=== PATIENT | female | born 1940 | race Caucasian/White ===

== ENCOUNTER 2020-05-12 09:23 | Outpatient (REF) | payer MEDICARE, SELFPAY ==
--- NOTE | 2020-05-12 09:32 | XR_ITS ---
EXAMINATION: XR CHEST CLINICAL INFORMATION: Pleural effusion not elsewhere classified. COMPARISON: 03/13/2020 chest radiograph. TECHNIQUE: 2 views of the chest were obtained. FINDINGS: Support devices: Again seen is a right lower lung chest tube with tip pointing inferiorly at the right lung base without significant change. There is a persistent moderate-sized right pleural effusion with superjacent markings without significant change. A small left pleural effusion with loculation inferolaterally is not significant change. No definitive pneumothorax is seen. The cardiomediastinal silhouette is not significantly changed. XR/XR chest 2V IMPRESSION: Moderate right and small left pleural effusions without significant interval change.
== END 2020-05-12 09:24 | disposition home or self-care (01) ==
LOC: HO.XRAY 09:23
PROVIDERS: PCP Internal Medicine; Visit Provider Surgery
DX: J90 Pleural effusion, not elsewhere classified (principal); I50.9 Heart failure, unspecified
CPT/HCPCS: 71046

== ENCOUNTER → 2020-05-29 09:24 | Outpatient (BNVA) | payer MEDICARE, SELFPAY | PROVIDERS: PCP Internal Medicine; Referring Provider Internal Medicine; Visit Provider Internal Medicine Cardiovascular Disease | DX: I50.30 Unspecified diastolic (congestive) heart failure (principal); I27.20 Pulmonary hypertension, unspecified; I48.0 Paroxysmal atrial fibrillation; Z79.01 Long term (current) use of anticoagulants; Z95.2 Presence of prosthetic heart valve; Z45.018 Encounter for adjustment and management of other part of cardiac pacemaker | CPT/HCPCS: 99212 ==

== ENCOUNTER 2020-06-16 10:46 | Outpatient (REF) | payer MEDICARE, SELFPAY ==
--- NOTE | 2020-06-16 10:54 | XR_ITS ---
EXAMINATION: XR CHEST CLINICAL INFORMATION: Follow-up pleural effusion. COMPARISON: Chest 05/12/2020 TECHNIQUE: 2 views of the chest were obtained. FINDINGS: There is a loculated moderate right pleural effusion and there is tiny left pleural effusion with mild blunting of left CP angle. There is bibasilar haziness likely atelectasis more so on the right side. The upper lungs are relatively clear. There is mild right apical pleural thickening likely extension of pleural effusion on upright view. The heart size and great vessels are normal caliber. There are pacer electrodes in right atrium and right ventricle. There is aortic valve stent in place. There are median anatomy sutures from previous intervention. No gross bony abnormality seen. There is a right Pleurx catheter at the right lung base. XR/XR chest 2V IMPRESSION: Moderate loculated right pleural effusion with a Pleurx catheter within. There is a small left pleural effusion. There is bibasilar compressive atelectasis more so on the right. The upper lungs are clear. Pacer electrodes in right atrium and right ventricle. No major change from chest x-ray 05/12/2020.
== END 2020-06-16 10:47 | disposition home or self-care (01) ==
LOC: HO.XRAY 10:46
PROVIDERS: PCP Internal Medicine; Visit Provider Surgery
DX: J90 Pleural effusion, not elsewhere classified (principal); Z96.89 Presence of other specified functional implants
CPT/HCPCS: 71046; 99214

== ENCOUNTER 2020-07-21 09:25 | Outpatient (REF) | payer MEDICARE, SELFPAY ==
[2020-07-21 10:17] LABS: MANUAL DIFF FLAG NO
[2020-07-21 10:23] LABS: Basophils Absolute Auto 0.1 X10*3/uL (0.0-0.2); Basophils Percent Auto 0.9 % (0-2); Eosinophils Absolute Auto 0.2 X10*3/uL (0.0-0.4); Eosinophils Percent Auto 3.1 % (0-4); Hematocrit 35.8 % (37-47); Imm Gran Abs Auto 0.03 X10*3/uL (0.00-0.03); Imm Gran Pct Auto 0.5 % (0.0-0.4); Mean Corpuscular HGB Conc 30.7 g/dl (31.0-35.0); Mean Corpuscular Volume 87.7 fL (80-98); Mean Platelet Volume 10.4 fL (9.4-12.3); Monocytes Absolute Auto 0.7 X10*3/uL (0.1-1.2); Monocytes Percent Auto 10.4 % (2-11); Neutrophils Absolute Auto 4.5 X10*3/uL (2.0-8.3); Neutrophils Percent Auto 69.1 % (45-73); Platelet Count 256 X10*3/uL (160-400); Red Blood Count 4.08 X10*6/uL (4.20-5.50); Red Cell Distribution Width 15.9 % (11.0-16.0); White Blood Count 6.5 X10*3/uL (4.8-10.8)
--- NOTE | 2020-07-21 10:53 | XR_ITS ---
EXAMINATION: XR CHEST CLINICAL INFORMATION: Follow-up chest were COMPARISON: Chest 06/16/2020 TECHNIQUE: 2 views of the chest were obtained. FINDINGS: The lungs are expanded with moderate opacity seen in the right lung base likely combination of loculated effusion/atelectasis. There is a right Pleurx catheter at the base unchanged. There is mild right apical pleural thickening or effusion. Slight decreased right lung volume is seen. The left lung is expanded and clear with slight blunting of left CP angle. Heart size and pulmonary vascularity is normal. There are median sternotomy sutures and aortic valve replacement. Dual electrodes are seen in right atrium and right ventricle. No gross bony abnormality seen. XR/XR chest 2V IMPRESSION: Persistent loculated right pleural effusion with underlying atelectasis. Right Pleurx catheter is stable and unchanged. Minimal blunting of left CP angle, stable. No change in pacer electrodes, aortic stent and median sternotomy sutures.
[2020-07-21 10:57] LABS: Alanine Aminotransferase 10 U/L (0-31); Albumin Level 3.8 g/dL (3.5-5.0); Alkaline Phosphatase 66 U/L (39-117); Anion Gap 13 (12-20); Aspartate Amino Transferase 21 U/L (5-31); Bilirubin Total 0.7 mg/dL (0.0-1.0); Blood Urea Nitrogen 34 mg/dL (9-16); Calcium 9.3 mg/dL (8.4-10.2); Carbon Dioxide 31 mmol/L (22-29); Chloride 96 mmol/L (96-108); Cholesterol 141 mg/dL; Estimated Glomerular Filt Rate 36; Glucose Fasting 98 mg/dL (60-99); HDL Cholesterol 49 mg/dL; LDL Cholesterol Calculated 80 mg/dl; Potassium 3.7 mmol/l (3.3-5.1); Sodium 136 mmol/L (135-145); Total Protein 7.8 g/dL (6.5-8.0); Triglycerides 60 mg/dL
[2020-07-21 11:01] LABS: Glucose Urine UA NEG (NEG); Leukocyte Esterase Urine NEG (NEG); Nitrite Urine NEG (NEG); Urine Blood NEG (NEG); Urine Ketones NEG (NEG); Urine Protein NEG (NEG-TRACE)
[2020-07-21 11:09] LABS: Appearance Urine HAZY; Color Urine YELLOW
[2020-07-21 11:20] LABS: Free T4 (Free Thyroxine) 1.34 ng/dL (0.71-1.85); Thyroid Stimulating Hormone 0.73 uIU/mL (0.32-4.0); Vitamin D 25-OH Total 66.9 ng/mL (>30)
[2020-07-21 11:26] LABS: Folate 11.3 ng/mL (> or = 4.0); Vitamin B12 299 pg/mL (200-900)
[2020-07-21 11:52] LABS: Bacteria Urine TRACE /LPF; Mucus Urine TRACE /LPF; Squamous Epithelial Cell Urine TRACE /LPF; UACC CULT YES
== END 2020-07-21 09:26 | disposition home or self-care (01) ==
LOC: HO.10HDL 09:25
PROVIDERS: Absent Provider Surgery; PCP Internal Medicine; Visit Provider Internal Medicine
DX: J90 Pleural effusion, not elsewhere classified (principal); Z96.89 Presence of other specified functional implants; I12.9 Hypertensive chronic kidney disease with stage 1 through stage 4 chronic kidney disease, or unspecified chronic kidney disease; N18.30 Chronic kidney disease, stage 3 unspecified; E78.5 Hyperlipidemia, unspecified; E03.9 Hypothyroidism, unspecified; I48.0 Paroxysmal atrial fibrillation; G62.9 Polyneuropathy, unspecified; Q25.3 Supravalvular aortic stenosis; D64.9 Anemia, unspecified; M81.0 Age-related osteoporosis without current pathological fracture; E55.9 Vitamin D deficiency, unspecified
CPT/HCPCS: 36415; 71046; 80053; 80061; 81001; 82306; 82607; 82746; 84439; 84443; 85025; 87086; 99214

== ENCOUNTER 2020-08-04 10:37 | Outpatient (REF) | payer MEDICARE, SELFPAY ==
--- NOTE | 2020-08-04 10:42 | XR_ITS ---
EXAMINATION: XR CHEST CLINICAL INFORMATION: Right pleural effusion COMPARISON: Previous chest x-rays most recent 07/21/2020 TECHNIQUE: 2 views of the chest were obtained. FINDINGS: The cardiac and mediastinal contours are stable. There is a aortic valve replacement and right subclavian dual chamber pacemaker that appear unchanged. There are median sternotomy wires. Hilar and mediastinal contours are unremarkable. There is a right tunneled chest tube at the right lung base that appears unchanged. There is a small right pleural effusion and atelectasis/consolidation of the adjacent right lower lobe. No pneumothorax is seen. The lungs are well-inflated suggestive of COPD. The lungs are otherwise clear. There is blunting at the left lateral costophrenic angle questionable for small left pleural effusion or pleural thickening. This is unchanged. There are degenerative changes of the spine. XR/XR chest 2V IMPRESSION: Stable position of right tunneled chest tube. Small right pleural effusion and adjacent atelectasis/consolidation of the right lower lung. This appears unchanged from earlier exam July 2020
== END 2020-08-04 10:38 | disposition home or self-care (01) ==
LOC: HO.XRAY 10:37
PROVIDERS: PCP Internal Medicine; Visit Provider Surgery
DX: I27.20 Pulmonary hypertension, unspecified (principal); J90 Pleural effusion, not elsewhere classified; Z88.6 Allergy status to analgesic agent; Z87.891 Personal history of nicotine dependence; Z95.2 Presence of prosthetic heart valve; Z96.89 Presence of other specified functional implants; Z79.899 Other long term (current) drug therapy
CPT/HCPCS: 71046; 99214

== ENCOUNTER 2020-08-09 10:27 | Emergency (ER) | payer MEDICARE, SELFPAY ==
--- NOTE | 2020-08-09 | XR_ITS ---
EXAMINATION: LEFT HAND. CLINICAL INFORMATION: Swelling. COMPARISON: None TECHNIQUE: 3 views. FINDINGS: There is no acute fracture, dislocation or subluxation. There is mild to moderate loss of first carpometacarpal joint space, periarticular spurring and mild subluxation. Mild loss of PIP and DIP joints of all digits is noted. Mild deformity of the distal end the appendectomy joint second digit is noted, question erosive changes versus previous intervention. There is mild PIP and DIP joints. There is diffuse osteopenia with diffuse hand and finger soft tissue swelling. XR/XR hand wrist LT IMPRESSION: Severe degenerative arthritic changes first carpometacarpal joint with mild subluxation. There is mild degenerative changes PIP and DIP joints. Moderate dorsal hand and mild finger soft tissue swelling at the PIP and DIP joints. Mild bony erosive changes versus deformity distal mid phalanx at the DIP joint second digit
[2020-08-09 10:36] VITALS: BP 142/67; PULSE 88; RESP 18; TEMP 36.8; O2SAT 94; BMI 19.1
--- NOTE | 2020-08-09 11:10 | ED.EXTPRO ---
HPI - Extremity Problem General Chief complaint: Extremity Problem <MARILYN Reddy Last Filed: 08/09/20 14:09> Stated complaint: swollen lt hand <MARILYN Reddy Last Filed: 08/09/20 14:09> Time Seen by Provider: 08/09/20 11:08 <MARILYN Reddy Last Filed: 08/09/20 14:09> Source: patient <MARILYN Reddy Last Filed: 08/09/20 14:09> Mode of arrival: ambulatory <MARILYN Reddy Last Filed: 08/09/20 14:09> Limitations: no limitations <MARILYN Reddy Last Filed: 08/09/20 14:09> History of Present Illness HPI Narrative: 79 y/o female with multiple co-morbidities including afib on Eliquis, HTN, HLD, CKD III, complete heart block s/p PPM, s/p AV replacement, pulmonary HTN, HFpEF, hx pleural effusion s/p PleurEx catheter with removal on 08/04 who is presenting with painful, swollen, red left hand for the last 1 week. She denies any trauma. She states the pain and swelling started in her thumb 1 week ago and then spread to her hand, fingers and then wrist. She is unable to use her left hand due to the pain. She denies fever or chills at home. She has a history of cellulitis 2 years ago per her . <MARILYN Reddy - Last Filed: 08/09/20 14:09> MD Complaint: extremity pain and extremity swelling <MARILYN Reddy Last Filed: 08/09/20 14:09> Pain Consistency: constant <MARILYN Reddy Last Filed: 08/09/20 14:09> Location: left and upper extremity <MARILYN Reddy Last Filed: 08/09/20 14:09> Quality: aching <MARILYN Reddy Last Filed: 08/09/20 14:09> Radiation: none <MARILYN Reddy Last Filed: 08/09/20 14:09> Relieving factors: immobilization <MARILYN Reddy Last Filed: 08/09/20 14:09> Exacerbating factors: range of motion and palpation <MARILYN Reddy - Last Filed: 08/09/20 14:09> Associated symptoms: denies other symptoms <MARILYN Reddy - Last Filed: 08/09/20 14:09> Related Data Home medications: Home Medications Medication Instructions Recorded Confirmed amlodipine 2.5 mg tablet 2.5 mg PO DAILY 05/11/20 08/06/20 apixaban 2.5 mg tablet 2.5 mg PO BID 05/11/20 08/06/20 ferrous sulfate 325 mg (65 mg 325 mg PO DAILY 05/11/20 08/06/20 iron) tablet levothyroxine 100 mcg tablet 100 mcg PO DAILY 05/11/20 08/06/20 meclizine 25 mg tablet 25 mg PO DAILY 05/11/20 08/06/20 raloxifene 60 mg tablet 60 mg PO DAILY 05/11/20 08/06/20 simvastatin 10 mg tablet 10 mg PO BEDTIME 05/11/20 08/06/20 spironolactone 25 mg tablet 12.5 mg PO DAILY tab 06/16/20 08/06/20 Previous Rx's Medication Instructions Recorded lorazepam 1 mg tablet 1 mg PO BID PRN 90 Days #180 tab 06/27/20 furosemide 40 mg tablet 40 mg PO BID #180 tab 07/20/20 metoprolol succinate 100 mg 100 mg PO DAILY #90 tab 07/21/20 tablet,extended release 24 hr cephalexin [Keflex] 500 mg PO TID #21 cap 08/09/20 doxycycline monohydrate 100 mg PO BID #14 cap 08/09/20 <MARILYN Reddy - Last Filed: 08/09/20 14:09> Allergies/Adverse reactions: Allergies Allergy/AdvReac Type Severity Reaction Status Date / Time codeine [CODEINE] Allergy Unknown RASH Verified 08/06/20 21:58 meperidine [From Demerol] Allergy Unknown Verified 08/06/20 21:58 <MARILYN Reddy - Last Filed: 08/09/20 14:09> Review of Systems Review of Systems: Constitutional: No Fever, No Chills Cardiovascular: No Chest Pain, No SOB, No Orthopnea, No Edema Respiratory: No Cough, No Sputum, No Wheezing, No dyspnea Gastrointestinal: No Nausea, No Vomiting, No Diarrhea, No abdominal Pain Musculoskeletal: + joint pain, No Myalgias Skin: No Skin Lesions, No rash Neuro: + Weakness, No Numbness, No Dizziness, No Headache Psych: No Anxiety/Panic, No Depression Heme/Lymph: No Bruising, No Lymphadenopathy <MARILYN Reddy - Last Filed: 08/09/20 14:09> [facility] Past Medical History Medical History: Medical History (HFpEF) heart failure with preserved ejection fraction Anemia Anxiety Aortic stenosis Benign essential hypertension Cardiac pacemaker in situ Chronic kidney disease (CKD), stage III (moderate) Complete heart block GI bleed H/O: HTN (hypertension) Hyperlipidemia Hypothyroidism Leg edema Neuropathy Osteoporosis Paroxysmal A-fib Paroxysmal atrial fibrillation Pulmonary hypertension Pure hypercholesterolemia Sensorineural hearing loss Tobacco abuse, in remission Tricuspid regurgitation Vitamin D deficiency <MARILYN Reddy - Last Filed: 08/09/20 14:09> Surgical History: Surgical History History of thoracentesis Hx of aortic valve repair Hx of hysterectomy Hx of mastectomy S/P AVR <MARILYN Reddy - Last Filed: 08/09/20 14:09> Family History Family History: Family History Father No problems noted. Mother No problems noted. Sister Diabetes Cancer <MARILYN Reddy - Last Filed: 08/09/20 14:09> Social History Social History: Social History Alcohol intake: never Smoking Status: Former smoker Smoked in Last 30 Days: No Use of substances other than those prescribed or required for medical reasons: No Advance Directives: No Advance Directives Information Provided: Yes <MARILYN Reddy - Last Filed: 08/09/20 14:09> Physical Exam Vital Signs: Vital Signs: Last Vital Signs Temp 98.2 F 08/09/20 10:36 Pulse 88 08/09/20 10:36 Resp 18 08/09/20 10:36 BP 142/67 H 08/09/20 10:36 Pulse Ox 94 08/09/20 10:36 Body Mass Index 19.1 Appearance: Alert. Oriented X3. No acute distress. HEENT: normal inspection CVS: Normal heart rate and rhythm. Pulses normal. Respiratory: No respiratory distress. Skin: Skin warm and dry. Normal skin color. Normal skin turgor. No rashes. Extremities: left hand and wrist with warmth, swelling, erythema and tenderness throughout. she is able to move her wrist but with discomfort. her fingers are swollen and tender, able to move then but with discomfort. 2+ radial pulse. distended toruous superficial veins on the dorsal lower forearm. Neuro: Oriented X 3. No sensory deficit. Left hand with weak hand grasp due to pain. <MARILYN Reddy - Last Filed: 08/09/20 14:09> Vital Signs: Last Vital Signs Temp 98.2 F 08/09/20 10:36 Pulse 88 08/09/20 10:36 Resp 18 08/09/20 10:36 BP 142/67 H 08/09/20 10:36 Pulse Ox 94 08/09/20 10:36 Body Mass Index 19.1 <Rich Anderson MD - Last Filed: 08/09/20 11:57> Course Course Course Narrative: 79 y/o female with multiple comorbdiites presenting with non-traumatic left hand pain, swelling and warmth x1 week. Concern for cellulitis. Doubt septic arthritis given exam with only mild discomfort on ROM. Afebrile and not septic. Will r/o DVT with U/S. Will get basic lab work and give dose of Ancef while in the ED. Family and patient updated on plan of care. <MARILYN Reddy - Last Filed: 08/09/20 14:09> I agree with the history. My physical exam is very thin female, normal cephalic, PERRL, EOMI, normal pharynx, supple neck, lungs clear, CV RRR, abdomen nontender, Neuro intact and nonfocal, psychiatric at baseline, left hand is hot and erythematous, arm veins very distended. Will treat for cellulitis and obtain US to rule out subclavian DVT <Rich Anderson MD - Last Filed: 08/09/20 11:57> Reevaluation(s) Reevaluation #1: Lab workup unremarkable. US negative for DVT. XR showing arthritic changes. Comfortable with d/c home with oral abx and follow up with her doctor early next week. Told to return to the ER if anything worsens and she expressed understanding. <MARILYN Reddy - Last Filed: 08/09/20 14:09> MDM - Extremity (Nontraumatic) Lab Data Result diagrams: : 08/09/20 12:13 08/09/20 12:13 <MARILYN Reddy - Last Filed: 08/09/20 14:09> Labs: Lab Results 08/09/20 08/09/20 Range/Units 12:13 12:13 WBC 9.1 (4.8-10.8) X10*3/uL RBC 3.84 L (4.20-5.50) X10*6/uL Hgb 10.6 L (12.0-16.0) g/dl Hct 33.5 L (37-47) % MCV 87.2 (80-98) fL MCH 27.6 (27.0-33.0) pg MCHC 31.6 (31.0-35.0) g/dl RDW 15.9 (11.0-16.0) % Plt Count 260 (160-400) X10*3/uL MPV 10.0 (9.4-12.3) fL Immature Gran % (Auto) 0.6 H (0.0-0.4) % Neut % (Auto) 82.3 H (45-73) % Lymph % (Auto) 5.8 L (20-40) % Grady % (Auto) 10.3 (2-11) % Eos % (Auto) 0.6 (0-4) % Baso % (Auto) 0.4 (0-2) % Lymph # (Auto) 0.5 L (1.2-4.9) X10*3/uL Grady # (Auto) 0.9 (0.1-1.2) X10*3/uL Eos # (Auto) 0.1 (0.0-0.4) X10*3/uL Baso # (Auto) 0.0 (0.0-0.2) X10*3/uL Abs Immat Gran (auto) 0.05 H (0.00-0.03) X10*3/uL Absolute Neuts (auto) 7.5 (2.0-8.3) X10*3/uL Absolute Nucleated RBC 0.000 (0.0-0.012) X10*3/uL Nucleated RBC % (auto) 0.0 (0.0-0.2) /100WBC Smear Tech's Comments VERIFIED Sodium 137 (135-145) mmol/L Potassium 3.8 (3.3-5.1) mmol/l Chloride 97 (96-108) mmol/L Carbon Dioxide 28 (22-29) mmol/L Anion Gap 16 (12-20) BUN 35 H (9-16) mg/dL Creatinine 1.27 (0.5-1.4) mg/dL Estim Creat Clear Calc 24.0 Estimated GFR 40 Random Glucose 97 (60-115) mg/dL Calcium 9.2 (8.4-10.2) mg/dL <MARILYN Reddy - Last Filed: 08/09/20 14:09> Lab Results 08/09/20 08/09/20 Range/Units 12:13 12:13 WBC 9.1 (4.8-10.8) X10*3/uL RBC 3.84 L (4.20-5.50) X10*6/uL Hgb 10.6 L (12.0-16.0) g/dl Hct 33.5 L (37-47) % MCV 87.2 (80-98) fL MCH 27.6 (27.0-33.0) pg MCHC 31.6 (31.0-35.0) g/dl RDW 15.9 (11.0-16.0) % Plt Count 260 (160-400) X10*3/uL MPV 10.0 (9.4-12.3) fL Immature Gran % (Auto) 0.6 H (0.0-0.4) % Neut % (Auto) 82.3 H (45-73) % Lymph % (Auto) 5.8 L (20-40) % Grady % (Auto) 10.3 (2-11) % Eos % (Auto) 0.6 (0-4) % Baso % (Auto) 0.4 (0-2) % Lymph # (Auto) 0.5 L (1.2-4.9) X10*3/uL Grady # (Auto) 0.9 (0.1-1.2) X10*3/uL Eos # (Auto) 0.1 (0.0-0.4) X10*3/uL Baso # (Auto) 0.0 (0.0-0.2) X10*3/uL Abs Immat Gran (auto) 0.05 H (0.00-0.03) X10*3/uL Absolute Neuts (auto) 7.5 (2.0-8.3) X10*3/uL Absolute Nucleated RBC 0.000 (0.0-0.012) X10*3/uL Nucleated RBC % (auto) 0.0 (0.0-0.2) /100WBC Smear Tech's Comments VERIFIED Sodium 137 (135-145) mmol/L Potassium 3.8 (3.3-5.1) mmol/l Chloride 97 (96-108) mmol/L Carbon Dioxide 28 (22-29) mmol/L Anion Gap 16 (12-20) BUN 35 H (9-16) mg/dL Creatinine 1.27 (0.5-1.4) mg/dL Estim Creat Clear Calc 24.0 Estimated GFR 40 Random Glucose 97 (60-115) mg/dL Calcium 9.2 (8.4-10.2) mg/dL <Rich Anderson MD - Last Filed: 08/09/20 11:57> Discharge Plan Discharge Clinical Impression: Cellulitis <MARILYN Reddy - Last Filed: 08/09/20 14:09> Patient Disposition: Home, Self-Care <MARILYN Reddy - Last Filed: 08/09/20 14:09> Instructions: Cellulitis (ED) <MARILYN Reddy - Last Filed: 08/09/20 14:09> Additional Instructions: Your x-ray today showed significant arthritis in your hand and fingers. Your lab workup was unremarkable. Ultrasound did not show any blood clots. Take the prescribed antibiotic for cellulitis, infection of the skin. Follow up with your doctor in 2 days. If the swelling, redness or pain is worsening call your doctor or come back to the ER for further evaluation. <MARILYN Reddy - Last Filed: 08/09/20 14:09> Prescriptions: New cephalexin [Keflex] 500 mg capsule 500 mg PO TID Qty: 21 RF: 0 doxycycline monohydrate 100 mg capsule 100 mg PO BID Qty: 14 RF: 0 No Action lorazepam 1 mg tablet 1 mg PO BID PRN (Reason: anxiety) 90 Days Qty: 180 RF: 0 furosemide 40 mg tablet 40 mg PO BID Qty: 180 RF: 1 metoprolol succinate 100 mg tablet extended release 24 hr 100 mg PO DAILY Qty: 90 RF: 3 simvastatin 10 mg tablet 10 mg PO BEDTIME RF: 0 levothyroxine 100 mcg tablet 100 mcg PO DAILY RF: 0 meclizine 25 mg tablet 25 mg PO DAILY RF: 0 raloxifene 60 mg tablet 60 mg PO DAILY RF: 0 amlodipine [Norvasc] 2.5 mg tablet 2.5 mg PO DAILY RF: 0 Eliquis 2.5 mg tablet 2.5 mg PO BID RF: 0 Hold Instructions: Home Medication placed on hold at Doctor's office ferrous sulfate [Iron (ferrous sulfate)] 325 mg (65 mg iron) tablet 325 mg PO DAILY RF: 0 spironolactone 25 mg tablet 12.5 mg PO DAILY RF: 0 <MARILYN Reddy - Last Filed: 08/09/20 14:09>
--- NOTE | 2020-08-09 11:21 | PC.NURSE ---
LUE ELEVATED ON PILLOW, +REDNESS/WARMTH, SWELLING/RADIAL PULSE, CHANGED IN TO [facility]OSP[facility] FOR EXAM, PT IS ON ELIQUIS
--- NOTE | 2020-08-09 11:51 | PC.NURSE ---
MARILYN MONZON AND DR PORTER AT BEDSIDE FOR EXAM AFTER REVIEW OF XRAYS AND MARILYN'S PREVIOUS EXAM
--- NOTE | 2020-08-09 11:54 | US_ITS ---
EXAMINATION: US VENOUS WITH DOPPLER UPPER EXTREMITY, LEFT CLINICAL INFORMATION: Swelling and venous distention COMPARISON: None TECHNIQUE: Ultrasound of the upper extremity is performed using compression sonography and color and pulse Doppler flow with assessment of augmentation of flow. There is also imaging and Doppler assessment of the jugular and subclavian veins. Spectral analysis with color-flow imaging is performed. FINDINGS: Respiratory variation, normal compression, and augmented flow are noted throughout the upper extremity including the axillary, brachial, cubital, and radial and ulnar veins. There is normal flow in the internal jugular and subclavian veins. There is no visible deep or superficial thrombophlebitis. US/US venous duplex UE LT IMPRESSION: No DVT demonstrated in the left upper extremity
[2020-08-09 12:28] LABS: Basophils Percent Auto 0.4 % (0-2); Eosinophils Absolute Auto 0.1 X10*3/uL (0.0-0.4); Eosinophils Percent Auto 0.6 % (0-4); Hematocrit 33.5 % (37-47); Hemoglobin 10.6 g/dl (12.0-16.0); Imm Gran Abs Auto 0.05 X10*3/uL (0.00-0.03); Imm Gran Pct Auto 0.6 % (0.0-0.4); Lymphocytes Absolute Auto 0.5 X10*3/uL (1.2-4.9); Lymphocytes Percent Auto 5.8 % (20-40); MANUAL DIFF FLAG SCAN; Mean Corpuscular HGB Conc 31.6 g/dl (31.0-35.0); Mean Corpuscular Hemoglobin 27.6 pg (27.0-33.0); Mean Corpuscular Volume 87.2 fL (80-98); Monocytes Absolute Auto 0.9 X10*3/uL (0.1-1.2); Monocytes Percent Auto 10.3 % (2-11); Neutrophils Absolute Auto 7.5 X10*3/uL (2.0-8.3); Neutrophils Percent Auto 82.3 % (45-73); Platelet Count 260 X10*3/uL (160-400); Red Blood Count 3.84 X10*6/uL (4.20-5.50); Red Cell Distribution Width 15.9 % (11.0-16.0); SCAN SMEAR FLAG 1; White Blood Count 9.1 X10*3/uL (4.8-10.8)
[2020-08-09] MEDS: ceFAZolin Sodium/Dextrose,Iso 2 GM/50 ML PIGGYBACK IV (12:41)
[2020-08-09 12:53] LABS: Anion Gap 16 (12-20); Blood Urea Nitrogen 35 mg/dL (9-16); Calcium 9.2 mg/dL (8.4-10.2); Carbon Dioxide 28 mmol/L (22-29); Chloride 97 mmol/L (96-108); Estimated Glomerular Filt Rate 40; Glucose Random 97 mg/dL (60-115); Potassium 3.8 mmol/l (3.3-5.1); Sodium 137 mmol/L (135-145)
[2020-08-09 12:56] LABS: SLIDE REVIEW VERIFIED
[2020-08-09 14:32] VITALS: BP 108/60; PULSE 79; RESP 16; TEMP 36.9; O2SAT 98
== END 2020-08-09 14:25 | disposition home or self-care (01) ==
PROVIDERS: Physician Assistant; Emergency Provider Emergency Medicine; PCP Internal Medicine
DX: L03.114 Cellulitis of left upper limb (principal); M79.642 Pain in left hand; R60.0 Localized edema; I48.91 Unspecified atrial fibrillation; Z79.01 Long term (current) use of anticoagulants; Z79.899 Other long term (current) drug therapy; Z87.891 Personal history of nicotine dependence
CPT/HCPCS: 36415; 73110; 73130; 80048; 85025; 93971; 96365; 99284; J0690

== ENCOUNTER → 2020-08-18 10:58 | Outpatient (BNVA) | payer MEDICARE, SELFPAY | PROVIDERS: PCP Internal Medicine; Visit Provider Surgery | DX: Z09 Encounter for follow-up examination after completed treatment for conditions other than malignant neoplasm (principal); Z87.09 Personal history of other diseases of the respiratory system | CPT/HCPCS: 99214 ==

== ENCOUNTER 2020-08-24 12:55 | Outpatient (REF) | payer MEDICARE, SELFPAY ==
--- NOTE | 2020-08-24 16:18 | MHC.AU.P13 ---
Hearing Aid Evaluation- Binaural Date of Visit: 08/24/20 Description of Hearing: Moderate to moderately severe sensorineural hearing loss. Additional Information: Mrs. Schmitz is interested in trying hearing aids to facilitate improved communication. She is interested in rechargeable PRASHANTH hearing aids. Discussed options at length with her and her . Hearing Instrument Selection: Right Ear: Crayon Sorting Machine Feeder: Phonak Model: Audeo P90-R Battery Size: Rechargeable Color: P1- Sand Beige Retail Sales Advisor: Size 1 M Type of Mold: C-Shell Left Ear: Crayon Sorting Machine Feeder: Phonak Model: Audeo P90-R Battery Size: Rechargeable Color: P1- Sand Beige Retail Sales Advisor: Size 1 M Type of Mold: c-Shell Accessory: TV Connector- Promo Code [id number] Plan: Plan of Care for Hearing Instrument Fitting: Patient wishes to purchase hearing aids as prescribed Action Taken/Action Needed: Earmold Impressions Taken Medical Clearance to be requested from PCP/ENT Hearing Fitting to be scheduled when materials arrive Order sent to [facility] today. Diagnosis Code(s): Primary Diagnosis: H90.3 Bilateral Sensorineural Hearing Loss Signature: Provider: Bobo Thibodeaux, CCC-A
--- NOTE | 2020-08-24 16:19 | MHC.AU.MED ---
Medical Clearance for Hearing Instrumentation Date: 08/24/20 Patient Name: Mey Schmitz Date of : 1940 Primary Care Provider: Referring Provider: Rj Mclaughlin MD We have seen your patient on 08/24/20 and have determined that they are a candidate for amplification (See accompanying report). Specifically, they would benefit from: Hearing aid use in both ears There is a statute that addresses Medical Evaluation Requirements prior to fitting a patient with a hearing aid. According to [place] statute 265 CMR:6.03(1), (a) General. Except as provided in 265 CMR 6.03(1)(b), a wool shearing supervisor shall not sell a hearing aid unless the prospective user has presented to the wool shearing supervisor a written statement signed by a licensed physician that states that the patient's hearing loss has been medically evaluated and the patient may be considered a candidate for a hearing aid. The medical evaluation must have taken place within the preceding six months. Please note: Due to the [place] Statute referenced above, we cannot accept a signature other than that of a licensed physician. UMBRELLA MENDER and PA signatures cannot be accepted. I am in agreement with the above recommendation. There is no medical contraindication for hearing instrumentation. Physician Signature Date Physician Name (Printed)
--- NOTE | 2020-08-24 16:20 | MHC.AU.P13 ---
Adult Audiological Evaluation Date of Visit: 08/24/20 Reason for Appointment: Audiological evaluation due to concern for decrease in hearing sensitivity. Mrs. Schmitz feels that her hearing is gradually worsening. She notes that it often sounds like people are mumbling and she's frequently asking for repetition. Mrs. Schmitz also notes that she has to turn the TV volume up. She was previously tested here in 2017, at which time she did not feel that she was ready for hearing aids. Does patient feel they have a hearing loss?: Yes If Yes, Which Ear?: Both Ears Has hearing been tested previously?: Yes Previous Hearing Test Results: [facility] [place], 03/12/2017- Mild sloping to moderately severe sensorineural hearing loss bilaterally. Medical History: Medical History: Heart Problems High Blood Pressure Medical History (Other): Aortic valve replacement ~5 years ago, fluid on the lungs, pleural effusion Medication List: See patient chart Otoscopy: Right Ear: Unremarkable Left Ear: Unremarkable Hearing Evaluation: Transducer(s) Used: Insert Earphones Bone Conduction Method: Conventional Audiometry Stimuli Used: FRESH Noise Right Ear: Description of Hearing: Mild sloping to moderately severe sensorineural hearing loss from 250-8000 Hz. Left Ear: Description of Hearing: Moderate sloping to moderately severe sensorineural hearing loss from 250-8000 Hz. Speech Recognition Threshold (SRT): Method Used: Monitored Live Voice Stimuli Used: Spondee Words Right Ear: 55 dBHL Left Ear: 55 dBHL Word Discrimination: Method: Recorded Lists Word Lists Used: NU-6 Right Ear: 96% at 85 dBHL Left Ear: 76% at 85 dBHL Comparison: Compared to the most recent evaluation: Thresholds have decreased bilaterally. Compared to the most recent evaluation: 5-15 dBHL decrease in thresholds across the frequency range bilaterally. Recommendations: Audiological re-evaluation in one year. Trial with amplification is recommended. Hearing Aid Fitting will be scheduled when all materials arrive. See Hearing Aid Evaluation report for more information. Diagnosis: Primary Diagnosis: H90.3 Bilateral Sensorineural Hearing Loss Services Performed: Services Performed: Comprehensive Audiological Evaluation (CPT 50628) Signature: Provider: Bobo Thibodeaux, BETTY-A
== END 2020-08-24 12:56 | disposition home or self-care (01) ==
LOC: HO.SH 12:55
PROVIDERS: Visit Provider Internal Medicine
DX: H90.3 Sensorineural hearing loss, bilateral (principal)
CPT/HCPCS: 92557

== ENCOUNTER → 2020-08-31 10:02 | Outpatient (BNVA) | payer MEDICARE, SELFPAY | PROVIDERS: PCP Internal Medicine; Visit Provider Internal Medicine Cardiovascular Disease | DX: Z45.018 Encounter for adjustment and management of other part of cardiac pacemaker (principal); I50.32 Chronic diastolic (congestive) heart failure; I48.0 Paroxysmal atrial fibrillation | CPT/HCPCS: 99212 ==

== ENCOUNTER 2020-09-06 14:51 | Outpatient (REF) | payer SELFPAY | END 2020-09-06 14:52 | disposition home or self-care (01) | LOC: HO.HAP 14:51 | PROVIDERS: Visit Provider Internal Medicine | DX: Z46.1 Encounter for fitting and adjustment of hearing aid (principal); H90.3 Sensorineural hearing loss, bilateral | CPT/HCPCS: V5261; V5266 ==

== ENCOUNTER 2020-09-27 09:30 | Outpatient (REF) | payer SELFPAY | END 2020-09-27 09:31 | disposition home or self-care (01) | LOC: HO.HAP 09:30 | PROVIDERS: Visit Provider Internal Medicine | DX: Z13.89 Encounter for screening for other disorder (principal) ==

== ENCOUNTER 2020-11-30 09:36 | Outpatient (REF) | payer MEDICARE, SELFPAY ==
[2020-11-30 10:33] LABS: MANUAL DIFF FLAG NO
[2020-11-30 10:36] LABS: Basophils Absolute Auto 0.1 X10*3/uL (0.0-0.2); Basophils Percent Auto 0.7 % (0-2); Eosinophils Absolute Auto 0.4 X10*3/uL (0.0-0.4); Eosinophils Percent Auto 5.2 % (0-4); Hematocrit 38.6 % (37-47); Hemoglobin 12.1 g/dl (12.0-16.0); Imm Gran Abs Auto 0.04 X10*3/uL (0.00-0.03); Imm Gran Pct Auto 0.5 % (0.0-0.4); Lymphocytes Absolute Auto 1.1 X10*3/uL (1.2-4.9); Lymphocytes Percent Auto 15.1 % (20-40); Mean Corpuscular HGB Conc 31.3 g/dl (31.0-35.0); Mean Corpuscular Hemoglobin 28.3 pg (27.0-33.0); Mean Corpuscular Volume 90.4 fL (80-98); Mean Platelet Volume 11.1 fL (9.4-12.3); Monocytes Absolute Auto 0.8 X10*3/uL (0.1-1.2); Monocytes Percent Auto 10.9 % (2-11); Neutrophils Absolute Auto 5.1 X10*3/uL (2.0-8.3); Neutrophils Percent Auto 67.6 % (45-73); Platelet Count 201 X10*3/uL (160-400); Red Blood Count 4.27 X10*6/uL (4.20-5.50); White Blood Count 7.5 X10*3/uL (4.8-10.8)
[2020-11-30 11:02] LABS: Glucose Urine UA NEG (NEG); Leukocyte Esterase Urine 1+ (NEG); Nitrite Urine NEG (NEG); Specific Gravity - Urine 1.015 (1.005-1.025); UACC Culture Trigger YES; Urine Blood NEG (NEG); Urine Ketones NEG (NEG); Urine Protein NEG (NEG-TRACE)
[2020-11-30 11:02] LABS: B Type Natriuretic Peptide 366 pg/mL (<100)
[2020-11-30 11:05] LABS: Alanine Aminotransferase 13 U/L (0-31); Alkaline Phosphatase 85 U/L (39-117); Anion Gap 14 (12-20); Aspartate Amino Transferase 22 U/L (5-31); Bilirubin Total 0.7 mg/dL (0.0-1.0); Blood Urea Nitrogen 55 mg/dL (9-16); Calcium 10.1 mg/dL (8.4-10.2); Carbon Dioxide 31 mmol/L (22-29); Chloride 97 mmol/L (96-108); Cholesterol 142 mg/dL; Estimated Glomerular Filt Rate 34; Glucose Fasting 98 mg/dL (60-99); HDL Cholesterol 53 mg/dL; LDL Cholesterol Calculated 78 mg/dl; Potassium 4.3 mmol/L (3.3-5.1); Sodium 138 mmol/L (135-145); Total Protein 8.1 g/dL (6.5-8.0); Triglycerides 56 mg/dL
[2020-11-30 11:09] LABS: Appearance Urine HAZY; Color Urine YELLOW
[2020-11-30 11:18] LABS: Free T4 (Free Thyroxine) 1.35 ng/dL (0.71-1.85); Thyroid Stimulating Hormone 0.18 uIU/mL (0.32-4.0); Vitamin D 25-OH Total 71.6 ng/mL (>30)
[2020-11-30 11:24] LABS: Creatinine Urine 90.08 mg/dL; Microalbum/Creatinine Ratio Ur 62.1 ug/mg cr; RBC Urine 0-2 /HPF (0)
[2020-11-30 11:25] LABS: Bacteria Urine 1+ /LPF; Renal Epithelial Cells Urine TRACE /LPF; Squamous Epithelial Cell Urine 1+ /LPF
== END 2020-11-30 09:37 | disposition home or self-care (01) ==
LOC: HO.LAB 09:36
PROVIDERS: PCP Internal Medicine; Visit Provider Internal Medicine
DX: I13.0 Hypertensive heart and chronic kidney disease with heart failure and stage 1 through stage 4 chronic kidney disease, or unspecified chronic kidney disease (principal); N18.30 Chronic kidney disease, stage 3 unspecified; I50.32 Chronic diastolic (congestive) heart failure; D63.1 Anemia in chronic kidney disease; I48.0 Paroxysmal atrial fibrillation; E78.00 Pure hypercholesterolemia, unspecified; E03.9 Hypothyroidism, unspecified; E55.9 Vitamin D deficiency, unspecified
CPT/HCPCS: 36415; 80053; 80061; 81001; 81003; 82043; 82306; 83880; 84439; 84443; 85025; 87086; 87088; 87186

== ENCOUNTER 2021-02-23 09:31 | Outpatient (REF) | payer MEDICARE, SELFPAY ==
[2021-02-23 11:22] LABS: Anion Gap 16 (12-20); Blood Urea Nitrogen 46 mg/dL (9-16); Calcium 10.2 mg/dL (8.4-10.2); Carbon Dioxide 28 mmol/L (22-29); Chloride 100 mmol/L (96-108); Estimated Glomerular Filt Rate 36; Glucose Random 113 mg/dL (60-115); Potassium 4.5 mmol/L (3.3-5.1); Sodium 139 mmol/L (135-145)
[2021-02-23 11:26] LABS: B Type Natriuretic Peptide 405 pg/mL (<100)
== END 2021-02-23 09:32 | disposition home or self-care (01) ==
LOC: HO.LAB 09:31
PROVIDERS: PCP Internal Medicine; Referring Provider Internal Medicine; Visit Provider Internal Medicine Cardiovascular Disease
DX: I50.32 Chronic diastolic (congestive) heart failure (principal); I48.0 Paroxysmal atrial fibrillation; Z79.899 Other long term (current) drug therapy; Z95.0 Presence of cardiac pacemaker; Z95.2 Presence of prosthetic heart valve
CPT/HCPCS: 36415; 80048; 83880; 99212

== ENCOUNTER → 2021-03-02 14:46 | Outpatient (REF) | payer MEDICARE, SELFPAY ==
--- NOTE | 2021-03-02 14:49 | CA_ITS ---
Transthoracic Echocardiogram Patient (Last, First, Middle): Mey Schmitz, Gender: Female Date of : 1940 Age: 80 Procedure Date: 03/02/2021 Procedure Type: Transthoracic Echocardiogram Location: OP Height: 149.86 cm Weight: 38.56 kg BSA: 1.28 m2 Heart Rate: bpm BP: 116 / 60 mmHg Metal Crafts Teacher: Referring MD: Darek Bingham MD Auto Transport Driver: Darek Bingham MD Symptoms: I50.32 - Chronic diastolic (congestive) heart failure Study Quality: Fair ECG Rhythm: Ventriculary paced rhythm Conclusions: - 1. Normal LV systolic function with at least grade 2 diastolic dysfunction next 2. Mild left atrial enlargement 3. Reduced RV systolic function, RV size could not be accurately estimated 4. Normally function bioprosthetic aortic valve 5. At least moderate mitral and calcification with mild mitral regurgitation 6. Normal RV systolic pressure 7. No pericardial effusion Findings Left Ventricle Normal left ventricular size, thickness, and systolic function. The visually estimated ejection fraction is between 55-60%. There is paradoxical septal motion consistent with a right ventricular pacemaker. Spectral Doppler is indicative of a pseudonormal filling pattern. E/E prime ratio is >15, consistent with elevated filling pressures. Evidence suggests grade II (moderate) diastolic dysfunction. Right Ventricle The right ventricle was not well visualized. There is mild to moderately decreased right ventricular systolic function. There is a pacemaker wire seen in the right ventricle. Atria The left atrium is mildly dilated. Interatrial shunt cannot be excluded. The right atrium was not well visualized. A pacemaker wire is identified in the right atrium. Aortic Valve A bioprosthetic aortic valve is present. The prosthetic aortic valve appears to be functioning normally. The aortic valve was not well visualized. The mean gradient is 5 mmHg. Mitral Valve There is moderate anterior and posterior mitral leaflet thickening. There is moderate mitral annular calcification. There is mild mitral valve regurgitation. There is no mitral valve stenosis. Pulmonic Valve The pulmonic valve was not well visualized. Tricuspid Valve The tricuspid valve was not well visualized. There is mild to moderate tricuspid valve regurgitation. The right ventricular systolic pressure is normal. The right ventricular systolic pressure is 35 mmHg. There is no evidence of pulmonary hypertension. Great Vessels All visible segments of the aorta are normal in size. The pulmonary artery was not well visualized. Venous The inferior vena cava is normal in size and collapses greater than 50% with inspiration. Pericardium/Pleural There is no evidence of pericardial effusion. Prior Study Comparison Changes noted compared to prior study dated: 08/10/2019. RV systolic pressure measured on this study are within normal limits Measurements 2D Linear Measurements IVSd: 0.92 0.6-0.9/0.6-1.0 cm LVIDd: 3.45 3.9-5.3/4.2-5.9 cm LVIDd Index: 2.70 2.4-3.2/2.2-3.1 cm/m2 LVIDs: 2.56 2.0-3.6 cm LVPWd: 0.92 0.7-1.1 cm Ao Root: 2.80 2.1-3.5 cm LA Diam: 3.70 2.7-3.8/3.0-4.0 cm LAIDs Index: 2.89 1.5-2.3 cm/m2 LV Mass: 110.99 67-162/88-224 g LV Mass Index: 86.71 43-95/49-115 g/m2 LVOT Diam: 2.00 3.0+(-)1.3 cm Mitral Valve MV VTI: 0.43 MV Pk Richard: 1.64 MV Mn Richard: 0.85 MV Pk Grad: 11.00 MV Mn Grad: 4.00 MV Pk E: 1.51 MV PK A: 0.70 MV Decel Time: 293.00 E/A: 2.10 E'Lateral: 10.60 E'Medial: 3.59 E/E' Med: 42.10 E/E' Lat: 14.20 PHT: 86.00 MVA PHT: 2.56 Decel Jefferson: 5.16 Aortic Valve AoV Pk Richard: 1.46 AoV Mn Richard: 1.07 AoV VTI: 0.33 AoV Pk Grad: 9.00 Aov Mn Grad: 5.00 LVOT LVOT Diam: 2.00 LVOT Area: 3.14 Diastolic Function MV Pk E: 1.51 MV Pk A: 0.70 E/A: 2.10 E'Medial: 3.59 E/E' Med: 42.10 E' Laterial: 10.60 E/E' Lat: 14.20 Tricuspid Valve TR Pk Richard: 2.81 TR Pk Grad: 32.00 RA Press: 3.00 RVSP: 35.00 Great Vessels Aorta Ao Root-2D: 2.80 2.0-3.7 cm Ao Asc: 3.00 2.1-3.4 cm Pulmonary Valve PV Pk Richard: 0.99 Peak PV Grad: 4.00 Updated in Other Vendor System with Status of Final Darek Bingham MD electronically signed on 03/03/2021 1:44:48 PM with status of Final
== END ==
LOC: HO.CARD 14:46
PROVIDERS: PCP Internal Medicine; Visit Provider Internal Medicine Cardiovascular Disease
DX: I50.32 Chronic diastolic (congestive) heart failure (principal)
CPT/HCPCS: 93306

== ENCOUNTER 2021-04-24 09:28 | Outpatient (REF) | payer MEDICARE, SELFPAY ==
[2021-04-24 10:25] LABS: MANUAL DIFF FLAG NO
[2021-04-24 10:32] LABS: Basophils Absolute Auto 0.1 X10*3/uL (0.0-0.2); Basophils Percent Auto 0.8 % (0-2); Eosinophils Absolute Auto 0.2 X10*3/uL (0.0-0.4); Eosinophils Percent Auto 3.4 % (0-4); Hematocrit 35.8 % (37-47); Hemoglobin 11.4 g/dl (12.0-16.0); Imm Gran Abs Auto 0.04 X10*3/uL (0.00-0.03); Imm Gran Pct Auto 0.6 % (0.0-0.4); Lymphocytes Percent Auto 13.6 % (20-40); Mean Corpuscular HGB Conc 31.8 g/dl (31.0-35.0); Mean Corpuscular Hemoglobin 28.6 pg (27.0-33.0); Mean Corpuscular Volume 89.7 fL (80-98); Mean Platelet Volume 10.6 fL (9.4-12.3); Monocytes Absolute Auto 0.9 X10*3/uL (0.1-1.2); Monocytes Percent Auto 11.9 % (2-11); Neutrophils Percent Auto 69.7 % (45-73); Platelet Count 205 X10*3/uL (160-400); Red Blood Count 3.99 X10*6/uL (4.20-5.50); Red Cell Distribution Width 14.7 % (11.0-16.0); White Blood Count 7.2 X10*3/uL (4.8-10.8)
[2021-04-24 11:00] LABS: Alanine Aminotransferase 8 U/L (0-31); Albumin Level 3.8 g/dL (3.5-5.0); Alkaline Phosphatase 82 U/L (39-117); Anion Gap 14 (12-20); Aspartate Amino Transferase 23 U/L (5-31); Bilirubin Total 0.5 mg/dL (0.0-1.0); Blood Urea Nitrogen 46 mg/dL (9-16); Calcium 10.1 mg/dL (8.4-10.2); Carbon Dioxide 29 mmol/L (22-29); Chloride 99 mmol/L (96-108); Cholesterol 141 mg/dL; Estimated Glomerular Filt Rate 38; Glucose Fasting 93 mg/dL (60-99); HDL Cholesterol 51 mg/dL; LDL Cholesterol Calculated 81 mg/dl; Potassium 3.9 mmol/L (3.3-5.1); Sodium 138 mmol/L (135-145); Total Protein 7.8 g/dL (6.5-8.0); Triglycerides 45 mg/dL
[2021-04-24 11:01] LABS: B Type Natriuretic Peptide 431 pg/mL (<100)
[2021-04-24 11:21] LABS: Free T4 (Free Thyroxine) 1.42 ng/dL (0.71-1.85); Thyroid Stimulating Hormone 0.39 uIU/mL (0.32-4.0); Vitamin D 25-OH Total 73.2 ng/mL (>30)
[2021-04-24 14:28] LABS: Appearance Urine HAZY; Color Urine YELLOW; Glucose Urine UA NEG (NEG); Leukocyte Esterase Urine 3+ (NEG); Nitrite Urine NEG (NEG); UACC Culture Trigger YES; Urine Blood 2+ (NEG); Urine Ketones NEG (NEG); Urine Protein NEG (NEG-TRACE)
[2021-04-24 15:42] LABS: Mucus Urine TRACE /LPF; Renal Epithelial Cells Urine TRACE /LPF; Squamous Epithelial Cell Urine 1+ /LPF
[2021-04-24 15:43] LABS: Bacteria Urine 1+ /LPF; WBC Urine 50-75 /HPF (0-4)
== END 2021-04-24 09:29 | disposition home or self-care (01) ==
LOC: HO.10HDL 09:28
PROVIDERS: Visit Provider Internal Medicine
DX: I11.0 Hypertensive heart disease with heart failure (principal); I50.32 Chronic diastolic (congestive) heart failure; E78.00 Pure hypercholesterolemia, unspecified; E03.9 Hypothyroidism, unspecified; E55.9 Vitamin D deficiency, unspecified
CPT/HCPCS: 36415; 80053; 80061; 81001; 81003; 82306; 83880; 84439; 84443; 85025; 87086; 87088; 87186

== ENCOUNTER 2021-04-27 11:34 | Inpatient (IN) | payer MEDICARE, SELFPAY ==
--- NOTE | ~2021-04-27 | CT_ITS ---
EXAMINATION: CT CHEST WITH CONTRAST CLINICAL INFORMATION: Right chest effusion. COMPARISON: Multiple priors, most recent chest radiographs dated 07/28/2020. CT abdomen/pelvis dated 04/14/2018. TECHNIQUE: Multidetector volumetric CT imaging of the chest was obtained after the administration of 100 mL of Omnipaque 350 intravenous contrast without immediate adverse reactions. Axial MIP volume rendering provided. Sagittal and coronal reformatted images were obtained. This CT examination was performed using dose optimization techniques as appropriate, variously including the following: *Automated exposure control *Adjustment of mA and/or kV according to patient size (this includes techniques or standardized protocols for targeted exams where dose is matched to indication/reason for exam; i.e. extremities or head) *Use of iterative reconstruction technique DLP: 130 mGy-cm FINDINGS: EXTRUDING PRESS OPERATOR: Right-sided pleural effusion. LUNGS: Emphysematous changes. Interstitial prominence and reticulonodular opacities within the superomedial aspect of the right upper lobe. Irregular subpleural nodularity within the posterolateral aspect of the left upper lobe with the largest nodular area measuring up to 1.0 cm (axial image 116/471). Near-complete collapse of the right lower lobe with diffuse opacities. The right lower lobe mainstem bronchus is completely opacified. MEDIASTINUM: No cardiomegaly. No pericardial effusion. No thoracic aortic dilatation or dissection. Atherosclerotic calcifications. No superior mediastinal or hilar lymphadenopathy. Sternal wires and valvuloplasty are redemonstrated. Right chest wall pacer with its leads in the right heart. PLEURA: Small right-sided pleural effusion. No pneumothorax. CHEST/AXILLA: No axillary or internal mammary lymphadenopathy. Right chest wall pacer with its leads in the right heart. Sternal wires. UPPER ABDOMEN: Partially visualized and slightly irregular enhancing focus within the lateral right hepatic lobe measuring 1.3 cm. Findings are unchanged when compared to the examination from 2018 and likely represent a hepatic hemangioma. Otherwise, the visualized upper abdominal structures are unremarkable. OSSEOUS STRUCTURES: No concerning lytic or blastic osseous lesion. CT/CT chest w con IMPRESSION: 1. Complete collapse of the right lower lobe with opacification of the right lower lobe mainstem bronchus. Findings likely represent postobstructive atelectasis. An underlying lesion or pneumonia cannot be excluded. 2. Irregular nodular foci within the periphery of the left upper lobe measuring up to 1.0 cm. Findings could represent an infectious or inflammatory process. A neoplastic process cannot be excluded and continued attention on follow-up is recommended. 3. Small right-sided pleural effusion. No pneumothorax.
--- NOTE | ~2021-04-27 | XR_ITS ---
EXAMINATION: XR CHEST CLINICAL INFORMATION: Upper respiratory symptoms COMPARISON: Chest 08/04/2020 TECHNIQUE: Frontal view of the chest was obtained. FINDINGS: There is moderate opacity in the right lower lobe from pleural effusion and underlying atelectasis. The pleural effusion is increased. The right upper lung and the left lung is expanded and clear. There is mild blunting of left CP angle likely pleural thickening. Previously seen Pleurx catheter has been removed. Heart size and pulmonary vascularity is normal. There are pacer electrodes in right atrium and right ventricle. No gross bony abnormality seen. XR/XR chest 1V IMPRESSION: Moderate right pleural effusion with underlying atelectasis. The right upper lung and the left lung remains clear.
[2021-04-27 11:38] VITALS: BP 146/66; PULSE 98; RESP 18; TEMP 36.9; O2SAT 94; BMI 16.9
--- NOTE | 2021-04-27 11:44 | ECG_ITS ---
Test Reason : cough Blood Pressure : / mmHG Vent. Rate : 091 BPM Atrial Rate : 091 BPM P-R Int : 000 ms QRS Dur : 138 ms QT Int : 394 ms P-R-T Axes : 093 223 111 degrees QTc Int : 484 ms Ventricular-paced rhythm Abnormal ECG No previous ECGs available Referred By: Generic ED Physician Electronically Signed By:ANTOINETTE CARDOZA MD
[2021-04-27 12:15] LABS: COVID-19 Test Negative (Negative)
[2021-04-27 13:49] LABS: MANUAL DIFF FLAG NO
[2021-04-27 13:50] LABS: Basophils Percent Auto 0.4 % (0-2); Eosinophils Absolute Auto 0.1 X10*3/uL (0.0-0.4); Eosinophils Percent Auto 0.6 % (0-4); Hematocrit 34.4 % (37-47); Hemoglobin 11.1 g/dl (12.0-16.0); Imm Gran Abs Auto 0.06 X10*3/uL (0.00-0.03); Imm Gran Pct Auto 0.6 % (0.0-0.4); Lymphocytes Absolute Auto 0.6 X10*3/uL (1.2-4.9); Lymphocytes Percent Auto 5.7 % (20-40); Mean Corpuscular HGB Conc 32.3 g/dl (31.0-35.0); Mean Corpuscular Hemoglobin 28.7 pg (27.0-33.0); Mean Corpuscular Volume 88.9 fL (80-98); Mean Platelet Volume 10.6 fL (9.4-12.3); Monocytes Percent Auto 9.5 % (2-11); Neutrophils Absolute Auto 8.6 X10*3/uL (2.0-8.3); Neutrophils Percent Auto 83.2 % (45-73); Platelet Count 179 X10*3/uL (160-400); Red Blood Count 3.87 X10*6/uL (4.20-5.50); White Blood Count 10.3 X10*3/uL (4.8-10.8)
[2021-04-27 14:05] LABS: Anion Gap 15 (12-20); Blood Urea Nitrogen 39 mg/dL (9-16); Calcium 9.9 mg/dL (8.4-10.2); Carbon Dioxide 27 mmol/L (22-29); Chloride 98 mmol/L (96-108); Creatinine Clr Calc Pharmacy 23.1; Estimated Glomerular Filt Rate 44; Glucose Random 95 mg/dL (60-115); Sodium 136 mmol/L (135-145)
[2021-04-27 14:13] LABS: B Type Natriuretic Peptide 483 pg/mL (<100); Troponin-I High Sensitivity 54.4 ng/L (<3.5-17.0)
--- NOTE | 2021-04-27 14:30 | ED.URI ---
HPI - URI/Sore Throat General Chief Complaint: Upper Respiratory Symptoms Stated Complaint: ?fever, cough, weight loss Time Seen by Provider: 04/27/21 13:24 History of Present Illness HPI Narrative: Patient is a 80-year-old female with a history of paroxysmal AFib and currently on Eliquis. History of pulmonary hypertension history of hypercholesterolemia history of alcohol abuse. History of congestive heart failure with a preserved ejection fraction. History of aortic stenosis. History of large pleural effusion on the right side. Patient is status post PleurX catheter on the right subsequent removal in September. Presented today with coughing upper respiratory symptoms that has gotten worsened over last few days. Patient received her coronavirus vaccine a few months ago. She is fully vaccinated x2. Patient denies any leg swelling. No nausea no vomiting. Positive generalized malaise weakness. Patient is from home. MD elicited complaint: fever and cough Related Data Home Medications Medication Instructions Recorded Confirmed ferrous sulfate 325 mg (65 mg 325 mg PO DAILY 05/11/20 02/23/21 iron) tablet (Iron (ferrous sulfate)) meclizine 25 mg tablet 25 mg PO DAILY 05/11/20 02/23/21 spironolactone 25 mg tablet 1 tab PO BID 04/27/21 Previous Rx's Medication Instructions Recorded metoprolol succinate 100 mg 100 mg PO DAILY #90 tab 07/21/20 tablet,extended release 24 hr cephalexin 500 mg capsule (Keflex) 500 mg PO TID #21 cap 08/09/20 doxycycline monohydrate 100 mg 100 mg PO BID #14 cap 08/09/20 capsule simvastatin 10 mg tablet 10 mg PO QPM #90 tab 12/22/20 lorazepam 1 mg tablet 1 mg PO BID PRN 90 Days #180 tab 01/10/21 albuterol sulfate 90 mcg/actuation 2 puff INHALATION .q12 30 Days 02/23/21 aerosol inhaler #8.5 g levothyroxine 100 mcg tablet 100 mcg PO QAM #90 tab 02/28/21 raloxifene 60 mg tablet 60 mg PO DAILY #90 tab 02/28/21 amlodipine 2.5 mg tablet 2.5 mg PO DAILY #90 tab 04/12/21 apixaban 5 mg tablet (Eliquis) 5 mg PO BID #180 tab 04/23/21 furosemide 40 mg tablet 40 mg PO BID #180 tab 04/24/21 Allergies Allergy/AdvReac Type Severity Reaction Status Date / Time codeine [CODEINE] Allergy Intermediate RASH Verified 04/27/21 11:37 meperidine [From Demerol] Allergy Intermediate Unknown Verified 04/27/21 11:37 Review of Systems Review of Systems: Positive weakness generalized malaise Positive coughing upper respiratory symptoms Positive decreased p.o. intake Yes all other systems are reviewed and are negative [facility] Past Medical History Attestation statement: The following information was validated with the patient. Medical History (HFpEF) heart failure with preserved ejection fraction Anemia Anxiety Aortic stenosis Benign essential hypertension Cardiac pacemaker in situ Chronic kidney disease (CKD), stage III (moderate) Complete heart block GI bleed H/O: HTN (hypertension) Hyperlipidemia Hypothyroidism Leg edema Neuropathy Osteoporosis Paroxysmal A-fib Paroxysmal atrial fibrillation Pulmonary hypertension Pure hypercholesterolemia Sensorineural hearing loss Tobacco abuse, in remission Tricuspid regurgitation Vitamin D deficiency Surgical History History of thoracentesis Hx of aortic valve repair Hx of hysterectomy Hx of mastectomy S/P AVR Family History Family History Father No problems noted. Mother No problems noted. Sister Diabetes Cancer Social History Social History Household Members: Significant Other Housing: House Alcohol intake: never Patient Tobacco Use Status: Former Tobacco user Use of substances other than those prescribed or required for medical reasons: No Advance Directives: No service: No Current occupational status: retired Physical Exam Vital Signs: Vital Signs: Last Vital Signs Temp 98.4 F 04/27/21 11:38 Pulse 84 04/27/21 16:47 Resp 16 04/27/21 16:47 BP 126/51 L 04/27/21 16:47 Pulse Ox 86 L 04/27/21 16:47 Body Mass Index 16.9 Appearance: Alert. Oriented X3. No acute distress. Eyes: Pupils equal, round and reactive to light. ENT: Pharynx normal. Neck: Normal inspection. Neck supple. No JVD noted. No lymph nodes noted. No crepitus CVS: Positive soft systolic murmur. Pulses normal. Normal S1 and S2 Respiratory: No respiratory distress. Diminished breath sounds bilaterally. No Wheezing. No rales Abdomen: Soft and nontender. No rigidity. No distention. good BS x4 Skin: Skin warm and dry. Normal skin color. Normal skin turgor. Extremities: No lower extremity edema. Neurovascular intact to all extremities. No Lacerations. No Rash Neuro: Oriented X 3. No motor deficit. No sensory deficit. Moving all extermities. No slurred speech MDM - URI/Sore Throat MDM Narrative Medical decision making narrative: Patient's chest x-ray showed a large pleural effusion. Thoracic was consulted. A CT scan of chest was obtained. It showed atelectasis and a small effusion. Case discussed with the hospitalist team and also with the thoracic team. Patient to be admitted to the hospital for further workup. In stable condition. O2 sat maintained at 94%. White count is normal. Patient in no distress. She is on Eliquis. Patient EKG showed a paced rhythm heart rate was approximately 100. Medical Records Attestation: I reviewed the patient's medical records. Lab Data Attestation: I reviewed the patient's lab results. Result diagrams: 04/27/21 13:38 04/27/21 13:38 Labs: Lab Results 04/27/21 04/27/21 04/27/21 Range/Units 11:47 13:38 13:38 WBC 10.3 (4.8-10.8) X10*3/uL RBC 3.87 L (4.20-5.50) X10*6/uL Hgb 11.1 L (12.0-16.0) g/dl Hct 34.4 L (37-47) % MCV 88.9 (80-98) fL MCH 28.7 (27.0-33.0) pg MCHC 32.3 (31.0-35.0) g/dl RDW 15.0 (11.0-16.0) % Plt Count 179 (160-400) X10*3/uL MPV 10.6 (9.4-12.3) fL Immature Gran % (Auto) 0.6 H (0.0-0.4) % Neut % (Auto) 83.2 H (45-73) % Lymph % (Auto) 5.7 L (20-40) % Hopkins % (Auto) 9.5 (2-11) % Eos % (Auto) 0.6 (0-4) % Baso % (Auto) 0.4 (0-2) % Lymph # (Auto) 0.6 L (1.2-4.9) X10*3/uL Hopkins # (Auto) 1.0 (0.1-1.2) X10*3/uL Eos # (Auto) 0.1 (0.0-0.4) X10*3/uL Baso # (Auto) 0.0 (0.0-0.2) X10*3/uL Abs Immat Gran (auto) 0.06 H (0.00-0.03) X10*3/uL Absolute Neuts (auto) 8.6 H (2.0-8.3) X10*3/uL Absolute Nucleated RBC 0.000 (0.0-0.012) X10*3/uL Nucleated RBC % (auto) 0.0 (0.0-0.2) /100WBC Sodium 136 (135-145) mmol/L Potassium 4.0 (3.3-5.1) mmol/L Chloride 98 (96-108) mmol/L Carbon Dioxide 27 (22-29) mmol/L Anion Gap 15 (12-20) BUN 39 H (9-16) mg/dL Creatinine 1.18 (0.5-1.4) mg/dL Estim Creat Clear Calc 23.1 Estimated GFR 44 Random Glucose 95 (60-115) mg/dL Calcium 9.9 (8.4-10.2) mg/dL Troponin I High Sens (<3.5-17.0) ng/L B-Natriuretic Peptide (<100) pg/mL COVID-19 (JESS) Negative (Negative) COVID-19 Clin Com See Note 04/27/21 Range/Units 13:38 WBC (4.8-10.8) X10*3/uL RBC (4.20-5.50) X10*6/uL Hgb (12.0-16.0) g/dl Hct (37-47) % MCV (80-98) fL MCH (27.0-33.0) pg MCHC (31.0-35.0) g/dl RDW (11.0-16.0) % Plt Count (160-400) X10*3/uL MPV (9.4-12.3) fL Immature Gran % (Auto) (0.0-0.4) % Neut % (Auto) (45-73) % Lymph % (Auto) (20-40) % Hopkins % (Auto) (2-11) % Eos % (Auto) (0-4) % Baso % (Auto) (0-2) % Lymph # (Auto) (1.2-4.9) X10*3/uL Hopkins # (Auto) (0.1-1.2) X10*3/uL Eos # (Auto) (0.0-0.4) X10*3/uL Baso # (Auto) (0.0-0.2) X10*3/uL Abs Immat Gran (auto) (0.00-0.03) X10*3/uL Absolute Neuts (auto) (2.0-8.3) X10*3/uL Absolute Nucleated RBC (0.0-0.012) X10*3/uL Nucleated RBC % (auto) (0.0-0.2) /100WBC Sodium (135-145) mmol/L Potassium (3.3-5.1) mmol/L Chloride (96-108) mmol/L Carbon Dioxide (22-29) mmol/L Anion Gap (12-20) BUN (9-16) mg/dL Creatinine (0.5-1.4) mg/dL Estim Creat Clear Calc Estimated GFR Random Glucose (60-115) mg/dL Calcium (8.4-10.2) mg/dL Troponin I High Sens 54.4 H* (<3.5-17.0) ng/L B-Natriuretic Peptide 483 H (<100) pg/mL COVID-19 (JESS) (Negative) COVID-19 Clin Com Discharge Plan Discharge Clinical Impression: Pleural effusion, Shortness of breath Prescriptions: No Action metoprolol succinate 100 mg tablet extended release 24 hr 100 mg PO DAILY Qty: 90 RF: 3 simvastatin 10 mg tablet 10 mg PO QPM Qty: 90 RF: 3 lorazepam 1 mg tablet 1 mg PO BID PRN (Reason: anxiety) 90 Days Qty: 180 RF: 0 albuterol sulfate 90 mcg/actuation HFA aerosol inhaler 2 puff inhalation .q12 30 Days Qty: 8.5 RF: 0 levothyroxine 100 mcg tablet 100 mcg PO QAM Qty: 90 RF: 3 raloxifene 60 mg tablet 60 mg PO DAILY Qty: 90 RF: 3 amlodipine 2.5 mg tablet 2.5 mg PO DAILY Qty: 90 RF: 1 spironolactone 25 mg tablet 12.5 mg PO DAILY Qty: 30 RF: 5 Eliquis 5 mg tablet 5 mg PO BID Qty: 180 RF: 3 furosemide 40 mg tablet 40 mg PO BID Qty: 180 RF: 3 cephalexin [Keflex] 500 mg capsule 500 mg PO TID Qty: 21 RF: 0 doxycycline monohydrate 100 mg capsule 100 mg PO BID Qty: 14 RF: 0 meclizine 25 mg tablet 25 mg PO DAILY RF: 0 ferrous sulfate [Iron (ferrous sulfate)] 325 mg (65 mg iron) tablet 325 mg PO DAILY RF: 0
[2021-04-27] MEDS: iohexoL 350 MG/ML 100 ML INFUS..BTL IV (15:27)
[2021-04-27] MEDS: 0.9 % Sodium Chloride 500 ML 999 ML IV (15:30)
[2021-04-27 15:52] VITALS: BP 131/62; PULSE 91; RESP 18; O2SAT 94
[2021-04-27 15:53] VITALS: O2SAT 94
--- NOTE | 2021-04-27 15:54 | PC.NURSE ---
pt resting in the stretcher, respirations even and unlabored, sinus tach on the monitor paced. pt reports for the last three days pt not feeling right, general weakness, cough/poor po intake/sob with exacerbation/nasuea
[2021-04-27 16:45] LABS: INTERNATIONAL NORM RATIO 1.7 (0.9-1.1); Prothrombin Time 19.3 SEC (9.9-13.0)
[2021-04-27 16:46] VITALS: O2SAT 86
[2021-04-27 16:47] VITALS: BP 126/51; PULSE 84; RESP 16; O2SAT 86
--- NOTE | 2021-04-27 16:47 | PC.NURSE ---
Addendum entered by Susan Bueno 04/27/21 16:51: ls left side lobes diminished, right lower unable to hear ls but diminished on the right upper lobe Original Note: pt's oxygen level dropped just resting in the stretcher down to 86% on room air, pt put on 2l via nasal cannual,
--- NOTE | 2021-04-27 16:53 | P.HPHOSP_ITS ---
History of Present Illness Date of Service: 04/27/21 Chief Complaint: cough, fevers, fatigue This is a 80-year-old female with a past medical history of right-sided pleural effusion which required PleurX catheter, diastolic heart failure, AFib on Eliquis, aortic stenosis, pacemaker placement, osteoporosis who presents to the hospital with complaints of severe progressive cough productive of yellow/green sputum, mild shortness of breath, fevers, generalized weakness and fatigue with poor appetite over the last 3 days. She reports that her coughing became so severe today that she nearly vomited and so she presented to the hospital. She denies any other sick contacts. She reports being vaccinated for COVID. In the ED patients work up revealed CT findings of R pleural effusion, RLL consolidation, R lower bronchus opacification (full report for details). Patient initially was saturating well, but desatted to 86. She will be admitted for pneumonia with pulmonary consult. Review of Systems Review of Systems: General -positive for fevers and chills and generalized weakness with malaise, decreased appetite HEENT -denies blurred vision, denies headache, denies sore throat Cardiovascular - denies chest pain or palpitations, denies edema Respiratory - positive for shortness of breath and productive cough of yellow sputum Gastrointestinal - denies abdominal pain, nausea, vomiting, diarrhea - denies flank pain, denies dysuria, denies frequency or urgency Musculoskeletal - denies back pain, denies hip pain, denies knee pain, denies shoulder pain Neurological - denies any focal weakness or numbness Skin, denies any bruising or redness Psychiatric - denies any suicidal ideation, hallucinations, homicidal ideation Endocrinology - denies intolerance to hot / cold temperatures [facility] Medical History (HFpEF) heart failure with preserved ejection fraction Anemia Anxiety Aortic stenosis Benign essential hypertension Cardiac pacemaker in situ Chronic kidney disease (CKD), stage III (moderate) Complete heart block GI bleed H/O: HTN (hypertension) Hyperlipidemia Hypothyroidism Leg edema Neuropathy Osteoporosis Paroxysmal A-fib Paroxysmal atrial fibrillation Pulmonary hypertension Pure hypercholesterolemia Sensorineural hearing loss Tobacco abuse, in remission Tricuspid regurgitation Vitamin D deficiency Family History Father No problems noted. Mother No problems noted. Sister Diabetes Cancer Pertinent family history: . Surgical History History of thoracentesis Hx of aortic valve repair Hx of hysterectomy Hx of mastectomy S/P AVR Social History Household Members: Significant Other Housing: House Alcohol intake: never Patient Tobacco Use Status: Former Tobacco user Use of substances other than those prescribed or required for medical reasons: No Advance Directives: No service: No Current occupational status: retired Meds Allergies Allergy/AdvReac Type Severity Reaction Status Date / Time codeine [CODEINE] Allergy Intermediate RASH Verified 04/27/21 11:37 meperidine [From Demerol] Allergy Intermediate Unknown Verified 04/27/21 11:37 Active Medications: Current Medications Acetaminophen (Acetaminophen 325 Mg Tablet) 650 mg PO Q6H PRN PRN Reason: Pain, Mild (Pain Scale 1-3) Enoxaparin Sodium (Enoxaparin Sodium 40 Mg/0.4 Ml Syringe) 40 mg SUBCUT Q24H EDWIN Ceftriaxone Sodium 1 gm/ (Sodium Chloride) 50 mls @ 100 mls/hr IV Q24H EDWIN Doxycycline Hyclate 100 mg/ (Sodium Chloride) 250 mls @ 166.67 mls/hr IV Q12H EDWIN Ondansetron HCl (Ondansetron Hcl 4 Mg/2 Ml Vial) 4 mg IVPUSH Q8H PRN PRN Reason: Nausea and Vomiting Pharmacy Consult (Consult Rx Perform Med Rec) 1 each MISCELLANE ONCE PRN PRN Reason: Consult order Sodium Chloride (0.9 % Sodium Chloride Flush 3 Ml Syringe) 3 ml IVFLUSH QSHIFT [facility] Home Medications Medication Instructions Recorded Confirmed Last Taken Type ferrous sulfate 325 mg (65 mg 325 mg PO DAILY 05/11/20 04/27/21 04/26/21 History iron) tablet (Iron (ferrous sulfate)) apixaban 5 mg tablet (Eliquis) 2.5 mg PO BID 04/27/21 04/27/21 04/27/21 History cholecalciferol (vitamin D3) 25 25 mcg PO DAILY 04/27/21 04/27/21 04/26/21 History mcg (1,000 unit) tablet lorazepam 1 mg tablet 0.25 mg PO BEDTIME PRN 04/27/21 04/27/21 Unknown History simvastatin 10 mg tablet 10 mg PO BEDTIME 04/27/21 04/27/21 04/26/21 History spironolactone 25 mg tablet 1 tab PO BID 04/27/21 Unknown History Physical Exam Vital Signs and Narrative: Vital Signs: Last Vital Signs Temp 98.4 F 04/27/21 11:38 Pulse 84 04/27/21 16:47 Resp 16 04/27/21 16:47 BP 126/51 L 04/27/21 16:47 Pulse Ox 86 L 04/27/21 16:47 Body Mass Index 16.9 Const: Other: Constitutional - Awake and Alert, ill appearing Eyes - PERRLA, EOMI Cardiovascular - S1S2, RRR, No edema Respiratory - rhonchi RLL, comfortable at rest, initially saturating in the low to mid 90s, desaturated to 86 on RA, now on 2L Gastrointestinal - NT / ND; +BS; No rebound or guarding - No CVA tenderness Extremities - no calf tenderness bilaterally, no swelling Musculoskeletal - Normal inspection, normal ROM Skin - Warm/Dry Neurological - Alert & oriented x3, No focal deficit Psychological - Appropriate affect Results Labs CBC and Chem 7: 04/27/21 13:38 04/27/21 13:38 Labs: Laboratory Results - last 24 hr 04/27/21 04/27/21 04/27/21 11:47 13:38 13:38 MCV 88.9 MCH 28.7 MCHC 32.3 RDW 15.0 Plt Count 179 MPV 10.6 Immature Gran % (Auto) 0.6 H Neut % (Auto) 83.2 H Lymph % (Auto) 5.7 L Beaver % (Auto) 9.5 Eos % (Auto) 0.6 Baso % (Auto) 0.4 Lymph # (Auto) 0.6 L Beaver # (Auto) 1.0 Eos # (Auto) 0.1 Baso # (Auto) 0.0 Abs Immat Gran (auto) 0.06 H Absolute Neuts (auto) 8.6 H Absolute Nucleated RBC 0.000 Nucleated RBC % (auto) 0.0 PT INR Anion Gap 15 Estim Creat Clear Calc 23.1 Estimated GFR 44 Random Glucose 95 Calcium 9.9 Troponin I High Sens B-Natriuretic Peptide COVID-19 (JESS) Negative COVID-19 Clin Com See Note 04/27/21 04/27/21 13:38 16:35 MCV MCH MCHC RDW Plt Count MPV Immature Gran % (Auto) Neut % (Auto) Lymph % (Auto) Beaver % (Auto) Eos % (Auto) Baso % (Auto) Lymph # (Auto) Beaver # (Auto) Eos # (Auto) Baso # (Auto) Abs Immat Gran (auto) Absolute Neuts (auto) Absolute Nucleated RBC Nucleated RBC % (auto) PT 19.3 H INR 1.7 H Anion Gap Estim Creat Clear Calc Estimated GFR Random Glucose Calcium Troponin I High Sens 54.4 H* B-Natriuretic Peptide 483 H COVID-19 (JESS) COVID-19 Clin Com Imaging Radiologist's Impressions: Impressions Chest X-Ray 04/27/21 11:44 IMPRESSION: Moderate right pleural effusion with underlying atelectasis. The right upper lung and the left lung remains clear. Chest CT 04/27/21 14:15 IMPRESSION: 1. Complete collapse of the right lower lobe with opacification of the right lower lobe mainstem bronchus. Findings likely represent postobstructive atelectasis. An underlying lesion or pneumonia cannot be excluded. 2. Irregular nodular foci within the periphery of the left upper lobe measuring up to 1.0 cm. Findings could represent an infectious or inflammatory process. A neoplastic process cannot be excluded and continued attention on follow-up is recommended. 3. Small right-sided pleural effusion. No pneumothorax. Assessment and Plan (1) Acute respiratory failure with hypoxia: Status: Acute (2) Pneumonia: Status: Acute This is an 80 yo F with multiple medical issues including prior pleural effusion who presents to the hospital with complaints of cough, fever and generalized fatigue over the last several days. She will be admitted for treatment of pneumonia. 1. Acute respiratory failure with hypoxia due to Pneumonia saturation down to 86% on RA, improved with 2L IV rocephin / doxy no evidence of sepsis at this time 2. RLL atelectasis / opacification / effusion possibly due to pneumonia will consult pulmonology 3. PAF on metoprolol -- will continue on eliquis -- changed to lovenox 40mg (1mg/kg q24 hours due to her CrCl + weight) in case she needs any procedures (thoracentesis / bronch) 4. Elevated HS-trop I x 1 repeat now no chest pain 5. HFpEF clinically euvolemic - continue lasix / aldactone 6. Hypothyroidism synthroid Full Code Endorses her at HCP DVT pptx - Lovenox as above Quality Stroke Does the patient have a stroke diagnosis?: No VTE Prior VTE?: No VTE Risk Level:: Medical - moderate - high VTE Device Contraindication: Treatment Not Indicated VTE Drug Contraindication: N/A - Med Ordered
--- NOTE | 2021-04-27 17:14 | PHA.MEDREC ---
Pharmacy Consult ? Medication Reconciliation Pharmacy has completed the medication reconciliation. Cathy Colindres
[2021-04-27 18:03] LABS: Troponin-I High Sensitivity 60.5 ng/L (<3.5-17.0)
[2021-04-27] MEDS: cefTRIAXone sodium 1 GM in 0.9 % Sodium Chloride 50 ML IV (18:06)
[2021-04-27] MEDS: Doxycycline Hyclate 100 MG in 0.9 % Sodium Chloride 250 ML 166.67 MG IV (19:35)
[2021-04-27 19:39] VITALS: BP 129/61; PULSE 86; O2SAT 96
[2021-04-27] MEDS: 0.9 % Sodium Chloride Flush 3 ML SYRINGE IVFLUSH (21:46)
[2021-04-27] MEDS: Atorvastatin Calcium 10 MG TABLET PO (21:46)
[2021-04-28] VITALS: PULSE 74; RESP 15
[2021-04-28 04:00] VITALS: BP 124/60; PULSE 85; RESP 16; O2SAT 99
[2021-04-28 06:25] LABS: Hematocrit 35.5 % (37-47); Hemoglobin 11.3 g/dl (12.0-16.0); Mean Corpuscular HGB Conc 31.8 g/dl (31.0-35.0); Mean Corpuscular Hemoglobin 28.3 pg (27.0-33.0); Mean Corpuscular Volume 88.8 fL (80-98); Mean Platelet Volume 10.6 fL (9.4-12.3); Platelet Count 201 X10*3/uL (160-400); White Blood Count 10.7 X10*3/uL (4.8-10.8)
[2021-04-28 06:55] LABS: Anion Gap 15 (12-20); Blood Urea Nitrogen 32 mg/dL (9-16); Calcium 9.6 mg/dL (8.4-10.2); Carbon Dioxide 24 mmol/L (22-29); Chloride 102 mmol/L (96-108); Estimated Glomerular Filt Rate 53; Glucose Random 90 mg/dL (60-115); Potassium 4.1 mmol/L (3.3-5.1); Sodium 137 mmol/L (135-145)
--- NOTE | 2021-04-28 08:12 | PC.NURSE ---
RN AWARE POC 101
[2021-04-28 08:13] LABS: Glucose, Whole Blood 101 mg/dL (60-115)
[2021-04-28] MEDS: Doxycycline Hyclate 100 MG in 0.9 % Sodium Chloride 250 ML 167 MG IV (08:24)
[2021-04-28] MEDS: Levothyroxine Sodium 100 MCG TABLET PO (08:24)
[2021-04-28] MEDS: ondansetron HCL 4 MG/2 ML VIAL IVPUSH (08:30)
[2021-04-28 09:32] VITALS: BP 134/62; PULSE 84
[2021-04-28] MEDS: Metoprolol Succinate ER 100 MG TAB.ER.24H PO (09:32)
[2021-04-28 09:34] VITALS: BP 134/62; PULSE 84
[2021-04-28] MEDS: Spironolactone 25 MG TABLET 12.5 MG PO (09:34)
[2021-04-28] MEDS: Furosemide 40 MG TABLET PO (09:34)
[2021-04-28] MEDS: amLODIPine Besylate 2.5 MG TABLET PO (09:34)
[2021-04-28] MEDS: Cholecalciferol (Vitamin D3) 25 MCG TABLET PO (09:34)
[2021-04-28] MEDS: Ferrous Sulfate 324 MG TABLET.DR PO (09:35)
[2021-04-28] MEDS: 0.9 % Sodium Chloride Flush 3 ML SYRINGE IVFLUSH (10:05)
--- NOTE | 2021-04-28 11:25 | PM.CNPUL ---
History of Present Illness History of Present Illness Consult date: 04/28/21 Reason for consult: dyspnea, cough and pleural effusion Chief complaint: cough,fever Narrative: I have seen this patient for pulmonary consultation, this morning, in the emergency room suite. She is 80, somewhat frail lady but lives by herself at home. She has presented with history of increased cough with expectoration of yellow to greenish phlegm for the last 3 days, denies fever or chills. However she feels weaker than usual. Having cough, at times in sustained spells to the point that she feels almost lightheaded. She denies any sick contacts., and has been mostly in the house. Past history reveals that during the early part of this year she had a pleural effusion right chest which required repeated taps, And finally she had placement of pleural catheter( Pleur-X ) which was capped for about 2-3 months, and finally the drainage was almost, Nil for about a month and the catheter was removed, sometime in July 2020. She has done well since then The etiology of the pleural effusion at that time was not clear, may have been secondary to congestive heart failure are post pneumonic. Anyway after flu Shashank cath was removed she has had no, reaccumulation. In the past medical history there is no notation of having chronic obstructive pulmonary disease. Most of her issue is related to cardiac problems, including chronic atrial fibrillation, diastolic congestive heart failure, aortic stenosis, and has had cardiac pacemaker. Review of Systems Review of Systems: Yes all other systems are reviewed and are negative [facility] Past Medical History Medical History (HFpEF) heart failure with preserved ejection fraction Anemia Anxiety Aortic stenosis Benign essential hypertension Cardiac pacemaker in situ Chronic kidney disease (CKD), stage III (moderate) Complete heart block GI bleed H/O: HTN (hypertension) Hyperlipidemia Hypothyroidism Leg edema Neuropathy Osteoporosis Paroxysmal A-fib Paroxysmal atrial fibrillation Pulmonary hypertension Pure hypercholesterolemia Sensorineural hearing loss Tobacco abuse, in remission Tricuspid regurgitation Vitamin D deficiency Family History Family History Father No problems noted. Mother No problems noted. Sister Diabetes Cancer Surgical History Surgical History History of thoracentesis Hx of aortic valve repair Hx of hysterectomy Hx of mastectomy S/P AVR Social History Social History Household Members: Significant Other Housing: House Alcohol intake: never Patient Tobacco Use Status: Former Tobacco user Use of substances other than those prescribed or required for medical reasons: No Advance Directives: No service: No Current occupational status: retired Meds Allergies Allergy/AdvReac Type Severity Reaction Status Date / Time codeine [CODEINE] Allergy Intermediate RASH Verified 04/27/21 11:37 meperidine [From Demerol] Allergy Intermediate Unknown Verified 04/27/21 11:37 Active Medications: Current Medications Acetaminophen (Acetaminophen 325 Mg Tablet) 650 mg PO Q6H PRN PRN Reason: Pain, Mild (Pain Scale 1-3) Amlodipine Besylate (Amlodipine Besylate 2.5 Mg Tablet) 2.5 mg PO DAILY [facility]; Protocol Last Admin: 04/28/21 09:34 Dose: 2.5 mg Documented by: Atorvastatin Calcium (Atorvastatin Calcium 10 Mg Tablet) 10 mg PO BEDTIME [facility] Last Admin: 04/27/21 21:46 Dose: 10 mg Documented by: Enoxaparin Sodium (Enoxaparin Sodium 40 Mg/0.4 Ml Syringe) 40 mg SUBCUT Q24H [facility] Last Admin: 04/27/21 21:52 Dose: Not Given Documented by: Ferrous Sulfate (Ferrous Sulfate 324 Mg Tablet.Dr) 324 mg PO DAILY [facility] Last Admin: 04/28/21 09:35 Dose: 324 mg Documented by: Furosemide (Furosemide 40 Mg Tablet) 40 mg PO BID@0900,1700 [facility]; Protocol Last Admin: 04/28/21 09:34 Dose: 40 mg Documented by: Ceftriaxone Sodium 1 gm/ (Sodium Chloride) 50 mls @ 100 mls/hr IV Q24H [facility] Last Infusion: 04/27/21 20:11 Dose: Infused Documented by: Doxycycline Hyclate 100 mg/ (Sodium Chloride) 250 mls @ 166.67 mls/hr IV Q12H [facility] Last Infusion: 04/28/21 10:37 Dose: Infused Documented by: Levothyroxine Sodium (Levothyroxine Sodium 100 Mcg Tablet) 100 mcg PO DAILY@0600 [facility] Last Admin: 04/28/21 08:24 Dose: 100 mcg Documented by: Lorazepam (Lorazepam 0.5 Mg Tablet) 0.25 mg PO BEDTIME PRN PRN Reason: Insomnia Metoprolol Succinate (Metoprolol Succinate Er 100 Mg Tab.Er.24h) 100 mg PO DAILY [facility]; Protocol Last Admin: 04/28/21 09:32 Dose: 100 mg Documented by: Ondansetron HCl (Ondansetron Hcl 4 Mg/2 Ml Vial) 4 mg IVPUSH Q8H PRN PRN Reason: Nausea and Vomiting Last Admin: 04/28/21 08:30 Dose: 4 mg Documented by: Pharmacy Consult (Consult Rx Perform Med Rec) 1 each MISCELLANE ONCE PRN PRN Reason: Consult order Sodium Chloride (0.9 % Sodium Chloride Flush 3 Ml Syringe) 3 ml IVFLUSH QSHIFT [facility] Last Admin: 04/28/21 10:05 Dose: 3 ml Documented by: Spironolactone (Spironolactone 25 Mg Tablet) 12.5 mg PO DAILY [facility]; Protocol Last Admin: 04/28/21 09:34 Dose: 12.5 mg Documented by: Vitamin D (Cholecalciferol (Vitamin D3) 25 Mcg Tablet) 25 mcg PO DAILY [facility] Last Admin: 04/28/21 09:34 Dose: 25 mcg Documented by: Home Medications Medication Instructions Recorded Confirmed Last Taken Type ferrous sulfate 325 mg (65 mg 325 mg PO DAILY 05/11/20 04/27/21 04/26/21 History iron) tablet (Iron (ferrous sulfate)) apixaban 5 mg tablet (Eliquis) 2.5 mg PO BID 04/27/21 04/27/21 04/27/21 History cholecalciferol (vitamin D3) 25 25 mcg PO DAILY 04/27/21 04/27/21 04/26/21 History mcg (1,000 unit) tablet lorazepam 1 mg tablet 0.25 mg PO BEDTIME PRN 04/27/21 04/27/21 Unknown History simvastatin 10 mg tablet 10 mg PO BEDTIME 04/27/21 04/27/21 04/26/21 History spironolactone 25 mg tablet 0.5 tab PO DAILY 04/27/21 04/27/21 04/26/21 History Physical Exam Vital Signs: Vital Signs: Last Vital Signs Temp 98.4 F 04/27/21 11:38 Pulse 84 04/28/21 09:34 Resp 16 04/28/21 04:00 BP 134/62 04/28/21 09:34 Pulse Ox 99 04/28/21 04:00 Body Mass Index 16.9 Const: Other: Very thin and frail lady, does not converse much, I had most of the conversation with her daughter. She is on O2 2 L/minute and does not seem to be in any distress at this time. HENMT: Other: No significant abnormality is noted. Eyes: General: appearance normal, both eyes and all related structures Chest: Other: Chest wall is thin, there is a pacemaker battery in right pectoral area. No local tenderness. Resp: Other: Percussion note dull over the right base, with decreased breath sounds over the bases, a few inspiratory crepitations. Left side is clear. Cardio: Rhythm: abnormal rhythm (Atrial fibrillation heart rate control) GI: Palpation (GI): Soft to palpation, nontender and no masses Extrem: General: Yes no clubbing, cyanosis or edema Results Laboratory Findings CBC and BMP: 04/28/21 06:02 04/28/21 06:02 ABG, PT/INR, D-dimer: PT/INR, D-dimer PT 19.3 SEC (9.9-13.0) H 04/27/21 16:35 INR 1.7 (0.9-1.1) H 04/27/21 16:35 Abnormal lab findings: Abnormal Labs 04/27/21 04/27/21 04/27/21 13:38 13:38 13:38 RBC 3.87 L Hgb 11.1 L Hct 34.4 L Immature Gran % (Auto) 0.6 H Neut % (Auto) 83.2 H Lymph % (Auto) 5.7 L Lymph # (Auto) 0.6 L Abs Immat Gran (auto) 0.06 H Absolute Neuts (auto) 8.6 H PT INR BUN 39 H Troponin I High Sens 54.4 H* B-Natriuretic Peptide 483 H 04/27/21 04/27/21 04/28/21 16:35 17:31 06:02 RBC 4.00 L Hgb 11.3 L Hct 35.5 L Immature Gran % (Auto) Neut % (Auto) Lymph % (Auto) Lymph # (Auto) Abs Immat Gran (auto) Absolute Neuts (auto) PT 19.3 H INR 1.7 H BUN Troponin I High Sens 60.5 H* B-Natriuretic Peptide 04/28/21 06:02 RBC Hgb Hct Immature Gran % (Auto) Neut % (Auto) Lymph % (Auto) Lymph # (Auto) Abs Immat Gran (auto) Absolute Neuts (auto) PT INR BUN 32 H Troponin I High Sens B-Natriuretic Peptide Diagnostic Findings Chest x-ray: report reviewed and image reviewed CT scan - chest: report reviewed and image reviewed Assessment and Plan (1) Pneumonia: Status: Acute The density/consolidation right lower lobe, may be secondary to atelectasis versus old fibrotic changes. But an acute infectious process /pneumonia cannot be ruled out. I would recommend to treat her with the I/V antibiotics over the weekend, and then changed to oral route altogether for about 1 week. (2) Pleural effusion: Status: Acute The pleural effusion is probably residual from her old pleural effusion with some fibrotic changes. It is relatively small in size, and would not need any thoracentesis. (3) Acute respiratory failure with hypoxia: Status: Acute Patient does have hypoxemia which is corrected with oxygen 2 L/minute. Continue O2 supplementation at this time, And evaluate for home oxygen need at the time of discharge. Procedures Date of Service Date of Service: 04/28/21
[2021-04-28 12:40] VITALS: PULSE 77; O2SAT 89
--- NOTE | 2021-04-28 14:00 | P.DS_ITS ---
DS: Providers Provider Date of Service: 04/28/21 <Margarita Patino NP - Last Filed: 04/28/21 14:04> Date of admission: 04/27/21 16:34 <Margarita Patino NP - Last Filed: 04/28/21 14:04> Primary care physician: Rj Mclaughlin MD <Margarita Patino NP - Last Filed: 04/28/21 14:04> Consults: 04/27/21 16:34 Consult to Pulmonology Routine Consulting Provider: Emily Rosales Reason for consultation: Pneumonia, RLL mainstem bronchus opacification <Margarita Patino NP - Last Filed: 04/28/21 14:04> Attending physician on discharge: Dawson Romero <Margarita Patino NP - Last Filed: 04/28/21 14:04> Discharging clinician: Margarita Patino <Margarita Patino NP - Last Filed: 04/28/21 14:04> DS: Diagnosis Discharge Diagnosis (1) Acute respiratory failure with hypoxia: Status: Resolved <Margarita Patino NP - Last Filed: 04/28/21 14:04> (2) Pneumonia: Status: Acute <Margarita Patino NP - Last Filed: 04/28/21 14:04> (3) Pleural effusion: Status: Acute <Margarita Patino NP - Last Filed: 04/28/21 14:04> DS: Summary Hospital Course Hospital Course: HP as per admitting provider This is a 80-year-old female with a past medical history of right-sided pleural effusion which required PleurX catheter, diastolic heart failure, AFib on Eliquis, aortic stenosis, pacemaker placement, osteoporosis who presents to the hospital with complaints of severe progressive cough productive of yellow/green sputum, mild shortness of breath, fevers, generalized weakness and fatigue with poor appetite over the last 3 days.? She reports that her coughing became so severe today that she nearly vomited and so she presented to the hospital.? She denies any other sick contacts.? She reports being vaccinated for COVID. In the ED patients work up revealed CT findings of R pleural effusion, RLL consolidation, R lower bronchus opacification (full report for details).? Patient initially was saturating well, but desatted to 86. She will be admitted for pneumonia with pulmonary consult . 1. Acute respiratory failure with hypoxia due to Pneumonia saturation down to 86% on RA, improved with 2L of oxygen treated with IV rocephin / doxy no evidence of sepsis Home o2 evaluation-home with 2 liters of oxygen with activity Seen and evaluated by pulmonology, residual pleural effusion, no need for thoracentesis <Margarita Patino NP - Last Filed: 04/28/21 14:04> Time Spent with Patient Time attestation: Total time spent providing and/or coordinating discharge services: <Margarita Patino NP - Last Filed: 04/28/21 14:04> Discharge coordination time: Greater than 30 minutes <Margarita Patino NP - Last Filed: 04/28/21 14:04> Quality: Stroke Does the patient have a stroke diagnosis?: No <Margarita Patino NP - Last Filed: 04/28/21 14:04> Physical Exam Vital Signs: Vital Signs: Last Vital Signs Temp 98.4 F 04/27/21 11:38 Pulse 84 04/28/21 09:34 Resp 16 04/28/21 04:00 BP 134/62 04/28/21 09:34 Pulse Ox 99 04/28/21 04:00 Body Mass Index 16.9 <Margarita Patino NP - Last Filed: 04/28/21 14:04> Appearing in no acute distress head is normocephalic atraumatic eyes pupils are PERRLA sclera is anicteric mouth throat mucous membranes are intact and moist neck is supple no lymphadenopathy, no JVD noted lung sounds diminished heart regular rate rhythm, clear S1, S2 positive bowel sounds, abdomen is soft, nontender neuro patient is alert x3, no focal deficits <Margarita Patino NP - Last Filed: 04/28/21 14:04> DS: Data Data Completed and Pending Labs on day of discharge: Laboratory Results - last 24 hr 04/27/21 04/27/21 04/27/21 13:38 13:38 13:38 WBC 10.3 RBC 3.87 L Hgb 11.1 L Hct 34.4 L MCV 88.9 MCH 28.7 MCHC 32.3 RDW 15.0 Plt Count 179 MPV 10.6 Immature Gran % (Auto) 0.6 H Neut % (Auto) 83.2 H Lymph % (Auto) 5.7 L [place] % (Auto) 9.5 Eos % (Auto) 0.6 Baso % (Auto) 0.4 Lymph # (Auto) 0.6 L [place] # (Auto) 1.0 Eos # (Auto) 0.1 Baso # (Auto) 0.0 Abs Immat Gran (auto) 0.06 H Absolute Neuts (auto) 8.6 H Absolute Nucleated RBC 0.000 Nucleated RBC % (auto) 0.0 PT INR Sodium 136 Potassium 4.0 Chloride 98 Carbon Dioxide 27 Anion Gap 15 BUN 39 H Creatinine 1.18 Estim Creat Clear Calc 23.1 Estimated GFR 44 POC Glucose Random Glucose 95 Calcium 9.9 Troponin I High Sens 54.4 H* B-Natriuretic Peptide 483 H 04/27/21 04/27/21 04/28/21 16:35 17:31 06:02 WBC 10.7 RBC 4.00 L Hgb 11.3 L Hct 35.5 L MCV 88.8 MCH 28.3 MCHC 31.8 RDW 15.0 Plt Count 201 MPV 10.6 Immature Gran % (Auto) Neut % (Auto) Lymph % (Auto) [place] % (Auto) Eos % (Auto) Baso % (Auto) Lymph # (Auto) [place] # (Auto) Eos # (Auto) Baso # (Auto) Abs Immat Gran (auto) Absolute Neuts (auto) Absolute Nucleated RBC 0.000 Nucleated RBC % (auto) 0.0 PT 19.3 H INR 1.7 H Sodium Potassium Chloride Carbon Dioxide Anion Gap BUN Creatinine Estim Creat Clear Calc Estimated GFR POC Glucose Random Glucose Calcium Troponin I High Sens 60.5 H* B-Natriuretic Peptide 04/28/21 04/28/21 06:02 07:43 WBC RBC Hgb Hct MCV MCH MCHC RDW Plt Count MPV Immature Gran % (Auto) Neut % (Auto) Lymph % (Auto) [place] % (Auto) Eos % (Auto) Baso % (Auto) Lymph # (Auto) [place] # (Auto) Eos # (Auto) Baso # (Auto) Abs Immat Gran (auto) Absolute Neuts (auto) Absolute Nucleated RBC Nucleated RBC % (auto) PT INR Sodium 137 Potassium 4.1 Chloride 102 Carbon Dioxide 24 Anion Gap 15 BUN 32 H Creatinine 1.01 Estim Creat Clear Calc 27.0 Estimated GFR 53 POC Glucose 101 Random Glucose 90 Calcium 9.6 Troponin I High Sens B-Natriuretic Peptide <Margarita Patino NP - Last Filed: 04/28/21 14:04> Discharge Plan Discharge Anticipated Discharge Date/Time: 04/28/21 13:51 <Margarita Patino NP - Last Filed: 04/28/21 14:04> Patient Disposition: Left Against Medical Advice <Margarita Patino NP - Last Filed: 04/28/21 14:04> Discharge Diagnosis: Pneumonia Acute respiratory failure <Margarita Patino NP - Last Filed: 04/28/21 14:04> Pneumonia Acute respiratory failure <Dawson Romero MD - Last Filed: 05/07/21 16:08> Referrals: Rj Mclaughlin MD [Primary Care Provider] - 1 Week <Margarita Patino NP - Last Filed: 04/28/21 14:04> Discharge Medications: No Action furosemide 40 mg tablet 40 mg PO BID RF: 0 metoprolol succinate 100 mg tablet extended release 24 hr 100 mg PO DAILY RF: 0 simvastatin 10 mg tablet 10 mg PO BEDTIME RF: 0 amlodipine 2.5 mg tablet 2.5 mg PO DAILY RF: 0 spironolactone 25 mg tablet 25 mg PO BID RF: 0 levothyroxine [Synthroid] 100 mcg tablet 100 mcg PO DAILY RF: 0 raloxifene 60 mg tablet 60 mg PO DAILY RF: 0 albuterol sulfate 90 mcg/actuation HFA aerosol inhaler 90 mcg inhalation NEEDED PRN (Reason: Shortness Of Breath) RF: 0 fluconazole 40 mg/mL suspension for reconstitution 200 mg PO DAILY 21 Days Qty: 105 RF: 0 Eliquis 2.5 mg tablet 2.5 mg PO BID Qty: 60 RF: 0 <Margarita Patino NP - Last Filed: 04/28/21 14:04> Discharge Orders: Discharge Order (Routine); Ordered 04/28/21 Ordered By: Margarita Patino <Margarita Patino NP - Last Filed: 04/28/21 14:04> Diet: advance to usual diet <Margarita Patino NP - Last Filed: 04/28/21 14:04> advance to usual diet <Dawson Romero MD - Last Filed: 05/07/21 16:08> Activity on Discharge: As tolerated <Margarita Patino NP - Last Filed: 04/28/21 14:04> As tolerated <Dawson Romero MD - Last Filed: 05/07/21 16:08> Stand Alone Forms: Patient Portal Discharge page <Margarita Patino NP - Last Filed: 04/28/21 14:04> Care Plan Goals: Symptom resolution <Margarita Patino NP - Last Filed: 04/28/21 14:04> Health Concerns: Pneumonia <Margarita Patino NP - Last Filed: 04/28/21 14:04> Plan of Treatment: Follow up with your primary care provider as needed Take medications as prescribed You will be sent home with oxygen It is important to learn to use your oxygen equipment safely and effectively. Here are some tips: * Oxygen does not burn, but it does support combustion. So, anything that can burn will burn much faster in an oxygen-rich environment. Oxygen should never be used near an open flame or anything that can produce inte nse heat, flames or hess, such as a burning cigarette, a lighted match, heaters, heating pads, hair dryers, a stove or a gliding pilot instructor light. Anything that can produce hot flames or hess during operation should be kept at least 5 feet away from your oxygen equipment. The highest safe temperature for an oxygen tank is 125 degrees Fahrenheit. * Do not use oil, grease, Vaseline or any other flammable substance on your oxygen equipment or on your skin near the equipment. Use water-based products only. * If asencio forms on your liquid oxygen equipment, don't allow the frosted parts to come into contact with your skin. It can cause a frostbite skin injury. * Store cylinders in an upright position and secured in an approved cart or other storage device. * If you are using a humidifier, use only the recommended type and amount of water. Due to increase in back pressure and resistance to flow, disposable humidifier bottles should not be used for oxygen flows greater than 6 liters per minute. There are humidifier bottles available for higher oxygen flows. * A high flow cannula should be used for oxygen flows above 6 liters per minute. <Margarita Patino NP - Last Filed: 04/28/21 14:04> Assessment: See discharge summary I saw and examine patient and discussed physical finding, labs, medication and studies with WARP [facility]ULER and I agree with plan and disposition as above. --T. Mlapah, MD <Margarita Patino NP - Last Filed: 04/28/21 14:04> Discharge Date/Time: 04/28/21 15:34 <Margarita Patino NP - Last Filed: 04/28/21 14:04>
== END 2021-04-28 15:34 | disposition left against medical advice (07) | DRG 193 ==
LOC: HO.ED 13:24 → HO.EDOVER 17:27 → HO.IMC 04-28 13:22 → HO.EDOVER 04-28 14:34
PROVIDERS: Admitting Provider Family Medicine; Emergency Provider Emergency Medicine Emergency Medical Services; PCP Internal Medicine; Visit Provider Nurse Practitioner Acute Care
DX: J18.9 Pneumonia, unspecified organism (principal); J96.01 Acute respiratory failure with hypoxia; I50.32 Chronic diastolic (congestive) heart failure; J91.8 Pleural effusion in other conditions classified elsewhere; Z20.822 Contact with and (suspected) exposure to COVID-19; I48.0 Paroxysmal atrial fibrillation; E03.9 Hypothyroidism, unspecified; Z95.0 Presence of cardiac pacemaker; Z87.891 Personal history of nicotine dependence; Z88.5 Allergy status to narcotic agent; Z79.01 Long term (current) use of anticoagulants; Z79.890 Hormone replacement therapy; Z79.899 Other long term (current) drug therapy
CPT/HCPCS: 0241U; 36415; 71045; 71260; 80048; 80076; 81001; 82947; 83605; 83690; 83880; 84484; 85025; 85027; 85610; 85652; 86140; 87040; 87077; 87086; 87635; 90686; 93005; 93306; 93312; 96365; 99285; J0637; J0696; J1650; J2250; J2405; Q9967

== ENCOUNTER 2021-04-29 22:44 | Inpatient (IN) | payer MEDICARE, SELFPAY ==
--- NOTE | ~2021-04-29 | XR_ITS ---
EXAMINATION: XR CHEST CLINICAL INFORMATION: Pneumonia COMPARISON: Chest radiograph 04/27/[address] 04/27/2021 TECHNIQUE: Frontal view of the chest was obtained. FINDINGS: Compared to the prior study, there's been no interval change. Again noted is right lower lobe collapse. A right chest wall bipolar pacemaker remains present. Heart size within normal limits. No evidence of CHF. Lungs are hyperinflated suggesting COPD. Nodular foci are again noted in the left upper lobe, better demonstrated on the prior CT scan. XR/XR chest 1V IMPRESSION: 1. No acute intrathoracic disease compared to the prior study. 2. Continued right lower lobe collapse and nodular opacities left lung.
[2021-04-29 23:00] VITALS: BP 129/63; PULSE 83; RESP 18; TEMP 36.8; O2SAT 92; BMI 17.6
--- NOTE | 2021-04-29 23:01 | ED_ITS ---
HPI - Recheck/Abnormal Lab/Rx General Chief Complaint: General Medical Stated Complaint: yeast in the blood Source: patient Mode of arrival: ambulatory Limitations: no limitations History of Present Illness HPI narrative: 80-year-old female presents with candidemia. This POLYMER[employer]ATION KETTLE OPERATOR called her earlier tonight for positive blood cultures and requested her to present to the emergency department for evaluation and admission to hospital. complaint: other (Needs IV antifungals.) Initial visit for: other (Pneumonia) Returns today for: called because of abnormal lab/test Symptoms since prior visit: no new symptoms Context: called for abnormal lab result Related Data Home Medications Medication Instructions Recorded Confirmed ferrous sulfate 325 mg (65 mg 325 mg PO DAILY 05/11/20 04/27/21 iron) tablet (Iron (ferrous sulfate)) apixaban 5 mg tablet (Eliquis) 2.5 mg PO BID 04/27/21 04/27/21 cholecalciferol (vitamin D3) 25 25 mcg PO DAILY 04/27/21 04/27/21 mcg (1,000 unit) tablet lorazepam 1 mg tablet 0.25 mg PO BEDTIME PRN 04/27/21 04/27/21 simvastatin 10 mg tablet 10 mg PO BEDTIME 04/27/21 04/27/21 spironolactone 25 mg tablet 0.5 tab PO DAILY 04/27/21 04/27/21 Previous Rx's Medication Instructions Recorded metoprolol succinate 100 mg 100 mg PO DAILY #90 tab 07/21/20 tablet,extended release 24 hr albuterol sulfate 90 mcg/actuation 2 puff INHALATION .q12 30 Days 02/23/21 aerosol inhaler #8.5 g levothyroxine 100 mcg tablet 100 mcg PO QAM #90 tab 02/28/21 raloxifene 60 mg tablet 60 mg PO DAILY #90 tab 02/28/21 amlodipine 2.5 mg tablet 2.5 mg PO DAILY #90 tab 04/12/21 furosemide 40 mg tablet 40 mg PO BID #180 tab 04/24/21 cefuroxime axetil 500 mg tablet 500 mg PO BID #14 tab 04/28/21 doxycycline hyclate 100 mg tablet 100 mg PO BID #14 tab 04/28/21 Allergies Allergy/AdvReac Type Severity Reaction Status Date / Time codeine [CODEINE] Allergy Intermediate RASH Verified 04/29/21 22:59 meperidine [From Demerol] Allergy Intermediate Unknown Verified 04/29/21 22:59 Review of Systems Review of Systems: Constitutional: No Fever, No Chills ENT/Mouth: No Ear Pain, No Hoarseness, No sore throat Eyes: No Eye Pain, No Swelling, No Redness, No Foreign Body Cardiovascular: No Chest Pain, positive SOB Respiratory: No Cough, No Dyspnea Gastrointestinal: No Nausea, No Vomiting, No Diarrhea, No abdominal Pain Genitourinary: No Dysuria, No Hematuria Musculoskeletal: No joint pain, No Myalgias, No Joint Swelling Skin: No Skin lacerations, No rash Neuro: No Weakness, No Numbness, No Paresthesias, No Loss of Consciousness, No Dizziness, No Headache Psych: No Anxiety/Panic, No Depression Heme/Lymph: no easy bruising, no Lymphadenopathy Endocrine: No Polyuria, No Polydipsia Yes all other systems are reviewed and are negative [facility], [facility] Past Medical History Attestation statement: The following information was validated with the patient. Source: old records reviewed Medical History (HFpEF) heart failure with preserved ejection fraction Anemia Anxiety Aortic stenosis Benign essential hypertension Cardiac pacemaker in situ Chronic kidney disease (CKD), stage III (moderate) Complete heart block GI bleed H/O: HTN (hypertension) Hyperlipidemia Hypothyroidism Leg edema Neuropathy Osteoporosis Paroxysmal A-fib Paroxysmal atrial fibrillation Pulmonary hypertension Pure hypercholesterolemia Sensorineural hearing loss Tobacco abuse, in remission Tricuspid regurgitation Vitamin D deficiency Surgical History History of thoracentesis Hx of aortic valve repair Hx of hysterectomy Hx of mastectomy S/P AVR Family History Family History Father No problems noted. Mother No problems noted. Sister Diabetes Cancer Social History Social History Household Members: Significant Other Housing: House Alcohol intake: never Patient Tobacco Use Status: Former Tobacco user Advance Directives: No Advance Directives Information Provided: No service: No Current occupational status: retired Physical Exam Vital Signs: Vital Signs: Last Vital Signs Temp 98.2 F 04/29/21 23:00 Pulse 83 04/29/21 23:00 Resp 18 04/29/21 23:00 BP 129/63 04/29/21 23:00 Pulse Ox 92 04/29/21 23:00 Body Mass Index 17.6 Appearance: Alert. Oriented X3. No acute distress. Frail. Thin. Eyes: Pupils equal, round and reactive to light. ENT: Pharynx normal. Neck: Normal inspection. Neck supple. CVS: Normal heart rate and rhythm. Pulses normal. Respiratory: No respiratory distress. Abdomen: Soft and nontender. Skin: Skin warm and dry. Normal skin color. Normal skin turgor. Extremities: No lower extremity edema. Moves all extremities against res istance. Neuro: No motor deficit. No sensory deficit. Cranial nerves 2-12 intact. Course Course Course Narrative: 80-year-old female presents with abnormal blood cultures of candidemia. Abnorm al results were called in to this POLYMER[employer] KETTLE OPERATOR, I did call the patient at 9:30 p.m. when the results were reported to me. Patient is currently in the waiting room. Patient's chart was reviewed prior to her arrival along with discussion with hospitalist as patient was discharged from this facility less than 24 hours ago. Hospitalist would like ID consult for candidemia. 11:02 p.m. tiger text discussion with infectious disease Dr Ocasio, updated on patient's status of positive candidemia. Plan of care is for caspofungin IV and admission. Will continue with cefuroxime and doxycycline for pneumonia. 11:10 p.m. discussion with hospitalist, plan of care is to admit for candidemia and pneumonia. Consultations Consultation #1: Ninfa Time: 23:07 Consultation #2: Alfredo Time: 23:10 MDM - Recheck/Abnormal Lab/Rx MDM Narrative Medical decision making narrative: Positive blood culture, candidemia Medical Records Attestation: I reviewed the patient's medical records. Lab Data Attestation: I reviewed the patient's lab results. Result diagrams: 04/29/21 23:57 04/29/21 23:57 Imaging Data Chest x-ray: Attestation: I personally reviewed and interpreted this imaging study as follows: Radiologist's impression: EXAMINATION: XR CHEST CLINICAL INFORMATION: Pneumonia COMPARISON: Chest radiograph 04/27/[address] 04/27/2021 TECHNIQUE: Frontal view of the chest was obtained. FINDINGS: Compared to the prior study, there's been no interval change. Again noted is right lower lobe collapse. A right chest wall bipolar pacemaker remains present. Heart size within normal limits. No evidence of CHF. Lungs are hyperinflated suggesting COPD. Nodular foci are again noted in the left upper lobe, better demonstrated on the prior CT scan. XR/XR chest 1V IMPRESSION: 1.? No acute intrathoracic disease compared to the prior study. 2.? Continued right lower lobe collapse and nodular opacities left lung. Critical Care Time Critical Care Time Critical Care Time: Yes Total Critical Care Time: 45 Attestation: I have personally provided critical care time exclusive of time spent on separately billable procedures. Time includes review of laboratory data, ra diology results, discussion with consultants, and monitoring for potential decompensation. Interventions were performed as documented. Discharge Plan Discharge Clinical Impression: Candidemia Pneumonia Qualifiers: Pneumonia type: due to unspecified organism Laterality: right Lung location: unspecified part of lung Qualified Code(s): J18.9 - Pneumonia, unspecified organism Patient Disposition: Admitted As Inpatient
--- NOTE | 2021-04-29 23:31 | P.HPHOSP_ITS ---
History of Present Illness Date of Service: 04/29/21 Chief Complaint: Positive blood cultures 80-year-old female with a past medical history of hypertension, hyperlipidemia, cardiomyopathy, AFib on Eliquis, recent admission for acute hypoxic respiratory failure in the setting of pneumonia sent home on oral antibiotics; called in today because the blood cultures came back positive for yeast. Patient denies any chest pain palpitations lightheadedness or dizziness. Patient reports that she has been taking oral antibiotics Denies any difficulty breathing. Denies any GI or symptoms. Review of all other systems is negative except mentioned above ER course: Per ER team patient blood culture were positive for yeast; discussed with Dr. Ocasio from Infectious Disease consult who recommended to give the patient caspofungin-which was given in the ER and patient tolerated reportedly. Also recommended to continue her oral antibiotics. Admitted for further management. [facility] Medical History (HFpEF) heart failure with preserved ejection fraction Anemia Anxiety Aortic stenosis Benign essential hypertension Cardiac pacemaker in situ Chronic kidney disease (CKD), stage III (moderate) Complete heart block GI bleed H/O: HTN (hypertension) Hyperlipidemia Hypothyroidism Leg edema Neuropathy Osteoporosis Paroxysmal A-fib Paroxysmal atrial fibrillation Pulmonary hypertension Pure hypercholesterolemia Sensorineural hearing loss Tobacco abuse, in remission Tricuspid regurgitation Vitamin D deficiency Family History Father No problems noted. Mother No problems noted. Sister Diabetes Cancer Pertinent family history: As above Surgical History History of thoracentesis Hx of aortic valve repair Hx of hysterectomy Hx of mastectomy S/P AVR Social History Household Members: Significant Other Housing: House Alcohol intake: never Patient Tobacco Use Status: Former Tobacco user Advance Directives: No Advance Directives Information Provided: No service: No Current occupational status: retired Meds Allergies Allergy/AdvReac Type Severity Reaction Status Date / Time codeine [CODEINE] Allergy Intermediate RASH Verified 04/29/21 22:59 meperidine [From Demerol] Allergy Intermediate Unknown Verified 04/29/21 22:59 Active Medications: Current Medications Acetaminophen (Acetaminophen 325 Mg Tablet) 650 mg PO Q6H PRN PRN Reason: Pain, Mild (Pain Scale 1-3) Caspofungin 70 mg/ Sodium (Chloride) 250 mls @ 250 mls/hr IV ONCE ONE Stop: 04/30/21 00:07 Caspofungin 50 mg/ Sodium (Chloride) 250 mls @ 250 mls/hr IV Q24H [facility] Melatonin (Melatonin 3 Mg Tablet) 6 mg PO BEDTIME PRN PRN Reason: Insomnia Pharmacy Consult (Consult Rx Perform Med Rec) 1 each MISCELLANE ONCE STA Stop: 04/29/21 23:26 Senna (Sennosides 8.6 Mg Tablet) 17.2 mg PO BEDTIME PRN PRN Reason: Constipation Sodium Chloride (0.9 % Sodium Chloride Flush 3 Ml Syringe) 3 ml IVFLUSH QSHIFT [facility] Home Medications Medication Instructions Recorded Confirmed Last Taken Type ferrous sulfate 325 mg (65 mg 325 mg PO DAILY 05/11/20 04/27/21 04/26/21 History iron) tablet (Iron (ferrous sulfate)) apixaban 5 mg tablet (Eliquis) 2.5 mg PO BID 04/27/21 04/27/21 04/27/21 History cholecalciferol (vitamin D3) 25 25 mcg PO DAILY 04/27/21 04/27/21 04/26/21 Hi story mcg (1,000 unit) tablet lorazepam 1 mg tablet 0.25 mg PO BEDTIME PRN 04/27/21 04/27/21 Unknown History simvastatin 10 mg tablet 10 mg PO BEDTIME 04/27/21 04/27/21 04/26/21 History spironolactone 25 mg tablet 0.5 tab PO DAILY 04/27/21 04/27/21 04/26/21 History Physical Exam Vital Signs and Narrative: Vital Signs: Last Vital Signs Temp 98.2 F 04/29/21 23:00 Pulse 83 04/29/21 23:00 Resp 18 04/29/21 23:00 BP 129/63 04/29/21 23:00 Pulse Ox 92 04/29/21 23:00 Body Mass Index 17.6 Gen: Appears be in no acute distress HEENT: NCAT, Moist mucosa. Pulmonary: Coarse breath sounds, fair air entry CVS: Normal S1-S2 Abdomen: BS+, Soft, Nontender Extremities: Warm well perfused Neuro: Alert and awake. Assessment and Plan (1) Candidemia: Status: Acute (2) Pneumonia: Qualifiers: Laterality: right Lung location: unspecified part of lung Pneumonia type: due to unspecified organism Qualified Code(s): J18.9 - Pneumonia, unspecified organism Status: Acute 80-year-old female with a past medical history of hypertension, hyperlipidemia, cardiomyopathy, AFib on Eliquis, recent admission for acute hypoxic respiratory failure in the setting of pneumonia sent home on oral antibiotics; called in today because the blood cultures came back positive for yeast. Candidemia: Continue caspofungin as per ID recommendations. Pneumonia: Continue oral cefuroxime and doxycycline. DuoNebs p.r.n.. History of hypertension/hyperlipidemia: Continue home metoprolol, statin. Hold home amlodipine. History of cardiomyopathy: Hold home diuretics for now. Monitor for signs of fluid overload. History of AFib: Rate controlled. Continue home Eliquis History of hypothyroidism: Continue home levothyroxine DVT prophylaxis: Patient on Eliquis Code status: Full code Quality Stroke Does the patient have a stroke diagnosis?: No VTE Prior VTE?: No VTE Risk Level:: Medical - moderate - high VTE Device Contraindication: Treatment Not Indicated VTE Drug Contraindication: N/A - Med Ordered
[2021-04-30] VITALS (10 sets, daily range): BP systolic 100–142; BP diastolic 52–76; PULSE 62–88; RESP 14–24; TEMP 36.4–36.8; O2SAT 93–98; BMI 17.6
[2021-04-30 00:03] LABS: MANUAL DIFF FLAG NO
[2021-04-30 00:06] LABS: Basophils Absolute Auto 0.1 X10*3/uL (0.0-0.2); Basophils Percent Auto 0.8 % (0-2); Eosinophils Absolute Auto 0.4 X10*3/uL (0.0-0.4); Eosinophils Percent Auto 4.1 % (0-4); Hematocrit 32.2 % (37-47); Hemoglobin 10.2 g/dl (12.0-16.0); Imm Gran Abs Auto 0.06 X10*3/uL (0.00-0.03); Imm Gran Pct Auto 0.7 % (0.0-0.4); Lymphocytes Percent Auto 11.6 % (20-40); Mean Corpuscular HGB Conc 31.7 g/dl (31.0-35.0); Mean Corpuscular Hemoglobin 28.7 pg (27.0-33.0); Mean Corpuscular Volume 90.4 fL (80-98); Mean Platelet Volume 10.4 fL (9.4-12.3); Monocytes Absolute Auto 1.2 X10*3/uL (0.1-1.2); Monocytes Percent Auto 13.9 % (2-11); Neutrophils Percent Auto 68.9 % (45-73); Platelet Count 228 X10*3/uL (160-400); Red Blood Count 3.56 X10*6/uL (4.20-5.50); Red Cell Distribution Width 14.7 % (11.0-16.0); White Blood Count 8.6 X10*3/uL (4.8-10.8)
[2021-04-30 00:10] LABS: Appearance Urine CLEAR; Color Urine YELLOW; Glucose Urine UA NEG (NEG); Leukocyte Esterase Urine TRACE (NEG); Nitrite Urine NEG (NEG); UACC Culture Trigger YES; Urine Blood NEG (NEG); Urine Ketones NEG (NEG); Urine Protein NEG (NEG-TRACE)
[2021-04-30 00:18] LABS: Lactic Acid 1.1 mmol/L (0.5-2.0)
--- NOTE | 2021-04-30 00:21 | PC.NURSE ---
Waiting for pharmacist to mix PT's med that is due.
[2021-04-30 00:22] LABS: Bacteria Urine 2+ /LPF; Mucus Urine 2+ /LPF; Squamous Epithelial Cell Urine 2+ /LPF
[2021-04-30 00:26] LABS: B Type Natriuretic Peptide 476 pg/mL (<100)
[2021-04-30 00:40] LABS: Erythrocyte Sedimentation Rate 77 MM/HR (0-20)
--- NOTE | 2021-04-30 00:40 | PC.NURSE ---
IV to right FA noted to be bleeding from the site, IV removed. IV reestablished by this RN to right wrist. All labs obtained and sent. This RN contacting nursing insurance claims supervisor regarding 2300 medication ordered but not available within hospital. Pharmacy called in to prepare infusion. Awaiting pharmacy.
[2021-04-30 01:00] LABS: Influenza A PCR NEGATIVE (Negative); Influenza B PCR NEGATIVE (Negative); Resp Syncy Virus RNA Qual PCR NEGATIVE (Negative); SARS COV2 PCR INHOUSE NEGATIVE (Negative)
[2021-04-30 01:07] LABS: Alanine Aminotransferase 11 U/L (0-31); Albumin Level 3.4 g/dL (3.5-5.0); Alkaline Phosphatase 78 U/L (39-117); Anion Gap 16 (12-20); Aspartate Amino Transferase 27 U/L (5-31); Bilirubin Direct 0.3 mg/dL (0.0-0.5); Bilirubin Total 0.5 mg/dL (0.0-1.0); Blood Urea Nitrogen 44 mg/dL (9-16); C Reactive Protein 6.67 mg/dL (< or = 0.50); Calcium 9.2 mg/dL (8.4-10.2); Carbon Dioxide 25 mmol/L (22-29); Chloride 102 mmol/L (96-108); Creatinine Clr Calc Pharmacy 19.5; Estimated Glomerular Filt Rate 34; Glucose Random 98 mg/dL (60-115); Lipase 109 U/L (8-78); Potassium 4.6 mmol/L (3.3-5.1); Sodium 138 mmol/L (135-145); Total Protein 7.1 g/dL (6.5-8.0)
[2021-04-30] MEDS: Caspofungin Acetate 70 MG in 0.9 % Sodium Chloride 250 ML 250 MG IV (01:46)
[2021-04-30] MEDS: 0.9 % Sodium Chloride Flush 3 ML SYRINGE IVFLUSH ×4 (01:47→23:18)
--- NOTE | 2021-04-30 01:55 | PC.NURSE ---
Pharmacy delivered PT med. PT medicated per SEP. PT resting comfortably in bed. VSS.
--- NOTE | 2021-04-30 02:17 | PC.NURSE ---
Med Rec completed by Gordon SOLANO, from pts most recent refills. Pt unsure of what medications/dosages she takes. Per , they left the list at home.
--- NOTE | 2021-04-30 03:00 | PC.NURSE ---
1st dose of Capsofungin infusion complete, -s/sx of a reaction noted.
--- NOTE | 2021-04-30 06:21 | PC.NURSE ---
Pt assisted OOB multiple times throughout the night, ambulating to the bathroom with a steady gait. remains at bedside. Pt aware of plan for admission. Awaiting room assignment.
--- NOTE | 2021-04-30 07:18 | PHA.MEDREC ---
Pharmacy Consult ? Medication Reconciliation Medication Reconciliation has been done by nursing staff. Pharmacy has reviewed the med rec. Bertha LopesD
[2021-04-30 07:19] LABS: MANUAL DIFF FLAG NO
[2021-04-30 07:22] LABS: Basophils Absolute Auto 0.1 X10*3/uL (0.0-0.2); Eosinophils Absolute Auto 0.2 X10*3/uL (0.0-0.4); Hematocrit 28.4 % (37-47); Hemoglobin 9.1 g/dl (12.0-16.0); Imm Gran Abs Auto 0.05 X10*3/uL (0.00-0.03); Imm Gran Pct Auto 0.8 % (0.0-0.4); Lymphocytes Absolute Auto 0.5 X10*3/uL (1.2-4.9); Lymphocytes Percent Auto 7.8 % (20-40); Mean Corpuscular Volume 90.4 fL (80-98); Mean Platelet Volume 10.2 fL (9.4-12.3); Monocytes Absolute Auto 0.8 X10*3/uL (0.1-1.2); Monocytes Percent Auto 12.2 % (2-11); Neutrophils Absolute Auto 4.7 X10*3/uL (2.0-8.3); Neutrophils Percent Auto 75.2 % (45-73); Platelet Count 166 X10*3/uL (160-400); Red Blood Count 3.14 X10*6/uL (4.20-5.50); Red Cell Distribution Width 14.8 % (11.0-16.0); White Blood Count 6.3 X10*3/uL (4.8-10.8)
[2021-04-30 07:53] LABS: Anion Gap 12 (12-20); Blood Urea Nitrogen 39 mg/dL (9-16); Calcium 8.5 mg/dL (8.4-10.2); Carbon Dioxide 25 mmol/L (22-29); Chloride 105 mmol/L (96-108); Creatinine Clr Calc Pharmacy 23.5; Estimated Glomerular Filt Rate 43; Glucose Random 91 mg/dL (60-115); Potassium 4.6 mmol/L (3.3-5.1); Sodium 137 mmol/L (135-145)
[2021-04-30] MEDS: Metoprolol Succinate ER 100 MG TAB.ER.24H PO (10:24)
[2021-04-30] MEDS: levoFLOXacin 250 MG TABLET PO (10:25)
[2021-04-30] MEDS: Levothyroxine Sodium 100 MCG TABLET PO (10:25)
[2021-04-30] MEDS: Apixaban 5 MG TABLET PO ×2 (10:26→21:10)
--- NOTE | 2021-04-30 12:27 | P.PNIM_ITS ---
Progress Note: A&P (1) Candidemia: Status: Acute (2) E-coli UTI: Status: Acute Assessment and Plan: 80-year-old female with a past medical history of hypertension, hyperlipidemia, cardiomyopathy, AFib on Eliquis, recent admission for acute hypoxic respiratory failure in the setting of pneumonia sent home on oral antibiotics; called in today because the blood cultures came back positive for yeast. She has no fevers or symptoms of infection Candidemia. 07/15 blood cx Prelim: Yeast Gram Stain only Caspofungin as per ID recommendations. Ecoli UTI Levaquin 250 mg po daily History of hypertension/hyperlipidemia Continue home metoprolol, statin.? amlodipine Recent treatment for CAP Continue Levaquin History of cardiomyopathy Monitor for signs of fluid overload. History of AFib. Rate controlled.? Continue home Eliquis History of hypothyroidism Continue home levothyroxine DVT prophylaxis with [facility] Attending Dr. Sommer Subjective Subjective Date of Service: 04/30/21 Review of Systems Follow positive blood cultures Denies fever, chills, nausea, vomiting, diarrhea Feels well Physical Exam Vital Signs: Vital Signs: Last Vital Signs Temp 98.1 F 04/30/21 06:10 Pulse 62 04/30/21 10:24 Resp 14 04/30/21 07:19 BP 142/76 H 04/30/21 10:24 Pulse Ox 96 04/30/21 07:19 Body Mass Index 17.6 Appearing in no acute distress lung sounds are clear to auscultation heart regular rate rhythm, clear S1, S2 positive bowel sounds, abdomen is soft, nontender neuro patient is alert x3, no focal deficits Objective Data Current Medications Acetaminophen (Acetaminophen 325 Mg Tablet) 650 mg PO Q6H PRN PRN Reason: Pain, Mild (Pain Scale 1-3) Albuterol Sulfate (Albuterol Sulfate 90 Mcg 8 Gm Inhaler) 2 puff INHALE Q6H PRN PRN Reason: Shortness Of Breath Albuterol/Ipratropium (Albuterol/Iprat 2.5/0.5mg 3 Ml Ampul.Neb) 3 ml INHALE RQ4H PRN PRN Reason: Shortness of Breath/Wheezing Apixaban (Apixaban 5 Mg Tablet) 5 mg PO BID EDWIN Last Admin: 04/30/21 10:26 Dose: 5 mg Documented by: Atorvastatin Calcium (Atorvastatin Calcium 10 Mg Tablet) 10 mg PO BEDTIME [facility] Cefuroxime Axetil (Cefuroxime Axetil 500 Mg Tablet) 500 mg PO BID [facility] Last Admin: 04/30/21 10:24 Dose: 500 mg Documented by: Doxycycline Hyclate (Doxycycline Hyclate 100 Mg Tablet) 100 mg PO BID [facility] Last Admin: 04/30/21 10:25 Dose: 100 mg Documented by: Caspofungin 50 mg/ Sodium (Chloride) 250 mls @ 250 mls/hr IV Q24H [facility] Levofloxacin (Levofloxacin 250 Mg Tablet) 250 mg PO Q24H [facility] Last Admin: 04/30/21 10:25 Dose: 250 mg Documented by: Levothyroxine Sodium (Levothyroxine Sodium 100 Mcg Tablet) 100 mcg PO DAILY [facility] Last Admin: 04/30/21 10:25 Dose: 100 mcg Documented by: Melatonin (Melatonin 3 Mg Tablet) 6 mg PO BEDTIME PRN PRN Reason: Insomnia Metoprolol Succinate (Metoprolol Succinate Er 100 Mg Tab.Er.24h) 100 mg PO DAILY [facility]; Protocol Last Admin: 04/30/21 10:24 Dose: 100 mg Documented by: Senna (Sennosides 8.6 Mg Tablet) 17.2 mg PO BEDTIME PRN PRN Reason: Constipation Sodium Chloride (0.9 % Sodium Chloride Flush 3 Ml Syringe) 3 ml IVFLUSH QSHIFT [facility] Last Admin: 04/30/21 10:43 Dose: 3 ml Documented by: Labs CBC & Chem 7: 04/30/21 07:12 04/30/21 07:12 Labs: Laboratory Results - last 24 hr 04/29/21 04/29/21 04/29/21 23:56 23:57 23:57 MCV MCH MCHC RDW Plt Count MPV Immature Gran % (Auto) Neut % (Auto) Lymph % (Auto) Caldwell % (Auto) Eos % (Auto) Baso % (Auto) Lymph # (Auto) Caldwell # (Auto) Eos # (Auto) Baso # (Auto) Abs Immat Gran (auto) Absolute Neuts (auto) Absolute Nucleated RBC Nucleated RBC % (auto) ESR 77 H Anion Gap Estim Creat Clear Calc Estimated GFR Random Glucose Lactic Acid 1.1 Calcium Total Bilirubin Direct Bilirubin AST ALT Alkaline Phosphatase C-Reactive Protein B-Natriuretic Peptide 476 H Total Protein Albumin Lipase Urine Color Urine Appearance Urine pH Ur Specific Morgan Urine Protein Urine Glucose (UA) Urine Ketones Urine Blood Urine Nitrite Ur Leukocyte Esterase Urine RBC Urine WBC Ur Squamous Epith Cells Urine Bacteria Hyaline Casts Granular Casts Urine Mucus Coronavirus (PCR) SARS-CoV-2 (PCR) Influenza Type A (PCR) Influenza Type B (PCR) RSV RNA Qual (PCR) 04/29/21 04/29/21 04/30/21 23:57 23:58 00:02 MCV 90.4 MCH 28.7 MCHC 31.7 RDW 14.7 Plt Count 228 MPV 10.4 Immature Gran % (Auto) 0.7 H Neut % (Auto) 68.9 Lymph % (Auto) 11.6 L Caldwell % (Auto) 13.9 H Eos % (Auto) 4.1 H Baso % (Auto) 0.8 Lymph # (Auto) 1.0 L Caldwell # (Auto) 1.2 Eos # (Auto) 0.4 Baso # (Auto) 0.1 Abs Immat Gran (auto) 0.06 H Absolute Neuts (auto) 6.0 Absolute Nucleated RBC 0.000 Nucleated RBC % (auto) 0.0 ESR Anion Gap Estim Creat Clear Calc Estimated GFR Random Glucose Lactic Acid Calcium Total Bilirubin Direct Bilirubin AST ALT Alkaline Phosphatase C-Reactive Protein B-Natriuretic Peptide Total Protein Albumin Lipase Urine Color YELLOW Urine Appearance CLEAR Urine pH 6.0 Ur Specific Morgan 1.020 Urine Protein NEG Urine Glucose (UA) NEG Urine Ketones NEG Urine Blood NEG Urine Nitrite NEG Ur Leukocyte Esterase TRACE H Urine RBC 1-4 Urine WBC 10-14 H Ur Squamous Epith Cells 2+ Urine Bacteria 2+ Hyaline Casts 5-9 Granular Casts 1-4 Urine Mucus 2+ Coronavirus (PCR) NEGATIVE SARS-CoV-2 (PCR) Influenza Type A (PCR) NEGATIVE Influenza Type B (PCR) NEGATIVE RSV RNA Qual (PCR) NEGATIVE 04/30/21 04/30/21 04/30/21 00:05 00:33 07:12 MCV 90.4 MCH 29.0 MCHC 32.0 RDW 14.8 Plt Count 166 D MPV 10.2 Immature Gran % (Auto) 0.8 H Neut % (Auto) 75.2 H Lymph % (Auto) 7.8 L Caldwell % (Auto) 12.2 H Eos % (Auto) 3.0 Baso % (Auto) 1.0 Lymph # (Auto) 0.5 L Caldwell # (Auto) 0.8 Eos # (Auto) 0.2 Baso # (Auto) 0.1 Abs Immat Gran (auto) 0.05 H Absolute Neuts (auto) 4.7 Absolute Nucleated RBC 0.000 Nucleated RBC % (auto) 0.0 ESR Anion Gap 16 Estim Creat Clear Calc 19.5 Estimated GFR 34 Random Glucose 98 Lactic Acid Calcium 9.2 Total Bilirubin 0.5 Direct Bilirubin 0.3 AST 27 ALT 11 Alkaline Phosphatase 78 C-Reactive Protein 6.67 H B-Natriuretic Peptide Total Protein 7.1 Albumin 3.4 L Lipase 109 H Urine Color Urine Appearance Urine pH Ur Specific Morgan Urine Protein Urine Glucose (UA) Urine Ketones Urine Blood Urine Nitrite Ur Leukocyte Esterase Urine RBC Urine WBC Ur Squamous Epith Cells Urine Bacteria Hyaline Casts Granular Casts Urine Mucus Coronavirus (PCR) SARS-CoV-2 (PCR) Cancelled Influenza Type A (PCR) Influenza Type B (PCR) RSV RNA Qual (PCR) 04/30/21 07:12 MCV MCH MCHC RDW Plt Count MPV Immature Gran % (Auto) Neut % (Auto) Lymph % (Auto) Caldwell % (Auto) Eos % (Auto) Baso % (Auto) Lymph # (Auto) Caldwell # (Auto) Eos # (Auto) Baso # (Auto) Abs Immat Gran (auto) Absolute Neuts (auto) Absolute Nucleated RBC Nucleated RBC % (auto) ESR Anion Gap 12 Estim Creat Clear Calc 23.5 Estimated GFR 43 Random Glucose 91 Lactic Acid Calcium 8.5 D Total Bilirubin Direct Bilirubin AST ALT Alkaline Phosphatase C-Reactive Protein B-Natriuretic Peptide Total Protein Albumin Lipase Urine Color Urine Appearance Urine pH Ur Specific Morgan Urine Protein Urine Glucose (UA) Urine Ketones Urine Blood Urine Nitrite Ur Leukocyte Esterase Urine RBC Urine WBC Ur Squamous Epith Cells Urine Bacteria Hyaline Casts Granular Casts Urine Mucus Coronavirus (PCR) SARS-CoV-2 (PCR) Influenza Type A (PCR) Influenza Type B (PCR) RSV RNA Qual (PCR) Quality Stroke Does the patient have a stroke diagnosis?: No VTE Prior VTE?: No VTE Risk Level:: Medical - moderate - high VTE Device Contraindication: Treatment Not Indicated VTE Drug Contraindication: N/A - Med Ordered
--- NOTE | 2021-04-30 14:04 | W.PM.IDCN ---
History of Present Illness Data of Consult Service Date: 04/30/21 Requesting physician: Margarita Patino Primary Care Provider: Rj Mclaughlin MD HPI Reason for consult: possible fungemia She was recently in hospital She was treated for pneumonia and discharged with cephalosporin and Doxycycline. She had been doing well but blood culture while admitted showed yeast on gram stain and was called back. Review of Systems Review of Systems: Yes all other systems are reviewed and are negative PMFSH Past Medical History Medical History (HFpEF) heart failure with preserved ejection fraction Anemia Anxiety Aortic stenosis Benign essential hypertension Candidemia Cardiac pacemaker in situ Chronic kidney disease (CKD), stage III (moderate) Complete heart block E-coli UTI GI bleed H/O: HTN (hypertension) Hyperlipidemia Hypothyroidism Leg edema Neuropathy Osteoporosis Paroxysmal A-fib Paroxysmal atrial fibrillation Pulmonary hypertension Pure hypercholesterolemia Sensorineural hearing loss Tobacco abuse, in remission Tricuspid regurgitation Vitamin D deficiency Family History Family History Father No problems noted. Mother No problems noted. Sister Diabetes Cancer Family history: reviewed and not pertinent Surgical History Surgical History History of thoracentesis Hx of aortic valve repair Hx of hysterectomy Hx of mastectomy S/P AVR Social History Social History Household Members: Spouse Housing: House Do you presently have visiting nurse or other home services: No Alcohol intake: never Patient Tobacco Use Status: Former Tobacco user Second Hand Smoke Exposure: No service: No Current occupational status: retired Meds Allergies Allergy/AdvReac Type Severity Reaction Status Date / Time codeine [CODEINE] Allergy Intermediate RASH Verified 05/31/21 09:44 meperidine [From Demerol] Allergy Intermediate Unknown Verified 05/31/21 09:44 Active Medications: Current Medications Acetaminophen (Acetaminophen 325 Mg Tablet) 650 mg PO Q6H PRN PRN Reason: Pain, Mild (Pain Scale 1-3) Albuterol Sulfate (Albuterol Sulfate 90 Mcg 8 Gm Inhaler) 2 puff INHALE Q6H PRN PRN Reason: Shortness Of Breath Albuterol/Ipratropium (Albuterol/Iprat 2.5/0.5mg 3 Ml Ampul.Neb) 3 ml INHALE RQ4H PRN PRN Reason: Shortness of Breath/Wheezing Amlodipine Besylate (Amlodipine Besylate 2.5 Mg Tablet) 2.5 mg PO DAILY [facility]; Protocol Apixaban (Apixaban 5 Mg Tablet) 5 mg PO BID [facility] Last Admin: 04/30/21 10:26 Dose: 5 mg Documented by: Atorvastatin Calcium (Atorvastatin Calcium 10 Mg Tablet) 10 mg PO BEDTIME [facility] Cefuroxime Axetil (Cefuroxime Axetil 500 Mg Tablet) 500 mg PO BID [facility] Last Admin: 04/30/21 10:24 Dose: 500 mg Documented by: Doxycycline Hyclate (Doxycycline Hyclate 100 Mg Tablet) 100 mg PO BID [facility] Last Admin: 04/30/21 10:25 Dose: 100 mg Documented by: Furosemide (Furosemide 40 Mg Tablet) 40 mg PO BID [facility]; Protocol Caspofungin 50 mg/ Sodium (Chloride) 250 mls @ 250 mls/hr IV Q24H [facility] Levofloxacin (Levofloxacin 250 Mg Tablet) 250 mg PO Q24H [facility] Last Admin: 04/30/21 10:25 Dose: 250 mg Documented by: Levothyroxine Sodium (Levothyroxine Sodium 100 Mcg Tablet) 100 mcg PO DAILY [facility] Last Admin: 04/30/21 10:25 Dose: 100 mcg Documented by: Melatonin (Melatonin 3 Mg Tablet) 6 mg PO BEDTIME PRN PRN Reason: Insomnia Metoprolol Succinate (Metoprolol Succinate Er 100 Mg Tab.Er.24h) 100 mg PO DAILY [facility]; Protocol Last Admin: 04/30/21 10:24 Dose: 100 mg Documented by: Senna (Sennosides 8.6 Mg Tablet) 17.2 mg PO BEDTIME PRN PRN Reason: Constipation Sodium Chloride (0.9 % Sodium Chloride Flush 3 Ml Syringe) 3 ml IVFLUSH QSHIFT [facility] Last Admin: 04/30/21 10:43 Dose: 3 ml Documented by: Spironolactone (Spironolactone 25 Mg Tablet) 25 mg PO BID [facility]; Protocol Home Medications Medication Instructions Recorded Confirmed Last Taken Type albuterol sulfate 90 mcg/actuation 90 mcg INHALATION NEEDED PRN 04/30/21 05/22/21 Unknown History aerosol inhaler amlodipine 2.5 mg tablet 2.5 mg PO DAILY 04/30/21 05/22/21 Unknown History furosemide 40 mg tablet 40 mg PO BID 04/30/21 05/22/21 Unknown History levothyroxine 100 mcg tablet 100 mcg PO DAILY 04/30/21 05/22/21 Unknown History (Synthroid) metoprolol succinate 100 mg 100 mg PO DAILY 04/30/21 05/22/21 Unknown History tablet,extended release 24 hr raloxifene 60 mg tablet 60 mg PO DAILY 04/30/21 05/22/21 Unknown History simvastatin 10 mg tablet 10 mg PO BEDTIME 04/30/21 05/22/21 Unknown History spironolactone 25 mg tablet 25 mg PO BID 04/30/21 05/22/21 Unknown History Physical Exam Vital Signs: Vital Signs: Last Vital Signs Temp 98.1 F 04/30/21 06:10 Pulse 62 04/30/21 10:24 Resp 14 04/30/21 07:19 BP 142/76 H 04/30/21 10:24 Pulse Ox 96 04/30/21 07:19 Body Mass Index 17.6 Const: General: cooperative HENMT: Head: Yes normal to inspection Mouth: Normal oral and palatal mucosa present Eyes: General: appearance normal, both eyes and all related structures Resp: Effort & Inspection: normal respiratory effort Cardio: Rate: regular rate Rhythm: regular rhythm GI: Palpation (GI): Soft to palpation and nontender Skin: General skin exam: no rashes or lesions noted Extrem: Other: pacer right chest looks clear Results Labs CBC & Chem 7: 05/01/21 05:18 05/01/21 05:18 Labs: Short CBC 04/29/21 04/30/21 Range/Units 23:57 07:12 WBC 8.6 6.3 (4.8-10.8) X10*3/uL Hgb 10.2 L 9.1 L (12.0-16.0) g/dl Hct 32.2 L 28.4 L (37-47) % Plt Count 228 166 D (160-400) X10*3/uL BMP 04/30/21 04/30/21 00:33 07:12 Sodium 138 137 Potassium 4.6 4.6 Chloride 102 105 Carbon Dioxide 25 25 BUN 44 H 39 H Creatinine 1.46 H 1.21 Calcium 9.2 8.5 D Liver Function 04/30/21 Range/Units 00:33 Total Bilirubin 0.5 (0.0-1.0) mg/dL Direct Bilirubin 0.3 (0.0-0.5) mg/dL AST 27 (5-31) U/L ALT 11 (0-31) U/L Alkaline Phosphatase 78 (39-117) U/L Albumin 3.4 L (3.5-5.0) g/dL Urine 04/29/21 Range/Units 23:58 Urine Color YELLOW Urine Appearance CLEAR Urine pH 6.0 (5.0-8.0) Ur Specific [place] 1.020 (1.005-1.025) Urine Protein NEG (NEG-TRACE) MG/DL Urine Glucose (UA) NEG (NEG) MG/DL Assessment and Plan (1) Candidemia: Possible fungemia (seen on gram stain,no culture available so far) (2) Acute respiratory failure with hypoxia: Status: Resolved resolved pneumonia Continue Caspofungin or Micafungin pending blood cultures Stop if ablood cultures negative 24-48 hours Finish cephalosporin and Doxycycline
--- NOTE | 2021-04-30 16:10 | MHC.CLN ---
NUTRITION CONSULT CONSULT FOR DECREASED APPETITE. DIET=CARDIAC. PER DISCUSSION WITH PATIENT, ADDING ENSURE CLEAR BID (480 KCAL, 16 G PROTEIN). REPORTED THAT EATS THREE MEALS PER DAY, DOES NOT EAT A LOT, AND FORCES SELF TO EAT. QUALIFIES MODERATE MALNUTRITION IN THE CONTEXT OF ACUTE ILLNESS.
[2021-04-30] MEDS: Atorvastatin Calcium 10 MG TABLET PO (21:10)
[2021-04-30] MEDS: Spironolactone 25 MG TABLET PO (21:12)
[2021-04-30] MEDS: Furosemide 40 MG TABLET PO (21:12)
[2021-04-30] MEDS: Caspofungin Acetate 50 MG in 0.9 % Sodium Chloride 250 ML 250 MG IV (21:16)
[2021-05-01] VITALS (7 sets, daily range): BP systolic 100–117; BP diastolic 51–61; PULSE 70–82; RESP 16–18; TEMP 36.3–37.4; O2SAT 94–96
[2021-05-01] MEDS: Melatonin 3 MG TABLET 6 MG PO (01:05)
[2021-05-01 05:56] LABS: Hematocrit 33.2 % (37-47); Hemoglobin 10.5 g/dl (12.0-16.0); Mean Corpuscular HGB Conc 31.6 g/dl (31.0-35.0); Mean Corpuscular Hemoglobin 28.4 pg (27.0-33.0); Mean Corpuscular Volume 89.7 fL (80-98); Platelet Count 225 X10*3/uL (160-400); Red Cell Distribution Width 14.7 % (11.0-16.0)
[2021-05-01 06:12] LABS: Anion Gap 16 (12-20); Blood Urea Nitrogen 35 mg/dL (9-16); Calcium 9.6 mg/dL (8.4-10.2); Carbon Dioxide 23 mmol/L (22-29); Chloride 104 mmol/L (96-108); Creatinine Clr Calc Pharmacy 23.9; Estimated Glomerular Filt Rate 44; Glucose Random 82 mg/dL (60-115); Potassium 4.8 mmol/L (3.3-5.1); Sodium 138 mmol/L (135-145)
--- NOTE | 2021-05-01 08:32 | P.PNIM_ITS ---
Progress Note: A&P (1) Candidemia: Status: Acute (2) E-coli UTI: Status: Acute (3) Diarrhea: Status: Acute Assessment and Plan: 80-year-old female with a past medical history of hypertension, hyperlipidemia, cardiomyopathy, AFib on Eliquis, recent admission for acute hypoxic respiratory failure in the setting of pneumonia sent home on oral antibiotics; called in today because the blood cultures came back positive for yeast. She has no fevers or symptoms of infection Candidemia. / blood cx Prelim: Yeast Gram Stain only Caspofungin as per ID recommendations. Diarrhea. Likely secondary to antifungal monitor electrolytes closely encourage oral intake Ecoli UTI Levaquin 250 mg po daily History of hypertension/hyperlipidemia Continue home metoprolol, statin.? amlodipine Recent treatment for CAP Continue Levaquin History of cardiomyopathy Monitor for signs of fluid overload. History of AFib. Rate controlled.? Continue home Eliquis History of hypothyroidism Continue home levothyroxine DVT prophylaxis with [facility] Attending Dr. Sommer Subjective Subjective Date of Service: 05/01/21 Review of Systems Follow-up possible candidemia No complaints of pain, no fever Good appetite Physical Exam Vital Signs: Vital Signs: Last Vital Signs Temp 97.3 F 05/01/21 07:23 Pulse 81 05/01/21 07:23 Resp 18 05/01/21 07:23 BP 117/58 L 05/01/21 07:23 Pulse Ox 94 05/01/21 07:23 Body Mass Index 17.6 Appearing in no acute distress lung sounds are clear to auscultation heart regular rate rhythm, clear S1, S2 positive bowel sounds, abdomen is soft, nontender neuro patient is alert x3, no focal deficits Objective Data Current Medications Acetaminophen (Acetaminophen 325 Mg Tablet) 650 mg PO Q6H PRN PRN Reason: Pain, Mild (Pain Scale 1-3) Albuterol Sulfate (Albuterol Sulfate 90 Mcg 8 Gm Inhaler) 2 puff INHALE Q6H PRN PRN Reason: Shortness Of Breath Albuterol/Ipratropium (Albuterol/Iprat 2.5/0.5mg 3 Ml Ampul.Neb) 3 ml INHALE RQ4H PRN PRN Reason: Shortness of Breath/Wheezing Amlodipine Besylate (Amlodipine Besylate 2.5 Mg Tablet) 2.5 mg PO DAILY [facility]; Protocol Apixaban (Apixaban 5 Mg Tablet) 5 mg PO BID [facility] Last Admin: 04/30/21 21:10 Dose: 5 mg Documented by: Atorvastatin Calcium (Atorvastatin Calcium 10 Mg Tablet) 10 mg PO BEDTIME [facility] Last Admin: 04/30/21 21:10 Dose: 10 mg Documented by: Doxycycline Hyclate (Doxycycline Hyclate 100 Mg Tablet) 100 mg PO BID [facility] Last Admin: 04/30/21 21:10 Dose: 100 mg Documented by: Furosemide (Furosemide 40 Mg Tablet) 40 mg PO BID@0900,1700 [facility]; Protocol Caspofungin 50 mg/ Sodium (Chloride) 250 mls @ 250 mls/hr IV Q24H [facility] Last Infusion: 04/30/21 22:24 Dose: Infused Documented by: Levofloxacin (Levofloxacin 250 Mg Tablet) 250 mg PO Q24H [facility] Last Admin: 04/30/21 10:25 Dose: 250 mg Documented by: Levothyroxine Sodium (Levothyroxine Sodium 100 Mcg Tablet) 100 mcg PO DAILY [facility] Last Admin: 04/30/21 10:25 Dose: 100 mcg Documented by: Melatonin (Melatonin 3 Mg Tablet) 6 mg PO BEDTIME PRN PRN Reason: Insomnia Last Admin: 05/01/21 01:05 Dose: 6 mg Documented by: Metoprolol Succinate (Metoprolol Succinate Er 100 Mg Tab.Er.24h) 100 mg PO DAILY [facility]; Protocol Last Admin: 04/30/21 10:24 Dose: 100 mg Documented by: Senna (Sennosides 8.6 Mg Tablet) 17.2 mg PO BEDTIME PRN PRN Reason: Constipation Sodium Chloride (0.9 % Sodium Chloride Flush 3 Ml Syringe) 3 ml IVFLUSH QSHIFT [facility] Last Admin: 04/30/21 23:18 Dose: 3 ml Documented by: Spironolactone (Spironolactone 25 Mg Tablet) 25 mg PO BID@0900,1700 [facility]; Protocol Last Admin: 04/30/21 21:23 Dose: Not Given Documented by: Labs CBC & Chem 7: 05/01/21 05:18 05/01/21 05:18 Labs: Laboratory Results - last 24 hr 05/01/21 05/01/21 05:18 05:18 MCV 89.7 MCH 28.4 MCHC 31.6 RDW 14.7 Plt Count 225 D MPV 10.0 Absolute Nucleated RBC 0.000 Nucleated RBC % (auto) 0.0 Anion Gap 16 Estim Creat Clear Calc 23.9 Estimated GFR 44 Random Glucose 82 Calcium 9.6 D Microbiology Microbiology Results: Microbiology 04/30/21 00:00 Urine clean catch - Urine sanchez top Urine Culture - Final No growth. 04/29/21 23:58 Blood - Venous Blood Culture - Preliminary No growth after 24 hours. 04/29/21 23:56 Blood - Venous Blood Culture - Preliminary No growth after 24 hours. Quality Stroke Does the patient have a stroke diagnosis?: No VTE Prior VTE?: No VTE Risk Level:: Medical - moderate - high VTE Device Contraindication: Treatment Not Indicated VTE Drug Contraindication: N/A - Med Ordered
--- NOTE | 2021-05-01 08:52 | MHC.CM.PN ---
PATIENT LIVES WITH HER SPOUSE/HCP (COPY REQUESTED) HER CHILDREN LIVE WITHIN WALKING DISTANCE AND ARE ACTIVE IN PATIENT'S DAILY LIFE. NO DMR OR VNA VNA SERVICES IN THE HOME. NO ELDER CARE SERVICES. PATIENT IS HOPING TO DISCHARGE HOME TODAY. CASE MANAGEMENT FOLLOWING. FAMILY WILL PROVIDE TRANSPORT HOME IMM 05/01 DISCUSSED, SIGNED, AND COPY IN CHART.
[2021-05-01] MEDS: Metoprolol Succinate ER 100 MG TAB.ER.24H PO (09:25)
[2021-05-01] MEDS: Furosemide 40 MG TABLET PO ×2 (09:26→16:36)
[2021-05-01] MEDS: Levothyroxine Sodium 100 MCG TABLET PO (09:26)
[2021-05-01] MEDS: Apixaban 5 MG TABLET PO ×2 (09:26→21:27)
[2021-05-01] MEDS: Spironolactone 25 MG TABLET PO ×2 (09:27→16:35)
[2021-05-01] MEDS: levoFLOXacin 250 MG TABLET PO (09:27)
[2021-05-01] MEDS: amLODIPine Besylate 2.5 MG TABLET PO (09:27)
[2021-05-01] MEDS: 0.9 % Sodium Chloride Flush 3 ML SYRINGE IVFLUSH ×2 (09:28→15:17)
--- NOTE | 2021-05-01 09:31 | P.CDIC_ITS ---
CDI Concurrent Query Documentation Clarification: PHYSICIAN'S DOCUMENTATION REQUEST Date of Query: 05/01/21 0931 Patient Name: Mey Schmitz Admit Date: 04/29/21 Dear Doctor, A review of the medical record indicates additional documentation may be needed. Please review below and update the documentation accordingly. Risk Factors/Clinical Indicators/Treatments BMI 17.6 Nutrition notes patient is mild to moderately malnourished, with moderate depletion rib cage, mild depletion of muscles mass clavicle, malnutrition. Moderate malnourished in the context of acute illness. Ensure to diet. If possible, please provide an associated diagnosis related to the abnormal BMI, such as: For a BMI <= 19: * Underweight * Weight loss * Cachexia * Anorexia * Malnutrition, mild, moderate or severe Or: * BMI is not significant * Other (please specify) * Unable to determine Use of terms such as suspected, likely, concern for, or probable (associated with a specific diagnosis that is being evaluated, monitored, or treated as if it exists) are acceptable and can be coded in the inpatient setting, when documented at the time of discharge. Thank you, Eyrn Winters [facility], CDIS Extension: [phone] Please use your independent medical judgment in providing your response. THIS QUERY IS PART OF THE PERMANENT MEDICAL RECORD Provider Response: Other Other Diagnosis: Moderate protein calorie malnutrition
--- NOTE | 2021-05-01 11:12 | PC.NURSE ---
Skin assessment completed. Patient has bruising to right arm. No other skin issues noted at this time. Patient is ambulatory and independent.
--- NOTE | 2021-05-01 13:42 | MHC.CM.PN ---
AWAITING ID INPUT POSSIBLE [facility] CASE MANAGEMENT FOLLOWING
[2021-05-01] MEDS: Caspofungin Acetate 50 MG in 0.9 % Sodium Chloride 250 ML 250 MG IV (21:27)
[2021-05-01] MEDS: Atorvastatin Calcium 10 MG TABLET PO (21:27)
[2021-05-02] VITALS (7 sets, daily range): BP systolic 104–147; BP diastolic 53–69; PULSE 76–88; RESP 16–18; TEMP 36.1–37.1; O2SAT 93–99
[2021-05-02] MEDS: 0.9 % Sodium Chloride Flush 3 ML SYRINGE IVFLUSH ×3 (01:17→16:08)
[2021-05-02] MEDS: levoFLOXacin 250 MG TABLET PO (10:03)
[2021-05-02] MEDS: Levothyroxine Sodium 100 MCG TABLET PO (10:14)
[2021-05-02] MEDS: Apixaban 5 MG TABLET PO ×2 (10:15→21:56)
[2021-05-02] MEDS: Furosemide 40 MG TABLET PO ×2 (10:17→16:10)
[2021-05-02] MEDS: Metoprolol Succinate ER 100 MG TAB.ER.24H PO (10:18)
[2021-05-02] MEDS: amLODIPine Besylate 2.5 MG TABLET PO (10:19)
[2021-05-02] MEDS: Spironolactone 25 MG TABLET PO ×2 (10:19→16:09)
--- NOTE | 2021-05-02 11:52 | HO.PM.IMPN ---
Subjective Subjective Date of Service: 05/02/21 Interval History: seen and examined this AM bedside patient feels well and has no complaints no sob or cough no fevers or chills no urinary symptoms or diarrhea Review of Systems negative except above Physical Exam Vital Signs: Vital Signs: Last Vital Signs Temp 98.6 F 05/02/21 11:25 Pulse 88 05/02/21 11:25 Resp 18 05/02/21 11:25 BP 121/62 05/02/21 11:25 Pulse Ox 93 05/02/21 11:25 Body Mass Index 17.6 Const: Other: General - no acute distress, appears comfortable Cardiovascular - regular rate and rhythm, S1-S2 Lungs - normal respiratory effort, clear to auscultation bilaterally slight dim R base, no wheezing Abdomen - soft, nontender, no rebound or guarding Extremities - no edema bilaterally Neuro - awake and alert, no focal deficits Objective Data Active Medications Acetaminophen (Acetaminophen 325 Mg Tablet) 650 mg PO Q6H PRN PRN Reason: Pain, Mild (Pain Scale 1-3) Albuterol Sulfate (Albuterol Sulfate 90 Mcg 8 Gm Inhaler) 2 puff INHALE Q6H PRN PRN Reason: Shortness Of Breath Albuterol/Ipratropium (Albuterol/Iprat 2.5/0.5mg 3 Ml Ampul.Neb) 3 ml INHALE RQ4H PRN PRN Reason: Shortness of Breath/Wheezing Amlodipine Besylate (Amlodipine Besylate 2.5 Mg Tablet) 2.5 mg PO DAILY [facility]; Protocol Last Admin: 05/02/21 10:19 Dose: 2.5 mg Documented by: AISHA Apixaban (Apixaban 5 Mg Tablet) 5 mg PO BID [facility] Last Admin: 05/02/21 10:15 Dose: 5 mg Documented by: AISHA Atorvastatin Calcium (Atorvastatin Calcium 10 Mg Tablet) 10 mg PO BEDTIME [facility] Last Admin: 05/01/21 21:27 Dose: 10 mg Documented by: ELI Doxycycline Hyclate (Doxycycline Hyclate 100 Mg Tablet) 100 mg PO BID [facility] Last Admin: 05/02/21 10:05 Dose: 100 mg Documented by: AISHA Furosemide (Furosemide 40 Mg Tablet) 40 mg PO BID@0900,1700 [facility]; Protocol Last Admin: 05/02/21 10:17 Dose: 40 mg Documented by: AISHA Caspofungin 50 mg/ Sodium (Chloride) 250 mls @ 250 mls/hr IV Q24H [facility] Last Infusion: 05/01/21 22:30 Dose: 0 mls/hr Documented by: ELI Levofloxacin (Levofloxacin 250 Mg Tablet) 250 mg PO Q24H [facility] Last Admin: 05/02/21 10:03 Dose: 250 mg Documented by: AISHA Levothyroxine Sodium (Levothyroxine Sodium 100 Mcg Tablet) 100 mcg PO DAILY [facility] Last Admin: 05/02/21 10:14 Dose: 100 mcg Documented by: AISHA Melatonin (Melatonin 3 Mg Tablet) 6 mg PO BEDTIME PRN PRN Reason: Insomnia Last Admin: 05/01/21 01:05 Dose: 6 mg Documented by: STEWART Metoprolol Succinate (Metoprolol Succinate Er 100 Mg Tab.Er.24h) 100 mg PO DAILY [facility]; Protocol Last Admin: 05/02/21 10:18 Dose: 100 mg Documented by: AISHA Senna (Sennosides 8.6 Mg Tablet) 17.2 mg PO BEDTIME PRN PRN Reason: Constipation Sodium Chloride (0.9 % Sodium Chloride Flush 3 Ml Syringe) 3 ml IVFLUSH QSHIFT [facility] Last Admin: 05/02/21 10:01 Dose: 3 ml Documented by: AISHA Spironolactone (Spironolactone 25 Mg Tablet) 25 mg PO BID@0900,1700 [facility]; Protocol Last Admin: 05/02/21 10:19 Dose: 25 mg Documented by: AISHA Labs CBC & Chem 7: 05/01/21 05:18 05/01/21 05:18 Microbiology Microbiology Results: Microbiology 04/29/21 23:58 Blood Culture - Preliminary Blood - Venous No growth after 48 hours. 04/29/21 23:56 Blood Culture - Preliminary Blood - Venous No growth after 48 hours. 04/30/21 00:00 Urine Culture - Final Urine clean catch - Urine sanchez top No growth. Assessment and Plan (1) Candidemia: Status: Acute Assessment and Plan: 80-year-old female with a past medical history of hypertension, hyperlipidemia, cardiomyopathy, AFib on Eliquis, recent admission for acute hypoxic respiratory failure in the setting of pneumonia sent home on oral antibiotics; called in today because the blood cultures came back positive for yeast. She has no fevers or symptoms of infection Skylar Parapsilosis -- 1/2 blood cultures from her repeat blood cx PRIOR to starting anti-fungals are negative continue caspofungin for now -- ID to see the patient today; CAP (admitted last week for this) finish doxy today Diarrhea resolved Ecoli UTI completed treatment History of hypertension/hyperlipidemia Continue home metoprolol, statin.? amlodipine History of cardiomyopathy Monitor for signs of fluid overload. History of AFib. Rate controlled.? Continue home Eliquis History of hypothyroidism Continue home levothyroxine Full Code DVT pptx, Eliquis dispo: home once fungemia evaluation completed Quality Stroke Does the patient have a stroke diagnosis?: No VTE Prior VTE?: No VTE Risk Level:: Medical - moderate - high VTE Device Contraindication: Treatment Not Indicated VTE Drug Contraindication: N/A - Med Ordered
--- NOTE | 2021-05-02 13:49 | MHC.CLN ---
F/U APPEARS TO BE EATING 50-100% AT MEALS. CONTINUE CARDIAC DIET AND ENSURE CLEAR BID.
[2021-05-02] MEDS: Fluconazole 100 MG TABLET 800 MG PO (16:08)
[2021-05-02] MEDS: Atorvastatin Calcium 10 MG TABLET PO (21:56)
[2021-05-03] MEDS: Prochlorperazine Edisylate 10 MG/2 ML VIAL 5 MG IVPUSH (00:25)
[2021-05-03] MEDS: 0.9 % Sodium Chloride Flush 3 ML SYRINGE IVFLUSH ×4 (00:25→23:19)
[2021-05-03 03:50] VITALS: BP 109/57; PULSE 85; RESP 17; TEMP 36.7; O2SAT 95
[2021-05-03 07:18] VITALS: BP 128/60; PULSE 77; RESP 18; TEMP 36.9; O2SAT 95
--- NOTE | 2021-05-03 07:30 | CA_ITS ---
Transthoracic Echocardiogram Patient (Last, First, Middle): Mey Schmitz, Gender: Female Date of : 1940 Age: 80 Procedure Date: 05/03/2021 Procedure Type: Transthoracic Echocardiogram Location: S3E Height: 152.4 cm Weight: 40.82 kg BSA: 1.33 m2 Heart Rate: bpm BP: 109 / 57 mmHg Locker Operator: DSG Referring MD: Antoni Sommer MD Symptoms: positive blood cx, eval for endocarditis Study Quality: Fair ECG Rhythm: Sinus Conclusions: - The left ventricular systolic function is normal. The visually estimated ejection fraction is between 60-65%. - Cannot exclude endocarditis based on this study. Findings Left Ventricle Normal left ventricular cavity size. There is normal left ventricular wall thickness. The left ventricular systolic function is normal. The visually estimated ejection fraction is between 60-65%. There is no evidence of regional wall motion abnormalities. Diastolic function is indeterminate on the basis of available data. Right Ventricle There is a pacemaker wire seen in the right ventricle. Cannot exclude vegetation. Atria The left atrium is mildly dilated. Interatrial shunting with left to right shunting by color and spectral doppler. Aortic Valve A bioprosthetic aortic valve is present. The prosthetic aortic valve appears to be functioning normally. The aortic valve was not well visualized. The peak aortic gradient is 8 mmHg.(bioprosthetic AVR by history). Mitral Valve There is severe mitral annular calcification. There is trace mitral valve regurgitation. Mean gradient across the mitral valve 5 mmHg at 70/Min; Mitral valve area by pressure half time 2.2 sq cm. Cannot exclude mild mitral stenosis. Pulmonic Valve There is mild pulmonic valve regurgitation. Tricuspid Valve There is mild tricuspid valve regurgitation. Mild pulmonary hypertension is present. Great Vessels The aorta was not well visualized. Venous The inferior vena cava is normal in size and collapses greater than 50% with inspiration. Pericardium/Pleural There is no evidence of pericardial effusion. Prior Study Comparison No significant change compared to prior study dated: 03/02/2021. Recommendations, Care & Conclusions Consider a MARITZA if clinically appropriate. Measurements 2D Linear Measurements IVSd: 0.98 0.6-0.9/0.6-1.0 cm LVIDd: 3.48 3.9-5.3/4.2-5.9 cm LVIDd Index: 2.62 2.4-3.2/2.2-3.1 cm/m2 LVIDs: 1.88 2.0-3.6 cm LVPWd: 0.97 0.7-1.1 cm LA Diam: 4.30 2.7-3.8/3.0-4.0 cm LAIDs Index: 3.23 1.5-2.3 cm/m2 LV Mass: 122.77 67-162/88-224 g LV Mass Index: 92.31 43-95/49-115 g/m2 LVOT Diam: 1.70 3.0+(-)1.3 cm Mitral Valve MV VTI: 0.46 MV Pk Richard: 1.72 MV Mn Richard: 0.98 MV Pk Grad: 12.00 MV Mn Grad: 5.00 MV Pk E: 1.66 MV PK A: 0.92 MV Decel Time: 335.00 E/A: 1.80 PHT: 98.00 MVA PHT: 2.24 MVA Continuity: 0.89 Decel [place]: 4.95 Aortic Valve AoV Pk Richard: 1.38 AoV Pk Grad: 8.00 LVOT LVOT Pk Richard: 0.98 LVOT Mn Richard: 0.63 LVOT VTI: 0.18 LVOT Pk Grad: 4.00 LVOT Mn Grad: 2.00 LVOT Diam: 1.70 LVOT Area: 2.27 Diastolic Function MV Pk E: 1.66 MV Pk A: 0.92 E/A: 1.80 Tricuspid Valve TR Pk Richard: 3.14 TR Pk Grad: 39.00 RA Press: 3.00 RVSP: 42.00 Updated in Other Vendor System with Status of Final Josh Khalil MD electronically signed on 05/03/2021 12:17:20 PM with status of Final
[2021-05-03] MEDS: Furosemide 40 MG TABLET PO ×2 (08:39→17:19)
[2021-05-03] MEDS: amLODIPine Besylate 2.5 MG TABLET PO (08:39)
[2021-05-03] MEDS: Metoprolol Succinate ER 100 MG TAB.ER.24H PO (08:39)
[2021-05-03] MEDS: Apixaban 5 MG TABLET PO (08:40)
[2021-05-03] MEDS: Levothyroxine Sodium 100 MCG TABLET PO (08:40)
[2021-05-03] MEDS: Spironolactone 25 MG TABLET PO ×2 (08:40→17:18)
[2021-05-03] MEDS: Fluconazole 100 MG TABLET 200 MG PO (08:40)
--- NOTE | 2021-05-03 09:40 | HO.PM.IMPN ---
Subjective Subjective Date of Service: 05/03/21 Interval History: seen and examined this AM daughter bedside patient feels well and has no complaints no sob or cough no fevers or chills no urinary symptoms or diarrhea Review of Systems negative except above Physical Exam Vital Signs: Vital Signs: Last Vital Signs Temp 98.5 F 05/03/21 07:18 Pulse 77 05/03/21 07:18 Resp 18 05/03/21 07:18 BP 128/60 05/03/21 07:18 Pulse Ox 95 05/03/21 07:18 Body Mass Index 17.6 Const: Other: General - no acute distress, appears comfortable Cardiovascular - regular rate and rhythm, S1-S2 Lungs - normal respiratory effort, clear to auscultation bilaterally slight dim R base, no wheezing Abdomen - soft, nontender, no rebound or guarding Extremities - no edema bilaterally Neuro - awake and alert, no focal deficits Objective Data Active Medications Acetaminophen (Acetaminophen 325 Mg Tablet) 650 mg PO Q6H PRN PRN Reason: Pain, Mild (Pain Scale 1-3) Al Hydroxide/Mg Hydroxide (Magnesium Hydrox/Alum Hydrox 30 Ml Oral.Susp) 15 ml PO Q6H PRN PRN Reason: Heartburn Albuterol Sulfate (Albuterol Sulfate 90 Mcg 8 Gm Inhaler) 2 puff INHALE Q6H PRN PRN Reason: Shortness Of Breath Albuterol/Ipratropium (Albuterol/Iprat 2.5/0.5mg 3 Ml Ampul.Neb) 3 ml INHALE RQ4H PRN PRN Reason: Shortness of Breath/Wheezing Amlodipine Besylate (Amlodipine Besylate 2.5 Mg Tablet) 2.5 mg PO DAILY [facility]; Protocol Last Admin: 05/03/21 08:39 Dose: 2.5 mg Documented by: GAUDENCIO Apixaban (Apixaban 5 Mg Tablet) 5 mg PO BID [facility] Last Admin: 05/03/21 08:40 Dose: 5 mg Documented by: GAUDENCIO Atorvastatin Calcium (Atorvastatin Calcium 10 Mg Tablet) 10 mg PO BEDTIME [facility] Last Admin: 05/02/21 21:56 Dose: 10 mg Documented by: ELI Fluconazole (Fluconazole 100 Mg Tablet) 200 mg PO DAILY [facility] Last Admin: 05/03/21 08:40 Dose: 200 mg Documented by: GAUDENCIO Furosemide (Furosemide 40 Mg Tablet) 40 mg PO BID@0900,1700 [facility]; Protocol Last Admin: 05/03/21 08:39 Dose: 40 mg Documented by: GAUDENCIO Levothyroxine Sodium (Levothyroxine Sodium 100 Mcg Tablet) 100 mcg PO DAILY [facility] Last Admin: 05/03/21 08:40 Dose: 100 mcg Documented by: GAUDENCIO Melatonin (Melatonin 3 Mg Tablet) 6 mg PO BEDTIME PRN PRN Reason: Insomnia Last Admin: 05/01/21 01:05 Dose: 6 mg Documented by: STEWART Metoprolol Succinate (Metoprolol Succinate Er 100 Mg Tab.Er.24h) 100 mg PO DAILY [facility]; Protocol Last Admin: 05/03/21 08:39 Dose: 100 mg Documented by: GAUDENCIO Senna (Sennosides 8.6 Mg Tablet) 17.2 mg PO BEDTIME PRN PRN Reason: Constipation Sodium Chloride (0.9 % Sodium Chloride Flush 3 Ml Syringe) 3 ml IVFLUSH QSHIFT [facility] Last Admin: 05/03/21 08:41 Dose: 3 ml Documented by: GAUDENCIO Spironolactone (Spironolactone 25 Mg Tablet) 25 mg PO BID@0900,1700 [facility]; Protocol Last Admin: 05/03/21 08:40 Dose: 25 mg Documented by: GAUDENCIO Labs CBC & Chem 7: 05/01/21 05:18 05/01/21 05:18 Assessment and Plan (1) Candidemia: Status: Acute Assessment and Plan: 80-year-old female with a past medical history of hypertension, hyperlipidemia, cardiomyopathy, AFib on Eliquis, recent admission for acute hypoxic respiratory failure in the setting of pneumonia sent home on oral antibiotics; called in today because the blood cultures came back positive for yeast. She has no fevers or symptoms of infection Skylar Parapsilosis -- 1/2 blood cultures from her repeat blood cx PRIOR to starting anti-fungals are negative Will check Echo -- if negative then 21 day PO diflucan (d/w ID) CAP (admitted last week for this) finished treatment Diarrhea resolved History of hypertension/hyperlipidemia Continue home metoprolol, statin.? amlodipine History of cardiomyopathy Monitor for signs of fluid overload. History of AFib. Rate controlled.? Continue home Eliquis History of hypothyroidism Continue home levothyroxine Full Code DVT pptx, Eliquis dispo: anticipate discharge home today if echo neg Quality Stroke Does the patient have a stroke diagnosis?: No VTE Prior VTE?: No VTE Risk Level:: Medical - moderate - high VTE Device Contraindication: Treatment Not Indicated VTE Drug Contraindication: N/A - Med Ordered
[2021-05-03 11:34] VITALS: BP 119/56; PULSE 75; RESP 18; TEMP 37.2; O2SAT 95
--- NOTE | 2021-05-03 12:15 | MHC.CM.PN ---
PLAN IS ECHO TODAY AND LIKELY RETURN HOME LATER IN THE AFTERNOON.
[2021-05-03 16:00] VITALS: BP 129/60; PULSE 80; RESP 16; TEMP 36.9; O2SAT 96
[2021-05-03] MEDS: Fluticasone Propionate Nasal 16 GM SPRAY 1 SPRAY NOSTRIL-B (17:33)
[2021-05-03 19:27] VITALS: BP 104/59; PULSE 75; RESP 16; TEMP 37.1; O2SAT 94
[2021-05-03] MEDS: Apixaban 2.5 MG TABLET PO (21:26)
[2021-05-03] MEDS: Atorvastatin Calcium 10 MG TABLET PO (21:26)
--- NOTE | 2021-05-03 22:49 | PM.IDPN ---
Subjective Subjective Date of Service: 05/03/21 Critical Care Time (minutes): 15 Comment: She feels well and has no complaints Objective Data Labs CBC & Chem 7: 05/01/21 05:18 05/01/21 05:18 Microbiology Microbiology Results: Microbiology 04/29/21 23:58 Blood - Venous Blood Culture - Preliminary No growth after 48 hours. 04/29/21 23:56 Blood - Venous Blood Culture - Preliminary No growth after 48 hours. 04/30/21 00:00 Urine clean catch - Urine sanchez top Urine Culture - Final No growth. Physical Exam Vital Signs: Vital Signs: Last Vital Signs Temp 98.8 F 05/03/21 19:27 Pulse 75 05/03/21 19:27 Resp 16 05/03/21 19:27 BP 104/59 L 05/03/21 19:27 Pulse Ox 94 05/03/21 19:27 Body Mass Index 17.6 HENMT: Head: Yes normal to inspection Mouth: Normal oral and palatal mucosa present Resp: Effort & Inspection: normal respiratory effort Cardio: Rate: regular rate Rhythm: regular rhythm GI: Palpation (GI): Soft to palpation and nontender Assessment and Plan Assessment and plan (1) Candidemia: Problem details: She did have clear blood cultures after treatment initiated Status: Acute Assessment and Plan: Skylar parapsilosis bacteremia It has cleared THere may be vegatations Suggest Would continue Diflucan Check MARITZA and if endocarditis suspected ,Cardiac Surgery evaluation If no endocarditis po Diflucan 21 d Time Spent With Patient Time: Total time spent is greater than 50% in coordination of care (as documented) at patient's floor/unit and/or counseling patient: Time with patient: 15 - 24 minutes
[2021-05-03 23:14] VITALS: BP 129/60; PULSE 87; RESP 18; TEMP 37.1; O2SAT 97
[2021-05-04 04:00] VITALS: BP 120/60; PULSE 84; RESP 17; TEMP 36.9; O2SAT 95
[2021-05-04 07:59] VITALS: BP 115/58; PULSE 79; RESP 18; TEMP 37.1; O2SAT 97
--- NOTE | 2021-05-04 09:04 | P.PNIM_ITS ---
Subjective Subjective Date of Service: 05/04/21 Interval History: seen and examined this AM daughter and bedside no complaints awating MARITZA Review of Systems negative except interval hisory Physical Exam Vital Signs: Vital Signs: Last Vital Signs Temp 98.8 F 05/04/21 07:59 Pulse 79 05/04/21 07:59 Resp 18 05/04/21 07:59 BP 115/58 L 05/04/21 07:59 Pulse Ox 97 05/04/21 07:59 Body Mass Index 17.6 Const: Other: General - no acute distress, appears comfortable Cardiovascular - regular rate and rhythm, S1-S2 Lungs - normal respiratory effort, clear to auscultation bilaterally slight dim R base, no wheezing Abdomen - soft, nontender, no rebound or guarding Extremities - no edema bilaterally Neuro - awake and alert, no focal deficits Objective Data Active Medications Acetaminophen (Acetaminophen 325 Mg Tablet) 650 mg PO Q6H PRN PRN Reason: Pain, Mild (Pain Scale 1-3) Al Hydroxide/Mg Hydroxide (Magnesium Hydrox/Alum Hydrox 30 Ml Oral.Susp) 15 ml PO Q6H PRN PRN Reason: Heartburn Albuterol Sulfate (Albuterol Sulfate 90 Mcg 8 Gm Inhaler) 2 puff INHALE Q6H PRN PRN Reason: Shortness Of Breath Albuterol/Ipratropium (Albuterol/Iprat 2.5/0.5mg 3 Ml Ampul.Neb) 3 ml INHALE RQ4H PRN PRN Reason: Shortness of Breath/Wheezing Amlodipine Besylate (Amlodipine Besylate 2.5 Mg Tablet) 2.5 mg PO DAILY [facility]; Protocol Last Admin: 05/03/21 08:39 Dose: 2.5 mg Documented by: GAUDENCIO Apixaban (Apixaban 2.5 Mg Tablet) 2.5 mg PO BID [facility] Last Admin: 05/03/21 21:26 Dose: 2.5 mg Documented by: STEWART Atorvastatin Calcium (Atorvastatin Calcium 10 Mg Tablet) 10 mg PO BEDTIME [facility] Last Admin: 05/03/21 21:26 Dose: 10 mg Documented by: STEWART Fluconazole (Fluconazole 100 Mg Tablet) 200 mg PO DAILY [facility] Last Admin: 05/03/21 08:40 Dose: 200 mg Documented by: GAUDENCIO Furosemide (Furosemide 40 Mg Tablet) 40 mg PO BID@0900,1700 [facility]; Protocol Last Admin: 05/03/21 17:19 Dose: 40 mg Documented by: GAUDENCIO Levothyroxine Sodium (Levothyroxine Sodium 100 Mcg Tablet) 100 mcg PO DAILY [facility] Last Admin: 05/03/21 08:40 Dose: 100 mcg Documented by: GAUDENCIO Melatonin (Melatonin 3 Mg Tablet) 6 mg PO BEDTIME PRN PRN Reason: Insomnia Last Admin: 05/01/21 01:05 Dose: 6 mg Documented by: STEWART Metoprolol Succinate (Metoprolol Succinate Er 100 Mg Tab.Er.24h) 100 mg PO DAILY [facility]; Protocol Last Admin: 05/03/21 08:39 Dose: 100 mg Documented by: GAUDENCIO Senna (Sennosides 8.6 Mg Tablet) 17.2 mg PO BEDTIME PRN PRN Reason: Constipation Sodium Chloride (0.9 % Sodium Chloride Flush 3 Ml Syringe) 3 ml IVFLUSH QSHIFT [facility] Last Admin: 05/03/21 23:19 Dose: 3 ml Documented by: STEWART Spironolactone (Spironolactone 25 Mg Tablet) 25 mg PO BID@0900,1700 [facility]; Protocol Last Admin: 05/03/21 17:18 Dose: 25 mg Documented by: GAUDENCIO Labs CBC & Chem 7: 05/01/21 05:18 05/01/21 05:18 Assessment and Plan (1) Candidemia: Status: Acute Assessment and Plan: 80-year-old female with a past medical history of hypertension, hyperlipidemia, cardiomyopathy, AFib on Eliquis, recent admission for acute hypoxic respiratory failure in the setting of pneumonia sent home on oral antibiotics; called in today because the blood cultures came back positive for yeast. She has no fevers or symptoms of infection Skylar Parapsilosis -- 1/2 blood cultures from MARITZA today - if neg, PO antifungal 21d CAP (admitted last week for this) finished treatment Diarrhea resolved History of hypertension/hyperlipidemia Continue home metoprolol, statin.? amlodipine History of cardiomyopathy Monitor for signs of fluid overload. History of AFib. Rate controlled.? Continue home Eliquis History of hypothyroidism Continue home levothyroxine Full Code DVT pptx, Eliquis dispo: pending MARITZA Quality Stroke Does the patient have a stroke diagnosis?: No VTE Prior VTE?: No VTE Risk Level:: Medical - moderate - high VTE Device Contraindication: Treatment Not Indicated VTE Drug Contraindication: N/A - Med Ordered
[2021-05-04] MEDS: 0.9 % Sodium Chloride Flush 3 ML SYRINGE IVFLUSH (09:15)
--- NOTE | 2021-05-04 10:31 | P.CONCA_ITS ---
History of Present Illness History of Present Illness Date of Service: 05/04/21 Chief complaint: Candidemia Narrative: This is a cardiology consultation regarding a transesophageal echocardiogram. Patient sees Dr. Bingham in the office. She has a history of aortic valve replacement as well as permanent pacemaker. Over the last year, she states that she lost almost 50 lb or so in weight. This is not intentional. Recently, he was admitted to the hospital for pneumonia and sent home on antibiotics. However blood cultures came positive for Skylar and hence she has been readmitted. Patient herself states that she is doing okay. No fevers, night sweats, chills or any infection type symptoms. She also denies any shortness of breath or angina or in fact any cardiac symptoms as well. We have been asked to see her to perform a MARITZA. Review of Systems Review of Systems: Yes all other systems are reviewed and are negative Cardiovascular: Cardiovascular: Reports as per HPI, Reports no additional cardiovascular complaints, Denies acrocyanosis, Denies cool extremities, Denies painful fingertips, Denies chest pain, Denies chest pain at rest, Denies diaphoresis, Denies syncope, Denies irregular heart rhythm, Denies claudication, Denies leg edema, Denies lightheadedness, Denies palpitations and Denies dyspnea Respiratory: Respiratory: Denies dyspnea Neurologic: Denies syncope Endocrine: Endocrine: Denies palpitations PMFSH Past Medical History Medical History (HFpEF) heart failure with preserved ejection fraction Anemia Anxiety Aortic stenosis Benign essential hypertension Cardiac pacemaker in situ Chronic kidney disease (CKD), stage III (moderate) Complete heart block GI bleed H/O: HTN (hypertension) Hyperlipidemia Hypothyroidism Leg edema Neuropathy Osteoporosis Paroxysmal A-fib Paroxysmal atrial fibrillation Pulmonary hypertension Pure hypercholesterolemia Sensorineural hearing loss Tobacco abuse, in remission Tricuspid regurgitation Vitamin D deficiency Family History Family History Father No problems noted. Mother No problems noted. Sister Diabetes Cancer Family history: reviewed and not pertinent Surgical History Surgical History History of thoracentesis Hx of aortic valve repair Hx of hysterectomy Hx of mastectomy S/P AVR Social History Social History Household Members: Spouse Housing: House Do you presently have visiting nurse or other home services: No Alcohol intake: never Patient Tobacco Use Status: Former Tobacco user service: No Current occupational status: retired Meds Allergies Allergy/AdvReac Type Severity Reaction Status Date / Time codeine [CODEINE] Allergy Intermediate RASH Verified 04/29/21 22:59 meperidine [From Demerol] Allergy Intermediate Unknown Verified 04/29/21 22:59 Active Medications: Current Medications Acetaminophen (Acetaminophen 325 Mg Tablet) 650 mg PO Q6H PRN PRN Reason: Pain, Mild (Pain Scale 1-3) Al Hydroxide/Mg Hydroxide (Magnesium Hydrox/Alum Hydrox 30 Ml Oral.Susp) 15 ml PO Q6H PRN PRN Reason: Heartburn Albuterol Sulfate (Albuterol Sulfate 90 Mcg 8 Gm Inhaler) 2 puff INHALE Q6H PRN PRN Reason: Shortness Of Breath Albuterol/Ipratropium (Albuterol/Iprat 2.5/0.5mg 3 Ml Ampul.Neb) 3 ml INHALE RQ4H PRN PRN Reason: Shortness of Breath/Wheezing Amlodipine Besylate (Amlodipine Besylate 2.5 Mg Tablet) 2.5 mg PO DAILY [facility]; Protocol Last Admin: 05/04/21 10:09 Dose: Not Given Documented by: Apixaban (Apixaban 2.5 Mg Tablet) 2.5 mg PO BID [facility] Last Admin: 05/04/21 10:09 Dose: Not Given Documented by: Atorvastatin Calcium (Atorvastatin Calcium 10 Mg Tablet) 10 mg PO BEDTIME [facility] Last Admin: 05/03/21 21:26 Dose: 10 mg Documented by: Fluconazole (Fluconazole 100 Mg Tablet) 200 mg PO DAILY [facility] Last Admin: 05/04/21 10:09 Dose: Not Given Documented by: Furosemide (Furosemide 40 Mg Tablet) 40 mg PO BID@0900,1700 [facility]; Protocol Last Admin: 05/04/21 10:09 Dose: Not Given Documented by: Levothyroxine Sodium (Levothyroxine Sodium 100 Mcg Tablet) 100 mcg PO DAILY [facility] Last Admin: 05/04/21 10:09 Dose: Not Given Documented by: Melatonin (Melatonin 3 Mg Tablet) 6 mg PO BEDTIME PRN PRN Reason: Insomnia Last Admin: 05/01/21 01:05 Dose: 6 mg Documented by: Metoprolol Succinate (Metoprolol Succinate Er 100 Mg Tab.Er.24h) 100 mg PO DAILY [facility]; Protocol Last Admin: 05/04/21 10:10 Dose: Not Given Documented by: Senna (Sennosides 8.6 Mg Tablet) 17.2 mg PO BEDTIME PRN PRN Reason: Constipation Sodium Chloride (0.9 % Sodium Chloride Flush 3 Ml Syringe) 3 ml IVFLUSH QSHIFT [facility] Last Admin: 05/04/21 09:15 Dose: 3 ml Documented by: Spironolactone (Spironolactone 25 Mg Tablet) 25 mg PO BID@0900,1700 [facility]; Protocol Last Admin: 05/04/21 10:10 Dose: Not Given Documented by: Home Medications Medication Instructions Recorded Confirmed Last Taken Type albuterol sulfate 90 mcg/actuation 90 mcg INHALATION NEEDED PRN 04/30/21 04/30/21 Unknown History aerosol inhaler amlodipine 2.5 mg tablet 2.5 mg PO DAILY 04/30/21 04/30/21 Unknown History apixaban 5 mg tablet (Eliquis) 5 mg PO BID 04/30/21 04/30/21 Unknown History cefuroxime axetil 500 mg tablet 500 mg PO BID 04/30/21 04/30/21 Unknown History doxycycline hyclate 100 mg tablet 100 mg PO BID 04/30/21 04/30/21 Unknown History furosemide 40 mg tablet 40 mg PO BID 04/30/21 04/30/21 Unknown History levothyroxine 100 mcg tablet 100 mcg PO DAILY 04/30/21 04/30/21 Unknown History (Synthroid) metoprolol succinate 100 mg 100 mg PO DAILY 04/30/21 04/30/21 Unknown History tablet,extended release 24 hr raloxifene 60 mg tablet 60 mg PO DAILY 04/30/21 04/30/21 Unknown History simvastatin 10 mg tablet 10 mg PO BEDTIME 04/30/21 04/30/21 Unknown History spironolactone 25 mg tablet 25 mg PO BID 04/30/21 04/30/21 Unknown History Physical Exam Vital Signs: Vital Signs: Last Vital Signs Temp 98.8 F 05/04/21 07:59 Pulse 79 05/04/21 07:59 Resp 18 05/04/21 07:59 BP 115/58 L 05/04/21 07:59 Pulse Ox 97 05/04/21 07:59 Body Mass Index 17.6 Const: General: cooperative and no acute distress HENMT: Other: Unremarkable Neck: Neck: Yes normal visual inspection Chest: Chest palpation & inspection: normal inspection of the chest Resp: Auscultation: clear to auscultation bilaterally, no crackles and no wheezes Cardio: Jugular venous distension: no JVD Palpation: normal PMI Heart sounds: S1 normal heart sound present, S2 normal heart sound present, no gallops, Murmur heart sound present (2/6 SHIVANI ) and no rubs GI: Palpation (GI): Soft to palpation Back/Spine/Pelvis: Other: unremarkable Skin: General skin exam: no rashes or lesions noted Neuro: Cranial nerves: Yes Other cranial nerve findings present Extrem: General: Yes no clubbing, cyanosis or edema Psych: Mental Status: other Results Labs and Meds Result diagrams: 05/01/21 05:18 05/01/21 05:18 ECG Interpretation: EKG shows ventricular paced rhythm. Atrial rhythm is not clear. Assessment and Plan (1) Candidemia: Status: Acute (2) Paroxysmal atrial fibrillation: Status: Acute (3) S/P AVR: Status: Acute (4) Cardiac pacemaker in situ: Status: Acute Blood culture recently performed showed Skylar. Echocardiogram was inconclusive for any endocarditis. Discussed with patient as well as family including daughter regarding transesophageal echocardiogram. Went over the procedure in detail. They are agreeable. Risks were also explained. Because of her low body weight from almost 50 lb weight loss and possibly smaller esophagus, there may be technical difficulty and specifically discussed about this. They understand and agree. Troponins checked on were slightly elevated at 54 and 60. Procedures Date of Service Date of Service: 05/04/21
[2021-05-04 11:42] VITALS: BP 102/59; PULSE 74; RESP 18; TEMP 36.9; O2SAT 95
--- NOTE | 2021-05-04 12:40 | HO.ANESPROP2 ---
[facility] Active Problems Active Problems: All Active Problems (Updated 05/02/21 @ 00:03 by Juan Luis Slater) Diarrhea (Acute) E-coli UTI (Acute) Candidemia (Acute) Pneumonia (Acute) Pneumonia (Acute) Pleural effusion (Acute) Hypothyroidism (Acute) Anxiety (Acute) Neuropathy (Acute) Anemia (Acute) Osteoporosis (Acute) Vitamin D deficiency (Acute) Chronic kidney disease (CKD), stage III (moderate) (Acute) Pure hypercholesterolemia (Acute) Benign essential hypertension (Acute) Sensorineural hearing loss (Acute) Chest tube in place (Acute) (HFpEF) heart failure with preserved ejection fraction (Acute) Pulmonary hypertension (Acute) Tricuspid regurgitation (Acute) Cardiac pacemaker in situ (Acute) Complete heart block (Acute) Paroxysmal atrial fibrillation (Acute) S/P AVR (Acute) Recurrent pleural effusion on right (Acute) Past Medical History Medical History (HFpEF) heart failure with preserved ejection fraction Anemia Anxiety Aortic stenosis Benign essential hypertension Cardiac pacemaker in situ Chronic kidney disease (CKD), stage III (moderate) Complete heart block GI bleed H/O: HTN (hypertension) Hyperlipidemia Hypothyroidism Leg edema Neuropathy Osteoporosis Paroxysmal A-fib Paroxysmal atrial fibrillation Pulmonary hypertension Pure hypercholesterolemia Sensorineural hearing loss Tobacco abuse, in remission Tricuspid regurgitation Vitamin D deficiency Family History Family History Father No problems noted. Mother No problems noted. Sister Diabetes Cancer Surgical History Surgical History History of thoracentesis Hx of aortic valve repair Hx of hysterectomy Hx of mastectomy S/P AVR Social History Social History Household Members: Spouse Housing: House Do you presently have visiting nurse or other home services: No Alcohol intake: never Patient Tobacco Use Status: Former Tobacco user service: No Current occupational status: retired Meds Allergies Allergy/AdvReac Type Severity Reaction Status Date / Time codeine [CODEINE] Allergy Intermediate RASH Verified 04/29/21 22:59 meperidine [From Demerol] Allergy Intermediate Unknown Verified 04/29/21 22:59 Active Medications: Current Medications Acetaminophen (Acetaminophen 325 Mg Tablet) 650 mg PO Q6H PRN PRN Reason: Pain, Mild (Pain Scale 1-3) Al Hydroxide/Mg Hydroxide (Magnesium Hydrox/Alum Hydrox 30 Ml Oral.Susp) 15 ml PO Q6H PRN PRN Reason: Heartburn Albuterol Sulfate (Albuterol Sulfate 90 Mcg 8 Gm Inhaler) 2 puff INHALE Q6H PRN PRN Reason: Shortness Of Breath Albuterol/Ipratropium (Albuterol/Iprat 2.5/0.5mg 3 Ml Ampul.Neb) 3 ml INHALE RQ4H PRN PRN Reason: Shortness of Breath/Wheezing Amlodipine Besylate (Amlodipine Besylate 2.5 Mg Tablet) 2.5 mg PO DAILY [facility]; Protocol Last Admin: 05/04/21 10:09 Dose: Not Given Documented by: Apixaban (Apixaban 2.5 Mg Tablet) 2.5 mg PO BID [facility] Last Admin: 05/04/21 10:09 Dose: Not Given Documented by: Atorvastatin Calcium (Atorvastatin Calcium 10 Mg Tablet) 10 mg PO BEDTIME [facility] Last Admin: 05/03/21 21:26 Dose: 10 mg Documented by: Fluconazole (Fluconazole 100 Mg Tablet) 200 mg PO DAILY [facility] Last Admin: 05/04/21 10:09 Dose: Not Given Documented by: Furosemide (Furosemide 40 Mg Tablet) 40 mg PO BID@0900,1700 [facility]; Protocol Last Admin: 05/04/21 10:09 Dose: Not Given Documented by: Levothyroxine Sodium (Levothyroxine Sodium 100 Mcg Tablet) 100 mcg PO DAILY [facility] Last Admin: 05/04/21 10:09 Dose: Not Given Documented by: Melatonin (Melatonin 3 Mg Tablet) 6 mg PO BEDTIME PRN PRN Reason: Insomnia Last Admin: 05/01/21 01:05 Dose: 6 mg Documented by: Metoprolol Succinate (Metoprolol Succinate Er 100 Mg Tab.Er.24h) 100 mg PO DAILY [facility]; Protocol Last Admin: 05/04/21 10:10 Dose: Not Given Documented by: Senna (Sennosides 8.6 Mg Tablet) 17.2 mg PO BEDTIME PRN PRN Reason: Constipation Sodium Chloride (0.9 % Sodium Chloride Flush 3 Ml Syringe) 3 ml IVFLUSH QSHIFT [facility] Last Admin: 05/04/21 09:15 Dose: 3 ml Documented by: Spironolactone (Spironolactone 25 Mg Tablet) 25 mg PO BID@0900,1700 [facility]; Protocol Last Admin: 05/04/21 10:10 Dose: Not Given Documented by: Home Medications Medication Instructions Recorded Confirmed Last Taken Type albuterol sulfate 90 mcg/actuation 90 mcg INHALATION NEEDED PRN 04/30/21 04/30/21 Unknown History aerosol inhaler amlodipine 2.5 mg tablet 2.5 mg PO DAILY 04/30/21 04/30/21 Unknown History apixaban 5 mg tablet (Eliquis) 5 mg PO BID 04/30/21 04/30/21 Unknown History cefuroxime axetil 500 mg tablet 500 mg PO BID 04/30/21 04/30/21 Unknown History doxycycline hyclate 100 mg tablet 100 mg PO BID 04/30/21 04/30/21 Unknown History furosemide 40 mg tablet 40 mg PO BID 04/30/21 04/30/21 Unknown History levothyroxine 100 mcg tablet 100 mcg PO DAILY 04/30/21 04/30/21 Unknown History (Synthroid) metoprolol succinate 100 mg 100 mg PO DAILY 04/30/21 04/30/21 Unknown History tablet,extended release 24 hr raloxifene 60 mg tablet 60 mg PO DAILY 04/30/21 04/30/21 Unknown History simvastatin 10 mg tablet 10 mg PO BEDTIME 04/30/21 04/30/21 Unknown History spironolactone 25 mg tablet 25 mg PO BID 04/30/21 04/30/21 Unknown History Exam Exam Date and Time: May 04, 2021 1240 Height,Weight and Vital Signs: Height 5 ft Weight 40.823 kg Last Vital Signs Temp 98.4 F 05/04/21 11:42 Pulse 74 05/04/21 11:42 Resp 18 05/04/21 11:42 BP 102/59 L 05/04/21 11:42 Pulse Ox 95 05/04/21 11:42 Pertinent Lab Results Pertinent Lab Results: Laboratory Tests 04/29/21 04/29/21 04/29/21 23:56 23:57 23:57 WBC RBC Hgb Hct MCV MCH MCHC RDW Plt Count MPV Immature Gran % (Auto) Neut % (Auto) Lymph % (Auto) [place] % (Auto) Eos % (Auto) Baso % (Auto) Lymph # (Auto) [place] # (Auto) Eos # (Auto) Baso # (Auto) Abs Immat Gran (auto) Absolute Neuts (auto) Absolute Nucleated RBC Nucleated RBC % (auto) ESR 77 H Sodium Potassium Chloride Carbon Dioxide Anion Gap BUN Creatinine Estim Creat Clear Calc Estimated GFR Random Glucose Lactic Acid 1.1 Calcium Total Bilirubin Direct Bilirubin AST ALT Alkaline Phosphatase C-Reactive Protein B-Natriuretic Peptide 476 H Total Protein Albumin Lipase Urine Color Urine Appearance Urine pH Ur Specific [place] Urine Protein Urine Glucose (UA) Urine Ketones Urine Blood Urine Nitrite Ur Leukocyte Esterase Urine RBC Urine WBC Ur Squamous Epith Cells Urine Bacteria Hyaline Casts Granular Casts Urine Mucus Coronavirus (PCR) SARS-CoV-2 (PCR) Influenza Type A (PCR) Influenza Type B (PCR) RSV RNA Qual (PCR) 04/29/21 04/29/21 04/30/21 23:57 23:58 00:02 WBC 8.6 RBC 3.56 L Hgb 10.2 L Hct 32.2 L MCV 90.4 MCH 28.7 MCHC 31.7 RDW 14.7 Plt Count 228 MPV 10.4 Immature Gran % (Auto) 0.7 H Neut % (Auto) 68.9 Lymph % (Auto) 11.6 L [place] % (Auto) 13.9 H Eos % (Auto) 4.1 H Baso % (Auto) 0.8 Lymph # (Auto) 1.0 L [place] # (Auto) 1.2 Eos # (Auto) 0.4 Baso # (Auto) 0.1 Abs Immat Gran (auto) 0.06 H Absolute Neuts (auto) 6.0 Absolute Nucleated RBC 0.000 Nucleated RBC % (auto) 0.0 ESR Sodium Potassium Chloride Carbon Dioxide Anion Gap BUN Creatinine Estim Creat Clear Calc Estimated GFR Random Glucose Lactic Acid Calcium Total Bilirubin Direct Bilirubin AST ALT Alkaline Phosphatase C-Reactive Protein B-Natriuretic Peptide Total Protein Albumin Lipase Urine Color YELLOW Urine Appearance CLEAR Urine pH 6.0 Ur Specific [place] 1.020 Urine Protein NEG Urine Glucose (UA) NEG Urine Ketones NEG Urine Blood NEG Urine Nitrite NEG Ur Leukocyte Esterase TRACE H Urine RBC 1-4 Urine WBC 10-14 H Ur Squamous Epith Cells 2+ Urine Bacteria 2+ Hyaline Casts 5-9 Granular Casts 1-4 Urine Mucus 2+ Coronavirus (PCR) NEGATIVE SARS-CoV-2 (PCR) Influenza Type A (PCR) NEGATIVE Influenza Type B (PCR) NEGATIVE RSV RNA Qual (PCR) NEGATIVE 04/30/21 04/30/21 04/30/21 00:05 00:33 07:12 WBC 6.3 RBC 3.14 L Hgb 9.1 L Hct 28.4 L MCV 90.4 MCH 29.0 MCHC 32.0 RDW 14.8 Plt Count 166 D MPV 10.2 Immature Gran % (Auto) 0.8 H Neut % (Auto) 75.2 H Lymph % (Auto) 7.8 L [place] % (Auto) 12.2 H Eos % (Auto) 3.0 Baso % (Auto) 1.0 Lymph # (Auto) 0.5 L [place] # (Auto) 0.8 Eos # (Auto) 0.2 Baso # (Auto) 0.1 Abs Immat Gran (auto) 0.05 H Absolute Neuts (auto) 4.7 Absolute Nucleated RBC 0.000 Nucleated RBC % (auto) 0.0 ESR Sodium 138 Potassium 4.6 Chloride 102 Carbon Dioxide 25 Anion Gap 16 BUN 44 H Creatinine 1.46 H Estim Creat Clear Calc 19.5 Estimated GFR 34 Random Glucose 98 Lactic Acid Calcium 9.2 Total Bilirubin 0.5 Direct Bilirubin 0.3 AST 27 ALT 11 Alkaline Phosphatase 78 C-Reactive Protein 6.67 H B-Natriuretic Peptide Total Protein 7.1 Albumin 3.4 L Lipase 109 H Urine Color Urine Appearance Urine pH Ur Specific [place] Urine Protein Urine Glucose (UA) Urine Ketones Urine Blood Urine Nitrite Ur Leukocyte Esterase Urine RBC Urine WBC Ur Squamous Epith Cells Urine Bacteria Hyaline Casts Granular Casts Urine Mucus Coronavirus (PCR) SARS-CoV-2 (PCR) Cancelled Influenza Type A (PCR) Influenza Type B (PCR) RSV RNA Qual (PCR) 04/30/21 05/01/21 05/01/21 07:12 05:18 05:18 WBC 8.0 RBC 3.70 L Hgb 10.5 L Hct 33.2 L MCV 89.7 MCH 28.4 MCHC 31.6 RDW 14.7 Plt Count 225 D MPV 10.0 Immature Gran % (Auto) Neut % (Auto) Lymph % (Auto) [place] % (Auto) Eos % (Auto) Baso % (Auto) Lymph # (Auto) [place] # (Auto) Eos # (Auto) Baso # (Auto) Abs Immat Gran (auto) Absolute Neuts (auto) Absolute Nucleated RBC 0.000 Nucleated RBC % (auto) 0.0 ESR Sodium 137 138 Potassium 4.6 4.8 Chloride 105 104 Carbon Dioxide 25 23 Anion Gap 12 16 BUN 39 H 35 H Creatinine 1.21 1.19 Estim Creat Clear Calc 23.5 23.9 Estimated GFR 43 44 Random Glucose 91 82 Lactic Acid Calcium 8.5 D 9.6 D Total Bilirubin Direct Bilirubin AST ALT Alkaline Phosphatase C-Reactive Protein B-Natriuretic Peptide Total Protein Albumin Lipase Urine Color Urine Appearance Urine pH Ur Specific [place] Urine Protein Urine Glucose (UA) Urine Ketones Urine Blood Urine Nitrite Ur Leukocyte Esterase Urine RBC Urine WBC Ur Squamous Epith Cells Urine Bacteria Hyaline Casts Granular Casts Urine Mucus Coronavirus (PCR) SARS-CoV-2 (PCR) Influenza Type A (PCR) Influenza Type B (PCR) RSV RNA Qual (PCR) Airway Mallampati Class: II TM Dist: >3cm Neck ROM: Limited Denture: Upper
[2021-05-04 12:58] VITALS: BP 151/72; PULSE 81; RESP 16; TEMP 36.4; O2SAT 96
--- NOTE | 2021-05-04 12:58 | MHC.CLN ---
F/U CURRENTLY NPO FOR MARITZA PROCEDURE. HAD BEEN EATING WELL PRIOR TO NPO. RESUME CARDIAC DIET AND ENSURE CLEAR SUPPLEMENT BID WHEN ABLE.
[2021-05-04] MEDS: Lactated Ringers 1,000 ML 100 ML IVCONT (13:00)
--- NOTE | 2021-05-04 13:00 | CA_ITS ---
Transesophageal Echocardiogram Patient (Last, First, Middle): Mey Schmitz, Gender: Female Date of : 1940 Age: 80 Procedure Date: 05/04/2021 Procedure Type: Transesophageal Echocardiogram [place] [facility] [place] Height: 152.4 cm Weight: kg Community Associate: JONATHAN/CP Referring MD: Josh Khalil MD Symptoms: Endocarditis Conclusion: ??? No vegetations noted in pacer lead, bioprosthetic aortic valve or other valves. ??? Study is negative for endocarditis. Findings Procedure Information Consent was obtained prior to the procedure. The adult 3D probe was passed with no difficulty. Left Ventricle Normal left ventricular cavity size. The left ventricular systolic function is normal. The visually estimated ejection fraction is between 60-65%. Right Ventricle There is a pacemaker wire seen in the right ventricle. No vegetations noted on lead. Atria Patent foramen ovale detected using by color Doppler. There is evidence of a patent foramen ovale with left to right shunting. Aortic Valve A bioprosthetic aortic valve is present. The prosthetic aortic valve appears to be functioning normally. Trace para-valvular leak. Mitral Valve There is moderate mitral annular calcification. There is mild mitral valve regurgitation. There is no mitral valve stenosis. Pulmonic Valve The pulmonic valve was not well visualized. Tricuspid Valve Normal tricuspid valve structure. There is mild tricuspid valve regurgitation. Great Vessels The asc aorta is normal in size. Moderate plaque is seen in the arch. Venous The inferior vena cava was not well visualized. Pericardium/Pleural There is no evidence of pericardial effusion. Prior Study Comparison No significant change compared to prior study dated: 05/03/2021. Updated by Josh Khalil on 03:04 PM with Status of Final Josh Khalil MD electronically signed on 05/04/2021 3:04:45 PM with status of Final
[2021-05-04 13:55] VITALS: BP 100/54; PULSE 75; RESP 14; TEMP 36.1; O2SAT 97
[2021-05-04 14:10] VITALS: BP 113/52; PULSE 75; RESP 16; TEMP 36.1; O2SAT 95
--- NOTE | 2021-05-04 14:23 | PM.EVENT ---
Event Note Date of Service: 05/04/21 Event Note: MARITZA performed and does not show any clear evidence of endocarditis. Full report will follow.
--- NOTE | 2021-05-04 15:22 | MHC.CM.PN ---
PATIENT IS DISCHARGED HOME - SELF CARE. SPOUSE IS IN ROOM TO TRANSPORT HOME. RN AWARE OF PLAN. IMM 05/03 IN CHART
--- NOTE | 2021-05-04 15:24 | PM.DS ---
DS: Providers Provider Date of Service: 05/04/21 Date of admission: 04/29/21 23:27 Date of discharge: 05/04/21 Primary care physician: Rj Mclaughlin MD Consults: 04/29/21 23:08 Consult to Infectious Diseases Routine Consulting Provider: Jaky Ocasio Reason for consultation: Candidemia Has provider been notified: Yes 04/29/21 23:27 Consult to Infectious Diseases Routine Consulting Provider: Jaky Ocasio Reason for consultation: blood cx positive for yeast 04/29/21 23:30 Consult to Infectious Diseases Routine Consulting Provider: Jaky Ocasio Reason for consultation: yeast in blood 05/03/21 12:16 Consult to Cardiology Routine Consulting Provider: [facility] Reason for consultation: needs MARITZA Attending physician on discharge: Antoni Sommer DS: Diagnosis Discharge Diagnosis (1) Candidemia: Status: Acute (2) Paroxysmal atrial fibrillation: Status: Acute (3) S/P AVR: Status: Acute (4) Cardiac pacemaker in situ: Status: Acute DS: Summary Hospital Course Hospital Course: HPI: 80-year-old female with a past medical history of hypertension, hyperlipidemia, cardiomyopathy, AFib on Eliquis, recent admission for acute hypoxic respiratory failure in the setting of pneumonia sent home on oral antibiotics; called in today because the blood cultures came back positive for yeast. Patient denies any chest pain palpitations lightheadedness or dizziness. Patient reports that she has been taking oral antibiotics Denies any difficulty breathing. Denies any GI or symptoms. Review of all other systems is negative except mentioned above ER course: Per ER team patient blood culture were positive for yeast; discussed with Dr. Ocasio from Infectious Disease consult who recommended to give the patient caspofungin-which was given in the ER and patient tolerated reportedly. Also recommended to continue her oral antibiotics.? Admitted for further management. Hospital Course: On IV caspofungin after repeat blood cultures were drawn. She was evaluated by Infectious Disease who recommended continuation of her antifungals. Initially there was the thought that her prior blood cultures may have been a contaminant but unfortunately they turned out to be real. Subsequently she was evaluated with a transthoracic echo which was inconclusive for vegetations and ultimately she required a transesophageal echo which did not have any evidence of endocarditis. Her repeat blood cultures during this 2nd admission have remained negative. Infectious Disease recommended 21 days of oral fluconazole. A liver panel has been ordered 1 week from discharge. Of note, the patient is on 5 mg of Eliquis twice a day. According to her weight, age, renal function she should be on 2.5 and a new script for this has been sent. The patient and have explained the above at the time of discharge. Time Spent with Patient Time attestation: Total time spent providing and/or coordinating discharge services: Discharge coordination time: Greater than 30 minutes Quality: Stroke Does the patient have a stroke diagnosis?: No Physical Exam Vital Signs: Vital Signs: Last Vital Signs Temp 97 F 05/04/21 14:10 Pulse 75 05/04/21 14:10 Resp 16 05/04/21 14:10 BP 113/52 L 05/04/21 14:10 Pulse Ox 95 05/04/21 14:10 Body Mass Index 17.6 Const: Other: General - no acute distress, appears comfortable Cardiovascular - regular rate and rhythm, S1-S2 Lungs - normal respiratory effort, clear to auscultation bilaterally, no wheezing Abdomen - soft, nontender, no rebound or guarding Extremities - no edema bilaterally Neuro - awake and alert, no focal deficits DS: Data Data Completed and Pending Labs on day of discharge: Preliminary micro results at discharge 04/29/21 23:58 Blood Culture - Preliminary Blood - Venous No growth after 48 hours. 04/29/21 23:56 Blood Culture - Preliminary Blood - Venous No growth after 48 hours. Discharge Plan Discharge Patient Disposition: Home, Self-Care Discharge Diagnosis: Fungemia Referrals: Rj Mclaughlin MD [Primary Care Provider] - 1 Week Discharge Medications: New fluconazole 40 mg/mL suspension for reconstitution 200 mg PO DAILY 21 Days Qty: 105 RF: 0 Eliquis 2.5 mg tablet 2.5 mg PO BID Qty: 60 RF: 0 Continued furosemide 40 mg tablet 40 mg PO BID RF: 0 metoprolol succinate 100 mg tablet extended release 24 hr 100 mg PO DAILY RF: 0 simvastatin 10 mg tablet 10 mg PO BEDTIME RF: 0 amlodipine 2.5 mg tablet 2.5 mg PO DAILY RF: 0 spironolactone 25 mg tablet 25 mg PO BID RF: 0 levothyroxine [Synthroid] 100 mcg tablet 100 mcg PO DAILY RF: 0 raloxifene 60 mg tablet 60 mg PO DAILY RF: 0 albuterol sulfate 90 mcg/actuation HFA aerosol inhaler 90 mcg inhalation NEEDED PRN (Reason: Shortness Of Breath) RF: 0 Discontinued cefuroxime axetil 500 mg tablet 500 mg PO BID RF: 0 doxycycline hyclate 100 mg tablet 100 mg PO BID RF: 0 Eliquis 5 mg tablet 5 mg PO BID RF: 0 Discharge Orders: Discharge Order (Routine); Ordered 05/04/21 Ordered By: Antoni Sommer Diet: advance to usual diet Activity on Discharge: As tolerated Stand Alone Forms: Patient Portal Discharge page Other Ambulatory Orders: Liver Panel (Routine) Timeframe: 1 Week Facility: [facility] - Location: Laboratory Ordered By: Antoni Sommer Care Plan Goals: To stay healthy and out of the hospital. Health Concerns: Fungal infection in the blood Plan of Treatment: Take fluconazole 200 mg daily for total of 21 days Have your blood work checked in 1 week Furthermore your Eliquis dosing should be 2.5 mg twice a day and not 5 mg twice a day. Prescription for new Eliquis as well as fluconazole has been sent to your pharmacy. Assessment: 80-year-old female called back to the hospital after blood cultures from the emergency room showed fungemia. Endocarditis was ruled out. She will be treated with 21 more days of oral fluconazole.
== END 2021-05-04 17:57 | disposition home or self-care (01) | DRG 871 ==
LOC: HO.ED 23:27 → HO.EDOVER 23:52 → HO.IMC 04-30 13:28 → HO.S3 04-30 13:48
PROVIDERS: Internal Medicine; Nurse Practitioner Acute Care; Nurse Practitioner Family; Admitting Provider Hospitalist; Emergency Provider Internal Medicine; PCP Internal Medicine; Visit Provider Physician Assistant Medical
PROC: B24BZZ4 Ultrasonography of Heart with Aorta, Transesophageal (ICD-10-PCS; CPT 93312; principal; 2021-05-04 13:00)
DX: B37.7 Candidal sepsis (principal); J18.9 Pneumonia, unspecified organism; J96.01 Acute respiratory failure with hypoxia; I42.9 Cardiomyopathy, unspecified; N39.0 Urinary tract infection, site not specified; E44.0 Moderate protein-calorie malnutrition; Z68.1 Body mass index [BMI] 19.9 or less, adult; K52.1 Toxic gastroenteritis and colitis; Z20.822 Contact with and (suspected) exposure to COVID-19; Z23 Encounter for immunization; E78.5 Hyperlipidemia, unspecified; E03.9 Hypothyroidism, unspecified; B96.20 Unspecified Escherichia coli [E. coli] as the cause of diseases classified elsewhere; T37.95XA Adverse effect of unspecified systemic anti-infective and antiparasitic, initial encounter; I48.0 Paroxysmal atrial fibrillation; Y92.239 Unspecified place in hospital as the place of occurrence of the external cause; Z95.0 Presence of cardiac pacemaker; Z95.2 Presence of prosthetic heart valve; Z87.891 Personal history of nicotine dependence; Z88.5 Allergy status to narcotic agent; Z79.01 Long term (current) use of anticoagulants; Z79.890 Hormone replacement therapy; Z79.899 Other long term (current) drug therapy
CPT/HCPCS: 93312; 0241U; 36415; 71045; 80048; 80076; 81001; 83605; 83690; 83880; 85025; 85027; 85652; 86140; 87040; 87086; 90686; 93306; 96365; 99285; J0637; J2250

== ENCOUNTER 2021-05-11 12:33 | Outpatient (REF) | payer MEDICARE, SELFPAY ==
[2021-05-11 13:49] LABS: Alanine Aminotransferase 11 U/L (0-31); Albumin Level 3.6 g/dL (3.5-5.0); Alkaline Phosphatase 71 U/L (39-117); Aspartate Amino Transferase 28 U/L (5-31); Bilirubin Direct 0.3 mg/dL (0.0-0.5); Bilirubin Total 0.6 mg/dL (0.0-1.0); Total Protein 7.5 g/dL (6.5-8.0)
== END 2021-05-11 12:34 | disposition home or self-care (01) ==
LOC: HO.10HDL 12:33
PROVIDERS: Absent Provider Internal Medicine; Visit Provider Family Medicine
DX: B37.7 Candidal sepsis (principal)
CPT/HCPCS: 36415; 80076

== ENCOUNTER 2021-05-21 09:52 | Outpatient (REF) | payer MEDICARE, SELFPAY ==
[2021-05-21 11:02] LABS: Alanine Aminotransferase 11 U/L (0-31); Albumin Level 3.6 g/dL (3.5-5.0); Alkaline Phosphatase 80 U/L (39-117); Aspartate Amino Transferase 24 U/L (5-31); Bilirubin Direct 0.2 mg/dL (0.0-0.5); Bilirubin Total 0.4 mg/dL (0.0-1.0); Total Protein 7.5 g/dL (6.5-8.0)
== END 2021-05-21 09:53 | disposition home or self-care (01) ==
LOC: HO.10HDL 09:52
PROVIDERS: Visit Provider Physician Assistant
DX: B37.7 Candidal sepsis (principal)
CPT/HCPCS: 36415; 80076

== ENCOUNTER → 2021-05-28 15:05 | Outpatient (BNVA) | payer MEDICARE, SELFPAY | PROVIDERS: PCP Internal Medicine; Visit Provider Internal Medicine | DX: B37.7 Candidal sepsis (principal) | CPT/HCPCS: 99212 ==

== ENCOUNTER 2021-05-31 11:08 | Outpatient (REF) | payer MEDICARE, SELFPAY ==
--- NOTE | ~2021-05-31 | CT_ITS ---
EXAMINATION: CT HEAD WITHOUT CONTRAST CLINICAL INFORMATION: Auditory hallucinations. COMPARISON: CT head dated from 12/02/2014. TECHNIQUE: Contiguous axial imaging was performed from the skull base to vertex without intravenous administration of contrast. This CT examination was performed using dose optimization techniques as appropriate, variously including the following: *Automated exposure control *Adjustment of mA and/or kV according to patient size (this includes techniques or standardized protocols for targeted exams where dose is matched to indication/reason for exam; i.e. extremities or head) *Use of iterative reconstruction technique DLP: 632 mGy-cm FINDINGS: There is no evidence of acute intracranial hemorrhage or edematous territorial infarction. A few foci of hypoattenuation in the periventricular and deep white matter are consistent with mild microangiopathy. Hong-white matter differentiation is preserved. Proportional prominence of the ventricles and sulcal spaces. No evidence for obstructive hydrocephalus. No abnormal mass effect or midline shift. No extra-axial fluid collections. No acute soft tissue or osseous abnormalities. The mastoid air cells and paranasal sinuses are clear. CT/CT head/brain wo con IMPRESSION: No evidence of acute intracranial hemorrhage or edematous territorial infarction.
[2021-05-31 11:26] LABS: MANUAL DIFF FLAG NO
[2021-05-31 12:28] LABS: Basophils Absolute Auto 0.1 X10*3/uL (0.0-0.2); Basophils Percent Auto 0.5 % (0-2); Eosinophils Percent Auto 0.4 % (0-4); Hematocrit 35.8 % (37.0-47.0); Hemoglobin 11.3 g/dl (12.0-16.0); Imm Gran Abs Auto 0.06 X10*3/uL (0.00-0.03); Imm Gran Pct Auto 0.6 % (0.0-0.4); Lymphocytes Absolute Auto 0.6 X10*3/uL (1.2-4.9); Lymphocytes Percent Auto 6.4 % (20-40); Mean Corpuscular HGB Conc 31.6 g/dl (31.0-35.0); Mean Corpuscular Volume 88.8 fL (80.0-98.0); Mean Platelet Volume 10.7 fL (9.4-12.3); Monocytes Percent Auto 10.2 % (2-11); Neutrophils Absolute Auto 7.9 x10*3/uL (2.0-8.3); Neutrophils Percent Auto 81.9 % (45-73); Platelet Count 314 X10*3/uL (160-400); Red Blood Count 4.03 X10*6/uL (4.20-5.50); Red Cell Distribution Width 14.9 % (11.0-16.0); White Blood Count 9.7 X10*3/uL (4.8-10.8)
[2021-05-31 13:01] LABS: Alanine Aminotransferase 9 U/L (0-31); Albumin Level 3.7 g/dL (3.5-5.0); Alkaline Phosphatase 76 U/L (39-117); Anion Gap 17 (12-20); Aspartate Amino Transferase 24 U/L (5-31); Bilirubin Total 0.5 mg/dL (0.0-1.0); Blood Urea Nitrogen 63 mg/dL (9-16); Calcium 10.3 mg/dL (8.4-10.2); Carbon Dioxide 27 mmol/L (22-29); Chloride 94 mmol/L (96-108); Estimated Glomerular Filt Rate 21; Glucose Random 99 mg/dL (60-115); Potassium 5.2 mmol/L (3.3-5.1); Sodium 133 mmol/L (135-145)
[2021-05-31 13:22] LABS: TSH reflex Free T4 1.73 uIU/mL (0.32-4.0)
[2021-05-31 14:38] LABS: Erythrocyte Sedimentation Rate 86 MM/HR (0-20)
[2021-05-31 18:02] LABS: Appearance Urine CLEAR; Color Urine YELLOW; Glucose Urine UA NEG (NEG); Leukocyte Esterase Urine 3+ (NEG); Nitrite Urine NEG (NEG); UACC Culture Trigger YES; Urine Blood 3+ (NEG); Urine Ketones NEG (NEG); Urine Protein NEG (NEG-TRACE)
[2021-05-31 18:15] LABS: Amorphous Sediment Urine 1+ /LPF; Squamous Epithelial Cell Urine 1+ /LPF
[2021-05-31 18:16] LABS: Renal Epithelial Cells Urine TRACE /LPF
[2021-05-31 18:20] LABS: Bacteria Urine 1+ /LPF
== END 2021-05-31 11:09 | disposition home or self-care (01) ==
LOC: HO.LAB 11:08
PROVIDERS: Absent Provider Internal Medicine; PCP Internal Medicine; Visit Provider Internal Medicine
DX: R41.82 Altered mental status, unspecified (principal); R44.0 Auditory hallucinations; E78.00 Pure hypercholesterolemia, unspecified; B37.7 Candidal sepsis; H93.A3 Pulsatile tinnitus, bilateral; I10 Essential (primary) hypertension
CPT/HCPCS: 36415; 70450; 80053; 81001; 84443; 85025; 85652; 87040; 87086

== ENCOUNTER → 2021-06-12 09:53 | Outpatient (BNVA) | payer MEDICARE, SELFPAY | PROVIDERS: PCP Internal Medicine; Referring Provider Internal Medicine; Visit Provider Internal Medicine Cardiovascular Disease | DX: Z45.018 Encounter for adjustment and management of other part of cardiac pacemaker (principal); I50.32 Chronic diastolic (congestive) heart failure; I48.0 Paroxysmal atrial fibrillation; I44.2 Atrioventricular block, complete; J98.01 Acute bronchospasm; R79.89 Other specified abnormal findings of blood chemistry; Z95.2 Presence of prosthetic heart valve | CPT/HCPCS: 99212 ==

== ENCOUNTER 2021-06-13 08:53 | Outpatient (REF) | payer SELFPAY ==
--- NOTE | 2021-06-13 09:53 | MHC.AU.P13 ---
Hearing Instrument Problem Date of Visit: 06/13/21 Right Ear: Air Conditioning Sheet Metal Installer: Phonak Model: Audeo P90-R Serial Number: [id number] Repair Warranty: 12/02/2023 Loss and Damage Warranty: 12/02/2023 Battery Size: Rechargeable Color: P1- Sand [employer]ige [employer] Engineering Technician: Size 1 M Type of Dome: Small vented Type of Mold: C-Shell SN: [id number] Warranty: 12/31/2020 Type of Wax Guard: Cerustop Dispensed By: [facility] Date of Fittin09/06/2020 Left Ear: Air Conditioning Sheet Metal Installer: Phonak Model: Audeo P90-R Serial Number: [id number] Repair Warranty: 12/02/2023 Loss and Damage Warranty: 12/02/2023 Battery Size: Rechargeable Color: P1- Sand Beige [employer] Engineering Technician: Size 1 M Type of Dome: Small vented Type of Mold: C-Shell SN: [id number] Warranty: 12/31/2020 Type of Wax Guard: Cerustop Dispensed By: [facility] Date of Fittin09/06/2020 Follow-Up Summary: Left aid dropped off stating wax guard missing. Cleaned hearing aid, replaced wax guard and small vented dome - amplifying clearly. Recommendations: Recommendations: Hearing instrument follow-up or maintenance as needed. Diagnosis Code(s): Primary Diagnosis: H90.3 Bilateral Sensorineural Hearing Loss Signature: Provider: ULISES Waters-HIS
== END 2021-06-13 08:54 | disposition home or self-care (01) ==
LOC: HO.HAP 08:53
PROVIDERS: Visit Provider Internal Medicine
DX: Z46.1 Encounter for fitting and adjustment of hearing aid (principal); H90.3 Sensorineural hearing loss, bilateral
CPT/HCPCS: V5267

== ENCOUNTER 2021-06-15 12:07 | Outpatient (REF) | payer MEDICARE, SELFPAY ==
[2021-06-15 14:14] LABS: Anion Gap 19 (12-20); Blood Urea Nitrogen 50 mg/dL (9-16); Calcium 9.7 mg/dL (8.4-10.2); Carbon Dioxide 20 mmol/L (22-29); Chloride 100 mmol/L (96-108); Estimated Glomerular Filt Rate 30; Glucose Random 140 mg/dL (60-115); Potassium 5.4 mmol/L (3.3-5.1); Sodium 134 mmol/L (135-145)
== END 2021-06-15 12:08 | disposition home or self-care (01) ==
LOC: HO.10HDL 12:07
PROVIDERS: Visit Provider Internal Medicine Cardiovascular Disease
DX: I48.0 Paroxysmal atrial fibrillation (principal); I50.32 Chronic diastolic (congestive) heart failure
CPT/HCPCS: 36415; 80048

== ENCOUNTER 2021-07-23 08:52 | Outpatient (REF) | payer MEDICARE, SELFPAY ==
[2021-07-23 10:49] LABS: Anion Gap 12 (12-20); Blood Urea Nitrogen 26 mg/dL (9-16); Calcium 9.3 mg/dL (8.4-10.2); Carbon Dioxide 30 mmol/L (22-29); Chloride 102 mmol/L (96-108); Estimated Glomerular Filt Rate 53; Glucose Random 82 mg/dL (60-115); Potassium 3.9 mmol/L (3.3-5.1); Sodium 140 mmol/L (135-145)
== END 2021-07-23 08:53 | disposition home or self-care (01) ==
LOC: HO.10HDL 08:52
PROVIDERS: Visit Provider Nurse Practitioner Family
DX: N18.30 Chronic kidney disease, stage 3 unspecified (principal)
CPT/HCPCS: 36415; 80048

== ENCOUNTER 2021-08-23 09:25 | Outpatient (REF) | payer MEDICARE, SELFPAY ==
[2021-08-23 11:28] LABS: Anion Gap 11 (12-20); Blood Urea Nitrogen 33 mg/dL (9-16); Calcium 9.3 mg/dL (8.4-10.2); Carbon Dioxide 32 mmol/L (22-29); Chloride 98 mmol/L (96-108); Estimated Glomerular Filt Rate 45; Glucose Random 98 mg/dL (60-115); Potassium 3.9 mmol/L (3.3-5.1); Sodium 137 mmol/L (135-145)
[2021-08-23 11:33] LABS: B Type Natriuretic Peptide 597 pg/mL (<100)
== END 2021-08-23 09:26 | disposition home or self-care (01) ==
LOC: HO.LAB 09:25
PROVIDERS: PCP Internal Medicine; Referring Provider Internal Medicine; Visit Provider Internal Medicine Cardiovascular Disease
DX: I50.32 Chronic diastolic (congestive) heart failure (principal); I48.0 Paroxysmal atrial fibrillation; Z95.2 Presence of prosthetic heart valve; Z45.018 Encounter for adjustment and management of other part of cardiac pacemaker; Z87.891 Personal history of nicotine dependence; Z79.899 Other long term (current) drug therapy
CPT/HCPCS: 36415; 80048; 83880; 99212

== ENCOUNTER 2021-08-28 10:22 | Outpatient (REF) | payer MEDICARE, SELFPAY ==
[2021-08-28 14:07] LABS: Anion Gap 13 (12-20); Blood Urea Nitrogen 36 mg/dL (9-16); Calcium 9.5 mg/dL (8.4-10.2); Carbon Dioxide 37 mmol/L (22-29); Chloride 92 mmol/L (96-108); Estimated Glomerular Filt Rate 44; Glucose Random 80 mg/dL (60-115); Potassium 3.3 mmol/L (3.3-5.1); Sodium 139 mmol/L (135-145)
[2021-08-28 14:27] LABS: B Type Natriuretic Peptide 402 pg/mL (<100)
== END 2021-08-28 10:23 | disposition home or self-care (01) ==
LOC: HO.10HDL 10:22
PROVIDERS: Visit Provider Internal Medicine Cardiovascular Disease
DX: I48.0 Paroxysmal atrial fibrillation (principal)
CPT/HCPCS: 36415; 80048; 83880

== ENCOUNTER 2021-12-06 11:01 | Outpatient (REF) | payer MEDICARE, SELFPAY ==
[2021-12-06 12:54] LABS: Anion Gap 14 (12-20); Blood Urea Nitrogen 44 mg/dL (9-16); Calcium 10.1 mg/dL (8.4-10.2); Carbon Dioxide 29 mmol/L (22-29); Chloride 99 mmol/L (96-108); Estimated Glomerular Filt Rate 43; Glucose Random 97 mg/dL (60-115); Potassium 4.7 mmol/L (3.3-5.1); Sodium 137 mmol/L (135-145)
[2021-12-06 12:56] LABS: B Type Natriuretic Peptide 375 pg/mL (<100)
== END 2021-12-06 11:02 | disposition home or self-care (01) ==
LOC: HO.LAB 11:01
PROVIDERS: PCP Internal Medicine; Referring Provider Internal Medicine; Visit Provider Internal Medicine Cardiovascular Disease
DX: Z45.018 Encounter for adjustment and management of other part of cardiac pacemaker (principal); I48.0 Paroxysmal atrial fibrillation; I50.32 Chronic diastolic (congestive) heart failure; Z95.2 Presence of prosthetic heart valve
CPT/HCPCS: 36415; 80048; 83880; 93280; 99212

== ENCOUNTER → 2022-03-01 10:26 | Outpatient (BNVA) | payer MEDICARE, SELFPAY | PROVIDERS: PCP Internal Medicine; Referring Provider Internal Medicine; Visit Provider Internal Medicine Cardiovascular Disease | DX: I48.0 Paroxysmal atrial fibrillation (principal); Z45.018 Encounter for adjustment and management of other part of cardiac pacemaker; Z95.2 Presence of prosthetic heart valve; Z79.899 Other long term (current) drug therapy | CPT/HCPCS: 93280; 99212 ==

== ENCOUNTER 2022-03-27 11:18 | Outpatient (REF) | payer MEDICARE, SELFPAY ==
[2022-03-27 13:46] LABS: MANUAL DIFF FLAG NO
[2022-03-27 14:10] LABS: Basophils Absolute Auto 0.1 X10*3/uL (0.0-0.2); Basophils Percent Auto 0.6 % (0-2); Eosinophils Absolute Auto 0.2 X10*3/uL (0.0-0.4); Eosinophils Percent Auto 1.9 % (0-4); Hematocrit 38.2 % (37.0-47.0); Hemoglobin 11.9 g/dl (12.0-16.0); Imm Gran Abs Auto 0.04 X10*3/uL (0.00-0.03); Imm Gran Pct Auto 0.4 % (0.0-0.4); Lymphocytes Absolute Auto 0.9 X10*3/uL (1.2-4.9); Mean Corpuscular HGB Conc 31.2 g/dl (31.0-35.0); Mean Corpuscular Hemoglobin 28.5 pg (27.0-33.0); Mean Corpuscular Volume 91.6 fL (80.0-98.0); Mean Platelet Volume 11.7 fL (9.4-12.3); Monocytes Percent Auto 11.1 % (2-11); Neutrophils Absolute Auto 6.9 x10*3/uL (2.0-8.3); Red Blood Count 4.17 X10*6/uL (4.20-5.50); Red Cell Distribution Width 14.7 % (11.0-16.0)
[2022-03-27 14:31] LABS: Alanine Aminotransferase 12 U/L (0-31); Albumin Level 3.9 g/dL (3.5-5.0); Alkaline Phosphatase 60 U/L (39-117); Anion Gap 16 (12-20); Aspartate Amino Transferase 22 U/L (5-31); Bilirubin Total 0.9 mg/dL (0.0-1.0); Blood Urea Nitrogen 43 mg/dL (9-16); Calcium 9.8 mg/dL (8.4-10.2); Carbon Dioxide 30 mmol/L (22-29); Chloride 96 mmol/L (96-108); Cholesterol 148 mg/dL; Estimated Glomerular Filt Rate 41; Glucose Fasting 90 mg/dL (60-99); HDL Cholesterol 58 mg/dL; LDL Cholesterol Calculated 81 mg/dl; Potassium 4.4 mmol/L (3.3-5.1); Sodium 138 mmol/L (135-145); Total Protein 7.4 g/dL (6.5-8.0); Triglycerides 47 mg/dL
[2022-03-27 14:35] LABS: Platelet Count 132 X10*3/uL (160-400)
[2022-03-27 14:45] LABS: Free T4 (Free Thyroxine) 1.46 ng/dL (0.71-1.85); Vitamin D 25-OH Total 64.9 ng/mL (>30)
[2022-03-27 14:59] LABS: B Type Natriuretic Peptide 346 pg/mL (<100)
== END 2022-03-27 11:19 | disposition home or self-care (01) ==
LOC: HO.10HDL 11:18
PROVIDERS: Visit Provider Internal Medicine
DX: E03.9 Hypothyroidism, unspecified (principal); E78.00 Pure hypercholesterolemia, unspecified; I11.0 Hypertensive heart disease with heart failure; I50.9 Heart failure, unspecified; E55.9 Vitamin D deficiency, unspecified
CPT/HCPCS: 36415; 80053; 80061; 82306; 83880; 84439; 85025

== ENCOUNTER → 2022-06-26 13:50 | Outpatient (REF) | payer MEDICARE, SELFPAY ==
--- NOTE | 2022-06-26 13:53 | CA_ITS ---
Transthoracic Echocardiogram Patient (Last, First, Middle): Mey Schmitz, Gender: Female Date of : 1940 Age: 81 Procedure Date: 06/26/2022 Procedure Type: Transthoracic Echocardiogram Location: OP Height: 147.32 cm Weight: 38.1 kg BSA: 1.26 m2 Heart Rate: 80 bpm BP: 118 / 60 mmHg Office Machines Teacher: Referring MD: Darek Bingham MD Symptoms: I50.32 - Chronic diastolic (congestive) heart failure Study Quality: Adequate ECG Rhythm: Sinus, bigeminy Conclusions: - The left ventricular systolic function is normal. The visually estimated ejection fraction is between 60-65%. - A bioprosthetic aortic valve is present. The prosthetic aortic valve appears to be functioning normally. - There is moderate mitral annular calcification. There is mild mitral valve regurgitation. - There is mild to moderate tricuspid valve regurgitation. Findings Left Ventricle Normal left ventricular cavity size. There is normal left ventricular wall thickness. The left ventricular systolic function is normal. The visually estimated ejection fraction is between 60-65%. There is no evidence of regional wall motion abnormalities. Diastolic function is indeterminate on the basis of available data. Right Ventricle The right ventricle was not well visualized. Normal right ventricular cavity size. There is a pacemaker wire seen in the right ventricle. Atria Both atria are normal in size. Aortic Valve A bioprosthetic aortic valve is present. The prosthetic aortic valve appears to be functioning normally. There is no aortic valve regurgitation. Mitral Valve There is moderate mitral annular calcification. There is mild mitral valve regurgitation. Cannot exclude mild mitral stenosis. Pulmonic Valve The pulmonic valve is likely normal. Tricuspid Valve There is mild to moderate tricuspid valve regurgitation. There is no evidence of pulmonary hypertension. Great Vessels The asc aorta is normal in size. Venous The inferior vena cava is normal in size and collapses greater than 50% with inspiration. Pericardium/Pleural There is no evidence of pericardial effusion. Prior Study Comparison No significant change compared to prior study dated: 05/04/2021. Measurements 2D Linear Measurements IVSd: 0.93 0.6-0.9/0.6-1.0 cm LVIDd: 2.90 3.9-5.3/4.2-5.9 cm LVIDd Index: 2.30 2.4-3.2/2.2-3.1 cm/m2 LVIDs: 1.92 2.0-3.6 cm LVPWd: 0.93 0.7-1.1 cm LA Diam: 2.90 2.7-3.8/3.0-4.0 cm LAIDs Index: 2.30 1.5-2.3 cm/m2 LV Mass: 86.80 67-162/88-224 g LV Mass Index: 68.89 43-95/49-115 g/m2 LVOT Diam: 1.70 3.0+(-)1.3 cm Mitral Valve MV VTI: 0.42 MV Pk Richard: 1.61 MV Mn Richard: 0.82 MV Pk Grad: 10.00 MV Mn Grad: 3.00 MV Pk E: 1.31 MV PK A: 0.59 MV Decel Time: 270.00 E/A: 2.20 E'Lateral: 8.38 E'Medial: 3.81 E/E' Med: 34.40 E/E' Lat: 15.60 PHT: 79.00 MVA PHT: 2.78 MVA Continuity: 0.78 Decel Drew: 4.84 Aortic Valve AoV Pk Richard: 1.46 AoV Mn Richard: 0.97 AoV VTI: 0.33 AoV Pk Grad: 9.00 Aov Mn Grad: 5.00 DAWOOD Cont.VTI: 0.99 LVOT LVOT Pk Richard: 0.69 LVOT Mn Richard: 0.41 LVOT VTI: 0.15 LVOT Pk Grad: 2.00 LVOT Mn Grad: 1.00 LVOT Diam: 1.70 LVOT Area: 2.27 Diastolic Function MV Pk E: 1.31 MV Pk A: 0.59 E/A: 2.20 E'Medial: 3.81 E/E' Med: 34.40 E' Laterial: 8.38 E/E' Lat: 15.60 Tricuspid Valve TR Pk Richard: 2.80 TR Pk Grad: 31.00 RA Press: 3.00 RVSP: 34.00 Great Vessels Aorta Sinus of Valsalva: 3.10 2.0-3.5 cm Ao Asc: 2.60 2.1-3.4 cm Pulmonary Valve PV Pk Richard: 1.02 Peak PV Grad: 4.00 Updated in Other Vendor System with Status of Final Josh Khalil MD electronically signed on 06/28/2022 12:42:33 PM with status of Final
== END ==
LOC: HO.CARD 13:50
PROVIDERS: PCP Internal Medicine; Visit Provider Internal Medicine Cardiovascular Disease
DX: I50.32 Chronic diastolic (congestive) heart failure (principal)
CPT/HCPCS: 93306

== ENCOUNTER 2022-08-06 10:25 | Outpatient (REF) | payer MEDICARE, SELFPAY ==
[2022-08-06 13:56] LABS: Appearance Urine Clear; Color Urine Yellow; Glucose Urine UA Negative (Negative); Leukocyte Esterase Urine Negative (Negative); Nitrite Urine Negative (Negative); PH 7.5 (5.0-9.0); Specific Gravity - Urine 1.015 (1.005-1.025); Urine Blood Negative (Negative); Urine Ketones Negative (Negative); Urine Protein Negative (Neg-Trace)
[2022-08-06 14:20] LABS: Basophils Absolute Auto 0.1 X10*3/uL (0.0-0.2); Basophils Percent Auto 1.1 % (0-2); Eosinophils Absolute Auto 0.1 X10*3/uL (0.0-0.4); Eosinophils Percent Auto 1.8 % (0-4); Hematocrit 35.1 % (37.0-47.0); Hemoglobin 10.9 g/dl (12.0-16.0); Imm Gran Abs Auto 0.09 X10*3/uL (0.00-0.03); Imm Gran Pct Auto 1.1 % (0.0-0.4); Lymphocytes Percent Auto 12.9 % (20-40); MANUAL DIFF FLAG NO; Mean Corpuscular HGB Conc 31.1 g/dl (31.0-35.0); Mean Corpuscular Hemoglobin 28.4 pg (27.0-33.0); Mean Corpuscular Volume 91.4 fL (80.0-98.0); Mean Platelet Volume 10.3 fL (9.4-12.3); Monocytes Absolute Auto 0.8 X10*3/uL (0.1-1.2); Monocytes Percent Auto 10.2 % (2-11); Neutrophils Absolute Auto 5.7 x10*3/uL (2.0-8.3); Neutrophils Percent Auto 72.9 % (45-73); Platelet Count 276 X10*3/uL (160-400); Red Blood Count 3.84 X10*6/uL (4.20-5.50); Red Cell Distribution Width 14.6 % (11.0-16.0); White Blood Count 7.9 X10*3/uL (4.8-10.8)
[2022-08-06 15:27] LABS: Thyroid Stimulating Hormone 0.87 uIU/mL (0.32-4.0); Vitamin D 25-OH Total 56.7 ng/mL (>30)
[2022-08-06 16:07] LABS: Alanine Aminotransferase 6 U/L (0-31); Albumin Level 3.6 g/dL (3.5-5.0); Alkaline Phosphatase 57 U/L (39-117); Aspartate Amino Transferase 22 U/L (5-31); Bilirubin Total 0.6 mg/dL (0.0-1.0); Blood Urea Nitrogen 54 mg/dL (9-16); Calcium 9.5 mg/dL (8.4-10.2); Carbon Dioxide 28 mmol/L (22-29); Chloride 96 mmol/L (96-108); Cholesterol 142 mg/dL; Estimated Glomerular Filt Rate 33; Glucose Fasting 81 mg/dL (60-99); HDL Cholesterol 54 mg/dL; LDL Cholesterol Calculated 79 mg/dl; Potassium 4.9 mmol/L (3.3-5.1); Sodium 137 mmol/L (135-145); Total Protein 6.9 g/dL (6.5-8.0); Triglycerides 45 mg/dL
== END 2022-08-06 10:26 | disposition home or self-care (01) ==
LOC: HO.10HDL 10:25
PROVIDERS: Visit Provider Internal Medicine
DX: E03.9 Hypothyroidism, unspecified (principal); E78.00 Pure hypercholesterolemia, unspecified; E55.9 Vitamin D deficiency, unspecified; I10 Essential (primary) hypertension
CPT/HCPCS: 36415; 80053; 80061; 81003; 82306; 84439; 84443; 85025

== ENCOUNTER → 2022-08-29 10:44 | Outpatient (BNVA) | payer MEDICARE, SELFPAY | PROVIDERS: PCP Internal Medicine; Referring Provider Internal Medicine; Visit Provider Internal Medicine Cardiovascular Disease | DX: Z45.018 Encounter for adjustment and management of other part of cardiac pacemaker (principal); I50.32 Chronic diastolic (congestive) heart failure; I48.0 Paroxysmal atrial fibrillation; Z95.2 Presence of prosthetic heart valve | CPT/HCPCS: 93280; 99212 ==

== ENCOUNTER 2022-12-04 09:08 | Outpatient (REF) | payer MEDICARE, SELFPAY ==
[2022-12-04 10:22] LABS: MANUAL DIFF FLAG NO
[2022-12-04 10:31] LABS: Appearance Urine Clear; Color Urine Yellow; Glucose Urine UA Negative (Negative); Leukocyte Esterase Urine Negative (Negative); Nitrite Urine Negative (Negative); Urine Blood Negative (Negative); Urine Ketones Negative (Negative); Urine Protein Negative (Neg-Trace)
[2022-12-04 10:35] LABS: Basophils Absolute Auto 0.1 X10*3/uL (0.0-0.2); Basophils Percent Auto 0.7 % (0-2); Eosinophils Absolute Auto 0.2 X10*3/uL (0.0-0.4); Hematocrit 37.4 % (37.0-47.0); Hemoglobin 11.7 g/dl (12.0-16.0); Imm Gran Abs Auto 0.04 X10*3/uL (0.00-0.03); Imm Gran Pct Auto 0.6 % (0.0-0.4); Lymphocytes Absolute Auto 1.2 X10*3/uL (1.2-4.9); Lymphocytes Percent Auto 16.4 % (20-40); Mean Corpuscular HGB Conc 31.3 g/dl (31.0-35.0); Mean Corpuscular Hemoglobin 28.8 pg (27.0-33.0); Mean Corpuscular Volume 92.1 fL (80.0-98.0); Mean Platelet Volume 11.1 fL (9.4-12.3); Monocytes Absolute Auto 0.8 X10*3/uL (0.1-1.2); Monocytes Percent Auto 10.8 % (2-11); Neutrophils Absolute Auto 4.8 x10*3/uL (2.0-8.3); Neutrophils Percent Auto 68.5 % (45-73); Platelet Count 160 X10*3/uL (160-400); Red Blood Count 4.06 X10*6/uL (4.20-5.50); Red Cell Distribution Width 14.3 % (11.0-16.0)
[2022-12-04 11:07] LABS: B Type Natriuretic Peptide 345 pg/mL (<100)
[2022-12-04 11:18] LABS: Alanine Aminotransferase 8 U/L (0-31); Albumin Level 4.1 g/dL (3.5-5.0); Alkaline Phosphatase 61 U/L (39-117); Anion Gap 15 (12-20); Aspartate Amino Transferase 23 U/L (5-31); Bilirubin Total 0.8 mg/dL (0.0-1.0); Blood Urea Nitrogen 49 mg/dL (9-16); Calcium 10.4 mg/dL (8.4-10.2); Carbon Dioxide 31 mmol/L (22-29); Chloride 98 mmol/L (96-108); Cholesterol 156 mg/dL; Estimated Glomerular Filt Rate 37; Glucose Fasting 100 mg/dL (60-99); HDL Cholesterol 60 mg/dL; LDL Cholesterol Calculated 87 mg/dl; Potassium 4.4 mmol/L (3.3-5.1); Sodium 140 mmol/L (135-145); Total Protein 7.7 g/dL (6.5-8.0); Triglycerides 46 mg/dL
[2022-12-04 11:22] LABS: Free T4 (Free Thyroxine) 1.52 ng/dL (0.71-1.85); Thyroid Stimulating Hormone 0.14 uIU/mL (0.32-4.0); Vitamin D 25-OH Total 72.4 ng/mL (>30)
== END 2022-12-04 09:09 | disposition home or self-care (01) ==
LOC: HO.10HDL 09:08
PROVIDERS: Visit Provider Internal Medicine
DX: I11.0 Hypertensive heart disease with heart failure (principal); I50.9 Heart failure, unspecified; E78.00 Pure hypercholesterolemia, unspecified; R30.0 Dysuria; E03.9 Hypothyroidism, unspecified; E55.9 Vitamin D deficiency, unspecified
CPT/HCPCS: 36415; 80053; 80061; 81003; 82306; 83880; 84439; 84443; 85025

== ENCOUNTER 2022-12-17 10:27 | Outpatient (REF) | payer MEDICARE, SELFPAY ==
--- NOTE | ~2022-12-17 | MM_ITS ---
EXAMINATION: BONE DENSITOMETRY CLINICAL INDICATION: Asymptomatic menopausal state. COMPARISON: Previous BD dated 03/18/2017 and baseline BD dated 09/18/2012. TECHNIQUE: Using a Capricor DXA System (software version: 13.1) manufactured by [employer], dual-energy x-ray absorptiometry was performed of the lumbar spine and left hip. The images are of good technical quality. Summary results are attached. FINDINGS: AP SPINE L1-L4: Current: BMD 0.695 g/cm2, Z-score -1.1, T-score -4.0, osteoporosis, 26.4% decrease from previous, 25.4% decrease from baseline (<5% change is not significant). Prior: BMD 0.944 g/cm2. Baseline: BMD 0.932 g/cm2. LEFT FEMUR, NECK: Current: BMD 0.513 g/cm2, Z-score -0.8, T-score -3.8, osteoporosis. Prior: BMD 0.660 g/cm2. Baseline: BMD 0.707 g/cm2. LEFT FEMUR, TOTAL: Current: BMD 0.580 g/cm2, Z-score -0.5, T-score -3.4, osteoporosis, 25.6% decrease from previous, 27.3% decrease from baseline (<5% change is not significant). Prior: BMD 0.780 g/cm2. Baseline: BMD 0.798 g/cm2. IDENTIFIED RISK FACTORS: Rheumatoid arthritis, low body weight. Early menopause, secondary osteoporosis, hysterectomy, bilateral oophorectomy. HISTORY OF FRACTURE: None listed. MEDICATIONS: Vitamin D, ERT/SERMS. MM/XR DEXA axial skeleton IMPRESSION: 1. DIAGNOSIS: Osteoporosis based on the lowest T-score value of -4.0 in the lumbar spine applying World Health Organization criteria. 2. 10-YEAR FRACTURE RISK PREDICTION, FRAX: According to the guidelines, FRAX calculation should only be performed on patients in the osteopenia bone density category. Therefore, FRAX was not performed on this patient. 3. Treatment Recommendations: NOF guidelines recommend consideration for treatment in postmenopausal women and men age 50 and older presenting with the following: -A hip or vertebral (clinical or morphometric) fracture. -T-score less than or equal to -2.5 at the femoral neck or spine after appropriate evaluation to exclude secondary causes. -Low bone mass at the hip or spine and a 10-year fracture probability by FRAX of greater than or equal to 3% for hip fracture or greater than or equal to 20% for major osteoporotic fracture based on the [place] adapted WHO algorithm. 4. Other Recommendations: All treatment decisions require clinical judgment and consideration of individual patient factors, including patient preferences, comorbidities, previous drug use, risk factors not captured in the FRAX model (e.g. frailty, falls, vitamin D deficiency, increased bone turnover, interval significant decline in bone density) and possible under or overestimation of fracture risk by FRAX. Additional medical evaluation for secondary cause of low bone mineral density may be appropriate. FUTURE SCAN RECOMMENDATION: People with diagnosed cases of osteoporosis or at high risk for fracture should have regular bone mineral density tests. For patients eligible for Medicare, routine testing is allowed once every 2 years. The testing frequency can be increased to one year for patients who have rapidly progressing disease, those who are receiving or discontinuing medical therapy to restore bone mass, or have additional risk factors.
== END 2022-12-17 10:28 | disposition home or self-care (01) ==
LOC: HO.MAMMO 10:27
PROVIDERS: Visit Provider Internal Medicine
DX: Z13.820 Encounter for screening for osteoporosis (principal); Z78.0 Asymptomatic menopausal state; M81.0 Age-related osteoporosis without current pathological fracture
CPT/HCPCS: 77080

== ENCOUNTER → 2023-01-06 23:59 | Outpatient (BNV) | payer MEDICARE, SELFPAY ==
--- NOTE | 2023-02-12 12:27 | A.OFFVIS_ITS ---
Intake Intake Visit Reasons: Remote Device Check- Medtronic Allergies codeine [CODEINE] Allergy (Intermediate, Verified 12/05/22 11:06) RASH meperidine [From Demerol] Allergy (Intermediate, Verified 12/05/22 11:06) Unknown [facility] Medical History (HFpEF) heart failure with preserved ejection fraction Anemia Anxiety Aortic stenosis Benign essential hypertension Candidemia Cardiac pacemaker in situ Chronic kidney disease (CKD), stage III (moderate) Complete heart block E-coli UTI GI bleed H/O: HTN (hypertension) Hyperlipidemia Hypothyroidism Leg edema Neuropathy Osteoporosis Paroxysmal A-fib Paroxysmal atrial fibrillation Pulmonary hypertension Pure hypercholesterolemia Sensorineural hearing loss Tobacco abuse, in remission Tricuspid regurgitation Vitamin D deficiency Surgical History History of thoracentesis Hx of aortic valve repair Hx of hysterectomy Hx of mastectomy S/P AVR Family History Father No problems noted. Mother No problems noted. Sister Diabetes Cancer Social History Household Members: Spouse Housing: House Do you presently have visiting nurse or other home services: No Alcohol intake: never Patient Tobacco Use Status: Former Tobacco user Second Hand Smoke Exposure: No service: No Current occupational status: retired Cognitive needs: No Hearing needs: No Vision needs: No Office Procedures Cardiac Device Check Cardiac Device Check Details: Remote pacemaker report generated 01/05/2023. Pacemaker function is adequate [id number] Cardiac Device Interrogation, pacemaker Procedure code (CPT) selection complete Coding Level of Care Code Procedure Only Diagnoses CPT Codes Cardiac Device Check - Cardiac Device 12: [id number] Cardiac Device Interrogation, pacemaker ([id number])
== END ==
PROVIDERS: PCP Internal Medicine; Visit Provider Internal Medicine Cardiovascular Disease
DX: I48.0 Paroxysmal atrial fibrillation (principal); Z95.0 Presence of cardiac pacemaker
CPT/HCPCS: 93294

== ENCOUNTER → 2023-02-08 23:59 | Outpatient (BNV) | payer MEDICARE, SELFPAY ==
--- NOTE | 2023-02-12 14:45 | MHC.OFFVIS ---
Intake Intake Visit Reasons: Remote Device Check- Medtronic Allergies codeine [CODEINE] Allergy (Intermediate, Verified 12/05/22 11:06) RASH meperidine [From Demerol] Allergy (Intermediate, Verified 12/05/22 11:06) Unknown [facility] Medical History (HFpEF) heart failure with preserved ejection fraction Anemia Anxiety Aortic stenosis Benign essential hypertension Candidemia Cardiac pacemaker in situ Chronic kidney disease (CKD), stage III (moderate) Complete heart block E-coli UTI GI bleed H/O: HTN (hypertension) Hyperlipidemia Hypothyroidism Leg edema Neuropathy Osteoporosis Paroxysmal A-fib Paroxysmal atrial fibrillation Pulmonary hypertension Pure hypercholesterolemia Sensorineural hearing loss Tobacco abuse, in remission Tricuspid regurgitation Vitamin D deficiency Surgical History History of thoracentesis Hx of aortic valve repair Hx of hysterectomy Hx of mastectomy S/P AVR Family History Father No problems noted. Mother No problems noted. Sister Diabetes Cancer Social History Household Members: Spouse Housing: House Do you presently have visiting nurse or other home services: No Alcohol intake: never Patient Tobacco Use Status: Former Tobacco user Second Hand Smoke Exposure: No service: No Current occupational status: retired Cognitive needs: No Hearing needs: No Vision needs: No Office Procedures Cardiac Device Check Cardiac Device Check Details: Remote pacemaker report generated 02/08/2023. Pacemaker function is adequate [id number] Cardiac Device Interrogation, pacemaker Procedure code (CPT) selection complete Coding Level of Care Code Procedure Only Diagnoses CPT Codes Cardiac Device Check - Cardiac Device 12: [id number] Cardiac Device Interrogation, pacemaker ([id number])
== END ==
PROVIDERS: PCP Internal Medicine; Visit Provider Internal Medicine Cardiovascular Disease
DX: I48.0 Paroxysmal atrial fibrillation (principal); Z95.0 Presence of cardiac pacemaker
CPT/HCPCS: 93294

== ENCOUNTER 2023-03-03 10:48 | Outpatient (AMB) | payer MEDICARE, SELFPAY ==
--- NOTE | 2023-03-03 10:55 | A.OFFVIS_ITS ---
Intake Vital Signs 03/03/23 10:56 Height 4 ft 11 in Weight 73 lb 3.095 oz BMI 14.8 BP 128/68 Blood Pressure Location Rt brachial Position Sitting Pulse 79 Intake Visit Reasons: 6 MON FUP + MEDTRONIC CHECK Intake Note: 6 month follow up w/ device check + EKG Spinning Frame Cleaner Required: No Accompanied by: Self / Same As Patient Allergies codeine [CODEINE] Allergy (Intermediate, Verified 03/03/23 10:56) RASH meperidine [From Demerol] Allergy (Intermediate, Verified 03/03/23 10:56) Unknown Medication List - Last Reconciled 03/03/23 by Darek Bingham MD albuterol sulfate 90 mcg/actuation 90 mcg inhalation Q6-8H PRN amlodipine 2.5 mg PO DAILY 90 days apixaban (Eliquis) 2.5 mg PO BID docusate sodium (Colace) 100 mg PO BID 14 days furosemide 40 mg PO BID levothyroxine 100 mcg PO QAM 90 days loratadine 10 mg PO DAILY 30 days lorazepam 0.5 mg (1/2 x 1 mg) PO BEDTIME PRN 30 days metoprolol succinate ER 100 mg PO DAILY raloxifene 60 mg PO DAILY 90 days simvastatin 10 mg PO BEDTIME 90 days sodium chloride 0.65% (Saline Nasal) 2 sprays intranasal QID PRN spironolactone 12.5 mg (1/2 x 25 mg) PO DAILY HPI HPI Comments History of Present Illness Details Mey comes for follow-up, accompanied by her . She has been doing well physically remaining more active now than before. Denies any heart failure symptoms. She does not monitor weight on a regular basis. Denies any abdominal distension, leg edema. No orthopnea, PND, worsening shortness of breath. No prolonged palpitation irregular heartbeat. Taking all her medications. No bleeding issues or neurologic events. As per the she has had some further cognitive decline [facility] Medical History (Updated 03/03/23 @ 12:23 by Darek Bingham MD) (HFpEF) heart failure with preserved ejection fraction Anemia Anxiety Aortic stenosis Benign essential hypertension Candidemia Cardiac pacemaker in situ Chronic kidney disease (CKD), stage III (moderate) Complete heart block E-coli UTI GI bleed H/O: HTN (hypertension) Hyperlipidemia Hypothyroidism Leg edema Neuropathy Osteoporosis Paroxysmal A-fib Paroxysmal atrial fibrillation Pulmonary hypertension Pure hypercholesterolemia Sensorineural hearing loss Tobacco abuse, in remission Tricuspid regurgitation Vitamin D deficiency Surgical History History of thoracentesis Hx of aortic valve repair Hx of hysterectomy Hx of mastectomy S/P AVR Family History Father No problems noted. Mother No problems noted. Sister Diabetes Cancer Social History Household Members: Spouse Housing: House Do you presently have visiting nurse or other home services: No Alcohol intake: never Patient Tobacco Use Status: Former Tobacco user Second Hand Smoke Exposure: No service: No Current occupational status: retired Cognitive needs: No Hearing needs: No Vision needs: No Review of Systems Const Denies weakness ENT Denies dizziness Card Denies chest pain, Denies chest pain with activity, Denies syncope, Denies rapid heart rate, Denies pedal edema, Denies edema, Denies leg edema, Denies lightheadedness, Denies palpitations, Denies dyspnea, Denies dyspnea on exertion and Denies orthopnea Resp Denies cough, Denies dyspnea and Denies dyspnea on exertion GI Denies hematochezia and Denies change in stool character Musc Denies abnormal gait, Denies muscle cramps, Denies muscle weakness, Denies numbness, Denies radiating pain into limb and Denies tingling Neuro Denies abnormal gait, Denies dizziness, Denies syncope, Denies numbness, Denies tingling and Denies weakness Endo Denies palpitations Physical Exam Vital Signs: Last Vital Signs Pulse 79 03/03/23 10:56 BP 128/68 03/03/23 10:56 BMI result Body Mass Index 14.8 Const General: cooperative, alert, awake and in distress mild and respiratory Nutritional Appearance: underweight and other (Frail elderly woman) Orientation/consciousness: patient oriented x3 Neck Neck: Yes trachea midline, Yes supple and Yes no JVD Resp Effort & Inspection: normal respiratory effort Auscultation: clear to auscultation bilaterally, no rales, no wheezes and diminished lung sounds Cardio Jugular venous distension: no JVD Palpation: normal PMI Rate: regular rate Rhythm: regular rhythm Heart sounds: S1 normal heart sound present, S2 normal heart sound present, no click, no gallops and no murmurs GI Auscultation: normal bowel sounds Skin General skin exam: no rashes or lesions noted and ecchymosis Neuro General: patient oriented x3 and no focal motor deficits Extrem General: No clubbing, No cyanosis and Yes edema (Significant edema on the right side greater than left) Office Procedures Cardiac Device Check Cardiac Device Check Details: Dual chamber Medtronic pacemaker in place programmed in DDDR at 80 beats per minute. No significant episodes of atrial fibrillation noted. Atrial ventricular pacing thresholds adequate and atrial pacing thresholds reprogrammed. Atrial ventricular sensing is adequate. Battery life is at about 12 months mean but can be less than a month at the lower and 47087-BP Cardiac Device Check, pacemaker dual lead Procedure code (CPT) selection complete EKG Details: EKG shows AV dual paced rhythm [id number], Complete Assessment & Plan Assessment & Plan (1) (HFpEF) heart failure with preserved ejection fraction: Code(s): I50.30 - Unspecified diastolic (congestive) heart failure Qualifiers: Heart failure chronicity: chronic Qualified Code(s): I50.32 - Chronic diastolic (congestive) heart failure Plan: Heart failure preserved ejection fraction, clinically euvolemic and well compensated doing well with improved functional capacity. Continue to improve functional capacity as tolerated. Continue current diuretic does with Lasix. Increase Lasix for weight gain greater than 2-3 lb a day or progressive with the symptoms were discussed with her and her they understand agree. Continue Aldactone therapy for neurohormonal modulation. Quarterly renal function test should be pursued. (2) S/P AVR: Comment: Done on 09/11/2015 for aortic stenosis Code(s): Z95.2 - Presence of prosthetic heart valve Plan: Status post bioprosthetic aortic valve replacement. Clinically doing well. Working well clinically. Follow-up echocardiogram 6 months time. Continue full oral anticoagulation, currently on Eliquis and avoid aspirin therapy. Continue to monitor renal function every 3 months. SBE prophylaxis as per ACC/[place] guidelines. (3) Cardiac pacemaker in situ: Comment: medtronic first palced in 1999, Battery change in 2006 Code(s): Z95.0 - Presence of cardiac pacemaker Plan: Status post cardiac pacemaker in-situ, ventricularly pacer dependent. Continue monitor on a monthly basis remotely given her lower battery life. Advised pacemaker is working well. (4) Paroxysmal A-fib: Code(s): I48.0 - Paroxysmal atrial fibrillation Plan: Paroxysmal atrial fibrillation which has remained suppressed. Has done well with rhythm control approach. Will continue pursue rhythm control approach. Advised to monitor for persistent atrial fibrillation by pacer telemetry. Continue full oral anticoagulation, currently on Eliquis 2.5 mg b.i.d. which is renally adjusted dose. Will follow up in the clinic in 6 months time, sooner p.r.n.. Thank you for allowing me to partake in her care Orders: Orders CA echo transthoracic complete 5 Months Z95.2 - Presence of prosthetic heart valve Coding Level of Care Code Est Pt Level 4 (98432) Diagnoses (HFpEF) heart failure with preserved ejection fraction I50.32 Heart failure chronicity: chronic S/P AVR Z95.2 Cardiac pacemaker in situ Z95.0 Paroxysmal A-fib I48.0 CPT Codes Cardiac Device Check - Cardiac Device 2: [id number] Cardiac Device Check, pace maker dual lead ([id number]) EKG - CPT: 13873-[id number], Complete ([id number])
[2023-03-03 10:56] VITALS: BP 128/68; PULSE 79; BMI 14.8
== END 2023-03-03 11:25 | disposition home or self-care (01) ==
PROVIDERS: PCP Internal Medicine; Referring Provider Internal Medicine; Visit Provider Internal Medicine Cardiovascular Disease
DX: I50.32 Chronic diastolic (congestive) heart failure (principal); Z95.2 Presence of prosthetic heart valve; I48.0 Paroxysmal atrial fibrillation; Z95.0 Presence of cardiac pacemaker
CPT/HCPCS: 93280; 99214

== ENCOUNTER → 2023-03-03 10:48 | Outpatient (BNVA) | payer MEDICARE, SELFPAY | PROVIDERS: PCP Internal Medicine; Referring Provider Internal Medicine; Visit Provider Internal Medicine Cardiovascular Disease | DX: I11.0 Hypertensive heart disease with heart failure (principal); I50.32 Chronic diastolic (congestive) heart failure; I48.0 Paroxysmal atrial fibrillation; I44.2 Atrioventricular block, complete; E78.00 Pure hypercholesterolemia, unspecified; Z95.2 Presence of prosthetic heart valve; Z45.010 Encounter for checking and testing of cardiac pacemaker pulse generator [battery] | CPT/HCPCS: 93005; 93280; 99212 ==

== ENCOUNTER 2023-04-11 08:37 | Outpatient (REF) | payer MEDICARE, SELFPAY ==
[2023-04-11 10:49] LABS: MANUAL DIFF FLAG NO
[2023-04-11 10:56] LABS: Appearance Urine Clear; Color Urine Yellow; Glucose Urine UA Negative (Negative); Leukocyte Esterase Urine Negative (Negative); Nitrite Urine Negative (Negative); PH 6.5 (5.0-9.0); Urine Blood Negative (Negative); Urine Ketones Negative (Negative); Urine Protein Negative (Neg-Trace)
[2023-04-11 11:04] LABS: Basophils Absolute Auto 0.1 X10*3/uL (0.0-0.2); Eosinophils Absolute Auto 0.2 X10*3/uL (0.0-0.4); Eosinophils Percent Auto 2.3 % (0-4); Hematocrit 37.4 % (37.0-47.0); Hemoglobin 11.8 g/dl (12.0-16.0); Imm Gran Abs Auto 0.05 X10*3/uL (0.00-0.03); Imm Gran Pct Auto 0.7 % (0.0-0.4); Lymphocytes Absolute Auto 1.3 X10*3/uL (1.2-4.9); Lymphocytes Percent Auto 17.1 % (20-40); Mean Corpuscular HGB Conc 31.6 g/dl (31.0-35.0); Mean Corpuscular Hemoglobin 29.9 pg (27.0-33.0); Mean Corpuscular Volume 94.9 fL (80.0-98.0); Mean Platelet Volume 10.5 fL (9.4-12.3); Monocytes Absolute Auto 0.9 X10*3/uL (0.1-1.2); Monocytes Percent Auto 11.7 % (2-11); Neutrophils Absolute Auto 4.9 x10*3/uL (2.0-8.3); Neutrophils Percent Auto 67.2 % (45-73); Platelet Count 181 X10*3/uL (160-400); Red Blood Count 3.94 X10*6/uL (4.20-5.50); Red Cell Distribution Width 13.2 % (11.0-16.0); White Blood Count 7.3 X10*3/uL (4.8-10.8)
[2023-04-11 11:26] LABS: Alanine Aminotransferase 10 U/L (0-31); Albumin Level 4.1 g/dL (3.5-5.0); Alkaline Phosphatase 62 U/L (39-117); Anion Gap 20 (12-20); Aspartate Amino Transferase 22 U/L (5-31); Bilirubin Total 0.6 mg/dL (0.0-1.0); Blood Urea Nitrogen 59 mg/dL (9-16); Calcium 10.3 mg/dL (8.4-10.2); Carbon Dioxide 27 mmol/L (22-29); Chloride 96 mmol/L (96-108); Cholesterol 149 mg/dL (<200); Estimated Glomerular Filt Rate 34; Glucose Fasting 111 mg/dL (60-99); HDL Cholesterol 59 mg/dL (>40); LDL Cholesterol Calculated 81 mg/dL (<100); Sodium 139 mmol/L (135-145); Total Protein 7.9 g/dL (6.5-8.0); Triglycerides 46 mg/dL (<150)
[2023-04-11 11:30] LABS: Estimated Average Glucose 103 mg/dL; Hemoglobin A1c % 5.2 % (<6.0)
[2023-04-11 11:45] LABS: Free T4 (Free Thyroxine) 1.38 ng/dL (0.71-1.85); Thyroid Stimulating Hormone 0.08 uIU/mL (0.32-4.0); Vitamin D 25-OH Total 62.1 ng/mL (>30)
[2023-04-11 11:51] LABS: Folate 7.4 ng/mL (> or = 4.0); Vitamin B12 648 pg/mL (200-900)
== END 2023-04-11 08:38 | disposition home or self-care (01) ==
LOC: HO.10HDL 08:37
PROVIDERS: Visit Provider Internal Medicine
DX: R30.0 Dysuria (principal); E03.9 Hypothyroidism, unspecified; I10 Essential (primary) hypertension; E78.00 Pure hypercholesterolemia, unspecified; E55.9 Vitamin D deficiency, unspecified; E53.8 Deficiency of other specified B group vitamins; E11.9 Type 2 diabetes mellitus without complications
CPT/HCPCS: 36415; 80053; 80061; 81003; 82306; 82607; 82746; 83036; 84439; 84443; 85025

== ENCOUNTER 2023-04-14 09:49 | Outpatient (AMB) | payer MEDICARE, SELFPAY ==
[2023-04-14 09:58] VITALS: BP 124/60; PULSE 88; BMI 14.8
--- NOTE | 2023-04-14 09:58 | MHC.PC.OV ---
Vital Signs 04/14/23 09:58 Height 4 ft 11 in Weight 73 lb 8 oz BMI 14.8 BP 124/60 Blood Pressure Location Lt brachial Position Sitting Pulse 88 Pulse Source Pulse Oximeter Oxygen Delivery Method Room Air Intake Visit Reasons: HTN, hyperlipidemia, CKD, osteoporosis, PAF Caustic Preparer Required: No Accompanied by: Self / Same As Patient Allergies codeine [CODEINE] Allergy (Intermediate, Verified 04/14/23 10:20) RASH meperidine [From Demerol] Allergy (Intermediate, Verified 04/14/23 10:20) Unknown Medication List - Last Reconciled 04/14/23 by Rj Mclaughlin MD albuterol sulfate 90 mcg/actuation 90 mcg inhalation Q6-8H PRN amlodipine 2.5 mg PO DAILY 90 days apixaban (Eliquis) 2.5 mg PO BID 90 days docusate sodium (Colace) 100 mg PO BID 14 days furosemide 40 mg PO BID levothyroxine 100 mcg PO QAM 90 days loratadine 10 mg PO DAILY 30 days lorazepam 0.5 mg (1/2 x 1 mg) PO BEDTIME PRN 30 days metoprolol succinate ER 100 mg PO DAILY raloxifene 60 mg PO DAILY 90 days simvastatin 10 mg PO BEDTIME 90 days sodium chloride 0.65% (Saline Nasal) 2 sprays intranasal QID PRN spironolactone 12.5 mg (1/2 x 25 mg) PO DAILY Tobacco use date assessed: 04/14/23 Fall risk assessment: No Falls in past year Last assessed Fall Risk: 04/14/23 Dental Screening Dental Screen Date: 04/14/23 Did you have a dental visit in the last 12 months?: No Did you have a dental problem in the last 6 months where you did not have access to dental care?: No Was dental information given to patient?: No HPI HTN, hyperlipidemia, CKD, osteoporosis, PAF HPI Details Patient comes in today for her follow up visit States that she feels okay She denies any headaches or dizziness Denies any chest pains, no increased SOB No nausea/vomiting, no abdominal pain No change in bowel habits noted Needs her Furosemide Rx refilled and sent to [facility] Had her follow up labs done a few days ago - to discuss her results [facility] Medical History E-coli UTI Candidemia Neuropathy Anemia Osteoporosis Vitamin D deficiency Chronic kidney disease (CKD), stage III (moderate) Pure hypercholesterolemia Benign essential hypertension Sensorineural hearing loss Paroxysmal atrial fibrillation Pulmonary hypertension Tricuspid regurgitation Cardiac pacemaker in situ (HFpEF) heart failure with preserved ejection fraction GI bleed Tobacco abuse, in remission Aortic stenosis Anxiety Hypothyroidism Leg edema Hyperlipidemia H/O: HTN (hypertension) Complete heart block Paroxysmal A-fib Surgical History S/P AVR Hx of aortic valve repair History of thoracentesis Hx of hysterectomy Hx of mastectomy Family History Father No problems noted. Mother No problems noted. Sister Diabetes Cancer Social History Household Members: Spouse Housing: House Do you presently have visiting nurse or other home services: No Alcohol intake: never Patient Tobacco Use Status: Former Tobacco user Second Hand Smoke Exposure: No service: No Current occupational status: retired Cognitive needs: No Hearing needs: No Vision needs: No Questionnaire PHQ-9 Over the last 2 weeks, how often have you been bothered by any of the following problems? 1. Little interest or pleasure in doing things: not at all 2. Feeling down, depressed, or hopeless: not at all 3. Trouble falling or staying asleep, or sleeping too much: not at all 4. Feeling tired or having little energy: not at all 5. Poor appetite or overeating: not at all 6. Feeling bad about yourself - or that you are a failure or have let yourself or your family down: not at all 7. Trouble concentrating on things, such as reading the newspaper or watching television: not at all 8. Moving or speaking so slowly that other people could have noticed. Or the opposite - being so fidgety or restless that you have been moving around a lot more than usual: not at all 9. Thoughts that you would be better off or of hurting yourself in some way: not at all Total score: 0 Depression Screening Interpretation: Negative 26744 - PHQ-9 Billing: Yes Source: Developed by Drs. Nolan Luong, Miah Black and colleagues, with an educational bruce from [employer]. Thrive Questionnaire Date Thrive assessed: 04/14/23 I am a: Patient What is your living situation today?: I have a steady place to live Within the past 12 months, did the food you bought not last and you didn't have the money to get more?: Never true Within the past 12 months, did you worry whether your food would run out before you got money to buy more?: Never true Do you have trouble paying for medicines?: No Do you have trouble getting transportation to medical appointments?: No Do you have trouble paying your heating and electricity bill?: No Do you have trouble taking care of your child, family member or friend?: No Do you have trouble with day-to-day activities such as bathing, preparing meals, shopping, managing finances, etc.?: No Are you currently unemployed and looking for a job?: No Are you interested in more education?: No Please select the resources that you would like help with: None Currently or been in a relationship where the following occur: no concerns reported AUDIT C Alcohol Use Questionnaire (AUDIT-C) 1. How often do you have a drink containing alcohol?: Never 3. How often do you have six or more drinks on one occasion?: Never Total Score: 0 Score Reviewed/Action Taken: Yes ANDRAE-7 AMB Questionnaire ANDRAE-7 Date ANDRAE - 7 assessed: 04/14/23 Feeling nervous, anxious, or on edge: 0 = Not at all Not being able to stop or control worryin = Not at all Worrying too much about different things: 0 = Not at all Trouble relaxin = Not at all Being so restless that it is hard to sit still: 0 = Not at all Becoming easily annoyed or irritable: 0 = Not at all Feeling afraid as if something awful might happen: 0 = Not at all Total ANDRAE-7 score (0-4 normal; 5-9 mild; 10-14 moderate; 15-21 severe): 0 Source: Developed by Drs. Nolan Luong, Miah Black and colleagues, with an educational bruce from [employer]. Review of Systems Const Denies chills, Reports difficulty sleeping, Reports fatigue (mild), Denies fever(s) and Denies headache(s) ENT Denies dysphagia, Denies dizziness, Denies otalgia, Denies headache(s), Denies neck pain, Denies odynophagia and Denies sore throat Card Denies chest pain, Denies palpitations and Reports dyspnea on exertion (mild) Resp Denies chest congestion, Denies cough, Reports dyspnea on exertion (mild) and Denies wheezing GI Denies abdominal pain, Denies constipation, Denies dysphagia, Reports early satiety, Denies heartburn, Denies diarrhea, Denies nausea, Denies odynophagia and Denies vomiting Denies difficulty voiding, Denies nocturia and Denies dysuria Musc Denies neck pain Skin/Breast Denies rash Neuro Details: (+) aphasia Denies dizziness and Denies headache(s) Endo Reports fatigue (mild) and Denies palpitations Aller/Immun Denies wheezing Physical exam (Primary Care) Vital Signs: Last Vital Signs Pulse 88 04/14/23 09:58 BP 124/60 04/14/23 09:58 Oxygen Delivery Method Room Air 04/14/23 09:58 BMI result Body Mass Index 14.8 Tobacco/Smoking Status: Tobacco use Status Tobacco use date assessed 04/14/23 04/14/23 10:06 Patient Tobacco Use Status Former Tobacco user 04/14/23 10:06 PHQ-9: PHQ-9 Score PHQ-9: Total score 0 04/14/23 10:22 Depression Screening Interpretation: Negative Thrive Assessment: Date of Thrive Assessment Date Thrive assessed 04/14/23 04/14/23 10:06 Currently or been in a relationship where the following occur: no concerns reported Const General: no acute distress and alert HENMT Ears: TM's normal bilaterally and EAC's normal Throat: Yes posterior oropharynx normal and Yes tonsils normal (no TP congestion noted) Neck Neck: Yes no lymphadenopathy and Yes supple Resp Auscultation: no crackles, no rales, rhonchi (occasional), no wheezes and diminished lung sounds (slightly) bilateral Cardio Rate: regular rate Rhythm: regular rhythm Heart sounds: no murmurs GI Palpation (GI): Soft to palpation, nontender and no guarding Auscultation: normal bowel sounds Skin Rashes: no rashes Neuro Speech: Expressive aphasia present (mild) Extrem General: Yes no clubbing, cyanosis or edema Office Procedures Flu Questionnaire Does the patient have a severe egg allergy?: No Does the patient have severe life threatening allergies?: No Does the patient have a fever or illness today?: No Has the patient ever had Guillain-[place] Syndrome?: No Has the patient ever had any past reaction to a flu shot?: No Immunizations flu vacc [id number] 6mos up(PF) 60 mcg(15 mcgx4)/0.5 mL IM syringe Performing Provider: Rj Mclaughlin MD [facility] Documented (not given) by: Sanjay Desir on 04/14/23 10:07 Reason Not Given: Patient Refused Results Reviewed Results Reviewed: Laboratory Tests 04/11/23 08:50 WBC 7.3 Hgb 11.8 L Hct 37.4 Plt Count 181 Sodium 139 Potassium 4.0 Creatinine 1.46 H Estimated GFR 34 Fasting Glucose 111 H Hemoglobin A1c % 5.2 Calcium 10.3 H AST 22 ALT 10 Triglycerides 46 Cholesterol 149 LDL Cholesterol, Calc 81 HDL Cholesterol 59 25-OH Vitamin D Total 62.1 TSH 0.08 L Free T4 1.38 Urine pH 6.5 Ur Specific [place] 1.010 Urine Protein Negative Urine Glucose (UA) Negative Urine Blood Negative Assessment and Plan Assessment & Plan (1) (HFpEF) heart failure with preserved ejection fraction: Code(s): I50.30 - Unspecified diastolic (congestive) heart failure Qualifiers: Heart failure chronicity: chronic Qualified Code(s): I50.32 - Chronic diastolic (congestive) heart failure Plan: Has chronic diastolic heart failure but currently remains compensated Echocardiogram done most recently on 06/26/2022 showed (+) normal LV systolic function and visually estimated EF is between 60-65%. The bioprosthetic aortic valve appears to be functioning normally. There is moderate mitral annular calcification and mild mitral valve regurgitation as well as mild to moderate tricuspic valve regurgitation Continue Furosemide 40 mg in the AM and 20 mg (1/2 tablet) at noon DAILY - Rx refilled per request Follow-up with cardiology as scheduled (2) S/P AVR: Comment: Done on 09/11/2015 for aortic stenosis Code(s): Z95.2 - Presence of prosthetic heart valve Plan: Has a bioprosthetic aortic heart valve Follow up with cardiology as scheduled (3) Paroxysmal atrial fibrillation: Code(s): I48.0 - Paroxysmal atrial fibrillation Plan: Is currently in sinus rhythm - has cardiac pacemaker in place (inserted in 1999 and revised in 2006) Continue Eliquis 2.5 mg BID for thromboembolism prophylaxis Follow up with cardiology as scheduled (4) Recurrent pleural effusion on right: Code(s): J90 - Pleural effusion, not elsewhere classified Plan: S/P chest tube (PleurX catheter) insertion in 2020 Has not had any significant change in her symptoms since Follow up with thoracic surgery as scheduled / as needed (5) Pure hypercholesterolemia: Code(s): E78.00 - Pure hypercholesterolemia, unspecified Plan: Results of her labs done a few days ago reviewed and discussed with patient - lipids remain at or close to goal Reinforced low cholesterol diet Continue Simvastatin 10 mg QD Will recheck her labs and fasting lipids in 4 months for follow-up (6) Benign essential hypertension: Code(s): I10 - Essential (primary) hypertension Plan: Reinforced low sodium diet - goal is systolic BP of at least 130 to 140 mm or less Continue Metoprolol ER 100 mg QD, Spironolactone 25 mg 1/2 tablet QD and Amlodipine 2.5 mg QD; is also on Furosemide 40 mg in the AM and 20 mg (1/2 tablet) at noon DAILY (7) Chronic kidney disease (CKD), stage III (moderate): Code(s): N18.30 - Chronic kidney disease, stage 3 unspecified Qualifiers: Chronic kidney disease stage 3 subtype: unspecified whether 3a or 3b Qualified Code(s): N18.30 - Chronic kidney disease, stage 3 unspecified Plan: Stable - will continue to monitor her GFR and renal function regularly Follow up with nephrology as scheduled (8) Hypothyroidism: Code(s): E03.9 - Hypothyroidism, unspecified Qualifiers: Hypothyroidism type: acquired Qualified Code(s): E03.9 - Hypothyroidism, unspecified Plan: Continue Levothyroxine 100 mcg QD Will continue to monitor her TFTs regularly (9) Vitamin D deficiency: Code(s): E55.9 - Vitamin D deficiency, unspecified Plan: Continue Vitamin D3 1000 units QD (10) Osteoporosis: Code(s): M81.0 - Age-related osteoporosis without current pathological fracture Qualifiers: Osteoporosis type: age-related Presence of current pathological fracture: without current pathological fracture Qualified Code(s): M81.0 - Age-related osteoporosis without current pathological fracture Plan: Repeat BMD done on 12/17/2022 showed (+) significant decline in her BMD from previous scan on 03/18/2017, both in her AP spine and left femur; her lowest T score is now -4.0 in the lumbar spine Reinforced fall precautions Continue Raloxifene 60 mg QD Due to her frailty and multiple comorbidities, further Tx is indicated but may not be advisable and patient may not be able to tolerate the treatments for osteoporosis Recommend referral to endocrinology for further evaluation / management - patient would like to hold off on this for now (11) Anemia: Code(s): D64.9 - Anemia, unspecified Qualifiers: Anemia type: due to chronic kidney disease Chronic kidney disease stage: stage 3 (moderate) Chronic kidney disease stage 3 subtype: unspecified whether 3a or 3b Qualified Code(s): N18.30 - Chronic kidney disease, stage 3 unspecified; D63.1 - Anemia in chronic kidney disease Plan: Stable/improving - will continue to monitor her CBC regularly (12) Anxiety: Code(s): F41.9 - Anxiety disorder, unspecified Plan: Continue Lorazepam 1 mg 1/2 tablet once a day as needed Plan Have recommended that due to her multiple comorbidities, she should get the high-dose flu vaccine at her local pharmacy as much as possible; we only have the regular strength quadrivalent flu vaccine here in the office Follow up in 4 months Orders: Orders Influenza [id number] Immunization Today Z23 - Encounter for immunization Lipid Panel 4 Months E78.00 - Pure hypercholesterolemia, unspecified Comprehensive [place]. Panel Fast 4 Months E78.00 - Pure hypercholesterolemia, unspecified Thyroid Stimulating Hormone 4 Months E03.9 - Hypothyroidism, unspecified Free T4 (Free Thyroxine) 4 Months E03.9 - Hypothyroidism, unspecified Complete Blood Count Auto Diff 4 Months I10 - Essential (primary) hypertension UA CC w/rflx Micro + Cult 4 Months R30.0 - Dysuria B Type Natriuretic Peptide 4 Months I50.9 - Heart failure, unspecified Medications: Changed From furosemide Take 40 mg in the AM and 1/2 a tab at Noon 40 mg PO BID 45 tabs 5RF I50.32 - Chronic diastolic (congestive) heart failure To furosemide Take 40 mg (1 tablet) in AM and 20 mg (1/2 tablet) at noon DAILY; 90 days 135 tabs 3RF I50.32 - Chronic diastolic (congestive) heart failure Coding Level of Care Code Est Pt Level 4 (33590) Diagnoses Chronic heart failure with preserved ejection fraction I50.32 Heart failure chronicity: chronic S/P AVR Z95.2 Paroxysmal atrial fibrillation I48.0 Recurrent pleural effusion on right J90 Pure hypercholesterolemia E78.00 Benign essential hypertension I10 Stage 3 chronic kidney disease, unspecified whether stage 3a or 3b CKD N18.30 Chronic kidney disease stage 3 subtype: unspecified whether 3a or 3b Acquired hypothyroidism E03.9 Hypothyroidism type: acquired Vitamin D deficiency E55.9 Age-related osteoporosis without current pathological fracture M81.0 Osteoporosis type: age-related Presence of current pathological fracture: without current pathological fracture Anemia due to stage 3 chronic kidney disease, unspecified whether stage 3a or 3b CKD N18.30; D63.1 Anemia type: due to chronic kidney disease Chronic kidney disease stage: stage 3 (moderate) Chronic kidney disease stage 3 subtype: unspecified whether 3a or 3b Anxiety F41.9
== END 2023-04-14 10:33 | disposition home or self-care (01) ==
PROVIDERS: Visit Provider Internal Medicine
DX: I13.0 Hypertensive heart and chronic kidney disease with heart failure and stage 1 through stage 4 chronic kidney disease, or unspecified chronic kidney disease (principal); N18.30 Chronic kidney disease, stage 3 unspecified; I50.32 Chronic diastolic (congestive) heart failure; I48.0 Paroxysmal atrial fibrillation; J90 Pleural effusion, not elsewhere classified; E03.9 Hypothyroidism, unspecified; E55.9 Vitamin D deficiency, unspecified; M81.0 Age-related osteoporosis without current pathological fracture; D63.1 Anemia in chronic kidney disease; F41.9 Anxiety disorder, unspecified
CPT/HCPCS: 99214

== ENCOUNTER 2023-05-09 14:57 | Emergency (ER) | payer MEDICARE, SELFPAY ==
--- NOTE | ~2023-05-09 | CT_ITS ---
EXAMINATION: CT HEAD WITHOUT CONTRAST CT CERVICAL SPINE WITHOUT CONTRAST CLINICAL INFORMATION: Fall. Head trauma. COMPARISON: CT head May 31, 2021 TECHNIQUE: Imaging was performed from the skull base to vertex without intravenous administration of contrast. In addition, helical noncontrast CT imaging was acquired through the cervical spine and source images were reviewed along with axial reconstructions and sagittal and coronal MPRs. [This CT examination was performed using dose optimization techniques as appropriate, variously including the following: *Automated exposure control *Adjustment of mA and/or kV according to patient size (this includes techniques or standardized protocols for targeted exams where dose is matched to indication/reason for exam; i.e. extremities or head) *Use of iterative reconstruction technique] DLP: 680 mGy-cm FINDINGS: HEAD: No intracranial mass, hemorrhage, or midline shift is visualized. There is generalized global volume loss. There is moderate prominence of the ventricles and the sulci . There is mild hypodensity of the periventricular white matter due to chronic small vessel ischemic disease. There are vascular calcifications of the internal carotid arteries bilaterally. No extra-axial collections are identified. The paranasal sinuses and mastoid air cells are well aerated. CERVICAL SPINE: There is no evidence of acute cervical spine fracture. Vertebral bodies remain normal in height. Cervical vertebrae have normal alignment. There is multilevel degenerative spondylosis of the cervical spine with disc height narrowing and endplate spurs and facet joint arthrosis No pre- or paravertebral soft tissue abnormality is identified. Limited assessment of the lung apices is unremarkable. CT/CT cervical spine wo IV con IMPRESSION: 1. No acute intracranial pathology. 2. No CT evidence of acute cervical spine fracture or traumatic subluxation
--- NOTE | ~2023-05-09 | XR_ITS ---
EXAMINATION: XR SHOULDER, RIGHT CLINICAL INFORMATION: Fall. COMPARISON: None available. TECHNIQUE: 3 views of the right shoulder. FINDINGS: The bones and soft tissues are normal. No fracture. Glenohumeral and acromioclavicular alignment is anatomic with normal joint space. No abnormal soft tissue calcifications. There is mild osteopenia. Dual pacer electrodes are seen along the right anterior chest wall. XR/XR shoulder RT min 2V IMPRESSION: Mild osteopenia. No visible acute fracture, dislocation or subluxation seen. Diffuse osteopenia.
--- NOTE | 2023-05-09 15:12 | ED_ITS ---
HPI - Fall General Chief Complaint: Fall Stated Complaint: FALL AT HOME +HEAD STRIKE +BLOOD THINNERS Time Seen by Provider: 05/09/23 15:12 Source: patient, EMS and old records reviewed Mode of arrival: EMS Limitations: no limitations History of Present Illness HPI Narrative: 82 yo female with PMH of asthma, PAF on eliquis, s/p AVR, PPM, pneumonia, hard of hearing, CKD, osteoporosis, HLD, HTN, anemia here with c/o trying to get up out of bed prior to arrival and slipping - she hit her R head but no LOC and injured R upper arm on chair near bed she now has large skin tear. No other injuries reported. She has a hx of falls. She is at her baseline. MD complaint: fall Onset (ago): hour(s) (1) Fall from: out of bed Fall witnessed: no Place fall occurred: home Loss of consciousness: none Prolonged down time: no Symptoms prior to fall: none Context: tripped/slipped Location of injury: head Location of injury - extremities: right: arm Severity: mild Quality: aching Associated symptoms (after fall): other (soft tissue injury to R upper arm) Related Data Home Medications Medication Instructions Recorded Confirmed albuterol sulfate 90 mcg/actuation 90 mcg inhalation Q6-8H PRN 08/07/22 04/14/23 aerosol inhaler shortness of breath or wheezing Previous Rx's Medication Instructions Recorded sodium chloride 0.65 % nasal spray 2 spray intranasal QID PRN dry 05/15/21 aerosol (Saline Nasal) nasal passages #60 mL docusate sodium 100 mg capsule 100 mg PO BID 14 days #28 caps 05/21/21 (Colace) loratadine 10 mg tablet 10 mg PO DAILY 30 days #30 tabs 07/08/21 metoprolol succinate 100 mg 100 mg PO DAILY #90 tabs 06/25/22 tablet,extended release 24 hr spironolactone 25 mg tablet 12.5 mg (1/2 x 25 mg) PO DAILY #90 11/12/22 tabs levothyroxine 100 mcg tablet 100 mcg PO QAM 90 days #90 tabs 03/20/23 raloxifene 60 mg tablet 60 mg PO DAILY 90 days #90 tabs 03/20/23 simvastatin 10 mg tablet 10 mg PO BEDTIME 90 days #90 tabs 03/20/23 apixaban 2.5 mg tablet (Eliquis) 2.5 mg PO BID 90 days #180 tabs 03/31/23 lorazepam 1 mg tablet 0.5 mg (1/2 x 1 mg) PO BEDTIME PRN 04/07/23 anxiety 30 days #30 tabs amlodipine 2.5 mg tablet 2.5 mg PO DAILY 90 days #90 tabs 04/09/23 furosemide 40 mg tablet See Rx Instructions .Route 04/14/23 .COMPLEX 90 days #135 tabs Allergies Allergy/AdvReac Type Severity Reaction Status Date / Time codeine [CODEINE] Allergy Intermediate RASH Verified 04/14/23 10:20 meperidine [From Demerol] Allergy Intermediate Unknown Verified 04/14/23 10:20 Review of Systems Review of Systems: Constitutional : No Fever, No Chills, Cardiovascular : No Chest Pain, No SOB Respiratory : No Dyspnea, no rib pain Gastrointestinal : No abdominal pain, no vomiting Musculoskeletal : No Joint Swelling, no joint pain, no back pain, no neck pain Skin : No rash, positive skin laceration Neuro : No Weakness, No Numbness All other systems reviewed and are negative [facility] Past Medical History Attestation statement: The following information was validated with the patient. Source: old records reviewed Medical History E-coli UTI Candidemia Neuropathy Anemia Osteoporosis Vitamin D deficiency Chronic kidney disease (CKD), stage III (moderate) Pure hypercholesterolemia Benign essential hypertension Sensorineural hearing loss Paroxysmal atrial fibrillation Pulmonary hypertension Tricuspid regurgitation Cardiac pacemaker in situ (HFpEF) heart failure with preserved ejection fraction GI bleed Tobacco abuse, in remission Aortic stenosis Anxiety Hypothyroidism Leg edema Hyperlipidemia H/O: HTN (hypertension) Complete heart block Paroxysmal A-fib Surgical History S/P AVR Hx of aortic valve repair History of thoracentesis Hx of hysterectomy Hx of mastectomy Family History Family History Father No problems noted. Mother No problems noted. Sister Diabetes Cancer Social History Social History Household Members: Spouse Housing: House Do you presently have visiting nurse or other home services: No Alcohol intake: former Patient Tobacco Use Status: Former Tobacco user Smoked in Last 30 Days: No Second Hand Smoke Exposure: No Use of substances other than those prescribed or required for medical reasons: No Advance Directives: No service: No Current occupational status: retired Cognitive needs: No Hearing needs: No Vision needs: No Physical Exam Vital Signs: Vital Signs: Last Vital Signs Temp 98.4 F 05/09/23 16:25 Pulse 88 05/09/23 16:25 Resp 16 05/09/23 16:25 BP 140/61 H 05/09/23 16:25 Pulse Ox 98 05/09/23 16:25 O2 Del Method Room Air 05/09/23 16:25 BMI result Body Mass Index 14.6 Appearance: Alert. Oriented X3. No acute distress. Frail and thin Eyes: Pupils equal, round and reactive to light. ENT: Pharynx normal. Hold healing scab R forehead no new trauma seen Neck: Normal inspection. Neck supple. no midline ttp, R lateral neck old scab noted CVS: irregular heart rate and rhythm. Pulses normal. Respiratory: No respiratory distress. Breath sounds normal. no rib pain Abdomen: Soft and nontender. Skin: Skin warm and dry. Normal skin color. Normal skin turgor. Extremities: No lower extremity edema. no pain in either knee or hip, R upper extremity on the forearm superficial 1cm superficial skin tear. On R upper lateral arm 10cm very superficial skin tear but no subq noted involved distal NV intact it is not contiguous but patchy in nature. easily able to place skin back over avulsion Neuro: Oriented X 3. No motor deficit. No sensory deficit. Medical Decision Making Medical Decision Making MDM Narrative: 82 yo female with PMH of asthma, PAF on eliquis, s/p AVR, PPM, pneumonia, hard of hearing, CKD, osteoporosis, HLD, HTN, anemia here with mechanical fall with head strike but no LOC - now with R arm skin tears that we cleansed, approximated and used xeroform and sterile dressings to cover. Given DOAC use will obtain CT head and Cspine along with R shoulder film. Will need wound care follow up - family very involved. patient describes mechanical fall. Differential Diagnosis Differential Diagnoses: The differential diagnosis associated with the pres entation includes ICH, trauma, soft tissue injury, skin tear Admission/Observation Consideration of admission/observation: Escalation of care including admission/observation considered at baseline stable for DC Independent Interpretation I performed an independent interpretation of an: Plain X-Ray (no fracture) and CT Scan (no trauma) Radiology Impression Discussion of test interpretation with radiology: I have reviewed the radiologist's reading. Independent Historian Clinical information obtained from an independent historian. History obtained from or confirmed by: Spouse and EMS External Record Review External record reviewed: Inpatient record Discharge Plan Discharge Clinical Impression: Skin tear of right upper extremity Head injury Qualifiers: Encounter type: initial encounter Qualified Code(s): S09.90XA - Unspecified injury of head, initial encounter Patient Disposition: Home, Self-Care Instructions: Head Injury (ED), Skin Avulsion (ED) Additional Instructions: your head CT and cervical spine showed no signs of trauma. normal shoulder xray your dressings can be changed in 24 hours. return for redness, yellow drainage, fevers, worsening pain or any other concerns. change dressing daily. follow up with your doctor next week for wound check. Prescriptions: No Action sodium chloride [Saline Nasal] 0.65 % aerosol,spray 2 spray intranasal QID PRN (Reason: dry nasal passages) Qty: 60 3RF loratadine 10 mg tablet 10 mg PO DAILY 30 Days Qty: 30 2RF metoprolol succinate 100 mg tablet extended release 24 hr 100 mg PO DAILY Qty: 90 3RF spironolactone 25 mg tablet 12.5 mg PO DAILY Qty: 90 3RF raloxifene 60 mg tablet 60 mg PO DAILY 90 Days Qty: 90 3RF levothyroxine 100 mcg tablet 100 mcg PO QAM 90 Days Qty: 90 3RF simvastatin 10 mg tablet 10 mg PO BEDTIME 90 Days Qty: 90 1RF Eliquis 2.5 mg tablet 2.5 mg PO BID 90 Days Qty: 180 3RF lorazepam 1 mg tablet 0.5 mg PO BEDTIME PRN (Reason: anxiety) 30 Days Qty: 30 2RF amlodipine 2.5 mg tablet 2.5 mg PO DAILY 90 Days Qty: 90 1RF docusate sodium [Colace] 100 mg capsule 100 mg PO BID 14 Days Qty: 28 0RF albuterol sulfate 90 mcg/actuation HFA aerosol inhaler 90 mcg inhalation Q6-8H PRN (Reason: shortness of breath or wheezing) furosemide 40 mg tablet See Rx Instructions .ROUTE .COMPLEX 90 Days Qty: 135 3RF Rx Instructions: Take 40 mg (1 tablet) in AM and 20 mg (1/2 tablet) at noon DAILY;
[2023-05-09 15:34] VITALS: BP 146/84; PULSE 83
[2023-05-09 15:35] VITALS: BMI 14.6
--- NOTE | 2023-05-09 15:38 | PC.NURSE ---
Patient rolled out of bed while at home, denies loc, abrasion to left and right arms, cleaned by MD. Denies pain or discomfort. Family at bedside
[2023-05-09 16:25] VITALS: BP 140/61; PULSE 88; RESP 16; TEMP 36.9; O2SAT 98
--- NOTE | 2023-05-09 16:25 | MHC.EDTECH ---
PATIENT WAS ASSISTED UNTO THE BED DAMON VOIDED LARGE AMOUNT OF URINE ,CARE GIVEN AND WARM BLANKET ,PT RESTING COMFORTABLE IN BED ,NO APPARENT DISTRESS NOTED .
--- NOTE | 2023-05-09 17:03 | PC.NURSE ---
Discharge plan reviewed with patient and family who verbalized wound care instructions
== END 2023-05-09 17:03 | disposition home or self-care (01) ==
PROVIDERS: Emergency Provider Emergency Medicine; PCP Internal Medicine
DX: S09.90XA Unspecified injury of head, initial encounter (principal); S41.111A Laceration without foreign body of right upper arm, initial encounter; W06.XXXA Fall from bed, initial encounter; Y93.89 Activity, other specified; Y92.003 Bedroom of unspecified non-institutional (private) residence as the place of occurrence of the external cause; Y99.9 Unspecified external cause status
CPT/HCPCS: 70450; 72125; 73030; 99284

== ENCOUNTER 2023-05-14 10:22 | Outpatient (REF) | payer SELFPAY | END 2023-05-14 10:23 | disposition home or self-care (01) | LOC: HO.HAP 10:22 | PROVIDERS: Visit Provider Internal Medicine | DX: Z13.89 Encounter for screening for other disorder (principal) ==

== ENCOUNTER 2023-05-22 10:10 | Outpatient (REF) | payer SELFPAY | END 2023-05-22 10:11 | disposition home or self-care (01) | LOC: HO.HAP 10:10 | PROVIDERS: Visit Provider Internal Medicine | DX: Z13.89 Encounter for screening for other disorder (principal) ==

== ENCOUNTER → 2023-06-07 23:59 | Outpatient (BNV) | payer MEDICARE, SELFPAY ==
--- NOTE | 2023-06-09 15:12 | MHC.OFFVIS ---
Intake Intake Visit Reasons: Remote Device Check- [employer] Allergies codeine [CODEINE] Allergy (Intermediate, Verified 04/14/23 10:20) RASH meperidine [From Demerol] Allergy (Intermediate, Verified 04/14/23 10:20) Unknown PFSH Medical History E-coli UTI Candidemia Neuropathy Anemia Osteoporosis Vitamin D deficiency Chronic kidney disease (CKD), stage III (moderate) Pure hypercholesterolemia Benign essential hypertension Sensorineural hearing loss Paroxysmal atrial fibrillation Pulmonary hypertension Tricuspid regurgitation Cardiac pacemaker in situ (HFpEF) heart failure with preserved ejection fraction GI bleed Tobacco abuse, in remission Aortic stenosis Anxiety Hypothyroidism Leg edema Hyperlipidemia H/O: HTN (hypertension) Complete heart block Paroxysmal A-fib Surgical History S/P AVR Hx of aortic valve repair History of thoracentesis Hx of hysterectomy Hx of mastectomy Family History Father No problems noted. Mother No problems noted. Sister Diabetes Cancer Household Members: Spouse Housing: House Do you presently have visiting nurse or other home services: No Alcohol intake: former Patient Tobacco Use Status: Former Tobacco user Second Hand Smoke Exposure: No service: No Current occupational status: retired Cognitive needs: No Hearing needs: No Vision needs: No Office Procedures Cardiac Device Check Cardiac Device Check Details: Pacemaker report generated 06/07/2023. Pacemaker function is adequate [id number] Cardiac Device Interrogation, pacemaker Procedure code (CPT) selection complete Coding Level of Care Code Procedure Only CPT Codes Cardiac Device Check - Cardiac Device 12: [id number] Cardiac Device Interrogation, pacemaker ([id number])
== END ==
PROVIDERS: PCP Internal Medicine; Visit Provider Internal Medicine Cardiovascular Disease
DX: I48.0 Paroxysmal atrial fibrillation (principal); Z95.0 Presence of cardiac pacemaker
CPT/HCPCS: 93294

== ENCOUNTER → 2023-09-06 23:59 | Outpatient (BNV) | payer MEDICARE, SELFPAY ==
--- NOTE | 2023-09-09 13:31 | MHC.OFFVIS ---
Intake Intake Visit Reasons: Remote Device Check- [employer] Allergies codeine [CODEINE] Allergy (Intermediate, Verified 04/14/23 10:20) RASH meperidine [From Demerol] Allergy (Intermediate, Verified 04/14/23 10:20) Unknown PFSH Medical History E-coli UTI Candidemia Neuropathy Anemia Osteoporosis Vitamin D deficiency Chronic kidney disease (CKD), stage III (moderate) Pure hypercholesterolemia Benign essential hypertension Sensorineural hearing loss Paroxysmal atrial fibrillation Pulmonary hypertension Tricuspid regurgitation Cardiac pacemaker in situ (HFpEF) heart failure with preserved ejection fraction GI bleed Tobacco abuse, in remission Aortic stenosis Anxiety Hypothyroidism Leg edema Hyperlipidemia H/O: HTN (hypertension) Complete heart block Paroxysmal A-fib Surgical History S/P AVR Hx of aortic valve repair History of thoracentesis Hx of hysterectomy Hx of mastectomy Family History Father No problems noted. Mother No problems noted. Sister Diabetes Cancer Social History Household Members: Spouse Housing: House Do you presently have visiting nurse or other home services: No Alcohol intake: former Patient Tobacco Use Status: Former Tobacco user Second Hand Smoke Exposure: No service: No Current occupational status: retired Cognitive needs: No Hearing needs: No Vision needs: No Office Procedures Cardiac Device Check Cardiac Device Check Details: Remote pacemaker report generated 09/06/2023. Pacemaker function is adequate [id number] Cardiac Device Interrogation, pacemaker Procedure code (CPT) selection complete Assessment & Plan Assessment & Plan (1) Cardiac pacemaker in situ: Comment: medtronic first palced in 1999, Battery change in 2006 Code(s): Z95.0 - Presence of cardiac pacemaker Plan: See above Coding Level of Care Code Procedure Only Diagnoses Cardiac pacemaker in situ Z95.0 CPT Codes Cardiac Device Check - Cardiac Device 12: [id number] Cardiac Device Interrogation, pacemaker ([id number])
== END ==
PROVIDERS: PCP Internal Medicine; Visit Provider Internal Medicine Cardiovascular Disease
DX: I48.0 Paroxysmal atrial fibrillation (principal); Z95.0 Presence of cardiac pacemaker
CPT/HCPCS: 93294

== ENCOUNTER 2023-09-12 12:49 | Outpatient (AMB) | payer MEDICARE, SELFPAY ==
--- NOTE | 2023-09-12 12:49 | MHC.PC.OV ---
Vital Signs 09/12/23 13:28 Weight 63 lb BP 104/65 Blood Pressure Location Lt brachial Position Supine Pulse 85 Pulse Source Pulse Oximeter Temp 97 F Pulse Oximetry (%) 90 L Intake Visit Reasons: Discuss VNA services. Operations Inspector Required: No Information Interpreted: non-clinical & clinical Slab Stripper: Not Required per policy Accompanied by: Spouse Allergies codeine [CODEINE] Allergy (Intermediate, Verified 09/12/23 13:15) RASH meperidine [From Demerol] Allergy (Intermediate, Verified 09/12/23 13:15) Unknown Medication List - Last Reconciled 09/12/23 by Rj Mclaughlin MD albuterol sulfate 90 mcg/actuation 90 mcg inhalation Q6-8H PRN amlodipine 2.5 mg PO DAILY 90 days apixaban (Eliquis) 2.5 mg PO BID 90 days docusate sodium (Colace) 100 mg PO BID 14 days furosemide Take 40 mg (1 tablet) in AM and 20 mg (1/2 tablet) at noon DAILY; 90 days levothyroxine 100 mcg PO QAM 90 days loratadine 10 mg PO DAILY 30 days lorazepam 0.5 mg (1/2 x 1 mg) PO BEDTIME PRN 30 days metoprolol succinate ER 100 mg PO DAILY raloxifene 60 mg PO DAILY 90 days simvastatin 10 mg PO BEDTIME 90 days sodium chloride 0.65% (Saline Nasal) 2 sprays intranasal QID PRN spironolactone 12.5 mg (1/2 x 25 mg) PO DAILY Tobacco use date assessed: 09/12/23 Fall risk assessment: No Falls in past year Last assessed Fall Risk: 09/12/23 Dental Screening Dental Screen Date: 09/12/23 Did you have a dental visit in the last 12 months?: No Did you have a dental problem in the last 6 months where you did not have access to dental care?: No Was dental information given to patient?: Patient declined HPI Discuss VNA services. HPI Details Android - [phone] Patient's follow up visit / consultation today is done over video conference (iPhone/iPad/Google Meets/Anita) - this is a TELEHEALTH visit Patient's current medications have been reviewed andverified with patient and/or caregiver/proxy and have been updated accordingly in the medication list Patient currently appears very weak and gaunt and pale on video conference today and appears mostly bedbound although her states that they try to get her up and help her move from room to room to sit down for a few minutes every now and then She appears cachectic and has lost a lot of weight since her last visit in April 2023 - was at 79 lbs then and she is now supposedly down to 63 lbs earlier today States that she has no appetite and per her and daughter, she has hardly been eating anything lately She reports feeling weak but has no pain anywhere She denies any chest pains or SOB Denies any nausea, vomiting or abdominal pain Her states that she has diarrhea/loose stools all day long for the past few weeks now although they have not seen any blood or mucus in her stool PFSH Medical History E-coli UTI Candidemia Neuropathy Anemia Osteoporosis Vitamin D deficiency Chronic kidney disease (CKD), stage III (moderate) Pure hypercholesterolemia Benign essential hypertension Sensorineural hearing loss Paroxysmal atrial fibrillation Pulmonary hypertension Tricuspid regurgitation Cardiac pacemaker in situ (HFpEF) heart failure with preserved ejection fraction GI bleed Tobacco abuse, in remission Aortic stenosis Anxiety Hypothyroidism Leg edema Hyperlipidemia H/O: HTN (hypertension) Complete heart block Paroxysmal A-fib Surgical History S/P AVR Hx of aortic valve repair History of thoracentesis Hx of hysterectomy Hx of mastectomy Family History Father No problems noted. Mother No problems noted. Sister Diabetes Cancer Social History Household Members: Spouse Housing: House Do you presently have visiting nurse or other home services: No Alcohol intake: former Patient Tobacco Use Status: Former Tobacco user e-Cigarette/Vaping Use: Never Used Second Hand Smoke Exposure: No service: No Current occupational status: retired Cognitive needs: No Hearing needs: No Vision needs: No Questionnaire PHQ-9 Over the last 2 weeks, how often have you been bothered by any of the following problems? 1. Little interest or pleasure in doing things: not at all 2. Feeling down, depressed, or hopeless: not at all 3. Trouble falling or staying asleep, or sleeping too much: not at all 4. Feeling tired or having little energy: not at all 5. Poor appetite or overeating: not at all 6. Feeling bad about yourself - or that you are a failure or have let yourself or your family down: not at all 7. Trouble concentrating on things, such as reading the newspaper or watching television: not at all 8. Moving or speaking so slowly that other people could have noticed. Or the opposite - being so fidgety or restless that you have been moving around a lot more than usual: not at all 9. Thoughts that you would be better off or of hurting yourself in some way: not at all Total score: 0 Depression Screening Interpretation: Negative Depression Screening Done: Yes 62885 - PHQ-9 Billing: Yes Source: Developed by Drs. Nolan Luong, Magali Awan, Miah Landry and colleagues, with an educational bruce from [employer] Thrive Questionnaire Date Thrive assessed: 09/12/23 I am a: Patient What is your living situation today?: I have a steady place to live Within the past 12 months, did the food you bought not last and you didn't have the money to get more?: Never true Within the past 12 months, did you worry whether your food would run out before you got money to buy more?: Never true Do you have trouble paying for medicines?: No Do you have trouble getting transportation to medical appointments?: No Do you have trouble paying your heating and electricity bill?: No Do you have trouble taking care of your child, family member or friend?: No Do you have trouble with day-to-day activities such as bathing, preparing meals, shopping, managing finances, etc.?: No Are you currently unemployed and looking for a job?: No Are you interested in more education?: No Please select the resources that you would like help with: None Currently or been in a relationship where the following occur: no concerns reported THRIVE Score: 0 AUDIT C Alcohol Use Questionnaire (AUDIT-C) 1. How often do you have a drink containing alcohol?: Never 3. How often do you have six or more drinks on one occasion?: Never Total Score: 0 Score Reviewed/Action Taken: Yes ANDRAE-7 AMB Questionnaire ANDRAE-7 Date ANDRAE - 7 assessed: 09/12/23 Feeling nervous, anxious, or on edge: 0 = Not at all Not being able to stop or control worryin = Not at all Worrying too much about different things: 0 = Not at all Trouble relaxin = Not at all Being so restless that it is hard to sit still: 0 = Not at all Becoming easily annoyed or irritable: 0 = Not at all Feeling afraid as if something awful might happen: 0 = Not at all Total ANDRAE-7 score (0-4 normal; 5-9 mild; 10-14 moderate; 15-21 severe): 0 Source: Developed by Drs. Nolan Luong, Magali Awan, Miah Landry and colleagues, with an educational bruce from [employer] ANDRAE-7 Assessment Billing ANDRAE-7 Assessment Tool: ANDRAE-7 Assessment 55717 Review of Systems Const Reports anorexia, Denies chills, Reports difficulty sleeping, Reports fatigue (severe), Denies fever(s), Denies headache(s), Reports poor appetite, Reports weakness and Reports weight loss ENT Denies dysphagia, Denies dizziness, Denies otalgia, Denies headache(s), Denies neck pain, Denies odynophagia and Denies sore throat Card Denies chest pain, Denies palpitations and Reports dyspnea on exertion Resp Denies chest congestion, Denies cough, Reports dyspnea on exertion and Denies wheezing GI Denies abdominal pain, Denies dysphagia, Reports early satiety, Denies heartburn, Reports diarrhea, Reports loose stools, Denies nausea, Denies odynophagia and Denies vomiting Denies dysuria and Reports urinary incontinence Musc Denies neck pain Skin/Breast Denies rash Neuro Details: (+) aphasia Denies dizziness, Denies headache(s) and Reports weakness Endo Reports fatigue (severe) and Denies palpitations Aller/Immun Denies wheezing Physical exam (Primary Care) Vital Signs: Physical examination is not performed as visit / consultation today is done over videoconference - Telehealth visit All physical findings indicated here, if present, are as per patient's and / or caregivers / proxy's report and visual inspection over videoconference, if appropriate or applicable Tobacco/Smoking Status: Tobacco use Status Tobacco use date assessed 09/12/23 09/12/23 12:53 Patient Tobacco Use Status Former Tobacco user 09/12/23 12:49 e-Cigarette/Vaping Use Never Used 09/12/23 12:53 PHQ-9: PHQ-9 Score PHQ-9: Total score 0 09/12/23 12:53 Depression Screening Interpretation: Negative Thrive Assessment: Date of Thrive Assessment Date Thrive assessed 09/12/23 09/12/23 12:53 Currently or been in a relationship where the following occur: no concerns reported Const General: tired appearing Nutritional Appearance: cachectic Telehealth Telehealth Location of provider rendering services: practice address Location of patient: address on file Patient Identification confirmed using: Name, : Yes Telehealth method: video (Doximity) Patient verbally consented to treatment: Yes Patient verbally consented to billing insurance company: Yes Patient informed of any privacy concerns related to visit: Yes Minutes spent on Phone/Video with Pt.: 25 Assessment and Plan Assessment & Plan (1) (HFpEF) heart failure with preserved ejection fraction: Code(s): I50.30 - Unspecified diastolic (congestive) heart failure Qualifiers: Heart failure chronicity: chronic Qualified Code(s): I50.32 - Chronic diastolic (congestive) heart failure Plan: Patient has chronic diastolic heart failure but has remained compensated so far BUT we have not seen her since April 2023 and per family, she has LOST A LOT OF WEIGHT lately and she is now down to 63 lbs (from 79 lbs in April 2023) Echocardiogram done on 06/26/2022 showed (+) normal LV systolic function and visually estimated EF is between 60-65%. The bioprosthetic aortic valve appears to be functioning normally. There is moderate mitral annular calcification and mild mitral valve regurgitation as well as mild to moderate tricuspic valve regurgitation She was on Furosemide 40 mg in the AM and 20 mg (1/2 tablet) at noon DAILY but as her oral intake appears to have declined significantly recently, will cut her back for now to Furosemide 40 mg 1/2 tablet in AM only until further evaluation Follow-up with cardiology as scheduled (2) S/P AVR: Comment: Done on 09/11/2015 for aortic stenosis Code(s): Z95.2 - Presence of prosthetic heart valve Plan: Has a bioprosthetic aortic heart valve Follow up with cardiology as scheduled (3) Paroxysmal atrial fibrillation: Code(s): I48.0 - Paroxysmal atrial fibrillation Plan: She has been in sinus rhythm so far - has cardiac pacemaker in place (inserted in 1999 and revised in 2006) and is being monitored remotely by cardiology Continue Eliquis 2.5 mg BID for thromboembolism prophylaxis Follow up with cardiology as scheduled (4) Recurrent pleural effusion on right: Code(s): J90 - Pleural effusion, not elsewhere classified Plan: S/P chest tube (PleurX catheter) insertion in 2020 Has not had any significant change in her symptoms since Follow up with thoracic surgery as scheduled / as needed (5) Pure hypercholesterolemia: Code(s): E78.00 - Pure hypercholesterolemia, unspecified Plan: Reinforced low cholesterol diet She was on Simvastatin 10 mg QD but due to her recent poor oral intake and weight loss, will have family HOLD this for now Will recheck her labs and fasting lipids SAMMY for follow-up (6) Benign essential hypertension: Code(s): I10 - Essential (primary) hypertension Plan: Reinforced low sodium diet - goal is systolic BP of at least 130 to 140 mm or less Continue Metoprolol ER 100 mg QD and Spironolactone 25 mg 1/2 tablet QD She was also on Amlodipine 2.5 mg QD; is also on Furosemide 40 mg in the AM and 20 mg (1/2 tablet) at noon DAILY but her BP today appears very low and with her recent weight loss and poor oral intake, will have her family HOLD her Amlodipine 2.5 mg QD and lower her Furosemide to 40 mg 1/2 tablet Q AM for now, pending further evaluation (7) Chronic kidney disease (CKD), stage III (moderate): Code(s): N18.30 - Chronic kidney disease, stage 3 unspecified Qualifiers: Chronic kidney disease stage 3 subtype: unspecified whether 3a or 3b Qualified Code(s): N18.30 - Chronic kidney disease, stage 3 unspecified Plan: Stable - will continue to monitor her GFR and renal function regularly Follow up with nephrology as scheduled (8) Hypothyroidism: Code(s): E03.9 - Hypothyroidism, unspecified Qualifiers: Hypothyroidism type: acquired Qualified Code(s): E03.9 - Hypothyroidism, unspecified Plan: Continue Levothyroxine 100 mcg QD Will recheck her TFTs SAMMY - advised that with her recent significant weight loss, her thyroid requirement would also like have changed and she may need to have her Rx dose adjusted (9) Vitamin D deficiency: Code(s): E55.9 - Vitamin D deficiency, unspecified Plan: Continue Vitamin D3 1000 units QD (10) Osteoporosis: Code(s): M81.0 - Age-related osteoporosis without current pathological fracture Qualifiers: Osteoporosis type: age-related Presence of current pathological fracture: without current pathological fracture Qualified Code(s): M81.0 - Age-related osteoporosis without current pathological fracture Plan: Repeat BMD done on 12/17/2022 showed (+) significant decline in her BMD from previous scan on 03/18/2017, both in her AP spine and left femur; her lowest T score is now -4.0 in the lumbar spine Reinforced fall precautions She was on Raloxifene 60 mg QD but will also have her HOLD this for now - she has lost a lot of weight and per her , has had a lot of diarrhea lately and will try to minimized her pill (Rx burden) by removing some of her meds as much as possible Due to her frailty and multiple comorbidities, further Tx is indicated but may not be advisable and patient may not be able to tolerate the treatments for osteoporosis (11) Anemia: Code(s): D64.9 - Anemia, unspecified Qualifiers: Anemia type: due to chronic kidney disease Chronic kidney disease stage: stage 3 (moderate) Chronic kidney disease stage 3 subtype: unspecified whether 3a or 3b Qualified Code(s): N18.30 - Chronic kidney disease, stage 3 unspecified; D63.1 - Anemia in chronic kidney disease Plan: Will continue to monitor her CBC regularly (12) Weight loss: Code(s): R63.4 - Abnormal weight loss Plan: Patient has lost a lot of weight over the past few weeks, has very poor oral intake and appears very frail and weak on video during today's telehealth and is practically bedbound as other than trying to get her up and help her move from room to room, her family states that she is unable to get around at all and stays in bed all day Will refer her to VNA for urgent nursing evaluation She will also need some labs done for further evaluation to assess for any necessary changes to her current Rx - referral to VNA done (13) Anxiety: Code(s): F41.9 - Anxiety disorder, unspecified Plan: Continue Lorazepam 1 mg 1/2 tablet once a day as needed Plan Follow up in 2 months Orders: Orders Complete Blood Count Auto Diff Today D64.9 - Anemia, unspecified, R63.0 - Anorexia, R63.4 - Abnormal weight loss Comprehensive Met. Panel Today R63.0 - Anorexia, R63.4 - Abnormal weight loss Thyroid Stimulating Hormone Today E03.9 - Hypothyroidism, unspecified, R63.0 - Anorexia, R63.4 - Abnormal weight loss Free T4 (Free Thyroxine) Today E03.9 - Hypothyroidism, unspecified, R63.0 - Anorexia, R63.4 - Abnormal weight loss B Type Natriuretic Peptide Today I50.9 - Heart failure, unspecified, R63.0 - Anorexia, R63.4 - Abnormal weight loss Magnesium Today E83.42 - Hypomagnesemia, R63.0 - Anorexia, R63.4 - Abnormal weight loss Vitamin D 25-OH Total Today E55.9 - Vitamin D deficiency, unspecified, R63.0 - Anorexia, R63.4 - Abnormal weight loss Vitamin B12 and Folate Today E53.8 - Deficiency of other specified B group vitamins, R63.0 - Anorexia, R63.4 - Abnormal weight loss [facility]errals [facility] Referral I48.0 - Paroxysmal atrial fibrillation, I50.30 - Unspecified diastolic (congestive) heart failure, J90 - Pleural effusion, not elsewhere classified, R63.0 - Anorexia, R63.4 - Abnormal weight loss Medications: On Hold amlodipine Hold Comment: Doctor's Order 2.5 mg PO DAILY 90 days 90 tabs 3RF raloxifene Hold Comment: Doctor's Order 60 mg PO DAILY 90 days 90 tabs 3RF simvastatin Hold Comment: Doctor's Order 10 mg PO BEDTIME 90 days 90 tabs 3RF Coding Level of Care Code Tele Est Pt Level 4 (06307) Diagnoses Chronic heart failure with preserved ejection fraction I50.32 Heart failure chronicity: chronic S/P AVR Z95.2 Paroxysmal atrial fibrillation I48.0 Recurrent pleural effusion on right J90 Pure hypercholesterolemia E78.00 Benign essential hypertension I10 Stage 3 chronic kidney disease, unspecified whether stage 3a or 3b CKD N18.30 Chronic kidney disease stage 3 subtype: unspecified whether 3a or 3b Acquired hypothyroidism E03.9 Hypothyroidism type: acquired Vitamin D deficiency E55.9 Age-related osteoporosis without current pathological fracture M81.0 Osteoporosis type: age-related Presence of current pathological fracture: without current pathological fracture Anemia due to stage 3 chronic kidney disease, unspecified whether stage 3a or 3b CKD N18.30; D63.1 Anemia type: due to chronic kidney disease Chronic kidney disease stage: stage 3 (moderate) Chronic kidney disease stage 3 subtype: unspecified whether 3a or 3b Weight loss R63.4 Anxiety F41.9 Additional Codes ANDRAE-7 Assessment Billing - ANDRAE-7 Assessment Tool: ANDRAE-7 Assessment [id number] ([id number])
[2023-09-12 13:28] VITALS: BP 104/65; PULSE 85; TEMP 36.1; O2SAT 90
== END 2023-09-12 13:58 | disposition home or self-care (01) ==
LOC: HO.HMGH 12:49
PROVIDERS: PCP Internal Medicine; Visit Provider Internal Medicine
DX: I13.0 Hypertensive heart and chronic kidney disease with heart failure and stage 1 through stage 4 chronic kidney disease, or unspecified chronic kidney disease (principal); I50.32 Chronic diastolic (congestive) heart failure; N18.30 Chronic kidney disease, stage 3 unspecified; Z95.2 Presence of prosthetic heart valve; J90 Pleural effusion, not elsewhere classified; E78.00 Pure hypercholesterolemia, unspecified; E03.9 Hypothyroidism, unspecified; E55.9 Vitamin D deficiency, unspecified; M81.0 Age-related osteoporosis without current pathological fracture; D63.1 Anemia in chronic kidney disease; R63.4 Abnormal weight loss; F41.9 Anxiety disorder, unspecified
CPT/HCPCS: 99214

== ENCOUNTER 2023-09-23 13:06 | Inpatient (IN) | payer MEDICARE, SELFPAY ==
--- NOTE | ~2023-09-23 | XR_ITS ---
EXAMINATION: XR CHEST CLINICAL INFORMATION: Hypoxia COMPARISON: 04/29/2021 TECHNIQUE: 2 views of the chest were obtained. FINDINGS: Lungs are mildly hyperinflated. The opacity of the posterolateral left hemithorax likely represents loculated pleural effusion. This is new compared to 04/29/2021. A small right pleural effusion is present. This has decreased compared to 04/29/2021. Cardiac silhouette is mildly enlarged. Aortic valve is replaced. Sternotomy wires are intact. Dual-chamber cardiac pacemaker in place with intact transvenous leads extending to the right atrium and right ventricle. There is atherosclerotic calcification of the aorta. Central pulmonary vessels are prominent. This suggests likelihood of pulmonary venous hypertension. However, no overt pulmonary edema. Bones are diffusely osteopenic. XR/XR chest 2V IMPRESSION: * Mild cardiomegaly and pulmonary venous hypertension without overt edema. * Small right pleural effusion is present; this has decreased compared to 04/29/2021. * A pleural-based abnormality in the left hemithorax likely represents a loculated pleural effusion. This is new compared to 04/29/2021.
--- NOTE | ~2023-09-23 | XR_ITS ---
EXAMINATION: XR CHEST CLINICAL INFORMATION: Pleural effusion COMPARISON: 09/23/2023 TECHNIQUE: Frontal view of the chest was obtained. FINDINGS: Dual-chamber cardiac pacemaker in place with intact transvenous leads extending to the right atrium and right ventricle. Sternotomy wires are intact. Aortic valve is replaced. EKG wires overlie the chest. The somewhat lobulated and hazy opacity of left hemithorax is similar compared to 09/23/2023, consistent with loculated pleural effusion. The left lateral costophrenic sulcus is blunted from a pleural effusion. The right lateral costophrenic sulcus remains blunted from a pleural effusion. There is worsening opacification of the right lower lobe with air bronchograms. Bones are diffusely osteopenic. No acute osseous findings. XR/XR chest 1V IMPRESSION: * Cardiomegaly but no overt pulmonary edema. * Persistent small bilateral pleural effusions. * Interval worsening opacification from atelectasis or infiltrate of the right lower lung. There was mucous plugging of right lower lobe bronchi on the recent chest CT from 09/23/2023.
--- NOTE | ~2023-09-23 | CT_ITS ---
EXAMINATION: CT ABDOMEN AND PELVIS WITHOUT CONTRAST CLINICAL INFORMATION: Failure to thrive COMPARISON: Previous CT of the abdomen and pelvis April 2008 TECHNIQUE: Multidetector volumetric imaging was performed from the superior aspect of the liver through the pubic symphysis. Sagittal and coronal reformatted images were obtained on the technologist's workstation. This CT examination was performed using dose optimization techniques as appropriate, variously including the following: *Automated exposure control *Adjustment of mA and/or kV according to patient size (this includes techniques or standardized protocols for targeted exams where dose is matched to indication/reason for exam; i.e. extremities or head) *Use of iterative reconstruction technique DLP: 525 mGy-cm FINDINGS: LIVER, GALLBLADDER, AND BILIARY TREE: The liver is normal in size, shape, and attenuation. No focal hepatic lesion or biliary ductal dilatation is present. Gallstones. PANCREAS: Unremarkable. SPLEEN: Unremarkable. ADRENAL GLANDS: Unremarkable. KIDNEYS AND URETERS: The kidneys are normal in size, shape, and attenuation. No hydronephrosis, hydroureter, or calculi seen. Bilateral renal cysts. No imaging follow-up recommended. No perinephric stranding. BLADDER: Unremarkable. GASTROINTESTINAL TRACT: Severe constipation and fecal impaction. The small and large bowel are unremarkable. The appendix is not seen.. ABDOMINAL WALL: No significant hernia is appreciated. LYMPH NODES: Normal. VASCULAR: Unremarkable. PELVIC VISCERA: Unremarkable. OSSEOUS STRUCTURES: Unremarkable. CT/CT abdomen pelvis wo IV con IMPRESSION: Gallstones. Severe constipation. Fleischner guidelines were followed.
--- NOTE | ~2023-09-23 | US_ITS ---
EXAMINATION: US ABDOMEN LIMITED CLINICAL INFORMATION: Gallbladder stones, poor appetite. COMPARISON: X-ray KUB 09/29/2023. CT abdomen and pelvis 09/23/2023. TECHNIQUE: Real-time imaging of the gallbladder and common bile duct. FINDINGS: GALLBLADDER: Multiple gallbladder polyps measuring up to 5 mm. The gallbladder is physiologically distended. Multiple mobile gallstones are present. No evidence of gallbladder wall thickening or pericholecystic fluid. COMMON BILE DUCT: Normal in caliber measuring 0.1 cm in diameter. RIGHT KIDNEY: Incidentally noted simple right lower pole renal cyst measuring 4.4 cm, no follow-up imaging recommended. US/US abdomen limited IMPRESSION: 1. Cholelithiasis without evidence of acute cholecystitis. 2. Multiple gallbladder polyps measuring up to 5 mm.
--- NOTE | ~2023-09-23 | XR_ITS ---
EXAMINATION: XR CHEST CLINICAL INFORMATION: Reason for Exam follow pleural effusion COMPARISON: Chest radiograph 09/26/2023 TECHNIQUE: One view of the chest FINDINGS: Lines and tubes: Median sternotomy wires and mediastinal surgical clips. EKG leads overlie the patient. Right chest wall dual lead cardiac pacemaker unchanged. Cardiac valve prosthesis. Similar small right greater than left pleural effusions and dense right basilar consolidation. Slightly increased conspicuity of hazy bilateral perihilar airspace opacities suggesting worsening pulmonary edema. No pneumothorax. Unchanged cardiomediastinal silhouette. XR/XR chest 1V IMPRESSION: 1. Similar small right greater than left pleural effusions and dense right basilar consolidation. 2. Slightly increased conspicuity of hazy bilateral perihilar airspace opacities suggesting worsening pulmonary edema.
--- NOTE | ~2023-09-23 | XR_ITS ---
EXAMINATION: XR CHEST CLINICAL INFORMATION: Worsening oxygen saturation COMPARISON: Multiple priors with the last chest x-ray of 09/28/2023 TECHNIQUE: Frontal view of the chest was obtained. FINDINGS: The cardiomediastinal silhouette is unchanged with cardiomegaly. Intact-appearing sternotomy wires and prosthetic heart valve are redemonstrated. Right-sided bipolar pacemaker is redemonstrated with intact appearing pacer leads terminating in the expected locations of the right atrium and right ventricle. Diffuse patchy groundglass and airspace opacification is noted, with greater of consolidative opacity in the right lower lung zone. Overall there is mildly worsened lung parenchymal aeration compared to last study of 2016 2023. No evidence of pneumothorax. XR/XR chest 1V IMPRESSION: Worsening of the aeration of the lung parenchyma bilaterally. Differential possibilities may include pulmonary edema versus infectious/inflammatory infiltrates. More consolidative appearance in the right lower lung zone is related to somewhat loculated appearing pleural effusion on the CT scan of 09/23/2023 however increasing airspace opacities here cannot be excluded. Small left pleural effusion.
--- NOTE | ~2023-09-23 | FL_ITS ---
EXAMINATION: Modified Barium Swallow CLINICAL INFORMATION: Dysphagia COMPARISON: None TECHNIQUE: Modified barium swallow was performed under lateral fluoroscopy with patient in standing position. Barium mixed with solids and liquids of different consistencies was administered by the speech pathologist. The exam was recorded in the fluoroscopic suite. FINDINGS: A preprocedure spot image was performed. The patient then refused to proceed further in the examination. FLUOROSCOPY TIME: 10 seconds Number of Spot Images: 1 lateral spot image hold. DOSE AREA PRODUCT: 68 uGy-m2 (microgray-meter squared) FL/FL barium swallow modified IMPRESSION: Patient refused examination. Refer to the speech therapy report for further clarification This procedure was performed by Gee Villagomez PA-C, and supervised by Dr. Garcia
--- NOTE | ~2023-09-23 | CT_ITS ---
EXAMINATION: CT CHEST WITHOUT CONTRAST CLINICAL INFORMATION: Failure to thrive. Weight loss. Pleural effusions. COMPARISON: Previous chest x-ray from earlier the same day and chest CT April 2021 TECHNIQUE: Multidetector volumetric CT imaging of the chest was done. Axial MIP volume rendering provided. Sagittal and coronal reformatted images were obtained. This CT examination was performed using dose optimization techniques as appropriate, variously including the following: *Automated exposure control *Adjustment of mA and/or kV according to patient size (this includes techniques or standardized protocols for targeted exams where dose is matched to indication/reason for exam; i.e. extremities or head) *Use of iterative reconstruction technique DLP: 124 mGy-cm FINDINGS: ENGRAVER APPRENTICE DECORATIVE: LUNGS: Atelectasis/consolidation in the right lower lobe. Right lower lobe bronchial soft tissue opacification. Branching tubular shaped 1 cm nodule in the left upper lobe. This may represent mucus plugging. MEDIASTINUM: Right dual-chamber pacemaker with leads projecting over the right atrium and right. Aortic valve replacement. Enlarged heart. No pericardial effusion. No enlarged hilar or mediastinal lymph nodes. Dilated air-filled esophagus. Probable anemia. CORONARY ARTERY CALCIFICATION: Moderate PLEURA: Small loculated bilateral pleural effusions. AXILLA: No lymphadenopathy. UPPER ABDOMEN: Unremarkable. OSSEOUS STRUCTURES: Degenerative changes of the spine. CT/CT chest wo IV con IMPRESSION: Atelectasis or consolidation right lower lobe. Right lower lobe bronchial soft tissue opacification. Small to moderate loculated right pleural effusion. Right lower lobe changes may represent round atelectasis related to chronic effusion. Tubular branching nodule in the left upper lobe question representing mucous plugging. Small loculated left pleural effusion. Fleischner guidelines were followed.
--- NOTE | ~2023-09-23 | XR_ITS ---
EXAMINATION: XR ABDOMEN KUB CLINICAL INDICATION: Constipation. COMPARISON: CT chest, abdomen and pelvis 09/23/2023. TECHNIQUE: AP view of the abdomen. FINDINGS: Nonobstructive bowel gas pattern. Large amount of stool in the rectum. Numerous calcific densities overlying the right upper quadrant consistent with cholelithiasis. No acute osseous findings. XR/XR KUB IMPRESSION: 1. Nonobstructive bowel gas pattern. 2. Large amount of stool in the rectum. 3. Cholelithiasis.
--- NOTE | ~2023-09-23 | CT_ITS ---
EXAMINATION: CT HEAD WITHOUT CONTRAST CLINICAL INFORMATION: Failure to thrive. Unintentional weight loss. Scalp abrasion. COMPARISON: CT head from 05/09/2023. TECHNIQUE: Contiguous axial imaging was performed from the skull base to vertex without intravenous administration of contrast. This CT examination was performed using dose optimization techniques as appropriate, variously including the following: *Automated exposure control. *Adjustment of mA and/or kV according to patient size (this includes techniques or standardized protocols for targeted exams where dose is matched to indication/reason for exam; i.e. extremities or head). *Use of iterative reconstruction technique. DLP: 545 mGy-cm FINDINGS: There is no evidence of acute intracranial hemorrhage or edematous territorial infarction. Hong-white matter differentiation is preserved. Scattered and partially confluent hypoattenuation in the periventricular and deep white matter are consistent with moderate microangiopathy. Proportional prominence of the ventricles and sulcal spaces without evidence of obstructive hydrocephalus. No abnormal mass effect or midline shift. No extra-axial fluid collections. Calcific atherosclerotic disease of the intracranial internal carotid and vertebral arteries. No hyperdense vessel sign. No acute soft tissue or osseous abnormalities. The mastoid air cells and visualized paranasal sinuses are clear. CT/CT head/brain wo IV con IMPRESSION: 1. No evidence of acute intracranial hemorrhage or edematous territorial infarction. 2. Moderate underlying microangiopathy and generalized cerebral volume loss.
[2023-09-23 13:33] VITALS: BP 123/81; PULSE 80; O2SAT 88
[2023-09-23 13:39] VITALS: BP 112/57; PULSE 82; RESP 20; TEMP 36.9; O2SAT 98; BMI 12.7
--- NOTE | 2023-09-23 14:02 | ECG_ITS ---
Test Reason : hypoxia Blood Pressure : / mmHG Vent. Rate : 078 BPM Atrial Rate : 078 BPM P-R Int : 176 ms QRS Dur : 138 ms QT Int : 414 ms P-R-T Axes : 031 224 115 degrees QTc Int : 471 ms AV dual-paced rhythm Abnormal ECG When compared with ECG of 27-APR-2021 13:30, Vent. rate has decreased BY 13 BPM Referred By: Generic ED Physician Electronically Signed By:MABEL ADAMS MD
[2023-09-23 14:45] LABS: MANUAL DIFF FLAG NO
[2023-09-23 14:46] VITALS: BP 106/55; PULSE 70; RESP 8; TEMP 36.9; O2SAT 98
[2023-09-23 14:48] LABS: Basophils Absolute Auto 0.1 X10*3/uL (0.0-0.2); Basophils Percent Auto 0.8 % (0-2); Eosinophils Absolute Auto 0.1 X10*3/uL (0.0-0.4); Eosinophils Percent Auto 0.5 % (0-4); Hematocrit 36.5 % (37.0-47.0); Hemoglobin 11.7 g/dl (12.0-16.0); Imm Gran Abs Auto 0.08 X10*3/uL (0.00-0.03); Imm Gran Pct Auto 0.6 % (0.0-0.4); Lymphocytes Absolute Auto 0.7 X10*3/uL (1.2-4.9); Mean Corpuscular HGB Conc 32.1 g/dl (31.0-35.0); Mean Corpuscular Hemoglobin 30.2 pg (27.0-33.0); Mean Corpuscular Volume 94.3 fL (80.0-98.0); Mean Platelet Volume 9.6 fL (9.4-12.3); Monocytes Absolute Auto 0.9 X10*3/uL (0.1-1.2); Neutrophils Absolute Auto 11.3 x10*3/uL (2.0-8.3); Neutrophils Percent Auto 86.1 % (45-73); Platelet Count 230 X10*3/uL (160-400); Red Blood Count 3.87 X10*6/uL (4.20-5.50); Red Cell Distribution Width 14.3 % (11.0-16.0); White Blood Count 13.1 X10*3/uL (4.8-10.8)
[2023-09-23 15:01] LABS: Alanine Aminotransferase 9 U/L (0-31); Albumin Level 3.6 g/dL (3.5-5.0); Alkaline Phosphatase 64 U/L (39-117); Anion Gap 14 (12-20); Aspartate Amino Transferase 20 U/L (5-31); Bilirubin Total 0.4 mg/dL (0.0-1.0); Blood Urea Nitrogen 57 mg/dL (9-16); Calcium 10.5 mg/dL (8.4-10.2); Carbon Dioxide 29 mmol/L (22-29); Chloride 99 mmol/L (96-108); Creatinine Clr Calc Pharmacy 16.3; Estimated Glomerular Filt Rate 42; Glucose Random 87 mg/dL (60-115); Potassium 5.2 mmol/L (3.3-5.1); Sodium 137 mmol/L (135-145); Total Protein 7.6 g/dL (6.5-8.0)
--- NOTE | 2023-09-23 15:33 | ED_ITS ---
HPI - General Adult General Chief complaint: General Medical Stated complaint: LOW SAT 88% RA BY [facility] PER EMS Time Seen by Provider: 09/23/23 15:33 Source: patient, family (patient's daughter and ) and EMS Mode of arrival: EMS Limitations: no limitations History of Present Illness HPI narrative: Patient is an 82 year old assigned female at with a history of dementia, atrial fib on anti-coag meds, HF, HTN, anxiety, and asthma presenting to the emergency department today with hypoxia. Patient's states that the patient had her first ever home PT visit and within a few minutes of walking with the the physical therapist, the patient desaturated down to 85% on room air. Patient states that she is not on any oxygen at home and has no complaints. Patient's states that the patient is never hungry and doesn't like eating much. Patient's states that the patient has been having dark stools and continues to take her anti-coagulation medication. Patient's states that Relieving factors: none Exacerbating factors: none Associated symptoms: shortness of breath Treatments prior to arrival: none Related Data Home Medications Medication Instructions Recorded Confirmed cholecalciferol (vitamin D3) 25 25 mcg PO DAILY 09/23/23 09/23/23 mcg (1,000 unit) tablet ferrous sulfate 325 mg (65 mg 325 mg PO DAILY 09/23/23 09/23/23 iron) tablet furosemide 40 mg tablet 20 mg PO DAILY 09/23/23 09/23/23 lorazepam 1 mg tablet 0.5 mg PO BEDTIME PRN RESTLESSNESS 09/23/23 09/23/23 metoprolol succinate 100 mg 100 mg PO BEDTIME 09/23/23 09/23/23 tablet,extended release 24 hr Previous Rx's Medication Instructions Recorded sodium chloride 0.65 % nasal spray 2 spray intranasal QID PRN dry 05/15/21 aerosol (Saline Nasal) nasal passages #60 mL apixaban 2.5 mg tablet (Eliquis) 2.5 mg PO BID 90 days #180 tabs 07/23/23 levothyroxine 100 mcg tablet 100 mcg PO QAM 90 days #90 tabs 07/23/23 spironolactone 25 mg tablet 12.5 mg (1/2 x 25 mg) PO DAILY #90 07/23/23 tabs Allergies Allergy/AdvReac Type Severity Reaction Status Date / Time codeine [CODEINE] Allergy Intermediate RASH Verified 09/12/23 13:15 meperidine [From Demerol] Allergy Intermediate Unknown Verified 09/12/23 13:15 Review of Systems 2 Constitutional: Constitutional: Reports no additional constitutional complaints, Denies chills, Denies fever(s) and Denies night sweats Eyes: Eyes: Reports no additional eye complaints, Denies blurry vision, Denies change in vision, Denies diplopia, Denies eye discharge, Denies loss of vision and Denies eye pain ENT: Denies dizziness Cardiovascular: Cardiovascular: Reports no additional cardiovascular complaints, Denies chest pain, Denies lightheadedness, Denies Loss of Consciousness and Reports dyspnea Respiratory: Respiratory: Reports no additional respiratory complaints and Reports dyspnea Gastrointestinal: Gastrointestinal: Reports no additional gastrointestinal complaints, Denies abdominal pain, Reports melena, Denies hematochezia, Denies change in bowel habits and Denies change in stool character Genitourinary: Genitourinary: Denies hematuria, Denies urinary frequency, Denies dysuria, Denies urinary incontinence, Denies urinary hesitancy and Denies urinary urgency Musculoskeletal: Musculoskeletal: Reports no additional musculoskeletal complaints, Denies numbness and Denies tingling Neurologic: Reports confusion (per her demented baseline), Denies dizziness, Denies loss of vision, Denies numbness and Denies tingling Psychiatric: Psychiatric: Reports no additional psychiatric complaints and Reports confusion (per her demented baseline) Endocrine: Endocrine: Reports no additional endocrine complaints Hematologic/Lymphatic: Hematologic/Lymphatic: Reports no additional hematologic/lymphatic complaints Allergic/Immunologic: Allergic/Immunologic: Reports no additional allergic/immunologic complaints [facility] Past Medical History Attestation statement: The following information was validated with the patient. (all information validated with the patient's and daughter) Source: old records reviewed, obtained from family (patient's daughter and provided additional history and confirmed the history provided by the patient) and nursing notes reviewed Medical History E-coli UTI Candidemia Neuropathy Anemia Osteoporosis Vitamin D deficiency Chronic kidney disease (CKD), stage III (moderate) Pure hypercholesterolemia Benign essential hypertension Sensorineural hearing loss Paroxysmal atrial fibrillation Pulmonary hypertension Tricuspid regurgitation Cardiac pacemaker in situ (HFpEF) heart failure with preserved ejection fraction GI bleed Tobacco abuse, in remission Aortic stenosis Anxiety Hypothyroidism Leg edema Hyperlipidemia H/O: HTN (hypertension) Complete heart block Paroxysmal A-fib Surgical History S/P AVR Hx of aortic valve repair History of thoracentesis Hx of hysterectomy Hx of mastectomy Family History Family History Father No problems noted. Mother No problems noted. Sister Diabetes Cancer Social History Social History Household Members: Spouse Housing: House Do you presently have visiting nurse or other home services: No Alcohol intake: former Patient Tobacco Use Status: Former Tobacco user e-Cigarette/Vaping Use: Never Used Second Hand Smoke Exposure: No Advance Directives: Yes Advance Directives Information Provided: Yes Advance Directives on File: No service: No Current occupational status: retired Cognitive needs: No Hearing needs: No Vision needs: No Physical Exam ED Vital Signs: Vital Signs - 24 hr 09/23/23 13:39 09/23/23 14:46 09/23/23 16:00 Temperature 98.4 F 98.4 F 97.3 F Pulse Rate 82 70 71 Respiratory Rate 20 8 L 16 Blood Pressure 112/57 L 106/55 L 113/63 Pulse Oximetry 98 98 97 Oxygen Delivery Method Nasal Cannula Nasal Cannula Nasal Cannula Oxygen Flow Rate 4 4 BMI result Body Mass Index 12.7 Const General: confusion (per her demented baseline) Nutritional Appearance: cachectic and malnourished Orientation/consciousness: confusion (per her demented baseline) Limitations: other limitations (patient is confused at baseline) [facility] Head: Yes normal to inspection and Yes atraumatic Ears: hearing grossly normal bilaterally and external ears normal General nose exam: Normal external nose present, no nasal discharge noted and no epistaxis Face and sinus: Yes normal facial exam, No abrasion and No laceration Mouth: Normal oral and palatal mucosa present, no drooling and no muffled voice Eyes General: appearance normal, both eyes and all related structures Periorbital: periorbital findings normal Eyelids: Yes eyelids normal Conjunctivae: conjunctivae normal Pupils: Equal, round and reactive pupils present EOM: EOMs intact bilaterally Neck Neck: Yes normal visual inspection, Yes full ROM and Yes no lymphadenopathy Chest Chest palpation & inspection: normal inspection of the chest Resp Effort & Inspection: able to speak in complete sentences and labored GI Inspection: Yes normal to inspection Neuro General: confusion (per her demented baseline) Cranial nerves: Yes Equal, round and reactive pupils present Cognition (Neuro): normal cognition Motor exam (neuro): 5/5 motor strength present throughout Sensory Exam: Normal double simultaneous stimulation for sensation Coordination: [id number] test normal Extrem General: Yes normal to inspection, Yes full ROM and Yes capillary refill normal Psych Appearance: grossly normal Mental Status: mental status grossly normal Affect: normal affect Attitude: cooperative Thought process: Normal thought process present Thought content: Normal thought content present Insight: Good insight present (Psych) Medications Administered Discontinued Medications Generic Name Dose Route Start Last Admin Trade Name Flo PRN Reason Stop Dose Admin Lorazepam 0.5 mg 09/23/23 16:33 09/23/23 16:48 Lorazepam 2 Mg/Ml Vial IVPUSH 09/23/23 16:34 0.5 mg ONCE ONE Administration Pantoprazole Sodium 40 mg 09/23/23 17:27 09/23/23 18:48 Pantoprazole Sodium 40 Mg/10 Ml Vial IVPUSH 09/23/23 17:28 40 mg ONCE ONE Administration Medical Decision Making Medical Decision Making MDM Narrative: Patient is an 82 year old assigned female at with a history of dementia, atrial fib on anti-coag meds, HF, HTN, anxiety, and asthma presenting to the emergency department today with hypoxia. Patient's physical exam was as noted in the physical exam portion of this chart. Patient's blood work showed a slightly elevated WBC count of 13.1m a potassium of 5.2, and a BUN of 57. Patient's OBS was positive. Patient's EKG was unremarkable. Patient's chest x-ray showed bilateral small pleural effusions. Patient is not normally on oxygen at home and today, she is requiring 4 liters to maintain normal saturation. Patient was as low as 85% on room air while ambulating. I spoke to the hospitalist who agreed to admission. I consulted with the GI specialist with concern of GI bleed given the patient's hypoxia and positive OBS and he agreed to consult on the patient as well as recommended starting a PPI. I explained my physical exam findings as well as all test results to the patient, the patient's , and the patient's daughter. I answered all questions asked by the patient, the patient's daughter, and the patient's . Patient, the patient's , and the patient's daughter verbalized agreement and understanding with this treatment plan and admission. Patient's clinical presentation is not consistent with sepsis (@1729). Differential Diagnosis Differential Diagnoses: The differential diagnosis associated with the presentation includes Hypoxia Anemia GI bleed Admission/Observation Consideration of admission/observation: Escalation of care including admission/observation considered Admitted. Consult Healthcare Provider Management of the patient was discussed with: Hospitalist (agreed to admission as noted in the MDM Rationale portion of this note.) and Collar Folder Operator (spoke with GI as noted in the MDM Rationale portion of this note.) Lab Data [facility] Lab Attestation statement: I reviewed the patient's lab results. My interpretation of these results are in the MDM Rationale portion of this note. 09/23/23 14:41 09/23/23 14:41 Labs: Lab Results 09/23/23 09/23/23 09/23/23 Range/Units 14:41 16:02 16:54 WBC 13.1 H (4.8-10.8) X10*3/uL RBC 3.87 L (4.20-5.50) X10*6/uL Hgb 11.7 L (12.0-16.0) g/dl Hct 36.5 L (37.0-47.0) % MCV 94.3 (80.0-98.0) fL MCH 30.2 (27.0-33.0) pg MCHC 32.1 (31.0-35.0) g/dl RDW 14.3 (11.0-16.0) % Plt Count 230 D (160-400) X10*3/uL MPV 9.6 (9.4-12.3) fL Immature Gran % (Auto) 0.6 H (0.0-0.4) % Neut % (Auto) 86.1 H (45-73) % Lymph % (Auto) 5.0 L (20-40) % [place]ye % (Auto) 7.0 (2-11) % Eos % (Auto) 0.5 (0-4) % Baso % (Auto) 0.8 (0-2) % Lymph # (Auto) 0.7 L (1.2-4.9) X10*3/uL [place] # (Auto) 0.9 (0.1-1.2) X10*3/uL Eos # (Auto) 0.1 (0.0-0.4) X10*3/uL Baso # (Auto) 0.1 (0.0-0.2) X10*3/uL Abs Immat Gran (auto) 0.08 H (0.00-0.03) X10*3/uL Absolute Neuts (auto) 11.3 H (2.0-8.3) x10*3/uL Absolute Nucleated RBC 0.000 (0.0-0.012) X10*3/uL Nucleated RBC % (auto) 0.0 (0.0-0.2) /100WBC PT 16.0 H (11.1-13.3) SEC INR 1.3 H (0.9-1.1) APTT 33.7 (26.0-36.8) SEC Sodium 137 (135-145) mmol/L Potassium 5.2 H (3.3-5.1) mmol/L Chloride 99 (96-108) mmol/L Carbon Dioxide 29 (22-29) mmol/L Anion Gap 14 (12-20) BUN 57 H (9-16) mg/dL Creatinine 1.22 (0.5-1.4) mg/dL Estim Creat Clear Calc 16.3 Estimated GFR 42 Random Glucose 87 (60-115) mg/dL Lactic Acid 1.0 (0.5-2.0) mmol/L Calcium 10.5 H (8.4-10.2) mg/dL Total Bilirubin 0.4 (0.0-1.0) mg/dL AST 20 (5-31) U/L ALT 9 (0-31) U/L Alkaline Phosphatase 64 (39-117) U/L Total Protein 7.6 (6.5-8.0) g/dL Albumin 3.6 (3.5-5.0) g/dL Stool Occult Blood POSITIVE (NEGATIVE) Influenza Type A (PCR) NEGATIVE (Negative) Influenza Type B (PCR) NEGATIVE (Negative) RSV RNA Qual (PCR) NEGATIVE (Negative) SARS-CoV-2 RNA (RT-PCR) NEGATIVE (Negative) Independent Interpretation I performed an independent interpretation of an: EKG and Plain X-Ray Interpretation: My interpretation is in agreement with the radiologist's impression of this imaging study. - EXAMINATION: XR CHEST CLINICAL INFORMATION: Hypoxia COMPARISON: 04/29/2021 TECHNIQUE: 2 views of the chest were obtained. FINDINGS: Lungs are mildly hyperinflated. The opacity of the posterolateral left hemithorax likely represents loculated pleural effusion. This is new compared to 04/29/2021. A small right pleural effusion is present. This has decreased compared to 04/29/2021. Cardiac silhouette is mildly enlarged. Aortic valve is replaced. Sternotomy wires are intact. Dual-chamber cardiac pacemaker in place with intact transvenous leads extending to the right atrium and right ventricle. There is atherosclerotic calcification of the aorta. Central pulmonary vessels are prominent. This suggests likelihood of pulmonary venous hypertension. However, no overt pulmonary edema. Bones are diffusely osteopenic. XR/XR chest 2V IMPRESSION: * Mild cardiomegaly and pulmonary venous hypertension without overt edema. * Small right pleural effusion is present; this has decreased compared to 04/29/2021. * A pleural-based abnormality in the left hemithorax likely represents a loculated pleural effusion. This is new compared to 04/29/2021. Dictated By: Scott Nino MD Signed By: Electronically signed by Scott Nino MD 09/23/23 1639 - Vent. Rate: 078 BPM Atrial Rate: 078 BPM P-R Int: 176 ms QRS Dur: 138 ms QT Int: 414 ms P-R-T Axes: 031 224 115 degrees QTc Int: 471 ms AV dual-paced rhythm Abnormal ECG When compared with ECG of 27-APR-2021 13:30, Vent. rate has decreased BY 13 BPM Electronically Signed By:DAREK BINGHAM MD Dictated By: Darek Bingham MD Signed By: Electronically signed by Darek Bingham MD 09/23/23 3791 Radiology Impression Discussion of test interpretation with radiology: I have reviewed the radiologist's reading. Independent Historian Clinical information obtained from an independent historian. History obtained from or confirmed by: Spouse (patient's provided additional history and confirmed the history provided by the patient.), EMS (EMS provided additional history and confirmed the history provided by the patient.) and Other (patient's daughter provided additional history and confirmed the history provided by the patient.) Critical Care Time Critical Care Time Critical Care Time: Yes Total Critical Care Time: 89 Attestation: I spent 89 minutes of Critical Care Time with this patient. This does not include time spent on separately reported billable procedures. Discharge Plan Discharge Clinical Impression: Hypoxia, GI bleed Patient Disposition: Admitted As Inpatient
[2023-09-23 16:00] VITALS: BP 113/63; PULSE 71; RESP 16; TEMP 36.3; O2SAT 97
[2023-09-23 16:11] LABS: OBS Int Ctl Valid YES; OBS1 POSITIVE (NEGATIVE)
[2023-09-23 16:47] LABS: Influenza A PCR NEGATIVE (Negative); Influenza B PCR NEGATIVE (Negative); Resp Syncy Virus RNA Qual PCR NEGATIVE (Negative); SARS COV2 PCR INHOUSE NEGATIVE (Negative)
[2023-09-23] MEDS: LORazepam 2 MG/ML VIAL 0.5 MG IVPUSH (16:48)
[2023-09-23 17:12] LABS: INTERNATIONAL NORM RATIO 1.3 (0.9-1.1)
[2023-09-23 17:16] LABS: Partial Thromboplastin Time 33.7 SEC (26.0-36.8)
[2023-09-23 18:00] VITALS: BP 102/50; PULSE 86; RESP 20; O2SAT 98
--- NOTE | 2023-09-23 18:17 | PHA.MEDREC ---
Pharmacy Consult ? Medication Reconciliation Pharmacy has completed the medication reconciliation. Patient's reported medicaitons. Shannon Brice, BerthaD
--- NOTE | 2023-09-23 18:39 | PM.IMHP ---
History of Present Illness Date of Service: 09/23/23 Attending physician on admission: Evens Mcdowell Chief Complaint: hypoxia 82 year old female with history of paroxysmal atrial fibrillation anticoagulated with eliquis, asthma, ckd stage 3, HFpEF, history of complete heart block s/p pacemaker, pulmonary htn, htn, hld, and unspecified dementia presented to the ED for evaluation of hypoxia. Pt reportedly had intake at home with PT and was noted to desatuate to 85% on RA. No reported dyspnea, cough, chest pain, lightheadedness, palpitations, fevers, chills. No recent illness. Has history of recurrent pleural effusions requiring pleur-x chest tube in the past, removed in 07/2020. No hypoxia at baseline. The patient's is also reporting dark tarry stools over the last few weeks. Pt reports abd pain when hungry. No nausea or vomiting. Family is reporting decreased appetite ongoing for several months. Currently 29.6 kg, was 36.2kg at last in person evaluation in 04/2023. On arrival, VSS, but hypoxic and placed on 4L supplemental O2 maintaining oximetyr 95-97%. Mild leukocytosis 12.1. H/H 11.7/36.5%, consistent with baseline. Renal function baseline, K 5.2 with slight hemolysis noted. OBS positive. Negative for covid, flu, rsv. CXR shows mild cardiomegaly and pulm htn without edema. There is a small R pleural effusion decreased compared to priors. There is also pleural based abnormality in the L hemithorax likely a loculated pleural effusion. In ed, given 40mg pantoprazole and 0.5mg lorazepam. Reports taking occassional excedrin, but no other nsaids. Review of Systems Review of Systems: General: No fevers, malaise, unintentional weight loss HEENT: No blurred vision, diplopia. No sore throat, nasal congestion, rhinorrhea, sinus pain, ear pain Cardiovascular: No chest pain, palpitations, or leg edema Respiratory: No shortness of breath, wheezing, cough GI: +melena,+abd pain. No nausea, vomiting, diarrhea, constipation, hematochezia : No dysuria, hematuria, increased urinary frequency, decreased urinary output MSK: No myalgia, back pain Neuro: No headaches, weakness, paresthesias Skin: No rashes or lesions [facility] Medical History E-coli UTI Candidemia Neuropathy Anemia Osteoporosis Vitamin D deficiency Chronic kidney disease (CKD), stage III (moderate) Pure hypercholesterolemia Benign essential hypertension Sensorineural hearing loss Paroxysmal atrial fibrillation Pulmonary hypertension Tricuspid regurgitation Cardiac pacemaker in situ (HFpEF) heart failure with preserved ejection fraction GI bleed Tobacco abuse, in remission Aortic stenosis Anxiety Hypothyroidism Leg edema Hyperlipidemia H/O: HTN (hypertension) Complete heart block Paroxysmal A-fib Family History Father No problems noted. Mother No problems noted. Sister Diabetes Cancer Surgical History S/P AVR Hx of aortic valve repair History of thoracentesis Hx of hysterectomy Hx of mastectomy Social History Household Members: Spouse Housing: House Do you presently have visiting nurse or other home services: No Alcohol intake: former Patient Tobacco Use Status: Former Tobacco user e-Cigarette/Vaping Use: Never Used Second Hand Smoke Exposure: No Advance Directives: Yes Advance Directives Information Provided: Yes Advance Directives on File: No service: No Current occupational status: retired Cognitive needs: No Hearing needs: No Vision needs: No Meds Allergies Allergy/AdvReac Type Severity Reaction Status Date / Time codeine [CODEINE] Allergy Intermediate RASH Verified 09/12/23 13:15 meperidine [From Demerol] Allergy Intermediate Unknown Verified 09/12/23 13:15 Active Medications: Current Medications Acetaminophen (Acetaminophen 325 Mg Tablet) 650 mg PO Q6H PRN PRN Reason: Pain, Mild (Pain Scale 1-3) Ondansetron HCl (Ondansetron Hcl 4 Mg/2 Ml Vial) 4 mg IVPUSH Q8H PRN PRN Reason: Nausea and Vomiting Pantoprazole Sodium (Pantoprazole Sodium 40 Mg/10 Ml Vial) 40 mg IVPUSH BID@0630,1630 EDWIN Senna (Sennosides 8.6 Mg Tablet) 17.2 mg PO BEDTIME PRN PRN Reason: Constipation Sodium Chloride (0.9 % Sodium Chloride Flush 3 Ml Syringe) 3 ml IVFLUSH QSHIFT [facility] Home Medications Medication Instructions Recorded Confirmed Last Taken Type cholecalciferol (vitamin D3) 25 25 mcg PO DAILY 09/23/23 09/23/23 09/23/23 History mcg (1,000 unit) tablet ferrous sulfate 325 mg (65 mg 325 mg PO DAILY 09/23/23 09/23/23 09/23/23 History iron) tablet furosemide 40 mg tablet 20 mg PO DAILY 09/23/23 09/23/23 09/23/23 History lorazepam 1 mg tablet 0.5 mg PO BEDTIME PRN RESTLESSNESS 09/23/23 09/23/23 Unknown History metoprolol succinate 100 mg 100 mg PO BEDTIME 09/23/23 09/23/23 09/22/23 History tablet,extended release 24 hr Physical Exam Vital Signs and Narrative: Vital Signs: Last Vital Signs Temp 97.3 F 09/23/23 16:00 Pulse 71 09/23/23 16:00 Resp 16 09/23/23 16:00 BP 113/63 09/23/23 16:00 Pulse Ox 97 09/23/23 16:00 O2 Del Method Nasal Cannula 09/23/23 16:00 O2 Flow Rate 4 09/23/23 16:00 Oxygen Flow Rate 4 09/23/23 13:39 BMI result Body Mass Index 12.7 Constitutional - Awake and Alert, No apparent distress Eyes - PERRLA, EOMI Cardiovascular - S1S2, RRR, No edema Respiratory - Normal lung expansion, Normal respiratory effort, No respiratory distress on 4L supplemental O2, absent lung sound bll Gastrointestinal - NT / ND; +BS; No rebound or guarding Extremities - no calf tenderness bilaterally, no swelling Skin - Warm/Dry. Multiple abrasions noted to temples, R neck Neurological - Alert & oriented to self and place, disoriented to time, answers simple questions but tangential with open ended questions Psychological - Appropriate affect Results Labs 09/23/23 14:41 09/23/23 14:41 Labs: Laboratory Results - last 24 hr 09/23/23 09/23/23 09/23/23 14:41 16:02 16:54 MCV 94.3 MCH 30.2 MCHC 32.1 RDW 14.3 Plt Count 230 D MPV 9.6 Immature Gran % (Auto) 0.6 H Neut % (Auto) 86.1 H Lymph % (Auto) 5.0 L [place] % (Auto) 7.0 Eos % (Auto) 0.5 Baso % (Auto) 0.8 Lymph # (Auto) 0.7 L [place] # (Auto) 0.9 Eos # (Auto) 0.1 Baso # (Auto) 0.1 Abs Immat Gran (auto) 0.08 H Absolute Neuts (auto) 11.3 H Absolute Nucleated RBC 0.000 Nucleated RBC % (auto) 0.0 PT 16.0 H INR 1.3 H APTT 33.7 Anion Gap 14 Estim Creat Clear Calc 16.3 Estimated GFR 42 Random Glucose 87 Lactic Acid 1.0 Calcium 10.5 H Total Bilirubin 0.4 AST 20 ALT 9 Alkaline Phosphatase 64 Total Protein 7.6 Albumin 3.6 Stool Occult Blood POSITIVE Influenza Type A (PCR) NEGATIVE Influenza Type B (PCR) NEGATIVE RSV RNA Qual (PCR) NEGATIVE SARS-CoV-2 RNA (RT-PCR) NEGATIVE Imaging Radiologist's Impressions: Impressions Chest X-Ray 09/23/23 15:02 IMPRESSION: * Mild cardiomegaly and pulmonary venous hypertension without overt edema. * Small right pleural effusion is present; this has decreased compared to 04/29/2021. * A pleural-based abnormality in the left hemithorax likely represents a loculated pleural effusion. This is new compared to 04/29/2021. Assessment and Plan (1) UGIB (upper gastrointestinal bleed): Status: Acute (2) Loculated pleural effusion: Status: Acute (3) Weight loss: Status: Acute (4) Early satiety: Status: Acute (5) Anorexia: Status: Acute (6) Acute hypoxemic respiratory failure: Status: Acute Plan 82 year old female with history of paroxysmal atrial fibrillation anticoagulated with eliquis, asthma, ckd stage 3, HFpEF, history of complete heart block s/p pacemaker, pulmonary htn, htn, hld, and unspecified dementia admitted for melena and loculated pleural effusion with failure to thrive #Upper GIB -H/h consistent with baseline, above transfusion threshold -stool occult blood positive -IV ppi -clear liquid diet -hold eliquis -GI consult -monitor on tele #loculated pleural effusion with acute hypxomeic respiratory failure -hx recurrent pleural effusion with h/o pleurix catheter 07/2020 -Pulm consult -IR thoracentesis ordered -continue supplemental O2 to maintain oximetry >92% #Unintentional weight loss/failure to thrive -head ct, chest ct, ct abd/pelvis pending #Scalp abrasions -family denies falls, but pt scratches with long nails #Paroxysmal atrial fibrillation -hold eliquis due to GIB -continue metoprolol for rate #HFpEF -euvolemic on exam -continue po diuretics #Hypothyroidism -continue synthroid #Mild intermittent asthma -albuterol prn -no exacebation #Pulm htn -continue metoprolol #CKD stage 3 -renal function baseline #HTN -continue metoprolol, spironolactone dvt prophyalxis- SCPs full code Pt requires inpt stay at least 2 midnights due to ugib bleed and loculated pleural effusion with acute hypoxemic respiratory failure requiring thoracentesis, expert consultation, possible EGD Quality Stroke Does the patient have a stroke diagnosis?: No VTE Prior VTE?: No VTE Risk Level:: Medical - moderate - high VTE Device Contraindication: Treatment Not Indicated VTE Drug Contraindication: N/A - Med Ordered
--- NOTE | 2023-09-23 18:40 | MHC.EDTECH ---
Patient repositioned and total bed changed
[2023-09-23] MEDS: Pantoprazole Sodium 40 MG/10 ML VIAL IVPUSH (18:48)
--- NOTE | 2023-09-23 19:34 | PC.NURSE ---
assumed care of patient at 1900 - report received from Trupti SOLANO
[2023-09-23 20:14] LABS: Lactate Dehydrogenase 348 U/L (122-220)
[2023-09-23 20:49] VITALS: BP 93/40; PULSE 74; RESP 28; O2SAT 98
[2023-09-23] MEDS: 0.9 % Sodium Chloride 1,000 ML 999 ML IV (22:58)
[2023-09-24] VITALS (11 sets, daily range): BP systolic 86–116; BP diastolic 32–56; PULSE 68–91; RESP 10–23; TEMP 36.1–36.4; O2SAT 95–100; BMI 14.3
--- NOTE | 2023-09-24 05:16 | PC.NURSE ---
pt cleaned up and linens changed. family at bedside. pt on night monitor, wearing 4L O2 NC. BPs soft. Clinic Nurse looking for smaller arm cuff as smallest cuff still too big for pt. MD aware of pressures. Plan of care ongoing. Pt NPO for procedure this AM.
[2023-09-24 06:24] LABS: MANUAL DIFF FLAG NO
[2023-09-24 06:44] LABS: Anion Gap 13 (12-20); Blood Urea Nitrogen 54 mg/dL (9-16); Calcium 9.5 mg/dL (8.4-10.2); Carbon Dioxide 27 mmol/L (22-29); Chloride 104 mmol/L (96-108); Creatinine Clr Calc Pharmacy 16.2; Estimated Glomerular Filt Rate 42; Glucose Random 73 mg/dL (60-115); Potassium 4.7 mmol/L (3.3-5.1); Sodium 139 mmol/L (135-145)
[2023-09-24 07:02] LABS: Basophils Absolute Auto 0.1 X10*3/uL (0.0-0.2); Basophils Percent Auto 0.5 % (0-2); Eosinophils Absolute Auto 0.2 X10*3/uL (0.0-0.4); Eosinophils Percent Auto 1.6 % (0-4); Hematocrit 30.5 % (37.0-47.0); Hemoglobin 9.6 g/dl (12.0-16.0); Imm Gran Abs Auto 0.07 X10*3/uL (0.00-0.03); Imm Gran Pct Auto 0.8 % (0.0-0.4); Lymphocytes Absolute Auto 0.7 X10*3/uL (1.2-4.9); Lymphocytes Percent Auto 7.4 % (20-40); Mean Corpuscular HGB Conc 31.5 g/dl (31.0-35.0); Mean Corpuscular Hemoglobin 30.2 pg (27.0-33.0); Mean Corpuscular Volume 95.9 fL (80.0-98.0); Mean Platelet Volume 9.7 fL (9.4-12.3); Monocytes Absolute Auto 0.8 X10*3/uL (0.1-1.2); Neutrophils Absolute Auto 7.5 x10*3/uL (2.0-8.3); Neutrophils Percent Auto 80.7 % (45-73); Platelet Count 172 X10*3/uL (160-400); Red Blood Count 3.18 X10*6/uL (4.20-5.50); Red Cell Distribution Width 14.2 % (11.0-16.0); White Blood Count 9.3 X10*3/uL (4.8-10.8)
--- NOTE | 2023-09-24 07:04 | PM.GICN ---
History of Present Illness Data of Consult Service Date: 09/24/23 Requesting physician: Ryan Goodman Primary Care Provider: Rj Mclaughlin MD HPI Reason for consult: melena 82 year old female with history of paroxysmal atrial fibrillation on eliquis, asthma, ckd stage 3, HFpEF, history of complete heart block s/p pacemaker, pulmonary htn, htn, hld, and unspecified dementia who I am seeing for melena. Minimal hx from patient, she has dementia at baseline. Collateral hx from daughter and chart. She initially presented to the ED for evaluation of hypoxia after home PT checked O2 sats and noted to be 85%. Patient has not been c/o any symptoms such as dyspnea, cough, chest pain, lightheadedness, palpitations, fevers, chills. who is main carer had noted she has been losing a lot of weight over few months, and also last several days she has been having blackish stools. Imaging: CXR w/ loculated pl effusion, cardiomegaly LABS: HGB 11.7 on admission , 9.7 g/dl today Review of Systems Review of Systems: Yes Unobtainable due to mental status PMFSH Past Medical History Medical History (Updated 09/24/23 @ 22:38 by Jairo Bird MD) Atelectasis E-coli UTI Candidemia Neuropathy Anemia Osteoporosis Vitamin D deficiency Chronic kidney disease (CKD), stage III (moderate) Pure hypercholesterolemia Benign essential hypertension Sensorineural hearing loss Paroxysmal atrial fibrillation Pulmonary hypertension Tricuspid regurgitation Cardiac pacemaker in situ (HFpEF) heart failure with preserved ejection fraction GI bleed Tobacco abuse, in remission Aortic stenosis Anxiety Hypothyroidism Leg edema Hyperlipidemia H/O: HTN (hypertension) Complete heart block Paroxysmal A-fib Family History Family History Father No problems noted. Mother No problems noted. Sister Diabetes Cancer Surgical History Surgical History S/P AVR Hx of aortic valve repair History of thoracentesis Hx of hysterectomy Hx of mastectomy Social History Social History Household Members: Spouse Housing: House Do you presently have visiting nurse or other home services: Yes Alcohol intake: former Patient Tobacco Use Status: Former Tobacco user e-Cigarette/Vaping Use: Never Used Second Hand Smoke Exposure: No Advance Directives Date on File: 09/24/23 service: No Current occupational status: retired Cognitive needs: No Hearing needs: No Vision needs: No Meds Allergies Allergy/AdvReac Type Severity Reaction Status Date / Time codeine [CODEINE] Allergy Intermediate RASH Verified 09/12/23 13:15 meperidine [From Demerol] Allergy Intermediate Unknown Verified 09/12/23 13:15 Active Medications: Current Medications Acetaminophen (Acetaminophen 325 Mg Tablet) 650 mg PO Q6H PRN PRN Reason: Pain, Mild (Pain Scale 1-3) Ferrous Sulfate (Ferrous Sulfate 324 Mg Tablet.Dr) 325 mg PO DAILY [facility] Furosemide (Furosemide 20 Mg Tablet) 20 mg PO DAILY [facility]; Protocol Levothyroxine Sodium (Levothyroxine Sodium 100 Mcg Tablet) 100 mcg PO DAILY@0600 [facility] Last Admin: 09/24/23 05:47 Dose: Not Given Lorazepam (Lorazepam 0.5 Mg Tablet) 0.5 mg PO BEDTIME PRN PRN Reason: RESTLESSNESS Metoprolol Succinate (Metoprolol Succinate Er 100 Mg Tab.Er.24h) 100 mg PO BEDTIME [facility]; Protocol Last Admin: 09/23/23 21:37 Dose: Not Given Ondansetron HCl (Ondansetron Hcl 4 Mg/2 Ml Vial) 4 mg IVPUSH Q8H PRN PRN Reason: Nausea and Vomiting Pantoprazole Sodium (Pantoprazole Sodium 40 Mg/10 Ml Vial) 40 mg IVPUSH BID@0630,1630 [facility] Senna (Sennosides 8.6 Mg Tablet) 17.2 mg PO BEDTIME PRN PRN Reason: Constipation Sodium Chloride (0.9 % Sodium Chloride Flush 3 Ml Syringe) 3 ml IVFLUSH QSHIFT [facility] Last Admin: 09/24/23 01:02 Dose: Not Given Sodium Chloride (Sodium Chloride 0.65 % Nasal 44 Ml Sprbtl) 2 spray NOSTRIL-B QID PRN PRN Reason: dry nasal passages Spironolactone (Spironolactone 25 Mg Tablet) 12.5 mg PO DAILY [facility]; Protocol Vitamin D (Cholecalciferol (Vitamin D3) 25 Mcg Tablet) 25 mcg PO DAILY [facility] Home Medications Medication Instructions Recorded Confirmed Last Taken Type cholecalciferol (vitamin D3) 25 25 mcg PO DAILY 03/12/24 03/12/24 03/12/24 History mcg (1,000 unit) tablet ferrous sulfate 325 mg (65 mg 325 mg PO DAILY 09/23/23 09/23/23 09/23/23 History iron) tablet furosemide 40 mg tablet 20 mg PO DAILY 09/23/23 09/23/23 09/23/23 History lorazepam 1 mg tablet 0.5 mg PO BEDTIME PRN RESTLESSNESS 09/23/23 09/23/23 Unknown History metoprolol succinate 100 mg 100 mg PO BEDTIME 09/23/23 09/23/23 09/22/23 History tablet,extended release 24 hr Physical Exam Vital Signs: Vital Signs: Last Vital Signs Temp 97.6 F 09/24/23 05:15 Pulse 76 09/24/23 05:15 Resp 20 09/24/23 05:15 BP 92/47 L 09/24/23 05:15 Pulse Ox 100 09/24/23 05:15 O2 Del Method Nasal Cannula 09/24/23 05:15 O2 Flow Rate 4 09/24/23 05:15 Oxygen Flow Rate 4 09/23/23 13:39 BMI result Body Mass Index 12.7 EXAM: GENERAL: The patient is frail and wasted VITAL SIGNS:see workflow HEENT: Nonicteric sclerae, PERRLA, EOMI. Oropharynx clear. Moist mucous membranes. Conjunctivae appear pale. No thyroid mass. CHEST: Chest wall is nontender. HEART: Regular rate and rhythm without murmurs. LUNGS: Clear to auscultation bilaterally but educed BS ABDOMEN: Soft, positive bowel sounds, nontender, no organomegaly.no flank tenderness SKIN: No rash, no excessive bruising, petechiae, or purpura. NEUROLOGIC: Cranial nerves II-XII intact without motor/sensory deficit. Psych: minimal interaction, curled up in a ball Results Labs 09/24/23 05:51 09/24/23 05:51 Labs: Short CBC 09/23/23 Range/Units 14:41 WBC 13.1 H (4.8-10.8) X10*3/uL Hgb 11.7 L (12.0-16.0) g/dl Hct 36.5 L (37.0-47.0) % Plt Count 230 D (160-400) X10*3/uL BMP 09/23/23 09/24/23 14:41 05:51 Sodium 137 139 Potassium 5.2 H 4.7 Chloride 99 104 Carbon Dioxide 29 27 BUN 57 H 54 H Creatinine 1.22 1.23 Calcium 10.5 H 9.5 D Liver Function 09/23/23 Range/Units 14:41 Total Bilirubin 0.4 (0.0-1.0) mg/dL AST 20 (5-31) U/L ALT 9 (0-31) U/L Alkaline Phosphatase 64 (39-117) U/L Albumin 3.6 (3.5-5.0) g/dL Imaging Chest x-ray: Attestation: I personally reviewed and interpreted this imaging study as follows: (pl effusions, cardiomegaly) CT scan - abdomen: Attestation: I personally reviewed and interpreted this imaging study as follows: (severe constipation, numerous densities in the gallbladder which is dilated) Assessment and Plan (1) Melena: Status: Acute Plan 1/ Description of melena, also been having weight loss and poor appetite, FTT, mgiht be due to PUD< severe constipation, or symptomatic gallstones, unerlying neoplasia, progression to terminal dementia PLAN: 1/ EGD tomorrow for further eval 2/ hold eliquis, PPI BID 3/ consider surgical consult if above neg 4/ miralax BID and enema if not passing stools 5/ chekc nutrients rajesh b1, b6, fat emelia vitamins, replace if low Procedures Date of Service Date of Service: 09/24/23
[2023-09-24] MEDS: Pantoprazole Sodium 40 MG/10 ML VIAL IVPUSH ×2 (09:06→17:02)
[2023-09-24] MEDS: 0.9 % Sodium Chloride Flush 3 ML SYRINGE IVFLUSH ×3 (09:08→20:56)
--- NOTE | 2023-09-24 09:09 | MHC.EDTECH ---
Cleaned patient, changed linen and gown.
--- NOTE | 2023-09-24 09:19 | P.CONPL_ITS ---
History of Present Illness History of Present Illness Consult date: 09/24/23 Chief complaint: UGIB, loculated pleural effusion Narrative: This is an inpatient pulmonary consultation. The patient is a 82 year old female with history of paroxysmal atrial fibrillation anticoagulated with eliquis, asthma, ckd stage 3, HFpEF, history of complete heart block s/p pacemaker, pulmonary htn, htn, hld, and unspecified dementia presented to the ED for evaluation of hypoxia. Pt reportedly had intake at home with PT and was noted to desatuate to 85% on RA. No reported dyspnea, cough, chest pain, lightheadedness, palpitations, fevers, chills. No recent illness. Has history of recurrent pleural effusions requiring pleur-x chest tube in the past, removed in 07/2020. No hypoxia at baseline. The patient's is also reporting dark tarry stools over the last few weeks. Pt reports abd pain when hungry. No nausea or vomiting. Family is reporting decreased appetite ongoing for several months. Currently 29.6 kg, was 36.2kg at last in person evaluation in 04/2023. On arrival, VSS, but hypoxic and placed on 4L supplemental O2 maintaining oximetyr 95-97%. Mild leukocytosis 12.1. H/H 11.7/36.5%, consistent with baseline. Renal function baseline, K 5.2 with slight hemolysis noted. OBS positive. Negative for covid, flu, rsv. CXR shows mild cardiomegaly and pulm htn without edema. There is a small R pleural effusion decreased compared to priors. The patient had a CT chest demonstrating a small right sided loculated effusion. No need for a thoracentesis at this time based on the chronicity, but we will monitor. Review of Systems 2 Constitutional: Constitutional: Reports no additional constitutional complaints, Denies chills, Denies fever(s), Denies night sweats and Reports weight loss Eyes: Eyes: Reports no additional eye complaints, Denies blurry vision, Denies change in vision, Denies diplopia, Denies eye discharge, Denies loss of vision and Denies eye pain ENT: Denies dizziness Cardiovascular: Cardiovascular: Reports no additional cardiovascular complaints, Denies chest pain, Denies lightheadedness, Denies Loss of Consciousness and Reports dyspnea Respiratory: Respiratory: Reports no additional respiratory complaints, Reports cough and Reports dyspnea Gastrointestinal: Gastrointestinal: Reports no additional gastrointestinal complaints, Denies abdominal pain, Reports melena, Denies hematochezia, Denies change in bowel habits and Denies change in stool character Genitourinary: Genitourinary: Denies hematuria, Denies urinary frequency, Denies dysuria, Denies urinary incontinence, Denies urinary hesitancy and Denies urinary urgency Musculoskeletal: Musculoskeletal: Reports no additional musculoskeletal complaints, Denies numbness and Denies tingling Neurologic: Denies dizziness, Denies loss of vision, Denies numbness and Denies tingling Psychiatric: Psychiatric: Reports no additional psychiatric complaints Endocrine: Endocrine: Reports no additional endocrine complaints Hematologic/Lymphatic: Hematologic/Lymphatic: Reports no additional hematologic/lymphatic complaints Allergic/Immunologic: Allergic/Immunologic: Reports no additional allergic/immunologic complaints [facility] Past Medical History Medical History (Updated 09/24/23 @ 09:26 by Parminder Patino MD) Atelectasis E-coli UTI Candidemia Neuropathy Anemia Osteoporosis Vitamin D deficiency Chronic kidney disease (CKD), stage III (moderate) Pure hypercholesterolemia Benign essential hypertension Sensorineural hearing loss Paroxysmal atrial fibrillation Pulmonary hypertension Tricuspid regurgitation Cardiac pacemaker in situ (HFpEF) heart failure with preserved ejection fraction GI bleed Tobacco abuse, in remission Aortic stenosis Anxiety Hypothyroidism Leg edema Hyperlipidemia H/O: HTN (hypertension) Complete heart block Paroxysmal A-fib Family History Family History Father No problems noted. Mother No problems noted. Sister Diabetes Cancer Surgical History Surgical History S/P AVR Hx of aortic valve repair History of thoracentesis Hx of hysterectomy Hx of mastectomy Social History Social History Household Members: Spouse Housing: House Do you presently have visiting nurse or other home services: No Alcohol intake: former Patient Tobacco Use Status: Former Tobacco user Smoked in Last 30 Days: No e-Cigarette/Vaping Use: Never Used Second Hand Smoke Exposure: No Use of substances other than those prescribed or required for medical reasons: No Advance Directives: Yes Advance Directives Information Provided: Yes Advance Directives on File: No service: No Current occupational status: retired Cognitive needs: No Hearing needs: No Vision needs: No Meds Allergies Allergy/AdvReac Type Severity Reaction Status Date / Time codeine [CODEINE] Allergy Intermediate RASH Verified 09/12/23 13:15 meperidine [From Demerol] Allergy Intermediate Unknown Verified 09/12/23 13:15 Active Medications: Current Medications Acetaminophen (Acetaminophen 325 Mg Tablet) 650 mg PO Q6H PRN PRN Reason: Pain, Mild (Pain Scale 1-3) Ferrous Sulfate (Ferrous Sulfate 324 Mg Tablet.Dr) 325 mg PO DAILY [facility] Furosemide (Furosemide 20 Mg Tablet) 20 mg PO DAILY [facility]; Protocol Levothyroxine Sodium (Levothyroxine Sodium 100 Mcg Tablet) 100 mcg PO DAILY@0600 [facility] Last Admin: 09/24/23 05:47 Dose: Not Given Lorazepam (Lorazepam 0.5 Mg Tablet) 0.5 mg PO BEDTIME PRN PRN Reason: RESTLESSNESS Metoprolol Succinate (Metoprolol Succinate Er 100 Mg Tab.Er.24h) 100 mg PO BEDTIME [facility]; Protocol Last Admin: 09/23/23 21:37 Dose: Not Given Ondansetron HCl (Ondansetron Hcl 4 Mg/2 Ml Vial) 4 mg IVPUSH Q8H PRN PRN Reason: Nausea and Vomiting Pantoprazole Sodium (Pantoprazole Sodium 40 Mg/10 Ml Vial) 40 mg IVPUSH BID@0630,1630 [facility] Last Admin: 09/24/23 09:06 Dose: 40 mg Senna (Sennosides 8.6 Mg Tablet) 17.2 mg PO BEDTIME PRN PRN Reason: Constipation Sodium Chloride (0.9 % Sodium Chloride Flush 3 Ml Syringe) 3 ml IVFLUSH QSHIFT [facility] Last Admin: 09/24/23 09:08 Dose: 3 ml Sodium Chloride (Sodium Chloride 0.65 % Nasal 44 Ml Sprbtl) 2 spray NOSTRIL-B QID PRN PRN Reason: dry nasal passages Spironolactone (Spironolactone 25 Mg Tablet) 12.5 mg PO DAILY [facility]; Protocol Last Admin: 09/24/23 09:18 Dose: Not Given Vitamin D (Cholecalciferol (Vitamin D3) 25 Mcg Tablet) 25 mcg PO DAILY [facility] Home Medications Medication Instructions Recorded Confirmed Last Taken Type cholecalciferol (vitamin D3) 25 25 mcg PO DAILY 09/23/23 09/23/23 09/23/23 History mcg (1,000 unit) tablet ferrous sulfate 325 mg (65 mg 325 mg PO DAILY 09/23/23 09/23/23 09/23/23 History iron) tablet furosemide 40 mg tablet 20 mg PO DAILY 09/23/23 09/23/23 09/23/23 History lorazepam 1 mg tablet 0.5 mg PO BEDTIME PRN RESTLESSNESS 09/23/23 09/23/23 Unknown History metoprolol succinate 100 mg 100 mg PO BEDTIME 09/23/23 09/23/23 09/22/23 History tablet,extended release 24 hr Physical Exam 2 Vital Signs: Vital Signs: Last Vital Signs Temp 97.6 F 09/24/23 05:15 Pulse 75 09/24/23 09:04 Resp 20 09/24/23 09:04 BP 111/47 L 09/24/23 09:04 Pulse Ox 100 09/24/23 09:04 O2 Del Method Nasal Cannula 09/24/23 09:04 O2 Flow Rate 4 09/24/23 09:04 Oxygen Flow Rate 4 09/23/23 13:39 BMI result Body Mass Index 12.7 Const: General: tired appearing Nutritional Appearance: underweight HEENT: Head: Yes normocephalic Neck: Neck: Yes supple Chest: Chest palpation & inspection: normal inspection of the chest Resp: Effort & Inspection: normal respiratory effort Auscultation: d iminished lung sounds Cardio: Heart sounds: S1 normal heart sound present and S2 normal heart sound present GI: Palpation (GI): Soft to palpation Skin: General skin exam: no rashes or lesions noted Extrem: General: Yes no clubbing, cyanosis or edema Results Laboratory Findings 09/24/23 05:51 09/24/23 05:51 ABG, PT/INR, D-dimer: PT/INR, D-dimer PT 16.0 SEC (11.1-13.3) H 09/23/23 16:54 INR 1.3 (0.9-1.1) H 09/23/23 16:54 Abnormal lab findings: Abnormal Labs 09/23/23 09/23/23 09/24/23 14:41 16:54 05:51 WBC 13.1 H RBC 3.87 L 3.18 L Hgb 11.7 L 9.6 L Hct 36.5 L 30.5 L Immature Gran % (Auto) 0.6 H 0.8 H Neut % (Auto) 86.1 H 80.7 H Lymph % (Auto) 5.0 L 7.4 L Lymph # (Auto) 0.7 L 0.7 L Abs Immat Gran (auto) 0.08 H 0.07 H Absolute Neuts (auto) 11.3 H PT 16.0 H INR 1.3 H Potassium 5.2 H BUN 57 H 54 H Calcium 10.5 H Lactate Dehydrogenase 348 H Assessment and Plan (1) Loculated pleural effusion: Status: Acute (2) Weakness generalized: Status: Acute (3) Atelectasis: Status: Acute (4) GI bleed: Qualifiers: GI bleed type/associated pathology: melena Qualified Code(s): K92.1 - Melena Status: Acute Plan Cancelled thoracentesis, appears to be chronic. We will monitor the effusion. If worsens then we can consider it Treat for a lower respiratory: started Augmentin serial CXRs continue oxygen to keep pox>90% GI eval in process The patient is debilitated. Need to address goals of care with the family Procedures Date of Service Date of Service: 09/24/23
--- NOTE | 2023-09-24 09:20 | PC.NURSE ---
This Rn (not primary) attempted to medicated pt with PO meds, gave sip of water prior to admin and pt noted to cough with multiple swallows, Dr Goodman and primary RN nenita. Plan for speech and NPO pending evaluation
--- NOTE | 2023-09-24 13:37 | PC.NURSE ---
pt has been sleeping since speech and hearing eval, family at bedside and aware of care plan, paced on monitor, awaiting order change to clear liquids.
--- NOTE | 2023-09-24 13:45 | MHC.CM.PN ---
Attempted to meet with patient in regards to discharge planning. Nursing care currently being provided. Met with patient's /HCP, Nolan and daughter, Jennifer in regards to discharge planning. Patient lives with Nolan, doesn't use any mobility devices for ambulation and is active with [facility]. PCP verified. Copy of HCP obtained from [facility]. Both Nolan and Jennifer state patient would decline STR if recommended. Both believe patient would return home with [facility]. IMM explained and signed. Per Dr Mclaughlin's PCP note from 09/12/2023, family reports patient is basically bedbound. She occasionally gets out of bed for a couple of minutes a day. [facility] was referred at that time. Nolan did not feel patient was hospice appropriate. Dr Mclaughlin has only been able to arrange visits virtually. Patient has not physically come into the office. Continue to monitor for d/c needs.
[2023-09-24] MEDS: Amoxicillin/Potassium Clav 875 MG TABLET PO ×2 (14:04→20:41)
--- NOTE | 2023-09-24 16:04 | P.PNIM_ITS ---
Subjective Subjective Date of Service: 09/24/23 Interval History: No acute issues overnight. Per nursing had issues with liquids this a.m.. Could not swallow medicines Review of Systems Unable to obtain Physical Exam 2 Vital Signs: Vital Signs: Last Vital Signs Temp 96.9 F 09/24/23 14:26 Pulse 91 09/24/23 14:26 Resp 20 09/24/23 14:26 BP 116/56 L 09/24/23 14:26 Pulse Ox 96 09/24/23 14:26 O2 Del Method Nasal Cannula 09/24/23 14:26 O2 Flow Rate 4 09/24/23 14:26 Oxygen Flow Rate 4 09/23/23 13:39 BMI result Body Mass Index 14.3 Const: Other: Ill-appearing/cachectic Resp: Other: Clear but diminished at bases Cardio: Other: No S4; positive S1-S2; no S3 murmurs rubs or gallops GI: Other: Soft nontender nondistended normoactive bowel sounds Extrem: Other: No edema bilaterally Objective Data Active Medications Acetaminophen (Acetaminophen 325 Mg Tablet) 650 mg PO Q6H PRN PRN Reason: Pain, Mild (Pain Scale 1-3) Amoxicillin/Clavulanate Potassium (Amoxicillin/Potassium Clav 875 Mg Tablet) 875 mg PO Q12H [facility] Last Admin: 09/24/23 14:04 Dose: 875 mg Documented By: KESHAWN Ferrous Sulfate (Ferrous Sulfate 324 Mg Tablet.Dr) 325 mg PO DAILY [facility] Last Admin: 09/24/23 09:19 Dose: Not Given Documented By: BETITO Non-Admin Reason: held, swallowing diff Furosemide (Furosemide 20 Mg Tablet) 20 mg PO DAILY [facility]; Protocol Last Admin: 09/24/23 09:19 Dose: Not Given Documented By: BETITO Non-Admin Reason: held swallowing diff Levothyroxine Sodium (Levothyroxine Sodium 100 Mcg Tablet) 100 mcg PO DAILY@0600 [facility] Last Admin: 09/24/23 05:47 Dose: Not Given Documented By: JOHNNIE Non-Admin Reason: NPO Lorazepam (Lorazepam 0.5 Mg Tablet) 0.5 mg PO BEDTIME PRN PRN Reason: RESTLESSNESS Metoprolol Tartrate (Metoprolol Tartrate 50 Mg Tablet) 50 mg PO BID [facility]; Protocol Last Admin: 09/24/23 14:04 Dose: Not Given Documented By: KESHAWN Non-Admin Reason: See Note Ondansetron HCl (Ondansetron Hcl 4 Mg/2 Ml Vial) 4 mg IVPUSH Q8H PRN PRN Reason: Nausea and Vomiting Pantoprazole Sodium (Pantoprazole Sodium 40 Mg/10 Ml Vial) 40 mg IVPUSH BID@0630,1630 [facility] Last Admin: 09/24/23 09:06 Dose: 40 mg Documented By: BETITO Senna (Sennosides 8.6 Mg Tablet) 17.2 mg PO BEDTIME PRN PRN Reason: Constipation Sodium Chloride (0.9 % Sodium Chloride Flush 3 Ml Syringe) 3 ml IVFLUSH QSHIFT [facility] Last Admin: 09/24/23 09:08 Dose: 3 ml Documented By: BETITO Sodium Chloride (Sodium Chloride 0.65 % Nasal 44 Ml Sprbtl) 2 spray NOSTRIL-B QID PRN PRN Reason: dry nasal passages Spironolactone (Spironolactone 25 Mg Tablet) 12.5 mg PO DAILY [facility]; Protocol Last Admin: 09/24/23 09:18 Dose: Not Given Documented By: BETITO Non-Admin Reason: held, swallowing diff Vitamin D (Cholecalciferol (Vitamin D3) 25 Mcg Tablet) 25 mcg PO DAILY [facility] Last Admin: 09/24/23 09:20 Dose: Not Given Documented By: BETITO Non-Terrie Reason: held, swallowing diff Labs 09/24/23 05:51 09/24/23 05:51 Labs: Laboratory Results - last 24 hr 09/23/23 09/23/23 09/23/23 14:41 16:02 16:54 MCV MCH MCHC RDW Plt Count MPV Immature Gran % (Auto) Neut % (Auto) Lymph % (Auto) [place] % (Auto) Eos % (Auto) Baso % (Auto) Lymph # (Auto) [place] # (Auto) Eos # (Auto) Baso # (Auto) Abs Immat Gran (auto) Absolute Neuts (auto) Absolute Nucleated RBC Nucleated RBC % (auto) PT 16.0 H INR 1.3 H APTT 33.7 Anion Gap Estim Creat Clear Calc Estimated GFR Random Glucose Lactic Acid 1.0 Calcium Lactate Dehydrogenase 348 H Stool Occult Blood POSITIVE Influenza Type A (PCR) NEGATIVE Influenza Type B (PCR) NEGATIVE RSV RNA Qual (PCR) NEGATIVE SARS-CoV-2 RNA (RT-PCR) NEGATIVE 09/24/23 05:51 MCV 95.9 MCH 30.2 MCHC 31.5 RDW 14.2 Plt Count 172 D MPV 9.7 Immature Gran % (Auto) 0.8 H Neut % (Auto) 80.7 H Lymph % (Auto) 7.4 L [place] % (Auto) 9.0 Eos % (Auto) 1.6 Baso % (Auto) 0.5 Lymph # (Auto) 0.7 L [place] # (Auto) 0.8 Eos # (Auto) 0.2 Baso # (Auto) 0.1 Abs Immat Gran (auto) 0.07 H Absolute Neuts (auto) 7.5 Absolute Nucleated RBC 0.000 Nucleated RBC % (auto) 0.0 PT INR APTT Anion Gap 13 Estim Creat Clear Calc 16.2 Estimated GFR 42 Random Glucose 73 Lactic Acid Calcium 9.5 D Lactate Dehydrogenase Stool Occult Blood Influenza Type A (PCR) Influenza Type B (PCR) RSV RNA Qual (PCR) SARS-CoV-2 RNA (RT-PCR) Assessment and Plan (1) GI bleed: Status: Acute (2) Loculated pleural effusion: Status: Acute Plan 82 year old female with history of paroxysmal atrial fibrillation anticoagulated with eliquis, asthma, ckd stage 3, HFpEF, history of complete heart block s/p pacemaker, pulmonary htn, htn, hld, and unspecified dementia admitted for melena and loculated pleural effusion with failure to thrive 1.Upper GIB No further bleeding since admission -H/h consistent with baseline, above transfusion threshold -IV ppi -clear liquid diet -hold eliquis -EGD in am... Seen by speech; recommend further imaging including barium swallow if appropriate after EGD 2.Loculated pleural effusion with acute hypxomeic respiratory failure -hx recurrent pleural effusion with h/o pleurix catheter 07/2020 -Pulm consult... Does not recommend thoracentesis. Conservative management 3.Paroxysmal atrial fibrillation -hold eliquis due to GIB -continue metoprolol for rate 4.HFpEF -stable and well compensated -continue current therapies SCPs full code Requires ongoing hospitalization to facilitate EGD in a.m.. Will need to discuss end of life issues with family pending results of EGD Quality Stroke Does the patient have a stroke diagnosis?: No VTE Prior VTE?: No VTE Risk Level:: Medical - moderate - high VTE Device Contraindication: Treatment Not Indicated VTE Drug Contraindication: N/A - Med Ordered
--- NOTE | 2023-09-24 17:22 | MHC.SL.SWA ---
Risk of Aspiration Due to: Neurological Condition Weak Cough Oral Medication Intake: Crushed/whole with Puree Please contact the pharmacy regarding appropriate crushable or liquid drug formulations that are available whenever modified delivery is recommended. Compensatory Strategies and Precautions to be Taken for Safe Swallow: Sitting Upright (90 deg) No Straw Alternate Liquids/Solids Rate of Ingestion Change Supervision While Eating and Drinking for Safe Swallow: Total Supervision (1:1) Swallowing Recommended Treatments: Compens. Strategy Educat. Recommendation for Speech: Outpatient Speech Therapy Inpatient Speech Therapy Comment: Per MD, recommendation is for clear liquid diet at this time; recommend NECTAR THICK liquids. When cleared, recommend NECTAR THICK liquids (NO STRAW) and PUREE solid (NDD1). Recommend pills crushed/whole in puree. Recommend total supervision at this time to monitor for s/s aspiration (cough, throat clear, heavy breathing, etc.). Patient may be candidate for MBS (inpatient vs. outpatient) d/t reported globus sensation in throat (>2 years) and difficulty chewing, a lessened interest in food (approx. 2 years) and patient's frail presentation. Traffic Inspector Clinican/Clinical Fellow: No Supervisory Statement: I have reviewed and agree with the student/clinical fellow's documentation: N/A Speech Language Pathologist: Arely Ortez M.A., CCC-SVP GROUP DIRECTOR
[2023-09-24] MEDS: LORazepam 0.5 MG TABLET PO (20:41)
[2023-09-24] MEDS: Albumin Human 25 % 100 ML IV (22:38)
[2023-09-25] VITALS (9 sets, daily range): BP systolic 91–118; BP diastolic 35–85; PULSE 70–85; RESP 18–22; TEMP 36.1–37; O2SAT 91–98; BMI 14.3
[2023-09-25] MEDS: Albumin Human 25 % 100 ML IV (00:11)
[2023-09-25] MEDS: Pantoprazole Sodium 40 MG/10 ML VIAL IVPUSH ×2 (05:35→16:16)
[2023-09-25 08:00] LABS: MANUAL DIFF FLAG NO
[2023-09-25 08:09] LABS: Basophils Absolute Auto 0.1 X10*3/uL (0.0-0.2); Basophils Percent Auto 0.4 % (0-2); Eosinophils Percent Auto 0.1 % (0-4); Hematocrit 27.2 % (37.0-47.0); Hemoglobin 8.5 g/dl (12.0-16.0); Imm Gran Abs Auto 0.07 X10*3/uL (0.00-0.03); Imm Gran Pct Auto 0.6 % (0.0-0.4); Lymphocytes Absolute Auto 0.5 X10*3/uL (1.2-4.9); Mean Corpuscular HGB Conc 31.3 g/dl (31.0-35.0); Mean Corpuscular Hemoglobin 30.1 pg (27.0-33.0); Mean Corpuscular Volume 96.5 fL (80.0-98.0); Neutrophils Absolute Auto 10.8 x10*3/uL (2.0-8.3); Neutrophils Percent Auto 86.9 % (45-73); Platelet Count 143 X10*3/uL (160-400); Red Blood Count 2.82 X10*6/uL (4.20-5.50); Red Cell Distribution Width 14.2 % (11.0-16.0); White Blood Count 12.5 X10*3/uL (4.8-10.8)
[2023-09-25] MEDS: Cholecalciferol (Vitamin D3) 25 MCG TABLET PO (08:12)
[2023-09-25] MEDS: Amoxicillin/Potassium Clav 875 MG TABLET PO ×2 (08:12→21:54)
[2023-09-25] MEDS: 0.9 % Sodium Chloride Flush 3 ML SYRINGE IVFLUSH ×2 (08:13→16:16)
[2023-09-25] MEDS: Ferrous Sulfate 324 MG TABLET.DR PO (08:13)
[2023-09-25 08:22] LABS: Alanine Aminotransferase 11 U/L (0-31); Albumin Level 3.8 g/dL (3.5-5.0); Alkaline Phosphatase 45 U/L (39-117); Anion Gap 12 (12-20); Aspartate Amino Transferase 22 U/L (5-31); Bilirubin Total 0.8 mg/dL (0.0-1.0); Blood Urea Nitrogen 54 mg/dL (9-16); Calcium 9.7 mg/dL (8.4-10.2); Carbon Dioxide 29 mmol/L (22-29); Chloride 105 mmol/L (96-108); Creatinine Clr Calc Pharmacy 15.8; Estimated Glomerular Filt Rate 36; Glucose Fasting 74 mg/dL (60-99); Potassium 4.2 mmol/L (3.3-5.1); Sodium 142 mmol/L (135-145); Total Protein 6.6 g/dL (6.5-8.0)
--- NOTE | 2023-09-25 10:42 | MHC.CLN ---
PT IS MODERATELY MALNOURISHED PT WITH MILDLY DEPLETED SUBCUTANEOUS FAT AND MUSCLE MASS, BMI 14.3 WITH 8% NONSIGNIFICANT WT LOSS X 1 YEAR AND CHRONIC POOR PO INTAKE >/=3 MONTHS PREVIOUS WT HX REVEALS: 33.3KG (09/23/23) 33.2KG (03/03/23) 36KG (08/29/22) 8% NONSIGNIFICANT LOSS PT REPORTS SHE PREVIOUSLY LOST WT 3 YEARS AGO (UNABLE TO PROVIDE AMOUNT) BUT NEVER RETURNED BACK TO BASELINE AND FAMILY REPORTS CHRONIC POOR PO INTAKE FOR SEVERAL MONTHS RENT CONTROL OFFICE MANAGER WITH OVERALL DECLINE PT IS CURRENTLY NPO WHEN DIET TO ADVANCE; RECOMMEND ADDING ENSURE BID TO INCREASE KCALS AND PROMOTE WT GAIN SUPPLEMENT TO PROVIDE 700KCALS, 40G PROTEIN MONITOR PO INTAKE AND ENCOURAGE SUPPLEMENT SEE ALSO FULL CLINICAL NUTRITION ASSESSMENT
--- NOTE | 2023-09-25 12:53 | MHC.SLORD ---
Speech Language Pathology Order Status: Patient is NPO pending EDG today. [employer] will continue to follow.
--- NOTE | 2023-09-25 13:26 | HO.PM.IMPN ---
Subjective Subjective Date of Service: 09/25/23 Interval History: seen and examined this morning follow up for GI bleeding, dysphagia plan for EGD today Review of Systems Review of Systems: Yes all other systems are reviewed and are negative Constitutional Constitutional: Denies chills and Denies fever(s) Cardiovascular Cardiovascular: Denies chest pain, Denies palpitations and Denies dyspnea Respiratory Respiratory: Denies cough and Denies dyspnea Gastrointestinal Gastrointestinal: Denies abdominal pain Endocrine Endocrine: Denies palpitations Physical Exam Vital Signs: Vital Signs: Last Vital Signs Temp 97.3 F 09/25/23 11:21 Pulse 84 09/25/23 11:21 Resp 20 09/25/23 11:21 BP 111/48 L 09/25/23 11:21 Pulse Ox 95 09/25/23 11:21 O2 Del Method Nasal Cannula 09/25/23 11:21 O2 Flow Rate 4 09/25/23 11:21 Oxygen Flow Rate 4 09/23/23 13:39 BMI result Body Mass Index 14.3 Const: Other: Cachectic, frail appearing General: comfortable, no acute distress, alert and awake Resp: Effort & Inspection: normal respiratory effort, able to speak in complete sentences, no respiratory distress and no use of accessory muscles Cardio: Rate: regular rate GI: Inspection: No distended Palpation (GI): Soft to palpation and nontender Neuro: General: moves all extremities and CN's II-XI intact bilaterally Extrem: General: Yes no pedal edema Objective Data Active Medications Acetaminophen (Acetaminophen 325 Mg Tablet) 650 mg PO Q6H PRN PRN Reason: Pain, Mild (Pain Scale 1-3) Amoxicillin/Clavulanate Potassium (Amoxicillin/Potassium Clav 875 Mg Tablet) 875 mg PO Q12H [facility] Last Admin: 09/25/23 08:12 Dose: 875 mg Documented By: TIFF Ferrous Sulfate (Ferrous Sulfate 324 Mg Tablet.) 324 mg PO DAILY [facility] Last Admin: 09/25/23 08:13 Dose: 324 mg Documented By: TIFF Furosemide (Furosemide 20 Mg Tablet) 20 mg PO DAILY [facility]; Protocol Last Admin: 09/25/23 08:06 Dose: Not Given Documented By: TIFF Non-Admin Reason: low B/P Levothyroxine Sodium (Levothyroxine Sodium 100 Mcg Tablet) 100 mcg PO DAILY@0600 [facility] Last Admin: 09/25/23 05:36 Dose: Not Given Documented By: ELDER Non-Admin Reason: NPO Lorazepam (Lorazepam 0.5 Mg Tablet) 0.5 mg PO BEDTIME PRN PRN Reason: RESTLESSNESS Last Admin: 09/24/23 20:41 Dose: 0.5 mg Documented By: ELDER Metoprolol Tartrate (Metoprolol Tartrate 50 Mg Tablet) 50 mg PO BID [facility]; Protocol Last Admin: 09/25/23 08:07 Dose: Not Given Documented By: TIFF Non-Admin Reason: low B/P Ondansetron HCl (Ondansetron Hcl 4 Mg/2 Ml Vial) 4 mg IVPUSH Q8H PRN PRN Reason: Nausea and Vomiting Pantoprazole Sodium (Pantoprazole Sodium 40 Mg/10 Ml Vial) 40 mg IVPUSH BID@0630,1630 [facility] Last Admin: 09/25/23 05:35 Dose: 40 mg Documented By: ELDER Senna (Sennosides 8.6 Mg Tablet) 17.2 mg PO BEDTIME PRN PRN Reason: Constipation Sodium Chloride (0.9 % Sodium Chloride Flush 3 Ml Syringe) 3 ml IVFLUSH QSHIFT [facility] Last Admin: 09/25/23 08:13 Dose: 3 ml Documented By: TIFF Sodium Chloride (Sodium Chloride 0.65 % Nasal 44 Ml Sprbtl) 2 spray NOSTRIL-B QID PRN PRN Reason: dry nasal passages Spironolactone (Spironolactone 25 Mg Tablet) 12.5 mg PO DAILY [facility]; Protocol Last Admin: 09/25/23 08:07 Dose: Not Given Documented By: TIFF Non-Admin Reason: low B/P Vitamin D (Cholecalciferol (Vitamin D3) 25 Mcg Tablet) 25 mcg PO DAILY [facility] Last Admin: 09/25/23 08:12 Dose: 25 mcg Documented By: TIFF Labs 09/25/23 07:29 09/25/23 07:29 Labs: Laboratory Results - last 24 hr 09/25/23 07:29 MCV 96.5 MCH 30.1 MCHC 31.3 RDW 14.2 Plt Count 143 L MPV 10.0 Immature Gran % (Auto) 0.6 H Neut % (Auto) 86.9 H Lymph % (Auto) 4.0 L [place] % (Auto) 8.0 Eos % (Auto) 0.1 Baso % (Auto) 0.4 Lymph # (Auto) 0.5 L [place] # (Auto) 1.0 Eos # (Auto) 0.0 Baso # (Auto) 0.1 Abs Immat Gran (auto) 0.07 H Absolute Neuts (auto) 10.8 H Absolute Nucleated RBC 0.000 Nucleated RBC % (auto) 0.0 Anion Gap 12 Estim Creat Clear Calc 15.8 Estimated GFR 36 Fasting Glucose 74 Calcium 9.7 Total Bilirubin 0.8 AST 22 ALT 11 Alkaline Phosphatase 45 Total Protein 6.6 Albumin 3.8 Microbiology Microbiology Results: Microbiology 09/23/23 19:18 Blood Culture - Preliminary Blood - Venous No growth after 24 hours. 09/23/23 16:54 Blood Culture - Preliminary Blood - Venous No growth after 24 hours. Assessment and Plan (1) GI bleed: Status: Acute Plan 82 year old female with history of paroxysmal atrial fibrillation anticoagulated with eliquis, asthma, ckd stage 3, HFpEF, history of complete heart block s/p pacemaker, pulmonary htn, htn, hld, and unspecified dementia admitted for melena and loculated pleural effusion with failure to thrive Upper GIB No further bleeding since admission H/H trending down to 8.5/27.2 continue IV ppi hold eliquis seen by GI, EGD planned for today follow CBC dysphagia Seen by speech; recommend further imaging including barium swallow if appropriate after EGD Loculated pleural effusion with acute hypxomeic respiratory failure -hx recurrent pleural effusion with h/o pleurix catheter 07/2020 -Pulm consult... Does not recommend thoracentesis, effusion chronic, Conservative management+ recommend augmentin possible associated pneumonia repeat CXR in am NICK on CKD3 mild Hold Lasix, Aldactone Follow renal function daily Hyperkalemia, mild Resolved Paroxysmal atrial fibrillation -hold eliquis due to GIB -continue metoprolol for rate HFpEF stable and well compensated hold lasix, aldactone for mild NICK Moderate malnutrition Seen by nutrition, recommend to add supplements when the longer NPO SCPs full code Requires ongoing hospitalization to facilitate EGD in a.m.. Will need to discuss end of life issues with family pending results of EGD Quality Stroke Does the patient have a stroke diagnosis?: No VTE Prior VTE?: No VTE Risk Level:: Medical - moderate - high VTE Device Contraindication: Treatment Not Indicated VTE Drug Contraindication: N/A - Med Ordered
--- NOTE | 2023-09-25 13:45 | HO.ANESPROP2 ---
HPI - Anesthesia Eval Consult details Narrative: for EGD Has dementia and failure to thrive. Presented to ED on 09/22 w melena. Was on anticoag for Afib. Hgb dropping very slowly. Hgb today 8.5. [facility] Active Problems Active Problems: All Active Problems (Updated 09/24/23 @ 22:38 by Jairo Bird MD) Melena (Acute) Atelectasis (Acute) GI bleed (Acute) Hypoxia (Acute) Acute hypoxemic respiratory failure (Acute) Loculated pleural effusion (Acute) UGIB (upper gastrointestinal bleed) (Acute) Bedbound (Acute) Weakness generalized (Acute) Early satiety (Acute) Weight loss (Acute) Anorexia (Acute) Paroxysmal A-fib (Acute) Cardiac pacemaker in situ (Acute) Asthma exacerbation (Acute) S/P AVR (Acute) Paroxysmal atrial fibrillation (Acute) Diarrhea (Acute) Altered mental status (Acute) Pulsatile tinnitus, bilateral (Acute) Constipation (Acute) Eustachian tube dysfunction (Acute) Auditory hallucination (Acute) Candidemia (Acute) Pneumonia (Acute) Hypothyroidism (Acute) Anxiety (Acute) Neuropathy (Acute) Anemia (Acute) Osteoporosis (Acute) Vitamin D deficiency (Acute) Chronic kidney disease (CKD), stage III (moderate) (Acute) Pure hypercholesterolemia (Acute) Benign essential hypertension (Acute) Sensorineural hearing loss (Acute) Chest tube in place (Acute) (HFpEF) heart failure with preserved ejection fraction (Acute) Pulmonary hypertension (Acute) Tricuspid regurgitation (Acute) Complete heart block (Acute) Recurrent pleural effusion on right (Acute) Past Medical History Medical History (Updated 09/24/23 @ 22:38 by Jairo Bird MD) Atelectasis E-coli UTI Candidemia Neuropathy Anemia Osteoporosis Vitamin D deficiency Chronic kidney disease (CKD), stage III (moderate) Pure hypercholesterolemia Benign essential hypertension Sensorineural hearing loss Paroxysmal atrial fibrillation Pulmonary hypertension Tricuspid regurgitation Cardiac pacemaker in situ (HFpEF) heart failure with preserved ejection fraction GI bleed Tobacco abuse, in remission Aortic stenosis Anxiety Hypothyroidism Leg edema Hyperlipidemia H/O: HTN (hypertension) Complete heart block Paroxysmal A-fib Cognitive capacity: Has unspecified dementia and failure to thrive Family History Family History Father No problems noted. Mother No problems noted. Sister Diabetes Cancer Family history of problems with anesthesia: No Surgical History Surgical History S/P AVR Hx of aortic valve repair History of thoracentesis Hx of hysterectomy Hx of mastectomy History of Problems with Anesthesia: No Social History Social History Household Members: Spouse Housing: House Do you presently have visiting nurse or other home services: Yes Alcohol intake: former Patient Tobacco Use Status: Former Tobacco user e-Cigarette/Vaping Use: Never Used Second Hand Smoke Exposure: No Advance Directives Date on File: 09/24/23 service: No Current occupational status: retired Cognitive needs: No Hearing needs: No Vision needs: No Meds Allergies Allergy/AdvReac Type Severity Reaction Status Date / Time codeine [CODEINE] Allergy Intermediate RASH Verified 09/25/23 13:22 meperidine [From Demerol] Allergy Intermediate Unknown Verified 09/25/23 13:22 Active Medications: Current Medications Acetaminophen (Acetaminophen 325 Mg Tablet) 650 mg PO Q6H PRN PRN Reason: Pain, Mild (Pain Scale 1-3) Amoxicillin/Clavulanate Potassium (Amoxicillin/Potassium Clav 875 Mg Tablet) 875 mg PO Q12H [facility] Last Admin: 09/25/23 08:12 Dose: 875 mg Docusate Sodium (Docusate Sodium 100 Mg Capsule) 100 mg PO BEDTIME EDWIN Ferrous Sulfate (Ferrous Sulfate 324 Mg Tablet.Dr) 324 mg PO DAILY [facility] Last Admin: 09/25/23 08:13 Dose: 324 mg Furosemide (Furosemide 20 Mg Tablet) 20 mg PO DAILY [facility]; Protocol Last Admin: 09/25/23 08:06 Dose: Not Given Levothyroxine Sodium (Levothyroxine Sodium 100 Mcg Tablet) 100 mcg PO DAILY@0600 [facility] Last Admin: 09/25/23 05:36 Dose: Not Given Lorazepam (Lorazepam 0.5 Mg Tablet) 0.5 mg PO BEDTIME PRN PRN Reason: RESTLESSNESS Last Admin: 09/24/23 20:41 Dose: 0.5 mg Metoprolol Tartrate (Metoprolol Tartrate 50 Mg Tablet) 50 mg PO BID [facility]; Protocol Last Admin: 09/25/23 08:07 Dose: Not Given Ondansetron HCl (Ondansetron Hcl 4 Mg/2 Ml Vial) 4 mg IVPUSH Q8H PRN PRN Reason: Nausea and Vomiting Pantoprazole Sodium (Pantoprazole Sodium 40 Mg/10 Ml Vial) 40 mg IVPUSH BID@0630,1630 [facility] Last Admin: 09/25/23 05:35 Dose: 40 mg Polyethylene Glycol (Polyethylene Glycol 3350 17 Gm Powd.Pack) 17 gm PO DAILY PRN PRN Reason: Constipation Senna (Sennosides 8.6 Mg Tablet) 17.2 mg PO BEDTIME PRN PRN Reason: Constipation Sodium Chloride (0.9 % Sodium Chloride Flush 3 Ml Syringe) 3 ml IVFLUSH QSHIFT [facility] Last Admin: 09/25/23 08:13 Dose: 3 ml Sodium Chloride (Sodium Chloride 0.65 % Nasal 44 Ml Sprbtl) 2 spray NOSTRIL-B QID PRN PRN Reason: dry nasal passages Spironolactone (Spironolactone 25 Mg Tablet) 12.5 mg PO DAILY [facility]; Protocol Last Admin: 09/25/23 08:07 Dose: Not Given Vitamin D (Cholecalciferol (Vitamin D3) 25 Mcg Tablet) 25 mcg PO DAILY [facility] Last Admin: 09/25/23 08:12 Dose: 25 mcg Home Medications Medication Instructions Recorded Confirmed Last Taken Type cholecalciferol (vitamin D3) 25 25 mcg PO DAILY 09/23/23 09/23/23 09/23/23 History mcg (1,000 unit) tablet ferrous sulfate 325 mg (65 mg 325 mg PO DAILY 09/23/23 09/23/23 09/23/23 History iron) tablet furosemide 40 mg tablet 20 mg PO DAILY 09/23/23 09/23/23 09/23/23 History lorazepam 1 mg tablet 0.5 mg PO BEDTIME PRN RESTLESSNESS 09/23/23 09/23/23 Unknown History metoprolol succinate 100 mg 100 mg PO BEDTIME 09/23/23 09/23/23 09/22/23 History tablet,extended release 24 hr Exam Height,Weight and Vital Signs: Height 5 ft Weight 33.3 kg Last Vital Signs Temp 97.9 F 09/25/23 13:24 Pulse 73 09/25/23 13:24 Resp 20 09/25/23 13:24 BP 118/44 L 09/25/23 13:24 Pulse Ox 97 09/25/23 13:24 O2 Del Method Room Air 09/25/23 13:24 O2 Flow Rate 4 09/25/23 11:21 Oxygen Flow Rate 4 09/23/23 13:39 Pertinent Lab Results Pertinent Lab Results: Laboratory Tests 09/23/23 09/23/23 09/23/23 14:41 16:02 16:54 WBC 13.1 H RBC 3.87 L Hgb 11.7 L Hct 36.5 L MCV 94.3 MCH 30.2 MCHC 32.1 RDW 14.3 Plt Count 230 D MPV 9.6 Immature Gran % (Auto) 0.6 H Neut % (Auto) 86.1 H Lymph % (Auto) 5.0 L [place] % (Auto) 7.0 Eos % (Auto) 0.5 Baso % (Auto) 0.8 Lymph # (Auto) 0.7 L [place] # (Auto) 0.9 Eos # (Auto) 0.1 Baso # (Auto) 0.1 Abs Immat Gran (auto) 0.08 H Absolute Neuts (auto) 11.3 H Absolute Nucleated RBC 0.000 Nucleated RBC % (auto) 0.0 PT 16.0 H INR 1.3 H APTT 33.7 Sodium 137 Potassium 5.2 H Chloride 99 Carbon Dioxide 29 Anion Gap 14 BUN 57 H Creatinine 1.22 Estim Creat Clear Calc 16.3 Estimated GFR 42 Random Glucose 87 Fasting Glucose Lactic Acid 1.0 Calcium 10.5 H Total Bilirubin 0.4 AST 20 ALT 9 Alkaline Phosphatase 64 Lactate Dehydrogenase 348 H Total Protein 7.6 Albumin 3.6 Stool Occult Blood POSITIVE Influenza Type A (PCR) NEGATIVE Influenza Type B (PCR) NEGATIVE RSV RNA Qual (PCR) NEGATIVE SARS-CoV-2 RNA (RT-PCR) NEGATIVE 09/24/23 09/25/23 05:51 07:29 WBC 9.3 12.5 H RBC 3.18 L 2.82 L Hgb 9.6 L 8.5 L Hct 30.5 L 27.2 L MCV 95.9 96.5 MCH 30.2 30.1 MCHC 31.5 31.3 RDW 14.2 14.2 Plt Count 172 D 143 L MPV 9.7 10.0 Immature Gran % (Auto) 0.8 H 0.6 H Neut % (Auto) 80.7 H 86.9 H Lymph % (Auto) 7.4 L 4.0 L [place] % (Auto) 9.0 8.0 Eos % (Auto) 1.6 0.1 Baso % (Auto) 0.5 0.4 Lymph # (Auto) 0.7 L 0.5 L [place] # (Auto) 0.8 1.0 Eos # (Auto) 0.2 0.0 Baso # (Auto) 0.1 0.1 Abs Immat Gran (auto) 0.07 H 0.07 H Absolute Neuts (auto) 7.5 10.8 H Absolute Nucleated RBC 0.000 0.000 Nucleated RBC % (auto) 0.0 0.0 PT INR APTT Sodium 139 142 Potassium 4.7 4.2 Chloride 104 105 Carbon Dioxide 27 29 Anion Gap 13 12 BUN 54 H 54 H Creatinine 1.23 1.41 H Estim Creat Clear Calc 16.2 15.8 Estimated GFR 42 36 Random Glucose 73 Fasting Glucose 74 Lactic Acid Calcium 9.5 D 9.7 Total Bilirubin 0.8 AST 22 ALT 11 Alkaline Phosphatase 45 Lactate Dehydrogenase Total Protein 6.6 Albumin 3.8 Stool Occult Blood Influenza Type A (PCR) Influenza Type B (PCR) RSV RNA Qual (PCR) SARS-CoV-2 RNA (RT-PCR) Airway Mallampati Class: I TM Dist: >3cm Neck ROM: Full Denture: Upper Heart: ok. Lungs: Sat 97% on 2L. Assessment and Plan Assessment Anesthesia Assessment: Anesthesia Plan Discussed and Chart Reviewed Final Anesthetic Review Family History of Problems with Anesthesia: No History of Problems with Anesthesia: No NPO: Yes ASA Class: IV Final Preanesthetic Review: No Changes in Pt Med Stat, Meds/Allgs Chart Reviewed, Consent Obtained/Reviewed, Anes Risks/Benef Reviewed and DNR Form (If Appl.) Patient Risk: High Procedure Risk: Intermediate Anesthetic Plan Anesthetic Plan: Agree w/ Assess. and Plan and TIVA Disposition: Standard PACU
--- NOTE | 2023-09-25 13:52 | PM.GIPN ---
Subjective Subjective Date of Service: 09/25/23 Interval History: much more alert this morning as compared to when I saw her yesterday color is better she feels hungry denies abdominal pain Critical Care Time (minutes): 0 Physical Exam Vital Signs: Vital Signs: Last Vital Signs Temp 97.9 F 09/25/23 13:24 Pulse 73 09/25/23 13:24 Resp 20 09/25/23 13:24 BP 118/44 L 09/25/23 13:24 Pulse Ox 97 09/25/23 13:24 O2 Del Method Room Air 09/25/23 13:24 O2 Flow Rate 4 09/25/23 11:21 Oxygen Flow Rate 4 09/23/23 13:39 BMI result Body Mass Index 14.3 EXAM: GENERAL: The patient is frail and underweight VITAL SIGNS:see workflow HEENT: Nonicteric sclerae, PERRLA, EOMI. Oropharynx clear. Moist mucous membranes. Conjunctivae appear well perfused. No thyroid mass. CHEST: Chest wall is nontender. HEART: Regular rate and rhythm with diastolic murmur at sternal edge LUNGS: Clear to auscultation bilaterally. ABDOMEN: Soft, positive bowel sounds, nontender, no organomegaly.no flank tenderness SKIN: No rash, no excessive bruising, petechiae, or purpura. NEUROLOGIC: Cranial nerves II-XII intact without motor/sensory deficit. Psych: confused at baseline Objective Data Labs 09/25/23 07:29 09/25/23 07:29 Labs: Laboratory Results - last 24 hr 09/25/23 07:29 WBC 12.5 H RBC 2.82 L Hgb 8.5 L Hct 27.2 L MCV 96.5 MCH 30.1 MCHC 31.3 RDW 14.2 Plt Count 143 L MPV 10.0 Immature Gran % (Auto) 0.6 H Neut % (Auto) 86.9 H Lymph % (Auto) 4.0 L [place] % (Auto) 8.0 Eos % (Auto) 0.1 Baso % (Auto) 0.4 Lymph # (Auto) 0.5 L [place] # (Auto) 1.0 Eos # (Auto) 0.0 Baso # (Auto) 0.1 Abs Immat Gran (auto) 0.07 H Absolute Neuts (auto) 10.8 H Absolute Nucleated RBC 0.000 Nucleated RBC % (auto) 0.0 Sodium 142 Potassium 4.2 Chloride 105 Carbon Dioxide 29 Anion Gap 12 BUN 54 H Creatinine 1.41 H Estim Creat Clear Calc 15.8 Estimated GFR 36 Fasting Glucose 74 Calcium 9.7 Total Bilirubin 0.8 AST 22 ALT 11 Alkaline Phosphatase 45 Total Protein 6.6 Albumin 3.8 Microbiology Microbiology Results: Microbiology 09/23/23 19:18 Blood - Venous Blood Culture - Preliminary No growth after 24 hours. 09/23/23 16:54 Blood - Venous Blood Culture - Preliminary No growth after 24 hours. Procedures Date of Service Date of Service: 09/25/23 Progress Note: A&P Assessment and plan (1) GI bleed: Status: Acute (2) Weight loss: Status: Acute Plan 1/ Melena with downward drifting HGB, as well as FTT and weight loss --may have peptic ulcer, or underlying neoplasia PLAN: 1/ EGD for further assessment 2/ cont with PPI meantime Time Spent With Patient Time: Total time managing care of this patient today ____ minutes. Quality Stroke Does the patient have a stroke diagnosis?: No VTE Prior VTE?: No VTE Risk Level:: Medical - moderate - high VTE Device Contraindication: Treatment Not Indicated VTE Drug Contraindication: N/A - Med Ordered
--- NOTE | 2023-09-25 14:30 | MHC.SHP ---
Pre-Procedural Eval Section A - 24 Hr Update-Section A only Date of Service: 09/25/23 The patient is an INPATIENT: Yes The patient has been examined within 24 hours of the surgical procedure. The History & Physical has been completed within 30 days and I have reviewed it.: Yes Section B - Complete if H&P > 30 days Chief Complaint: UGIB, loculated pleural effusion Allergies: Allergies Allergy/AdvReac Type Severity Reaction Status Date / Time codeine [CODEINE] Allergy Intermediate RASH Verified 09/25/23 13:22 meperidine [From Demerol] Allergy Intermediate Unknown Verified 09/25/23 13:22 Plan Diagnosis/Plan: Unchanged I have reviewed the history and physical and performed a pertinent physical examination on my patient. No changes have occurred unless specified. Time Spent With Patient Time: Total time managing care of this patient today ____ minutes.
--- NOTE | 2023-09-25 14:55 | P.OP_ITS ---
Operative Note Operative Note Date of Service: 09/25/23 Narrative: Procedure Description: EGD Indication: Melena Anesthesia: MAC FLEXIBLE TRANSORAL UPPER GASTROINTESTINAL ENDOSCOPY UPPER ENDOSCOPY Consent: Indications for the procedure and potential complications of bleeding, perforation, reaction to medications and missed diagnosis were discussed with the patient and informed consent was obtained. Instrument: Olympus GIF H 190 J mid size upper endoscope Monitoring: Vital signs and clinical assessment, continuous EKG monitoring, Pulse oximetry, Carbon Dioxide monitoring and blood pressure monitoring were done throughout the procedure. Procedure: The patient was placed in the left lateral decubitis position and pre-procedure medications were administered and a bite block was placed. The endoscope was inserted into the mouth and advanced under direct vision to the third part of duodenum. A careful inspection was made as the upper endoscope was withdrawn including a retroflexed examination of the proximal stomach; Findings and interventions are described below. Findings: Larynx:normal Esophagus: GE junction at 40 cm, diaphragm hiatus at 40 cm, 3 cm salmon pink tissue consistent with Barretts (C3,M0) -schatzki ring Stomach: Granular mucosa . Biopsies were obtained. Grade 2 flap valve on retroflexed examination of the cardia. Duodenum: Normal bulb and descending duodenum, bx taken Intervention: Biopsies as noted above, Impression/Findings: gastritis schatzki ring possible barretts PLAN: Cont to monitor HGB if Bx neg or ongoing melena or dropping hgb then consider colonoscopy, check h emolysis labs
[2023-09-25] MEDS: Lactated Ringers 1,000 ML 80 ML IVCONT (16:16)
[2023-09-25] MEDS: Docusate Sodium 100 MG CAPSULE PO (21:54)
[2023-09-25] MEDS: LORazepam 0.5 MG TABLET PO (21:54)
[2023-09-25] MEDS: Metoprolol Tartrate 50 MG TABLET PO (21:55)
[2023-09-26] VITALS (7 sets, daily range): BP systolic 84–140; BP diastolic 48–67; PULSE 71–80; RESP 14–20; TEMP 36.3–37.3; O2SAT 92–97
[2023-09-26] MEDS: 0.9 % Sodium Chloride Flush 3 ML SYRINGE IVFLUSH ×4 (00:20→21:51)
[2023-09-26] MEDS: Levothyroxine Sodium 100 MCG TABLET PO (07:31)
[2023-09-26] MEDS: Pantoprazole Sodium 40 MG/10 ML VIAL IVPUSH ×2 (07:32→18:39)
[2023-09-26] MEDS: Acetaminophen 325 MG TABLET 650 MG PO ×2 (08:45→21:51)
[2023-09-26] MEDS: Amoxicillin/Potassium Clav 875 MG TABLET PO ×2 (08:46→21:50)
[2023-09-26] MEDS: Ferrous Sulfate 324 MG TABLET.DR PO (08:46)
[2023-09-26] MEDS: Cholecalciferol (Vitamin D3) 25 MCG TABLET PO (08:46)
[2023-09-26] MEDS: Metoprolol Tartrate 50 MG TABLET PO (08:46)
[2023-09-26] MEDS: polyethylene glycoL 3350 17 GM POWD.PACK PO ×2 (08:47→21:50)
--- NOTE | 2023-09-26 10:07 | MHC.SL.SWA ---
Speech Pathologist Impression: Risk of Aspiration Due to: Neurological Condition Weak Cough Dysphasia Diet Status: Patient would benefit from multiple small meals throughout the day to encourage PO intake Recommend Patient continue on current diet consistency: Puree (NDD1) with [place] thick liquids, pills crushed in puree. SODA DRIER FEEDER will continue to follow. Liquid Consistency and Strategies for Safe Swallow: Liquid Intake Recommendation: [place] Thick Liquid Intake Strategies: Small Sips No Straws Solid Food Consistency: Dietary Recommendations: Pureed (NDD1) Additional Modifications to Solid Foods: Oral Medication Intake: Crushed with Puree Please contact the pharmacy regarding appropriate crushable or liquid drug formulations that are available whenever modified delivery is recommended. Compensatory Strategies and Precautions to be Taken for Safe Swallow: Sitting Upright (90 deg) No Straw Alternate Liquids/Solids Rate of Ingestion Change Supervision While Eating and Drinking for Safe Swallow: Total Supervision (1:1) Foods to Avoid: Swallowing Recommended Treatments: Compens. Strategy Educat. Recommendation for Speech: Outpatient Speech Therapy Inpatient Speech Therapy Comment: Patient advanced to pureed food and nectar thick liquids on 09/24 after EGD procedure. EGD evidenced Schatzki ring and ?Barrets esophagitis. Patient seen morning of 09/25 for toleration of diet. Patient was assisted with eating bites of pureed eggs, and sips of [place] Thick liquids with Patient's daughter present in room. She produced a mild delay of oral transit of pureed food, mild delay initiating swallow, a mildly reduced laryngeal elevation palpated. ON liquids which patient self administered with sippy lid on cup, patient was noted to take several sips which were well timed with her swallow, evidencing no signs of aspiration. Patient reported that she always drinks something after each bite of food to help it go down. However she was noted to consistently take several sips after each bite, then c/o feeling full and not wanting to eat more. Daughter reported that this is her pattern at home, drinking more liquid than taking food then declaring herself full from the liquid. Daughter and patient were encouraged to take a break from the meal, but attempt and encourage eating more food after the break. Patient would benefit from multiple small meals throughout the day to encourage PO intake, which daughter agreed might be an effective strategy. Recommend Patient continue on current diet consistency: Puree with [place] thick liquids, pills crushed in puree. SODA DRIER FEEDER will continue to follow. [ End ] Frequency/Duration: Date Range for Service Req: Timeline to reassess: Mannequin Decorator Clinican/Clinical Fellow: No Supervisory Statement: I have reviewed and agree with the student/clinical fellow's documentation: N/A Speech Language Pathologist: Anjali Giordano M.A., CCC-SODA DRIER FEEDER
--- NOTE | 2023-09-26 10:08 | P.PNPL_ITS ---
Subjective Subjective Date of Service: 09/26/23 Interval history: The patient was seen on exam. Status post endoscopy. Did have some gastritis but otherwise no clear etiology for bleeding. Therefore she will undergo a colonoscopy I believe. In the meantime she did have a repeat chest x-ray which I personally reviewed. Appears that her right-sided pleural effusions a little bit worse. She also had some increased creatinine levels in a diuretics were stopped and she has been getting some IV she was which may be contributing to her worsening pleural effusion. She continues to be on 4 L of oxygen. Objective Data Labs 09/25/23 07:29 09/25/23 07:29 Microbiology Microbiology Results: Microbiology 09/23/23 19:18 Blood - Venous Blood Culture - Preliminary No growth after 48 hours. 09/23/23 16:54 Blood - Venous Blood Culture - Preliminary No growth after 48 hours. Review of Systems Constitutional: Reports no additional constitutional complaints, Denies chills, Denies fever(s), Denies night sweats and Reports weight loss Eyes: Reports no additional eye complaints, Denies blurry vision, Denies change in vision, Denies diplopia, Denies eye discharge, Denies loss of vision and Denies eye pain Denies dizziness Cardiovascular: Reports no additional cardiovascular complaints, Denies chest pain, Denies lightheadedness, Denies Loss of Consciousness and Reports dyspnea Respiratory: Reports no additional respiratory complaints, Reports cough and Reports dyspnea Gastrointestinal: Reports no additional gastrointestinal complaints, Denies abdominal pain, Reports melena, Denies hematochezia, Denies change in bowel habits and Denies change in stool character Genitourinary: Denies hematuria, Denies urinary frequency, Denies dysuria, Denies urinary incontinence, Denies urinary hesitancy and Denies urinary urgency Musculoskeletal: Reports no additional musculoskeletal complaints, Denies numbness and Denies tingling Denies dizziness, Denies loss of vision, Denies numbness and Denies tingling Psychiatric: Reports no additional psychiatric complaints Endocrine: Reports no additional endocrine complaints Hematologic/Lymphatic: Reports no additional hematologic/lymphatic complaints Allergic/Immunologic: Reports no additional allergic/immunologic complaints Physical Exam 2 Vital Signs: Vital Signs: Last Vital Signs Temp 97.4 F 09/26/23 07:00 Pulse 76 09/26/23 07:00 Resp 18 09/26/23 07:00 BP 104/48 L 09/26/23 07:00 Pulse Ox 95 09/26/23 07:00 O2 Del Method Nasal Cannula 09/26/23 07:00 O2 Flow Rate 4 09/26/23 07:00 Oxygen Flow Rate 4 09/23/23 13:39 BMI result Body Mass Index 14.3 Const: General: tired appearing Nutritional Appearance: underweight HEENT: Head: Yes normocephalic Neck: Neck: Yes supple Chest: Chest palpation & inspection: normal inspection of the chest Resp: Effort & Inspection: normal respiratory effort Auscultation: d iminished lung sounds Cardio: Heart sounds: S1 normal heart sound present and S2 normal heart sound present GI: Palpation (GI): Soft to palpation Skin: General skin exam: no rashes or lesions noted Extrem: General: Yes no clubbing, cyanosis or edema Procedures Date of Service Date of Service: 09/26/23 Assessment and Plan Assessment and plan (1) Hypoxia: Status: Acute (2) Acute hypoxemic respiratory failure: Status: Acute (3) Recurrent pleural effusion on right: Status: Acute Plan would stop IVF for now diuresis as tolerated Repeat CXR Friday, consider thoracentesis if right sided pleural effusion is persistent (diagnostic and therapeutic) Time Spent With Patient Time: Total time managing care of this patient today ____ minutes. Progress Note: Quality Stroke Does the patient have a stroke diagnosis?: No
--- NOTE | 2023-09-26 10:46 | P.PNIM_ITS ---
Subjective Subjective Date of Service: 09/26/23 Interval History: seen and examined this morning follow up for GI bleeding, pleural effusion no overnight events Review of Systems Review of Systems: Yes all other systems are reviewed and are negative Constitutional Constitutional: Denies chills and Denies fever(s) Cardiovascular Cardiovascular: Denies chest pain, Denies palpitations and Denies dyspnea Respiratory Respiratory: Denies cough and Denies dyspnea Endocrine Endocrine: Denies palpitations Physical Exam 2 Vital Signs: Vital Signs: Last Vital Signs Temp 97.4 F 09/26/23 07:00 Pulse 76 09/26/23 07:00 Resp 18 09/26/23 07:00 BP 104/48 L 09/26/23 07:00 Pulse Ox 95 09/26/23 07:00 O2 Del Method Nasal Cannula 09/26/23 07:00 O2 Flow Rate 4 09/26/23 07:00 Oxygen Flow Rate 4 09/23/23 13:39 BMI result Body Mass Index 14.3 Const: Other: Cachectic, frail appearing General: comfortable, no acute distress, alert and awake Resp: Other: diminished breath sounds Effort & Inspection: normal respiratory effort, able to speak in complete sentences, no respiratory distress and no use of accessory muscles Cardio: Rate: regular rate GI: Inspection: No distended Palpation (GI): Soft to palpation and nontender Neuro: General: moves all extremities and CN's II-XI intact bilaterally Extrem: General: Yes no pedal edema Objective Data Active Medications Acetaminophen (Acetaminophen 325 Mg Tablet) 650 mg PO Q6H PRN PRN Reason: Pain, Mild (Pain Scale 1-3) Last Admin: 09/26/23 08:45 Dose: 650 mg Documented By: CHRIS Amoxicillin/Clavulanate Potassium (Amoxicillin/Potassium Clav 875 Mg Tablet) 875 mg PO Q12H [facility] Last Admin: 09/26/23 08:46 Dose: 875 mg Documented By: CHRIS Docusate Sodium (Docusate Sodium 100 Mg Capsule) 100 mg PO BEDTIME [facility] Last Admin: 09/25/23 21:54 Dose: 100 mg Documented By: WILI Ferrous Sulfate (Ferrous Sulfate 324 Mg Tablet.) 324 mg PO DAILY [facility] Last Admin: 09/26/23 08:46 Dose: 324 mg Documented By: CHRIS Levothyroxine Sodium (Levothyroxine Sodium 100 Mcg Tablet) 100 mcg PO DAILY@0600 [facility] Last Admin: 09/26/23 07:31 Dose: 100 mcg Documented By: JAYCOB Lorazepam (Lorazepam 0.5 Mg Tablet) 0.5 mg PO BEDTIME PRN PRN Reason: RESTLESSNESS Last Admin: 09/25/23 21:54 Dose: 0.5 mg Documented By: WILI Metoprolol Tartrate (Metoprolol Tartrate 50 Mg Tablet) 50 mg PO BID [facility]; Protocol Last Admin: 09/26/23 08:46 Dose: 50 mg Documented By: CHRIS Ondansetron HCl (Ondansetron Hcl 4 Mg/2 Ml Vial) 4 mg IVPUSH Q8H PRN PRN Reason: Nausea and Vomiting Pantoprazole Sodium (Pantoprazole Sodium 40 Mg/10 Ml Vial) 40 mg IVPUSH BID@0630,1630 [facility] Last Admin: 09/26/23 07:32 Dose: 40 mg Documented By: JAYCOB Polyethylene Glycol (Polyethylene Glycol 3350 17 Gm Powd.Pack) 17 gm PO BID [facility] Last Admin: 09/26/23 08:47 Dose: 17 gm Documented By: CHRIS Senna (Sennosides 8.6 Mg Tablet) 17.2 mg PO BEDTIME PRN PRN Reason: Constipation Sodium Chloride (0.9 % Sodium Chloride Flush 3 Ml Syringe) 3 ml IVFLUSH QSHIFT [facility] Last Admin: 09/26/23 10:21 Dose: 3 ml Documented By: CHRIS Sodium Chloride (Sodium Chloride 0.65 % Nasal 44 Ml Sprbtl) 2 spray NOSTRIL-B QID PRN PRN Reason: dry nasal passages Vitamin D (Cholecalciferol (Vitamin D3) 25 Mcg Tablet) 25 mcg PO DAILY [facility] Last Admin: 09/26/23 08:46 Dose: 25 mcg Documented By: CHRIS Labs 09/26/23 10:33 09/25/23 07:29 Microbiology Microbiology Results: Microbiology 09/23/23 19:18 Blood Culture - Preliminary Blood - Venous No growth after 48 hours. 09/23/23 16:54 Blood Culture - Preliminary Blood - Venous No growth after 48 hours. Assessment and Plan (1) GI bleed: Status: Acute (2) Loculated pleural effusion: Status: Acute Plan 82 year old female with history of paroxysmal atrial fibrillation anticoagulated with eliquis, asthma, ckd stage 3, HFpEF, history of complete heart block s/p pacemaker, pulmonary htn, htn, hld, and unspecified dementia admitted for melena and loculated pleural effusion with failure to thrive GIB/acute blood loss anemia No further bleeding since admission continue IV ppi hold eliquis seen by GI, s/p EGD 09/24 - gastritis, schatzki ring, possible barretts but no evidence of active bleeding tentative plan for colonoscopy on Friday H/H stable overnight dysphagia Seen by speech consider barium swallow next week, unable to be done today Loculated pleural effusion with acute hypxomeic respiratory failure hx recurrent pleural effusion with h/o pleurix catheter 07/2020 seen by Pulmonary, initial thoracentesis cancelled as pt has history of chronic effusion, however repeat CXR 09/25 showing increase. plan for repeat CXR on Friday and possible therapeutic and diagnostic throacentesis on Friday if continues to worsen recommend augmentin to cover for any possible associated pneumonia- plan for 7 days attempted to wean oxygen 09/25, o2 sat down to 89%, will continue supplemental oxygen 1L [place], wean as tolerated constipation large stool burden on imaging GI rec begin stool regimen tentative plan for colonoscopy on Friday, prep Friday NICK on CKD3 mild Hold Lasix, Aldactone Follow renal function daily Hyperkalemia, mild Resolved Paroxysmal atrial fibrillation hold eliquis due to GIB will hold metoprolol for soft bp HFpEF stable and well compensated hold lasix, aldactone for NICK Moderate malnutrition Seen by nutrition will add ensure supplements SCPs full code Requires ongoing hospitalization for acute blood loss anemia. Will need to discuss end of life issues with family pending results of workup Quality Stroke Does the patient have a stroke diagnosis?: No VTE Prior VTE?: No VTE Risk Level:: Medical - moderate - high VTE Device Contraindication: Treatment Not Indicated VTE Drug Contraindication: N/A - Med Ordered
[2023-09-26 10:56] LABS: MANUAL DIFF FLAG NO
[2023-09-26 11:10] LABS: Basophils Percent Auto 0.3 % (0-2); Eosinophils Percent Auto 0.1 % (0-4); Hematocrit 27.8 % (37.0-47.0); Hemoglobin 8.7 g/dl (12.0-16.0); Imm Gran Abs Auto 0.09 X10*3/uL (0.00-0.03); Imm Gran Pct Auto 0.6 % (0.0-0.4); Immature Retic Fraction 11.6 % (3.0-15.9); Lymphocytes Absolute Auto 0.3 X10*3/uL (1.2-4.9); Mean Corpuscular HGB Conc 31.3 g/dl (31.0-35.0); Mean Corpuscular Hemoglobin 30.1 pg (27.0-33.0); Mean Corpuscular Volume 96.2 fL (80.0-98.0); Mean Platelet Volume 10.3 fL (9.4-12.3); Monocytes Absolute Auto 1.1 X10*3/uL (0.1-1.2); Monocytes Percent Auto 7.4 % (2-11); Neutrophils Absolute Auto 13.6 x10*3/uL (2.0-8.3); Neutrophils Percent Auto 89.6 % (45-73); Platelet Count 137 X10*3/uL (160-400); Red Blood Count 2.89 X10*6/uL (4.20-5.50); Red Cell Distribution Width 14.7 % (11.0-16.0); Retic HGB Equivalent 30.8 pg (30.0-35.0); Reticulocyte Percent 2.2 % (0.5-1.8); Reticulocytes Absolute 0.063 X10*6/uL (0.026-0.095); White Blood Count 15.2 X10*3/uL (4.8-10.8)
[2023-09-26 11:17] LABS: Alanine Aminotransferase 11 U/L (0-31); Albumin Level 3.3 g/dL (3.5-5.0); Alkaline Phosphatase 46 U/L (39-117); Anion Gap 15 (12-20); Aspartate Amino Transferase 21 U/L (5-31); Bilirubin Direct 0.3 mg/dL (0.0-0.5); Bilirubin Total 0.5 mg/dL (0.0-1.0); Blood Urea Nitrogen 53 mg/dL (9-16); Calcium 9.6 mg/dL (8.4-10.2); Carbon Dioxide 21 mmol/L (22-29); Chloride 108 mmol/L (96-108); Creatinine Clr Calc Pharmacy 15.1; Estimated Glomerular Filt Rate 34; Glucose Fasting 177 mg/dL (60-99); Lactate Dehydrogenase 263 U/L (122-220); Potassium 4.3 mmol/L (3.3-5.1); Sodium 140 mmol/L (135-145); Total Protein 6.3 g/dL (6.5-8.0)
--- NOTE | 2023-09-26 12:18 | MHC.CLN ---
F/U PT IS MODERATELY MALNOURISHED SEE FULL CLINICAL NUTRITION ASSESSMENT DATED 09/25/23 PT IS CURRENTLY NPO WHEN DIET TO ADVANCE; RECOMMEND ADDING ENSURE BID TO INCREASE KCALS AND PROMOTE WT GAIN SUPPLEMENT TO PROVIDE 700KCALS, 40G PROTEIN MONITOR PO INTAKE AND ENCOURAGE SUPPLEMENT
[2023-09-26] MEDS: bisacodyL 10 MG SUPP.RECT PR (12:54)
--- NOTE | 2023-09-26 14:22 | MHC.CM.PN ---
Pt is not ready for DC, provider anticipates DC on 09/29/23. CM checked in with pt and family member (daughter). daughter said that the plan is for pt to return home with VNA services from [facility] and to care for her. She said that they are working on getting a [facility] [employer] in to help with care. CM asked if they wanted a referral in to [facility], for [facility] and [facility], daughter declined. CM to follow and assist as needed with DC plan. Updates sent to [facility].
[2023-09-26] MEDS: LORazepam 0.5 MG TABLET PO (21:50)
[2023-09-26] MEDS: Docusate Sodium 100 MG CAPSULE PO (21:50)
[2023-09-27] VITALS (8 sets, daily range): BP systolic 110–147; BP diastolic 54–68; PULSE 69–95; RESP 16–20; TEMP 36.4–37.7; O2SAT 90–100
[2023-09-27] MEDS: Pantoprazole Sodium 40 MG/10 ML VIAL IVPUSH ×2 (06:44→16:18)
[2023-09-27 07:36] LABS: MANUAL DIFF FLAG NO
[2023-09-27 07:42] LABS: Basophils Percent Auto 0.3 % (0-2); Eosinophils Absolute Auto 0.1 X10*3/uL (0.0-0.4); Eosinophils Percent Auto 0.4 % (0-4); Hematocrit 28.9 % (37.0-47.0); Hemoglobin 9.1 g/dl (12.0-16.0); Imm Gran Abs Auto 0.07 X10*3/uL (0.00-0.03); Imm Gran Pct Auto 0.6 % (0.0-0.4); Lymphocytes Absolute Auto 0.4 X10*3/uL (1.2-4.9); Lymphocytes Percent Auto 3.4 % (20-40); Mean Corpuscular HGB Conc 31.5 g/dl (31.0-35.0); Mean Corpuscular Volume 95.4 fL (80.0-98.0); Mean Platelet Volume 10.9 fL (9.4-12.3); Monocytes Absolute Auto 0.9 X10*3/uL (0.1-1.2); Neutrophils Absolute Auto 10.8 x10*3/uL (2.0-8.3); Neutrophils Percent Auto 88.3 % (45-73); Platelet Count 122 X10*3/uL (160-400); Red Blood Count 3.03 X10*6/uL (4.20-5.50); Red Cell Distribution Width 15.1 % (11.0-16.0); White Blood Count 12.2 X10*3/uL (4.8-10.8)
[2023-09-27 08:00] LABS: Alanine Aminotransferase 13 U/L (0-31); Albumin Level 3.3 g/dL (3.5-5.0); Alkaline Phosphatase 54 U/L (39-117); Anion Gap 15 (12-20); Aspartate Amino Transferase 24 U/L (5-31); Bilirubin Total 0.5 mg/dL (0.0-1.0); Blood Urea Nitrogen 55 mg/dL (9-16); Calcium 9.7 mg/dL (8.4-10.2); Carbon Dioxide 24 mmol/L (22-29); Chloride 105 mmol/L (96-108); Creatinine Clr Calc Pharmacy 16.3; Estimated Glomerular Filt Rate 37; Glucose Fasting 89 mg/dL (60-99); Sodium 139 mmol/L (135-145); Total Protein 6.7 g/dL (6.5-8.0)
[2023-09-27] MEDS: polyethylene glycoL 3350 17 GM POWD.PACK PO ×2 (09:00→21:23)
[2023-09-27] MEDS: Ferrous Sulfate 324 MG TABLET.DR PO (09:03)
[2023-09-27] MEDS: 0.9 % Sodium Chloride Flush 3 ML SYRINGE IVFLUSH ×3 (09:03→21:23)
[2023-09-27] MEDS: Cholecalciferol (Vitamin D3) 25 MCG TABLET PO (09:03)
[2023-09-27] MEDS: Amoxicillin/Potassium Clav 875 MG TABLET PO ×2 (09:03→21:22)
--- NOTE | 2023-09-27 10:55 | P.PNIM_ITS ---
Subjective Subjective Date of Service: 09/27/23 Interval History: seen and examined this morning follow up for GI bleeding, pleural effusion no overnight events Review of Systems Review of Systems: Yes all other systems are reviewed and are negative Constitutional Constitutional: Denies chills and Denies fever(s) Cardiovascular Cardiovascular: Denies chest pain, Denies palpitations and Denies dyspnea Respiratory Respiratory: Denies cough and Denies dyspnea Endocrine Endocrine: Denies palpitations Physical Exam 2 Vital Signs: Vital Signs: Last Vital Signs Temp 98.8 F 09/27/23 07:45 Pulse 81 09/27/23 07:45 Resp 20 09/27/23 07:45 BP 120/58 L 09/27/23 07:45 Pulse Ox 100 09/27/23 07:45 O2 Del Method Nasal Cannula 09/27/23 07:45 O2 Flow Rate 3 09/27/23 07:45 Oxygen Flow Rate 1 09/26/23 14:14 BMI result Body Mass Index 14.3 Appearing in no acute distress lung sounds are clear to auscultation heart regular rate rhythm, clear S1, S2 positive bowel sounds, abdomen is soft, nontender neuro patient is alert x3, no focal deficits Objective Data Active Medications Acetaminophen (Acetaminophen 325 Mg Tablet) 650 mg PO Q6H PRN PRN Reason: Pain, Mild (Pain Scale 1-3) Last Admin: 09/26/23 21:51 Dose: 650 mg Documented By: JUAN Amoxicillin/Clavulanate Potassium (Amoxicillin/Potassium Clav 875 Mg Tablet) 875 mg PO Q12H [facility] Last Admin: 09/27/23 09:03 Dose: 875 mg Documented By: CAITLIN Docusate Sodium (Docusate Sodium 100 Mg Capsule) 100 mg PO BEDTIME [facility] Last Admin: 09/26/23 21:50 Dose: 100 mg Documented By: JUAN Ferrous Sulfate (Ferrous Sulfate 324 Mg Tablet.Dr) 324 mg PO DAILY [facility] Last Admin: 09/27/23 09:03 Dose: 324 mg Documented By: CAITLIN Levothyroxine Sodium (Levothyroxine Sodium 100 Mcg Tablet) 100 mcg PO DAILY@0600 [facility] Last Admin: 09/27/23 06:42 Dose: Not Given Documented By: JUAN Non-Admin Reason: Patient Refused Lorazepam (Lorazepam 0.5 Mg Tablet) 0.5 mg PO BEDTIME PRN PRN Reason: RESTLESSNESS Last Admin: 09/26/23 21:50 Dose: 0.5 mg Documented By: JUAN Metoprolol Tartrate (Metoprolol Tartrate 25 Mg Tablet) 25 mg PO BID [facility]; Protocol Ondansetron HCl (Ondansetron Hcl 4 Mg/2 Ml Vial) 4 mg IVPUSH Q8H PRN PRN Reason: Nausea and Vomiting Pantoprazole Sodium (Pantoprazole Sodium 40 Mg/10 Ml Vial) 40 mg IVPUSH BID@0630,1630 [facility] Last Admin: 09/27/23 06:44 Dose: 40 mg Documented By: JUAN Polyethylene Glycol (Polyethylene Glycol 3350 17 Gm Powd.Pack) 17 gm PO BID [facility] Last Admin: 09/27/23 09:00 Dose: 17 gm Documented By: CAITLIN Senna (Sennosides 8.6 Mg Tablet) 17.2 mg PO BEDTIME PRN PRN Reason: Constipation Sodium Chloride (0.9 % Sodium Chloride Flush 3 Ml Syringe) 3 ml IVFLUSH QSHIFT [facility] Last Admin: 09/27/23 09:03 Dose: 3 ml Documented By: CAITLIN Sodium Chloride (Sodium Chloride 0.65 % Nasal 44 Ml Sprbtl) 2 spray NOSTRIL-B QID PRN PRN Reason: dry nasal passages Vitamin D (Cholecalciferol (Vitamin D3) 25 Mcg Tablet) 25 mcg PO DAILY [facility] Last Admin: 09/27/23 09:03 Dose: 25 mcg Documented By: CAITLIN Labs 09/27/23 07:28 09/27/23 07:28 Labs: Laboratory Results - last 24 hr 09/26/23 09/26/23 09/26/23 10:33 10:33 10:33 MCV 96.2 MCH 30.1 MCHC 31.3 RDW 14.7 Plt Count 137 L MPV 10.3 Immature Gran % (Auto) 0.6 H Neut % (Auto) 89.6 H Lymph % (Auto) 2.0 L [place] % (Auto) 7.4 Eos % (Auto) 0.1 Baso % (Auto) 0.3 Lymph # (Auto) 0.3 L [place] # (Auto) 1.1 Eos # (Auto) 0.0 Baso # (Auto) 0.0 Abs Immat Gran (auto) 0.09 H Absolute Neuts (auto) 13.6 H Absolute Nucleated RBC 0.000 Nucleated RBC % (auto) 0.0 Absolute Retic 0.063 Cancelled Percent Retic 2.2 H Cancelled Immature Retic Fraction 11.6 Retic Hgb Equivalent Anion Gap Estim Creat Clear Calc Estimated GFR Fasting Glucose Calcium Total Bilirubin Direct Bilirubin AST ALT Alkaline Phosphatase Lactate Dehydrogenase Total Protein Albumin 09/26/23 09/26/23 09/27/23 10:33 10:33 07:28 MCV 95.4 MCH 30.0 MCHC 31.5 RDW 15.1 Plt Count 122 L MPV 10.9 Immature Gran % (Auto) 0.6 H Neut % (Auto) 88.3 H Lymph % (Auto) 3.4 L [place] % (Auto) 7.0 Eos % (Auto) 0.4 Baso % (Auto) 0.3 Lymph # (Auto) 0.4 L [place] # (Auto) 0.9 Eos # (Auto) 0.1 Baso # (Auto) 0.0 Abs Immat Gran (auto) 0.07 H Absolute Neuts (auto) 10.8 H Absolute Nucleated RBC 0.000 Nucleated RBC % (auto) 0.0 Absolute Retic Percent Retic Immature Retic Fraction Cancelled Retic Hgb Equivalent 30.8 Cancelled Anion Gap 15 15 Estim Creat Clear Calc 15.1 16.3 Estimated GFR 34 37 Fasting Glucose 177 H 89 Calcium 9.6 9.7 Total Bilirubin 0.5 0.5 Direct Bilirubin 0.3 AST 21 24 ALT 11 13 Alkaline Phosphatase 46 54 Lactate Dehydrogenase 263 H Total Protein 6.3 L 6.7 Albumin 3.3 L 3.3 L Assessment and Plan (1) GI bleed: Status: Acute (2) Loculated pleural effusion: Status: Acute Plan 82 year old female with history of paroxysmal atrial fibrillation anticoagulated with eliquis, asthma, ckd stage 3, HFpEF, history of complete heart block s/p pacemaker, pulmonary htn, htn, hld, and unspecified dementia admitted for melena and loculated pleural effusion with failure to thrive GIB/acute blood loss anemia No further bleeding since admission continue IV ppi hold eliquis seen by GI, s/p EGD 09/24 - gastritis, schatzki ring, possible barretts but no evidence of active bleeding tentative plan for colonoscopy on Friday, patient unsure if she will be able to complete prep H/H stable overnight dysphagia Seen by speech consider barium swallow next week, unable to be done today Loculated pleural effusion with acute hypxomeic respiratory failure hx recurrent pleural effusion with h/o pleurix catheter 07/2020 seen by Pulmonary, initial thoracentesis cancelled as pt has history of chronic effusion, however repeat CXR 09/25 showing increase. plan for repeat CXR on Friday and possible therapeutic and diagnostic throacentesis on Friday if continues to worsen recommend augmentin to cover for any possible associated pneumonia- plan for 7 days attempted to wean oxygen 09/25, o2 sat down to 89%, will continue supplemental oxygen 1L [place], wean as tolerated constipation large stool burden on imaging GI rec begin stool regimen tentative plan for colonoscopy on Friday, prep Friday NICK on CKD3 mild Hold Lasix, Aldactone Follow renal function daily Hyperkalemia, mild Resolved Paroxysmal atrial fibrillation hold eliquis due to GIB will hold metoprolol for soft bp HFpEF stable and well compensated hold lasix, aldactone for NICK Moderate malnutrition Seen by nutrition will add ensure supplements SCPs Attending Dr. Romero full code Requires ongoing hospitalization for acute blood loss anemia. Will need to discuss end of life issues with family pending results of workup Quality Stroke Does the patient have a stroke diagnosis?: No VTE Prior VTE?: No VTE Risk Level:: Medical - moderate - high VTE Device Contraindication: Treatment Not Indicated VTE Drug Contraindication: N/A - Med Ordered
[2023-09-27] MEDS: Acetaminophen 325 MG TABLET 650 MG PO ×2 (14:54→21:21)
[2023-09-27] MEDS: Docusate Sodium 100 MG CAPSULE PO (21:22)
[2023-09-27] MEDS: LORazepam 0.5 MG TABLET PO (21:22)
[2023-09-28] VITALS (7 sets, daily range): BP systolic 117–126; BP diastolic 57–60; PULSE 72–95; RESP 16–21; TEMP 36.1–37.1; O2SAT 90–100
[2023-09-28] MEDS: Levothyroxine Sodium 100 MCG TABLET PO (06:11)
[2023-09-28] MEDS: Pantoprazole Sodium 40 MG/10 ML VIAL IVPUSH (06:19)
--- NOTE | 2023-09-28 09:39 | P.PNIM_ITS ---
Subjective Subjective Date of Service: 09/28/23 Interval History: seen and examined this morning follow up for GI bleeding, pleural effusion no overnight events Review of Systems Review of Systems: Yes all other systems are reviewed and are negative Constitutional Constitutional: Denies chills and Denies fever(s) Cardiovascular Cardiovascular: Denies chest pain, Denies palpitations and Denies dyspnea Respiratory Respiratory: Denies cough and Denies dyspnea Endocrine Endocrine: Denies palpitations Physical Exam 2 Vital Signs: Vital Signs: Last Vital Signs Temp 98.3 F 09/28/23 07:44 Pulse 88 09/28/23 07:44 Resp 16 09/28/23 07:44 BP 123/60 09/28/23 07:44 Pulse Ox 95 09/28/23 07:44 O2 Del Method Nasal Cannula 09/28/23 07:44 O2 Flow Rate 1 09/28/23 07:44 Oxygen Flow Rate 1 09/26/23 14:14 BMI result Body Mass Index 14.3 Appearing in no acute distress lung sounds are clear to auscultation heart regular rate rhythm, clear S1, S2 positive bowel sounds, abdomen is soft, nontender neuro patient is alert x3, no focal deficits Objective Data Active Medications Acetaminophen (Acetaminophen 325 Mg Tablet) 650 mg PO Q6H PRN PRN Reason: Pain, Mild (Pain Scale 1-3) Last Admin: 09/27/23 21:21 Dose: 650 mg Documented By: JUAN Amoxicillin/Clavulanate Potassium (Amoxicillin/Potassium Clav 875 Mg Tablet) 875 mg PO Q12H [facility] Last Admin: 09/27/23 21:22 Dose: 875 mg Documented By: JUAN Docusate Sodium (Docusate Sodium 100 Mg Capsule) 100 mg PO BEDTIME [facility] Last Admin: 09/27/23 21:22 Dose: 100 mg Documented By: JUAN Ferrous Sulfate (Ferrous Sulfate 324 Mg Tablet.) 324 mg PO DAILY [facility] Last Admin: 09/27/23 09:03 Dose: 324 mg Documented By: CAITLIN Levothyroxine Sodium (Levothyroxine Sodium 100 Mcg Tablet) 100 mcg PO DAILY@0600 [facility] Last Admin: 09/28/23 06:11 Dose: 100 mcg Documented By: JUAN Lorazepam (Lorazepam 0.5 Mg Tablet) 0.5 mg PO BEDTIME PRN PRN Reason: RESTLESSNESS Last Admin: 09/27/23 21:22 Dose: 0.5 mg Documented By: JUAN Metoprolol Tartrate (Metoprolol Tartrate 25 Mg Tablet) 25 mg PO BID [facility]; Protocol Ondansetron HCl (Ondansetron Hcl 4 Mg/2 Ml Vial) 4 mg IVPUSH Q8H PRN PRN Reason: Nausea and Vomiting Pantoprazole Sodium (Pantoprazole Sodium 40 Mg/10 Ml Vial) 40 mg IVPUSH BID@0630,1630 [facility] Last Admin: 09/28/23 06:19 Dose: 40 mg Documented By: JUAN Polyethylene Glycol (Polyethylene Glycol 3350 17 Gm Powd.Pack) 17 gm PO BID [facility] Last Admin: 09/27/23 21:23 Dose: 17 gm Documented By: JUAN Senna (Sennosides 8.6 Mg Tablet) 17.2 mg PO BEDTIME PRN PRN Reason: Constipation Sodium Chloride (0.9 % Sodium Chloride Flush 3 Ml Syringe) 3 ml IVFLUSH QSHIFT [facility] Last Admin: 09/27/23 21:23 Dose: 3 ml Documented By: JUAN Sodium Chloride (Sodium Chloride 0.65 % Nasal 44 Ml Sprbtl) 2 spray NOSTRIL-B QID PRN PRN Reason: dry nasal passages Vitamin D (Cholecalciferol (Vitamin D3) 25 Mcg Tablet) 25 mcg PO DAILY [facility] Last Admin: 09/27/23 09:03 Dose: 25 mcg Documented By: CAITLIN Labs 09/27/23 07:28 09/27/23 07:28 Assessment and Plan (1) GI bleed: Status: Acute (2) Loculated pleural effusion: Status: Acute Plan 82 year old female with history of paroxysmal atrial fibrillation anticoagulated with eliquis, asthma, ckd stage 3, HFpEF, history of complete heart block s/p pacemaker, pulmonary htn, htn, hld, and unspecified dementia admitted for melena and loculated pleural effusion with failure to thrive GIB/acute blood loss anemia No further bleeding since admission continue IV ppi hold eliquis seen by GI, s/p EGD 09/24 - gastritis, schatzki ring, possible barretts but no evidence of active bleeding tentative plan for colonoscopy on Friday, patient unsure if she will be able to complete prep, will do fleets enema H/H stable overnight dysphagia Seen by speech consider barium swallow next week, unable to be done today Loculated pleural effusion with acute hypxomeic respiratory failure hx recurrent pleural effusion with h/o pleurix catheter 07/2020 seen by Pulmonary, initial thoracentesis cancelled as pt has history of chronic effusion, however repeat CXR 09/25 showing increase. plan for repeat CXR on Friday and possible therapeutic and diagnostic throacentesis on Friday if continues to worsen recommend augmentin to cover for any possible associated pneumonia- plan for 7 days attempted to wean oxygen 09/25, o2 sat down to 89%, will continue supplemental oxygen 1L [place], wean as tolerated constipation large stool burden on imaging GI rec begin stool regimen tentative plan for colonoscopy on Friday fleets enema NICK on CKD3 mild Hold Lasix, Aldactone Follow renal function daily Hyperkalemia, mild Resolved Paroxysmal atrial fibrillation hold eliquis due to GIB will hold metoprolol for soft bp HFpEF stable and well compensated hold lasix, aldactone for NICK Moderate malnutrition. BMI 14.3 Seen by nutrition will add ensure supplements SCPs Attending Dr. Romero full code Requires ongoing hospitalization for acute blood loss anemia. Will need to discuss end of life issues with family pending results of workup Quality Stroke Does the patient have a stroke diagnosis?: No VTE Prior VTE?: No VTE Risk Level:: Medical - moderate - high VTE Device Contraindication: Treatment Not Indicated VTE Drug Contraindication: N/A - Med Ordered
[2023-09-28] MEDS: Mineral OiL enema 133 ML ENEMA PR (09:58)
[2023-09-28] MEDS: 0.9 % Sodium Chloride Flush 3 ML SYRINGE IVFLUSH ×3 (09:58→19:53)
[2023-09-28] MEDS: Ferrous Sulfate 324 MG TABLET.DR PO (09:58)
[2023-09-28] MEDS: polyethylene glycoL 3350 17 GM POWD.PACK PO ×2 (09:58→19:53)
[2023-09-28] MEDS: Amoxicillin/Potassium Clav 875 MG TABLET PO ×2 (09:58→19:53)
[2023-09-28] MEDS: Cholecalciferol (Vitamin D3) 25 MCG TABLET PO (09:58)
[2023-09-28] MEDS: Acetaminophen 325 MG TABLET 650 MG PO ×2 (14:52→21:37)
--- NOTE | 2023-09-28 16:13 | MHC.CM.PN ---
Cm met w/pt and family per request, family requesting referral to [facility] as pt's dtr at bedside had discussed w/pt's /hcp Nolan who has agreed to [facility] ref and [employer], task sent via [facility].
[2023-09-28] MEDS: Omeprazole 20 MG CAPSULE.DR PO (16:19)
[2023-09-28] MEDS: Sodium Phosphate,Mono-Dibasic 133 ML ENEMA PR (18:19)
[2023-09-28] MEDS: Docusate Sodium 100 MG CAPSULE PO (19:53)
[2023-09-28] MEDS: LORazepam 2 MG/ML VIAL 0.5 MG IVPUSH (21:36)
[2023-09-29] VITALS (9 sets, daily range): BP systolic 114–146; BP diastolic 55–65; PULSE 73–90; RESP 18–32; TEMP 36.2–37; O2SAT 89–100
--- NOTE | 2023-09-29 08:23 | HO.PM.IMPN ---
Subjective Subjective Date of Service: 09/29/23 Interval History: seen and examined this morning follow up for GI bleeding, pleural effusion no overnight events Review of Systems Review of Systems: Yes all other systems are reviewed and are negative Constitutional Constitutional: Denies chills and Denies fever(s) Cardiovascular Cardiovascular: Denies chest pain, Denies palpitations and Denies dyspnea Respiratory Respiratory: Denies cough and Denies dyspnea Endocrine Endocrine: Denies palpitations Physical Exam Vital Signs: Vital Signs: Last Vital Signs Temp 97.3 F 09/29/23 07:16 Pulse 80 09/29/23 07:16 Resp 20 09/29/23 07:16 BP 114/57 L 09/29/23 07:16 Pulse Ox 92 09/29/23 07:16 O2 Del Method Nasal Cannula 09/29/23 07:16 O2 Flow Rate 4 09/29/23 07:16 Oxygen Flow Rate 2 09/28/23 14:00 BMI result Body Mass Index 14.3 Appearing in no acute distress, thin and frail lung sounds are clear to auscultation heart regular rate rhythm, clear S1, S2 positive bowel sounds, abdomen is soft, nontender neuro patient is alert x3, no focal deficits Objective Data Active Medications Acetaminophen (Acetaminophen 325 Mg Tablet) 650 mg PO Q6H PRN PRN Reason: Pain, Mild (Pain Scale 1-3) Last Admin: 09/28/23 21:37 Dose: 650 mg Documented By: CYNDIE Amoxicillin/Clavulanate Potassium (Amoxicillin/Potassium Clav 875 Mg Tablet) 875 mg PO Q12H [facility] Last Admin: 09/28/23 19:53 Dose: 875 mg Documented By: CYNDIE Docusate Sodium (Docusate Sodium 100 Mg Capsule) 100 mg PO BEDTIME [facility] Last Admin: 09/28/23 19:53 Dose: 100 mg Documented By: CYNDIE Ferrous Sulfate (Ferrous Sulfate 324 Mg Tablet.Dr) 324 mg PO DAILY [facility] Last Admin: 09/28/23 09:58 Dose: 324 mg Documented By: CAITLIN Levothyroxine Sodium (Levothyroxine Sodium 100 Mcg Tablet) 100 mcg PO DAILY@0600 [facility] Last Admin: 09/29/23 05:56 Dose: Not Given Documented By: CYNDIE Non-Admin Reason: NPO Metoprolol Tartrate (Metoprolol Tartrate 25 Mg Tablet) 25 mg PO BID [facility]; Protocol Omeprazole (Omeprazole 20 Mg Capsule.Dr) 20 mg PO BID@0630,1630 [facility] Last Admin: 09/29/23 05:56 Dose: Not Given Documented By: CYNDIE Non-Admin Reason: NPO Ondansetron HCl (Ondansetron Hcl 4 Mg/2 Ml Vial) 4 mg IVPUSH Q8H PRN PRN Reason: Nausea and Vomiting Polyethylene Glycol (Polyethylene Glycol 3350 17 Gm Powd.Pack) 17 gm PO BID [facility] Last Admin: 09/28/23 19:53 Dose: 17 gm Documented By: CYNDIE Senna (Sennosides 8.6 Mg Tablet) 17.2 mg PO BEDTIME PRN PRN Reason: Constipation Sodium Biphosphate/Sodium Phosphate (Sodium Phosphate,[place]-Dibasic 133 Ml Enema) 133 ml AL ONCE PRN PRN Reason: Constipation Last Admin: 09/28/23 18:19 Dose: 133 ml Documented By: CAITLIN Sodium Chloride (0.9 % Sodium Chloride Flush 3 Ml Syringe) 3 ml IVFLUSH QSHIFT [facility] Last Admin: 09/28/23 19:53 Dose: 3 ml Documented By: CYNDIE Sodium Chloride (Sodium Chloride 0.65 % Nasal 44 Ml Sprbtl) 2 spray NOSTRIL-B QID PRN PRN Reason: dry nasal passages Vitamin D (Cholecalciferol (Vitamin D3) 25 Mcg Tablet) 25 mcg PO DAILY [facility] Last Admin: 09/28/23 09:58 Dose: 25 mcg Documented By: CAITLIN Labs 09/27/23 07:28 09/27/23 07:28 Microbiology Microbiology Results: Microbiology 09/23/23 19:18 Blood Culture - Final Blood - Venous No growth after 5 days. 09/23/23 16:54 Blood Culture - Final Blood - Venous No growth after 5 days. Assessment and Plan (1) GI bleed: Status: Acute (2) Loculated pleural effusion: Status: Acute Plan 82 year old female with history of paroxysmal atrial fibrillation anticoagulated with eliquis, asthma, ckd stage 3, HFpEF, history of complete heart block s/p pacemaker, pulmonary htn, htn, hld, and unspecified dementia admitted for melena and loculated pleural effusion with failure to thrive GIB/acute blood loss anemia No further bleeding since admission continue IV ppi hold eliquis seen by GI, s/p EGD 09/24 - gastritis, schatzki ring, possible barretts but no evidence of active bleeding Plan for colonoscopy today, completed 2 fleets enemas, needs 2 more and po dulcolax Dysphagia Seen by speech barium swallow ordered for tomorrow Loculated pleural effusion with acute hypxomeic respiratory failure hx recurrent pleural effusion with h/o pleurix catheter 07/2020 seen by Pulmonary, initial thoracentesis cancelled as pt has history of chronic effusion, however repeat CXR 09/25 showing increase. plan for repeat CXR on Friday and possible therapeutic and diagnostic throacentesis on Friday if continues to worsen recommend augmentin to cover for any possible associated pneumonia- plan for 7 days attempted to wean oxygen 09/25, o2 sat down to 89%, will continue supplemental oxygen 1L NC, wean as tolerated constipation large stool burden on imaging GI rec begin stool regimen tentative plan for colonoscopy on Friday fleets enema NICK on CKD3 mild Hold Lasix, Aldactone Follow renal function daily Hyperkalemia, mild Resolved Paroxysmal atrial fibrillation hold eliquis due to GIB will hold metoprolol for soft bp HFpEF stable and well compensated hold lasix, aldactone for NICK Moderate malnutrition. BMI 14.3 Seen by nutrition will add ensure supplements SCPs Attending Dr. Romero full code Requires ongoing hospitalization for acute blood loss anemia. Will need to discuss end of life issues with family pending results of workup Quality Stroke Does the patient have a stroke diagnosis?: No VTE Prior VTE?: No VTE Risk Level:: Medical - moderate - high VTE Device Contraindication: Treatment Not Indicated VTE Drug Contraindication: N/A - Med Ordered
[2023-09-29] MEDS: Cholecalciferol (Vitamin D3) 25 MCG TABLET PO (08:29)
[2023-09-29] MEDS: Ferrous Sulfate 324 MG TABLET.DR PO (08:29)
[2023-09-29] MEDS: Amoxicillin/Potassium Clav 875 MG TABLET PO ×2 (08:29→20:04)
[2023-09-29] MEDS: 0.9 % Sodium Chloride Flush 3 ML SYRINGE IVFLUSH (08:30)
--- NOTE | 2023-09-29 09:17 | MHC.SLORD ---
Speech Language Pathology Order Status: Pt is NPO for colonscopy today, thus no PO trials were given. Per PROTOTYPE DEICER ASSEMBLER, pt to have barium swallow tomorrow. LAST REMODELER REPAIRER will continue to follow.
--- NOTE | 2023-09-29 11:19 | MHC.CM.PN ---
Pt is not yet ready for DC, plan is for a colonscopy today. DC plan is home with family care and support from [facility]. CM to follow and assist with DC plan.
--- NOTE | 2023-09-29 11:32 | MHC.CLN ---
F/U PT IS CURRENTLY NPO FOR PROCEDURE PT'S PREVIOUS PO INTAKE 0-25% PT WAS RECEIVING PUREED WITH NT LIQ DIET PER THERAPIST RRT WHEN DIET TO RESUME; RECOMMEND RE-STARTING ENSURE BID TO INCREASE KCALS AND PROMOTE WT GAIN SUPPLEMENT TO PROVIDE 700KCALS, 40G PROTEIN MONITOR PO INTAKE AND ENCOURAGE SUPPLEMENT
[2023-09-29] MEDS: bisacodyL 5 MG TABLET.DR 10 MG PO ×2 (12:10→20:07)
[2023-09-29] MEDS: Sodium Phosphate,Mono-Dibasic 133 ML ENEMA PR ×2 (13:28→13:41)
--- NOTE | 2023-09-29 14:21 | P.PNGI_ITS ---
Subjective Subjective Date of Service: 09/29/23 Interval History: HGB been stable no abdominal pain was unable to drink bowel prep, received enemas Critical Care Time (minutes): 0 Physical Exam 2 Vital Signs: Vital Signs: Last Vital Signs Temp 97.5 F 09/29/23 11:08 Pulse 84 09/29/23 11:08 Resp 20 09/29/23 11:08 BP 121/59 L 09/29/23 11:08 Pulse Ox 92 09/29/23 11:08 O2 Del Method Nasal Cannula 09/29/23 11:08 O2 Flow Rate 4 09/29/23 11:08 Oxygen Flow Rate 2 09/28/23 14:00 BMI result Body Mass Index 14.3 EXAM: GENERAL: The patient is frail and weak VITAL SIGNS:see workflow HEENT: Nonicteric sclerae, PERRLA, EOMI. Oropharynx clear. Moist mucous membranes. Conjunctivae appear pale. No thyroid mass. CHEST: Chest wall is nontender. HEART: Regular rate and rhythm without murmurs. LUNGS: Clear to auscultation bilaterally with reduced BS ABDOMEN: Soft, positive bowel sounds, nontender, no organomegaly.no flank tenderness SKIN: No rash, no excessive bruising, petechiae, or purpura. NEUROLOGIC: Cranial nerves II-XII intact without motor/sensory deficit. Psych: confused Objective Data Labs 09/27/23 07:28 09/27/23 07:28 Microbiology Microbiology Results: Microbiology 09/23/23 19:18 Blood - Venous Blood Culture - Final No growth after 5 days. 09/23/23 16:54 Blood - Venous Blood Culture - Final No growth after 5 days. Procedures Date of Service Date of Service: 09/29/23 Progress Note: A&P Assessment and plan (1) Melena: Status: Acute Plan 1/ Anemia with melenic stool, no source isolated on upper endoscopy, also background hx of weight loss and FTT possibly underlying neoplasia or could be from her numerous gallstones PLAN: 1/ Plan for colonoscopy today for further assessment, discussed with pfamily about delay vs porceeding or conservative management due to poor prep but would rather at least attempt to proceed and see how it goes Time Spent With Patient Time: Total time managing care of this patient today ____ minutes. Quality Stroke Does the patient have a stroke diagnosis?: No VTE Prior VTE?: No VTE Risk Level:: Medical - moderate - high VTE Device Contraindication: Treatment Not Indicated VTE Drug Contraindication: N/A - Med Ordered
--- NOTE | 2023-09-29 14:22 | MHC.SHP ---
Pre-Procedural Eval Section A - 24 Hr Update-Section A only Date of Service: 09/29/23 The patient is an INPATIENT: Yes The patient has been examined within 24 hours of the surgical procedure. The History & Physical has been completed within 30 days and I have reviewed it.: Yes Section B - Complete if H&P > 30 days Chief Complaint: UGIB, loculated pleural effusion Allergies: Allergies Allergy/AdvReac Type Severity Reaction Status Date / Time codeine [CODEINE] Allergy Intermediate RASH Verified 09/25/23 13:22 meperidine [From Demerol] Allergy Intermediate Unknown Verified 09/25/23 13:22 Plan Diagnosis/Plan: Unchanged I have reviewed the history and physical and performed a pertinent physical examination on my patient. No changes have occurred unless specified.colonoscopy Time Spent With Patient Time: Total time managing care of this patient today ____ minutes.
--- NOTE | 2023-09-29 14:45 | P.CONAN_ITS ---
[facility] Active Problems Active Problems: All Active Problems (Updated 09/24/23 @ 22:38 by Jairo Bird MD) Melena (Acute) Atelectasis (Acute) GI bleed (Acute) Hypoxia (Acute) Acute hypoxemic respiratory failure (Acute) Loculated pleural effusion (Acute) UGIB (upper gastrointestinal bleed) (Acute) Bedbound (Acute) Weakness generalized (Acute) Early satiety (Acute) Weight loss (Acute) Anorexia (Acute) Paroxysmal A-fib (Acute) Cardiac pacemaker in situ (Acute) Asthma exacerbation (Acute) S/P AVR (Acute) Paroxysmal atrial fibrillation (Acute) Diarrhea (Acute) Altered mental status (Acute) Pulsatile tinnitus, bilateral (Acute) Constipation (Acute) Eustachian tube dysfunction (Acute) Auditory hallucination (Acute) Candidemia (Acute) Pneumonia (Acute) Hypothyroidism (Acute) Anxiety (Acute) Neuropathy (Acute) Anemia (Acute) Osteoporosis (Acute) Vitamin D deficiency (Acute) Chronic kidney disease (CKD), stage III (moderate) (Acute) Pure hypercholesterolemia (Acute) Benign essential hypertension (Acute) Sensorineural hearing loss (Acute) Chest tube in place (Acute) (HFpEF) heart failure with preserved ejection fraction (Acute) Pulmonary hypertension (Acute) Tricuspid regurgitation (Acute) Complete heart block (Acute) Recurrent pleural effusion on right (Acute) Past Medical History Medical History (Updated 09/24/23 @ 22:38 by Jairo Bird MD) Atelectasis E-coli UTI Candidemia Neuropathy Anemia Osteoporosis Vitamin D deficiency Chronic kidney disease (CKD), stage III (moderate) Pure hypercholesterolemia Benign essential hypertension Sensorineural hearing loss Paroxysmal atrial fibrillation Pulmonary hypertension Tricuspid regurgitation Cardiac pacemaker in situ (HFpEF) heart failure with preserved ejection fraction GI bleed Tobacco abuse, in remission Aortic stenosis Anxiety Hypothyroidism Leg edema Hyperlipidemia H/O: HTN (hypertension) Complete heart block Paroxysmal A-fib Family History Family History Father No problems noted. Mother No problems noted. Sister Diabetes Cancer Family history of problems with anesthesia: No Surgical History Surgical History S/P AVR Hx of aortic valve repair History of thoracentesis Hx of hysterectomy Hx of mastectomy History of Problems with Anesthesia: No Social History Social History Household Members: Spouse Housing: House Do you presently have visiting nurse or other home services: Yes Alcohol intake: former Patient Tobacco Use Status: Former Tobacco user e-Cigarette/Vaping Use: Never Used Second Hand Smoke Exposure: No Advance Directives Date on File: 09/24/23 service: No Current occupational status: retired Cognitive needs: No Hearing needs: No Vision needs: No Meds Allergies Allergy/AdvReac Type Severity Reaction Status Date / Time codeine [CODEINE] Allergy Intermediate RASH Verified 09/25/23 13:22 meperidine [From Demerol] Allergy Intermediate Unknown Verified 09/25/23 13:22 Active Medications: Current Medications Acetaminophen (Acetaminophen 325 Mg Tablet) 650 mg PO Q6H PRN PRN Reason: Pain, Mild (Pain Scale 1-3) Last Admin: 09/28/23 21:37 Dose: 650 mg Amoxicillin/Clavulanate Potassium (Amoxicillin/Potassium Clav 875 Mg Tablet) 875 mg PO Q12H [facility] Last Admin: 09/29/23 08:29 Dose: 875 mg Docusate Sodium (Docusate Sodium 100 Mg Capsule) 100 mg PO BEDTIME [facility] Last Admin: 09/28/23 19:53 Dose: 100 mg Ferrous Sulfate (Ferrous Sulfate 324 Mg Tablet.) 324 mg PO DAILY [facility] Last Admin: 09/29/23 08:29 Dose: 324 mg Levothyroxine Sodium (Levothyroxine Sodium 100 Mcg Tablet) 100 mcg PO DAILY@0600 [facility] Last Admin: 09/29/23 05:56 Dose: Not Given Metoprolol Tartrate (Metoprolol Tartrate 25 Mg Tablet) 25 mg PO BID [facility]; Protocol Omeprazole (Omeprazole 20 Mg Capsule.) 20 mg PO BID@0630,1630 [facility] Last Admin: 09/29/23 05:56 Dose: Not Given Ondansetron HCl (Ondansetron Hcl 4 Mg/2 Ml Vial) 4 mg IVPUSH Q8H PRN PRN Reason: Nausea and Vomiting Polyethylene Glycol (Polyethylene Glycol 3350 17 Gm Powd.Pack) 17 gm PO BID [facility] Last Admin: 09/28/23 19:53 Dose: 17 gm Senna (Sennosides 8.6 Mg Tablet) 17.2 mg PO BEDTIME PRN PRN Reason: Constipation Sodium Biphosphate/Sodium Phosphate (Sodium Phosphate,[place]-Dibasic 133 Ml Enema) 133 ml OR ONCE PRN PRN Reason: Constipation Last Admin: 09/28/23 18:19 Dose: 133 ml Sodium Biphosphate/Sodium Phosphate (Sodium Phosphate,[place]-Dibasic 133 Ml Enema) 133 ml OR ONCE PRN PRN Reason: Constipation Last Admin: 09/29/23 13:41 Dose: 133 ml Sodium Biphosphate/Sodium Phosphate (Sodium Phosphate,[place]-Dibasic 133 Ml Enema) 133 ml OR ONCE PRN PRN Reason: constipation Sodium Chloride (0.9 % Sodium Chloride Flush 3 Ml Syringe) 3 ml IVFLUSH QSHIFT [facility] Last Admin: 09/29/23 08:30 Dose: 3 ml Sodium Chloride (Sodium Chloride 0.65 % Nasal 44 Ml Sprbtl) 2 spray NOSTRIL-B QID PRN PRN Reason: dry nasal passages Vitamin D (Cholecalciferol (Vitamin D3) 25 Mcg Tablet) 25 mcg PO DAILY [facility] Last Admin: 09/29/23 08:29 Dose: 25 mcg Home Medications Medication Instructions Recorded Confirmed Last Taken Type cholecalciferol (vitamin D3) 25 25 mcg PO DAILY 09/23/23 09/23/23 09/23/23 History mcg (1,000 unit) tablet ferrous sulfate 325 mg (65 mg 325 mg PO DAILY 09/23/23 09/23/23 09/23/23 History iron) tablet furosemide 40 mg tablet 20 mg PO DAILY 09/23/23 09/23/23 09/23/23 History lorazepam 1 mg tablet 0.5 mg PO BEDTIME PRN RESTLESSNESS 09/23/23 09/23/23 Unknown History metoprolol succinate 100 mg 100 mg PO BEDTIME 09/23/23 09/23/23 09/22/23 History tablet,extended release 24 hr Exam Height,Weight and Vital Signs: Height 5 ft Weight 33.3 kg Last Vital Signs Temp 97.5 F 09/29/23 11:08 Pulse 84 09/29/23 11:08 Resp 20 09/29/23 11:08 BP 121/59 L 09/29/23 11:08 Pulse Ox 92 09/29/23 11:08 O2 Del Method Nasal Cannula 09/29/23 11:08 O2 Flow Rate 4 09/29/23 11:08 Oxygen Flow Rate 2 09/28/23 14:00 Pertinent Lab Results Pertinent Lab Results: Laboratory Tests 09/23/23 09/23/23 09/23/23 14:41 16:02 16:54 WBC 13.1 H RBC 3.87 L Hgb 11.7 L Hct 36.5 L MCV 94.3 MCH 30.2 MCHC 32.1 RDW 14.3 Plt Count 230 D MPV 9.6 Immature Gran % (Auto) 0.6 H Neut % (Auto) 86.1 H Lymph % (Auto) 5.0 L Evangeline % (Auto) 7.0 Eos % (Auto) 0.5 Baso % (Auto) 0.8 Lymph # (Auto) 0.7 L [place] # (Auto) 0.9 Eos # (Auto) 0.1 Baso # (Auto) 0.1 Abs Immat Gran (auto) 0.08 H Absolute Neuts (auto) 11.3 H Absolute Nucleated RBC 0.000 Nucleated RBC % (auto) 0.0 Absolute Retic Percent Retic Immature Retic Fraction Retic Hgb Equivalent PT 16.0 H INR 1.3 H APTT 33.7 Sodium 137 Potassium 5.2 H Chloride 99 Carbon Dioxide 29 Anion Gap 14 BUN 57 H Creatinine 1.22 Estim Creat Clear Calc 16.3 Estimated GFR 42 Random Glucose 87 Fasting Glucose Lactic Acid 1.0 Calcium 10.5 H Total Bilirubin 0.4 Direct Bilirubin AST 20 ALT 9 Alkaline Phosphatase 64 Lactate Dehydrogenase 348 H Total Protein 7.6 Albumin 3.6 Stool Occult Blood POSITIVE Influenza Type A (PCR) NEGATIVE Influenza Type B (PCR) NEGATIVE RSV RNA Qual (PCR) NEGATIVE SARS-CoV-2 RNA (RT-PCR) NEGATIVE 09/24/23 09/25/23 09/26/23 05:51 07:29 10:33 WBC 9.3 12.5 H 15.2 H RBC 3.18 L 2.82 L 2.89 L Hgb 9.6 L 8.5 L 8.7 L Hct 30.5 L 27.2 L 27.8 L MCV 95.9 96.5 96.2 MCH 30.2 30.1 30.1 MCHC 31.5 31.3 31.3 RDW 14.2 14.2 14.7 Plt Count 172 D 143 L 137 L MPV 9.7 10.0 10.3 Immature Gran % (Auto) 0.8 H 0.6 H 0.6 H Neut % (Auto) 80.7 H 86.9 H 89.6 H Lymph % (Auto) 7.4 L 4.0 L 2.0 L Evangeline % (Auto) 9.0 8.0 7.4 Eos % (Auto) 1.6 0.1 0.1 Baso % (Auto) 0.5 0.4 0.3 Lymph # (Auto) 0.7 L 0.5 L 0.3 L Evangeline # (Auto) 0.8 1.0 1.1 Eos # (Auto) 0.2 0.0 0.0 Baso # (Auto) 0.1 0.1 0.0 Abs Immat Gran (auto) 0.07 H 0.07 H 0.09 H Absolute Neuts (auto) 7.5 10.8 H 13.6 H Absolute Nucleated RBC 0.000 0.000 0.000 Nucleated RBC % (auto) 0.0 0.0 0.0 Absolute Retic 0.063 Percent Retic Immature Retic Fraction Retic Hgb Equivalent PT INR APTT Sodium 139 142 Potassium 4.7 4.2 Chloride 104 105 Carbon Dioxide 27 29 Anion Gap 13 12 BUN 54 H 54 H Creatinine 1.23 1.41 H Estim Creat Clear Calc 16.2 15.8 Estimated GFR 42 36 Random Glucose 73 Fasting Glucose 74 Lactic Acid Calcium 9.5 D 9.7 Total Bilirubin 0.8 Direct Bilirubin AST 22 ALT 11 Alkaline Phosphatase 45 Lactate Dehydrogenase Total Protein 6.6 Albumin 3.8 Stool Occult Blood Influenza Type A (PCR) Influenza Type B (PCR) RSV RNA Qual (PCR) SARS-CoV-2 RNA (RT-PCR) 09/26/23 09/26/23 09/26/23 10:33 10:33 10:33 WBC RBC Hgb Hct MCV MCH MCHC RDW Plt Count MPV Immature Gran % (Auto) Neut % (Auto) Lymph % (Auto) Evangeline % (Auto) Eos % (Auto) Baso % (Auto) Lymph # (Auto) Evangeline # (Auto) Eos # (Auto) Baso # (Auto) Abs Immat Gran (auto) Absolute Neuts (auto) Absolute Nucleated RBC Nucleated RBC % (auto) Absolute Retic Cancelled Percent Retic 2.2 H Cancelled Immature Retic Fraction 11.6 Cancelled Retic Hgb Equivalent 30.8 PT INR APTT Sodium Potassium Chloride Carbon Dioxide Anion Gap BUN Creatinine Estim Creat Clear Calc Estimated GFR Random Glucose Fasting Glucose Lactic Acid Calcium Total Bilirubin Direct Bilirubin AST ALT Alkaline Phosphatase Lactate Dehydrogenase Total Protein Albumin Stool Occult Blood Influenza Type A (PCR) Influenza Type B (PCR) RSV RNA Qual (PCR) SARS-CoV-2 RNA (RT-PCR) 09/26/23 09/27/23 10:33 07:28 WBC 12.2 H RBC 3.03 L Hgb 9.1 L Hct 28.9 L MCV 95.4 MCH 30.0 MCHC 31.5 RDW 15.1 Plt Count 122 L MPV 10.9 Immature Gran % (Auto) 0.6 H Neut % (Auto) 88.3 H Lymph % (Auto) 3.4 L Evangeline % (Auto) 7.0 Eos % (Auto) 0.4 Baso % (Auto) 0.3 Lymph # (Auto) 0.4 L Evangeline # (Auto) 0.9 Eos # (Auto) 0.1 Baso # (Auto) 0.0 Abs Immat Gran (auto) 0.07 H Absolute Neuts (auto) 10.8 H Absolute Nucleated RBC 0.000 Nucleated RBC % (auto) 0.0 Absolute Retic Percent Retic Immature Retic Fraction Retic Hgb Equivalent Cancelled PT INR APTT Sodium 140 139 Potassium 4.3 5.0 Chloride 108 105 Carbon Dioxide 21 L 24 Anion Gap 15 15 BUN 53 H 55 H Creatinine 1.48 H 1.37 Estim Creat Clear Calc 15.1 16.3 Estimated GFR 34 37 Random Glucose Fasting Glucose 177 H 89 Lactic Acid Calcium 9.6 9.7 Total Bilirubin 0.5 0.5 Direct Bilirubin 0.3 AST 21 24 ALT 11 13 Alkaline Phosphatase 46 54 Lactate Dehydrogenase 263 H Total Protein 6.3 L 6.7 Albumin 3.3 L 3.3 L Stool Occult Blood Influenza Type A (PCR) Influenza Type B (PCR) RSV RNA Qual (PCR) SARS-CoV-2 RNA (RT-PCR) Airway Mallampati Class: II TM Dist: >3cm Neck ROM: Full Denture: Upper Heart: tachy Lungs: clear, dimished at base Assessment and Plan Assessment Anesthesia Assessment: Anesthesia Plan Discussed and Chart Reviewed Final Anesthetic Review Family History of Problems with Anesthesia: No History of Problems with Anesthesia: No ASA Class: IV Final Preanesthetic Review: No Changes in Pt Med Stat, Meds/Allgs Chart Reviewed and Consent Obtained/Reviewed Patient Risk: High Procedure Risk: Intermediate Anesthetic Plan Anesthetic Plan: MAC: Disposition: Standard PACU
--- NOTE | 2023-09-29 15:20 | PC.NURSE ---
right arm iv 22g not working and crusted over. iv removed. the other 22g iv slow to flush but not leaking. attempted multiple times for new iv access by anesthesia and myself with no success. patient screaming and crying. upon arrival cleaned patient of green,thick. sharon like stool. cleaned yuri area twice. no liquid stool noted. family wants to proceed. consented over the phone. patient buttock area red. stage one coccyx. patient sitting on pillow for comfort.
--- NOTE | 2023-09-29 15:45 | PC.NURSE ---
yuri care performed. patient still is having green sharon stool.
--- NOTE | 2023-09-29 15:59 | PC.NURSE ---
report given to samuel carmichael
--- NOTE | 2023-09-29 19:23 | PC.NURSE ---
This RN placed a 22G angio at the [facility] for this pt as her GFR exclude her from a midline or PICC line at this time. + blood return and flushes with ease. Kemal Henriquez RN and Taniya alarcon.
--- NOTE | 2023-09-29 19:27 | PC.NURSE ---
This RN placed a 22G angio with jloop to L AC as pt GFR excludes her from a midline or PICCline at this time. +blood return and flushes with ease. Pt allyn well. Kemal Henriquez RN and Taniya Patino PA-C aware.
[2023-09-29] MEDS: Sennosides 8.6 MG TABLET PO (20:05)
[2023-09-29] MEDS: polyethylene glycoL 3350 17 GM POWD.PACK PO (20:08)
[2023-09-29] MEDS: Docusate Sodium 100 MG CAPSULE PO (20:08)
[2023-09-29] MEDS: Acetaminophen 325 MG TABLET 650 MG PO (21:21)
[2023-09-29] MEDS: LORazepam 0.5 MG TABLET PO (21:22)
[2023-09-30] VITALS (10 sets, daily range): BP systolic 108–156; BP diastolic 46–68; PULSE 70–92; RESP 16–30; TEMP 36.1–37.1; O2SAT 92–99
[2023-09-30] MEDS: 0.9 % Sodium Chloride Flush 3 ML SYRINGE IVFLUSH ×2 (07:15→18:42)
[2023-09-30 07:28] LABS: Haptoglobin 114
[2023-09-30] MEDS: polyethylene glycoL 3350 17 GM POWD.PACK PO ×2 (08:12→21:22)
[2023-09-30] MEDS: Ferrous Sulfate 324 MG TABLET.DR PO (08:13)
[2023-09-30] MEDS: Sennosides 8.6 MG TABLET PO (08:13)
[2023-09-30 08:26] LABS: Hematocrit 31.9 % (37.0-47.0); Hemoglobin 9.8 g/dl (12.0-16.0); Mean Corpuscular HGB Conc 30.7 g/dl (31.0-35.0); Mean Corpuscular Hemoglobin 29.8 pg (27.0-33.0); Mean Platelet Volume 10.3 fL (9.4-12.3); Platelet Count 176 X10*3/uL (160-400); Red Blood Count 3.29 X10*6/uL (4.20-5.50); Red Cell Distribution Width 15.1 % (11.0-16.0); White Blood Count 7.8 X10*3/uL (4.8-10.8)
[2023-09-30 08:34] LABS: Anion Gap 16 (12-20); Blood Urea Nitrogen 50 mg/dL (9-16); Calcium 9.6 mg/dL (8.4-10.2); Carbon Dioxide 23 mmol/L (22-29); Chloride 105 mmol/L (96-108); Creatinine Clr Calc Pharmacy 19.5; Estimated Glomerular Filt Rate 45; Glucose Random 74 mg/dL (60-115); Potassium 4.9 mmol/L (3.3-5.1); Sodium 139 mmol/L (135-145)
--- NOTE | 2023-09-30 10:00 | MHC.SPEECHCO ---
Clear Liquid diet order changed to [place]-thick from Thin Liquids per previous FAILURE ANALYSIS ENGINEER recommendations.
--- NOTE | 2023-09-30 10:26 | P.PNIM_ITS ---
Subjective Subjective Date of Service: 09/30/23 Interval History: seen and examined this morning follow up for GI bleeding, pleural effusion no overnight events Review of Systems Review of Systems: Yes all other systems are reviewed and are negative Constitutional Constitutional: Denies chills and Denies fever(s) Cardiovascular Cardiovascular: Denies chest pain, Denies palpitations and Denies dyspnea Respiratory Respiratory: Denies cough and Denies dyspnea Endocrine Endocrine: Denies palpitations Physical Exam 2 Vital Signs: Vital Signs: Last Vital Signs Temp 97.6 F 09/30/23 07:00 Pulse 92 09/30/23 07:00 Resp 18 09/30/23 07:00 BP 131/64 09/30/23 07:00 Pulse Ox 92 09/30/23 07:00 O2 Del Method Nasal Cannula 09/30/23 07:00 O2 Flow Rate 6 09/30/23 07:00 Oxygen Flow Rate 2 09/28/23 14:00 BMI result Body Mass Index 14.3 Appearing in no acute distress, thin and frail lung sounds are clear to auscultation heart regular rate rhythm, clear S1, S2 positive bowel sounds, abdomen is soft, nontender neuro patient is alert x3, no focal deficits, [facility] Objective Data Active Medications Acetaminophen (Acetaminophen 325 Mg Tablet) 650 mg PO Q6H PRN PRN Reason: Pain, Mild (Pain Scale 1-3) Last Admin: 09/29/23 21:21 Dose: 650 mg Documented By: SANDRA Amoxicillin/Clavulanate Potassium (Amoxicillin/Potassium Clav 875 Mg Tablet) 875 mg PO Q12H [facility] Last Admin: 09/29/23 20:04 Dose: 875 mg Documented By: SANDRA Bisacodyl (Bisacodyl 5 Mg Tablet.) 10 mg PO BEDTIME [facility] Last Admin: 09/29/23 20:07 Dose: 10 mg Documented By: SANDRA Docusate Sodium (Docusate Sodium 100 Mg Capsule) 100 mg PO BEDTIME [facility] Last Admin: 09/29/23 20:08 Dose: 100 mg Documented By: SANDRA Ferrous Sulfate (Ferrous Sulfate 324 Mg Tablet.) 324 mg PO DAILY [facility] Last Admin: 09/30/23 08:13 Dose: 324 mg Documented By: CHRIS Levothyroxine Sodium (Levothyroxine Sodium 100 Mcg Tablet) 100 mcg PO DAILY@0600 [facility] Last Admin: 09/30/23 06:29 Dose: Not Given Documented By: SANDRA Non-Admin Reason: NPO Lorazepam (Lorazepam 0.5 Mg Tablet) 0.5 mg PO Q4H PRN PRN Reason: Anxiety Last Admin: 09/29/23 21:22 Dose: 0.5 mg Documented By: SANDRA Omeprazole (Omeprazole 20 Mg Capsule.Dr) 20 mg PO BID@0630,1630 [facility] Last Admin: 09/30/23 06:30 Dose: Not Given Documented By: SANDRA Non-Admin Reason: NPO Ondansetron HCl (Ondansetron Hcl 4 Mg/2 Ml Vial) 4 mg IVPUSH Q8H PRN PRN Reason: Nausea and Vomiting Polyethylene Glycol (Polyethylene Glycol 3350 17 Gm Powd.Pack) 17 gm PO BID [facility] Last Admin: 09/30/23 08:12 Dose: 17 gm Documented By: CHRIS Senna (Sennosides 8.6 Mg Tablet) 17.2 mg PO BEDTIME PRN PRN Reason: Constipation Senna (Sennosides 8.6 Mg Tablet) 8.6 mg PO DAILY [facility] Last Admin: 09/30/23 08:13 Dose: 8.6 mg Documented By: CHRIS Sodium Biphosphate/Sodium Phosphate (Sodium Phosphate,[place]-Dibasic 133 Ml Enema) 133 ml [place] ONCE PRN PRN Reason: Constipation Last Admin: 09/28/23 18:19 Dose: 133 ml Documented By: CAITLIN Sodium Biphosphate/Sodium Phosphate (Sodium Phosphate,[place]-Dibasic 133 Ml Enema) 133 ml VA ONCE PRN PRN Reason: Constipation Last Admin: 09/29/23 13:41 Dose: 133 ml Documented By: CHRIS Sodium Biphosphate/Sodium Phosphate (Sodium Phosphate,[place]-Dibasic 133 Ml Enema) 133 ml VA ONCE PRN PRN Reason: constipation Sodium Chloride (0.9 % Sodium Chloride Flush 3 Ml Syringe) 3 ml IVFLUSH QSHIFT [facility] Last Admin: 09/30/23 01:07 Dose: Not Given Documented By: SANDRA Non-Admin Reason: Patient Asleep Sodium Chloride (Sodium Chloride 0.65 % Nasal 44 Ml Sprbtl) 2 spray NOSTRIL-B QID PRN PRN Reason: dry nasal passages Vitamin D (Cholecalciferol (Vitamin D3) 25 Mcg Tablet) 25 mcg PO DAILY [facility] Last Admin: 09/29/23 08:29 Dose: 25 mcg Documented By: CHRIS Labs 09/30/23 07:48 09/30/23 07:48 Labs: Laboratory Results - last 24 hr 09/26/23 09/30/23 10:33 07:48 MCV 97.0 MCH 29.8 MCHC 30.7 L RDW 15.1 Plt Count 176 D MPV 10.3 Absolute Nucleated RBC 0.000 Nucleated RBC % (auto) 0.0 Haptoglobin 114 Anion Gap 16 Estim Creat Clear Calc 19.5 Estimated GFR 45 Random Glucose 74 Calcium 9.6 Assessment and Plan (1) GI bleed: Status: Acute (2) Loculated pleural effusion: Status: Acute Plan 82 year old female with history of paroxysmal atrial fibrillation anticoagulated with eliquis, asthma, ckd stage 3, HFpEF, history of complete heart block s/p pacemaker, pulmonary htn, htn, hld, and unspecified dementia admitted for melena and loculated pleural effusion with failure to thrive GIB/acute blood loss anemia No further bleeding since admission s/p IV PPI now on oral hold eliquis seen by GI, s/p EGD 09/24 - gastritis, schatzki ring, possible barretts but no evidence of active bleeding Plan for colonoscopy today, completed 2 fleets enemas, needs 2 more and po dulcolax, unable to take golytely prep Dysphagia Seen by speech barium swallow ordered for tomorrow Loculated pleural effusion with acute hypxomeic respiratory failure hx recurrent pleural effusion with h/o pleurix catheter 07/2020 recommend augmentin to cover for any possible associated pneumonia- plan for 7 days attempted to wean oxygen 09/25, o2 sat down to 89%, will continue supplemental oxygen 1L NC, wean as tolerated seen by Pulmonary> no need for thoracentesis at this time constipation large stool burden on imaging tentative plan for colonoscopy fleets enema, dulcolax, senna NICK on CKD3. Resolved Hold Lasix, Aldactone Follow renal function daily Hyperkalemia, mild Resolved Paroxysmal atrial fibrillation hold eliquis due to GIB will hold metoprolol for soft bp HFpEF stable and well compensated hold lasix, aldactone for NICK Moderate malnutrition. BMI 14.3 Seen by nutrition will add ensure supplements SCPs Attending Dr. Romero full code Requires ongoing hospitalization for acute blood loss anemia. Will need to discuss end of life issues with family pending results of workup Quality Stroke Does the patient have a stroke diagnosis?: No VTE Prior VTE?: No VTE Risk Level:: Medical - moderate - high VTE Device Contraindication: Treatment Not Indicated VTE Drug Contraindication: N/A - Med Ordered
--- NOTE | 2023-09-30 11:18 | MHC.SPEECHCO ---
Per RN, Pt NPO for colonoscopy. [employer] COORDINATOR follow-up postponed to a later date.
--- NOTE | 2023-09-30 13:16 | P.CONAN_ITS ---
[facility] Active Problems Active Problems: All Active Problems (Updated 09/24/23 @ 22:38 by Jairo Bird MD) Melena (Acute) Atelectasis (Acute) GI bleed (Acute) Hypoxia (Acute) Acute hypoxemic respiratory failure (Acute) Loculated pleural effusion (Acute) UGIB (upper gastrointestinal bleed) (Acute) Bedbound (Acute) Weakness generalized (Acute) Early satiety (Acute) Weight loss (Acute) Anorexia (Acute) Paroxysmal A-fib (Acute) Cardiac pacemaker in situ (Acute) Asthma exacerbation (Acute) S/P AVR (Acute) Paroxysmal atrial fibrillation (Acute) Diarrhea (Acute) Altered mental status (Acute) Pulsatile tinnitus, bilateral (Acute) Constipation (Acute) Eustachian tube dysfunction (Acute) Auditory hallucination (Acute) Candidemia (Acute) Pneumonia (Acute) Hypothyroidism (Acute) Anxiety (Acute) Neuropathy (Acute) Anemia (Acute) Osteoporosis (Acute) Vitamin D deficiency (Acute) Chronic kidney disease (CKD), stage III (moderate) (Acute) Pure hypercholesterolemia (Acute) Benign essential hypertension (Acute) Sensorineural hearing loss (Acute) Chest tube in place (Acute) (HFpEF) heart failure with preserved ejection fraction (Acute) Pulmonary hypertension (Acute) Tricuspid regurgitation (Acute) Complete heart block (Acute) Recurrent pleural effusion on right (Acute) Past Medical History Medical History (Updated 09/24/23 @ 22:38 by Jairo Bird MD) Atelectasis E-coli UTI Candidemia Neuropathy Anemia Osteoporosis Vitamin D deficiency Chronic kidney disease (CKD), stage III (moderate) Pure hypercholesterolemia Benign essential hypertension Sensorineural hearing loss Paroxysmal atrial fibrillation Pulmonary hypertension Tricuspid regurgitation Cardiac pacemaker in situ (HFpEF) heart failure with preserved ejection fraction GI bleed Tobacco abuse, in remission Aortic stenosis Anxiety Hypothyroidism Leg edema Hyperlipidemia H/O: HTN (hypertension) Complete heart block Paroxysmal A-fib Family History Family History Father No problems noted. Mother No problems noted. Sister Diabetes Cancer Family history of problems with anesthesia: No Surgical History Surgical History S/P AVR Hx of aortic valve repair History of thoracentesis Hx of hysterectomy Hx of mastectomy History of Problems with Anesthesia: No Social History Social History Household Members: Spouse Housing: House Do you presently have visiting nurse or other home services: Yes Alcohol intake: former Patient Tobacco Use Status: Former Tobacco user e-Cigarette/Vaping Use: Never Used Second Hand Smoke Exposure: No Advance Directives Date on File: 09/24/23 service: No Current occupational status: retired Cognitive needs: No Hearing needs: No Vision needs: No Meds Allergies Allergy/AdvReac Type Severity Reaction Status Date / Time codeine [CODEINE] Allergy Intermediate RASH Verified 09/25/23 13:22 meperidine [From Demerol] Allergy Intermediate Unknown Verified 09/25/23 13:22 Active Medications: Current Medications Acetaminophen (Acetaminophen 325 Mg Tablet) 650 mg PO Q6H PRN PRN Reason: Pain, Mild (Pain Scale 1-3) Last Admin: 09/29/23 21:21 Dose: 650 mg Amoxicillin/Clavulanate Potassium (Amoxicillin/Potassium Clav 875 Mg Tablet) 875 mg PO Q12H [facility] Last Admin: 09/30/23 10:52 Dose: Not Given Bisacodyl (Bisacodyl 5 Mg Tablet.) 10 mg PO BEDTIME [facility] Last Admin: 09/29/23 20:07 Dose: 10 mg Docusate Sodium (Docusate Sodium 100 Mg Capsule) 100 mg PO BEDTIME [facility] Last Admin: 09/29/23 20:08 Dose: 100 mg Ferrous Sulfate (Ferrous Sulfate 324 Mg Tablet.) 324 mg PO DAILY [facility] Last Admin: 09/30/23 08:13 Dose: 324 mg Levothyroxine Sodium (Levothyroxine Sodium 100 Mcg Tablet) 100 mcg PO DAILY@0600 [facility] Last Admin: 09/30/23 06:29 Dose: Not Given Lorazepam (Lorazepam 0.5 Mg Tablet) 0.5 mg PO Q4H PRN PRN Reason: Anxiety Last Admin: 09/29/23 21:22 Dose: 0.5 mg Omeprazole (Omeprazole 20 Mg Capsule.) 20 mg PO BID@0630,1630 [facility] Last Admin: 09/30/23 06:30 Dose: Not Given Ondansetron HCl (Ondansetron Hcl 4 Mg/2 Ml Vial) 4 mg IVPUSH Q8H PRN PRN Reason: Nausea and Vomiting Polyethylene Glycol (Polyethylene Glycol 3350 17 Gm Powd.Pack) 17 gm PO BID [facility] Last Admin: 09/30/23 08:12 Dose: 17 gm Senna (Sennosides 8.6 Mg Tablet) 17.2 mg PO BEDTIME PRN PRN Reason: Constipation Senna (Sennosides 8.6 Mg Tablet) 8.6 mg PO DAILY [facility] Last Admin: 09/30/23 08:13 Dose: 8.6 mg Sodium Biphosphate/Sodium Phosphate (Sodium Phosphate,[place]-Dibasic 133 Ml Enema) 133 ml IN ONCE PRN PRN Reason: Constipation Last Admin: 09/28/23 18:19 Dose: 133 ml Sodium Biphosphate/Sodium Phosphate (Sodium Phosphate,Gray-Dibasic 133 Ml Enema) 133 ml IN ONCE PRN PRN Reason: Constipation Last Admin: 09/29/23 13:41 Dose: 133 ml Sodium Biphosphate/Sodium Phosphate (Sodium Phosphate,[place]-Dibasic 133 Ml Enema) 133 ml IN ONCE PRN PRN Reason: constipation Sodium Chloride (0.9 % Sodium Chloride Flush 3 Ml Syringe) 3 ml IVFLUSH QSHIFT [facility] Last Admin: 09/30/23 01:07 Dose: Not Given Sodium Chloride (Sodium Chloride 0.65 % Nasal 44 Ml Sprbtl) 2 spray NOSTRIL-B QID PRN PRN Reason: dry nasal passages Vitamin D (Cholecalciferol (Vitamin D3) 25 Mcg Tablet) 25 mcg PO DAILY [facility] Last Admin: 09/30/23 10:52 Dose: Not Given Home Medications Medication Instructions Recorded Confirmed Last Taken Type cholecalciferol (vitamin D3) 25 25 mcg PO DAILY 09/23/23 09/23/23 09/23/23 History mcg (1,000 unit) tablet ferrous sulfate 325 mg (65 mg 325 mg PO DAILY 09/23/23 09/23/23 09/23/23 History iron) tablet furosemide 40 mg tablet 20 mg PO DAILY 09/23/23 09/23/23 09/23/23 History lorazepam 1 mg tablet 0.5 mg PO BEDTIME PRN RESTLESSNESS 09/23/23 09/23/23 Unknown History metoprolol succinate 100 mg 100 mg PO BEDTIME 09/23/23 09/23/23 09/22/23 History tablet,extended release 24 hr Exam Height,Weight and Vital Signs: Height 5 ft Weight 33.3 kg Last Vital Signs Temp 97.0 F 09/30/23 11:00 Pulse 70 09/30/23 11:00 Resp 18 09/30/23 11:00 BP 116/60 09/30/23 11:00 Pulse Ox 98 09/30/23 11:00 O2 Del Method Nasal Cannula 09/30/23 11:00 O2 Flow Rate 5 09/30/23 11:00 Oxygen Flow Rate 2 09/28/23 14:00 Pertinent Lab Results Pertinent Lab Results: Laboratory Tests 09/23/23 09/23/23 09/23/23 14:41 16:02 16:54 WBC 13.1 H RBC 3.87 L Hgb 11.7 L Hct 36.5 L MCV 94.3 MCH 30.2 MCHC 32.1 RDW 14.3 Plt Count 230 D MPV 9.6 Immature Gran % (Auto) 0.6 H Neut % (Auto) 86.1 H Lymph % (Auto) 5.0 L Gray % (Auto) 7.0 Eos % (Auto) 0.5 Baso % (Auto) 0.8 Lymph # (Auto) 0.7 L Gray # (Auto) 0.9 Eos # (Auto) 0.1 Baso # (Auto) 0.1 Abs Immat Gran (auto) 0.08 H Absolute Neuts (auto) 11.3 H Absolute Nucleated RBC 0.000 Nucleated RBC % (auto) 0.0 Absolute Retic Percent Retic Immature Retic Fraction Retic Hgb Equivalent Haptoglobin PT 16.0 H INR 1.3 H APTT 33.7 Sodium 137 Potassium 5.2 H Chloride 99 Carbon Dioxide 29 Anion Gap 14 BUN 57 H Creatinine 1.22 Estim Creat Clear Calc 16.3 Estimated GFR 42 Random Glucose 87 Fasting Glucose Lactic Acid 1.0 Calcium 10.5 H Total Bilirubin 0.4 Direct Bilirubin AST 20 ALT 9 Alkaline Phosphatase 64 Lactate Dehydrogenase 348 H Total Protein 7.6 Albumin 3.6 Stool Occult Blood POSITIVE Influenza Type A (PCR) NEGATIVE Influenza Type B (PCR) NEGATIVE RSV RNA Qual (PCR) NEGATIVE SARS-CoV-2 RNA (RT-PCR) NEGATIVE 09/24/23 09/25/23 09/26/23 05:51 07:29 10:33 WBC 9.3 12.5 H 15.2 H RBC 3.18 L 2.82 L 2.89 L Hgb 9.6 L 8.5 L 8.7 L Hct 30.5 L 27.2 L 27.8 L MCV 95.9 96.5 96.2 MCH 30.2 30.1 30.1 MCHC 31.5 31.3 31.3 RDW 14.2 14.2 14.7 Plt Count 172 D 143 L 137 L MPV 9.7 10.0 10.3 Immature Gran % (Auto) 0.8 H 0.6 H 0.6 H Neut % (Auto) 80.7 H 86.9 H 89.6 H Lymph % (Auto) 7.4 L 4.0 L 2.0 L Gray % (Auto) 9.0 8.0 7.4 Eos % (Auto) 1.6 0.1 0.1 Baso % (Auto) 0.5 0.4 0.3 Lymph # (Auto) 0.7 L 0.5 L 0.3 L Gray # (Auto) 0.8 1.0 1.1 Eos # (Auto) 0.2 0.0 0.0 Baso # (Auto) 0.1 0.1 0.0 Abs Immat Gran (auto) 0.07 H 0.07 H 0.09 H Absolute Neuts (auto) 7.5 10.8 H 13.6 H Absolute Nucleated RBC 0.000 0.000 0.000 Nucleated RBC % (auto) 0.0 0.0 0.0 Absolute Retic 0.063 Percent Retic Immature Retic Fraction Retic Hgb Equivalent Haptoglobin PT INR APTT Sodium 139 142 Potassium 4.7 4.2 Chloride 104 105 Carbon Dioxide 27 29 Anion Gap 13 12 BUN 54 H 54 H Creatinine 1.23 1.41 H Estim Creat Clear Calc 16.2 15.8 Estimated GFR 42 36 Random Glucose 73 Fasting Glucose 74 Lactic Acid Calcium 9.5 D 9.7 Total Bilirubin 0.8 Direct Bilirubin AST 22 ALT 11 Alkaline Phosphatase 45 Lactate Dehydrogenase Total Protein 6.6 Albumin 3.8 Stool Occult Blood Influenza Type A (PCR) Influenza Type B (PCR) RSV RNA Qual (PCR) SARS-CoV-2 RNA (RT-PCR) 09/26/23 09/26/23 09/26/23 10:33 10:33 10:33 WBC RBC Hgb Hct MCV MCH MCHC RDW Plt Count MPV Immature Gran % (Auto) Neut % (Auto) Lymph % (Auto) Gray % (Auto) Eos % (Auto) Baso % (Auto) Lymph # (Auto) Gray # (Auto) Eos # (Auto) Baso # (Auto) Abs Immat Gran (auto) Absolute Neuts (auto) Absolute Nucleated RBC Nucleated RBC % (auto) Absolute Retic Cancelled Percent Retic 2.2 H Cancelled Immature Retic Fraction 11.6 Cancelled Retic Hgb Equivalent 30.8 Haptoglobin PT INR APTT Sodium Potassium Chloride Carbon Dioxide Anion Gap BUN Creatinine Estim Creat Clear Calc Estimated GFR Random Glucose Fasting Glucose Lactic Acid Calcium Total Bilirubin Direct Bilirubin AST ALT Alkaline Phosphatase Lactate Dehydrogenase Total Protein Albumin Stool Occult Blood Influenza Type A (PCR) Influenza Type B (PCR) RSV RNA Qual (PCR) SARS-CoV-2 RNA (RT-PCR) 09/26/23 09/27/23 09/30/23 10:33 07:28 07:48 WBC 12.2 H 7.8 RBC 3.03 L 3.29 L Hgb 9.1 L 9.8 L Hct 28.9 L 31.9 L MCV 95.4 97.0 MCH 30.0 29.8 MCHC 31.5 30.7 L RDW 15.1 15.1 Plt Count 122 L 176 D MPV 10.9 10.3 Immature Gran % (Auto) 0.6 H Neut % (Auto) 88.3 H Lymph % (Auto) 3.4 L Gray % (Auto) 7.0 Eos % (Auto) 0.4 Baso % (Auto) 0.3 Lymph # (Auto) 0.4 L Gray # (Auto) 0.9 Eos # (Auto) 0.1 Baso # (Auto) 0.0 Abs Immat Gran (auto) 0.07 H Absolute Neuts (auto) 10.8 H Absolute Nucleated RBC 0.000 0.000 Nucleated RBC % (auto) 0.0 0.0 Absolute Retic Percent Retic Immature Retic Fraction Retic Hgb Equivalent Cancelled Haptoglobin 114 PT INR APTT Sodium 140 139 139 Potassium 4.3 5.0 4.9 Chloride 108 105 105 Carbon Dioxide 21 L 24 23 Anion Gap 15 15 16 BUN 53 H 55 H 50 H Creatinine 1.48 H 1.37 1.15 Estim Creat Clear Calc 15.1 16.3 19.5 Estimated GFR 34 37 45 Random Glucose 74 Fasting Glucose 177 H 89 Lactic Acid Calcium 9.6 9.7 9.6 Total Bilirubin 0.5 0.5 Direct Bilirubin 0.3 AST 21 24 ALT 11 13 Alkaline Phosphatase 46 54 Lactate Dehydrogenase 263 H Total Protein 6.3 L 6.7 Albumin 3.3 L 3.3 L Stool Occult Blood Influenza Type A (PCR) Influenza Type B (PCR) RSV RNA Qual (PCR) SARS-CoV-2 RNA (RT-PCR) Airway Mallampati Class: II TM Dist: >3cm Neck ROM: Limited Denture: Upper and Lower Assessment and Plan Assessment Anesthesia Assessment: Anesthesia Plan Discussed and Chart Reviewed Final Anesthetic Review Family History of Problems with Anesthesia: No History of Problems with Anesthesia: No NPO: Yes ASA Class: IV and Emergency Final Preanesthetic Review: No Changes in Pt Med Stat, Meds/Allgs Chart Reviewed, Consent Obtained/Reviewed and Anes Risks/Benef Reviewed Patient Risk: High Procedure Risk: Low Anesthetic Plan Anesthetic Plan: TIVA Disposition: Standard PACU
--- NOTE | 2023-09-30 13:47 | MHC.SHP ---
Pre-Procedural Eval Section A - 24 Hr Update-Section A only Date of Service: 09/30/23 The patient is an INPATIENT: Yes The patient has been examined within 24 hours of the surgical procedure. The History & Physical has been completed within 30 days and I have reviewed it.: Yes Section B - Complete if H&P > 30 days Chief Complaint: UGIB, loculated pleural effusion Allergies: Allergies Allergy/AdvReac Type Severity Reaction Status Date / Time codeine [CODEINE] Allergy Intermediate RASH Verified 09/25/23 13:22 meperidine [From Demerol] Allergy Intermediate Unknown Verified 09/25/23 13:22 Plan Diagnosis/Plan: Unchanged I have reviewed the history and physical and performed a pertinent physical examination on my patient. No changes have occurred unless specified. Time Spent With Patient Time: Total time managing care of this patient today ____ minutes.
--- NOTE | 2023-09-30 13:48 | P.PNGI_ITS ---
Subjective Subjective Date of Service: 09/30/23 Interval History: hgb stable urea high prob from dehydration poor PO intake no nausea or vomiting unable to take prep Critical Care Time (minutes): 0 Physical Exam 2 Vital Signs: Vital Signs: Last Vital Signs Temp 98.8 F 09/30/23 13:32 Pulse 75 09/30/23 13:32 Resp 30 H 09/30/23 13:32 BP 127/56 L 09/30/23 13:32 Pulse Ox 93 09/30/23 13:32 O2 Del Method Transtracheal Oc King 09/30/23 13:32 O2 Flow Rate 2 09/30/23 13:32 Oxygen Flow Rate 2 09/28/23 14:00 BMI result Body Mass Index 14.3 EXAM: GENERAL: The patient is weak and malnourished VITAL SIGNS:see workflow HEENT: Nonicteric sclerae, PERRLA, EOMI. Oropharynx clear. Moist mucous membranes. Conjunctivae appear well perfused. No thyroid mass. CHEST: Chest wall is nontender. HEART: Regular rate and rhythm without murmurs. LUNGS: Clear to auscultation bilaterally but reduced A/E ABDOMEN: Soft, positive bowel sounds, nontender, no organomegaly.no flank tenderness SKIN: No rash, no excessive bruising, petechiae, or purpura. NEUROLOGIC: Cranial nerves II-XII intact without motor/sensory deficit. Psych: confused Objective Data Labs 09/30/23 07:48 09/30/23 07:48 Labs: Laboratory Results - last 24 hr 09/26/23 09/30/23 10:33 07:48 WBC 7.8 RBC 3.29 L Hgb 9.8 L Hct 31.9 L MCV 97.0 MCH 29.8 MCHC 30.7 L RDW 15.1 Plt Count 176 D MPV 10.3 Absolute Nucleated RBC 0.000 Nucleated RBC % (auto) 0.0 Haptoglobin 114 Sodium 139 Potassium 4.9 Chloride 105 Carbon Dioxide 23 Anion Gap 16 BUN 50 H Creatinine 1.15 Estim Creat Clear Calc 19.5 Estimated GFR 45 Random Glucose 74 Calcium 9.6 Microbiology Microbiology Results: Microbiology 09/23/23 19:18 Blood - Venous Blood Culture - Final No growth after 5 days. 09/23/23 16:54 Blood - Venous Blood Culture - Final No growth after 5 days. Procedures Date of Service Date of Service: 09/30/23 Progress Note: A&P Assessment and plan (1) Melena: Status: Acute Plan 1/ Melena, no obvious cause on EGD, plan for [id number] to r/o right sided lesions Time Spent With Patient Time: Total time managing care of this patient today ____ minutes. Quality Stroke Does the patient have a stroke diagnosis?: No VTE Prior VTE?: No VTE Risk Level:: Medical - moderate - high VTE Device Contraindication: Treatment Not Indicated VTE Drug Contraindication: N/A - Med Ordered
--- NOTE | 2023-09-30 14:30 | W.PM.OPN ---
Operative Note Operative Note Date of Service: 09/30/23 Narrative: Operative Information Procedure Description: Colonoscopy Indication: Anemia, melena Anesthesia: MAC COLONOSCOPY Instrument: Olympus variable stiffness pediatric scope 190L Colonoscopy Monitoring: Vital signs and clinical assessment, continuous EKG monitoring, Pulse oximetry, Carbon Dioxide monitoring and blood pressure monitoring were done throughout the procedure. Colon withdrawal time was 20 minutes. Procedure: The patient was placed in the left lateral decubitis position and pre-procedure medications were administered. After a digital rectal examination of the ano-rectum, the video colonoscope was inserted into the rectum and advanced through the colon to the cecum/TI. The colonoscope was slowly withdrawn in a retrograde panoramic fashion and the colon mucosa was carefully examined including a retroflexed view of the rectum. Findings and interventions are described below. Procedure Difficulty: moderate Findings: Terminal Ileum-not intubated Cecum:normal Ascending Colon: normal Transverse Colon -normal Descending Colon:normal Sigmoid Colon: moderate diverticulosis Rectum: Retroflexion not done Anorectum - normal Intervention: none Colon preparation: Taylors Bowel Preparation Scale Right colon; 2 Transverse colon: 1-2 Left colon; 1 (0 = Unprepared colon segment with mucosa not seen due to solid stool that cannot be cleared. 1 = Portion of mucosa of the colon segment seen, but other areas of the colon segment not well seen due to staining, residual stool and/or opaque liquid. 2 = Minor amount of residual staining, small fragments of stool and/or opaque liquid, but mucosa of colon segment seen well. 3 = Entire mucosa of colon segment seen well with no residual staining, small fragments of stool or opaque liquid) Impression and Post Procedure Diagnosis: diverticulosis Plan: within limitations of prep no lesions seen, no AVM or other explanation for melena and anemia discuss with family re: risk/benefit of going back on anti coagulation Above findings were reviewed with the patient and relevant handouts were provided if indicated.
[2023-09-30] MEDS: Omeprazole 20 MG CAPSULE.DR PO (18:41)
[2023-09-30] MEDS: Amoxicillin/Potassium Clav 875 MG TABLET PO (21:20)
[2023-09-30] MEDS: LORazepam 0.5 MG TABLET PO (21:20)
[2023-09-30] MEDS: Docusate Sodium 100 MG CAPSULE PO (21:22)
[2023-09-30] MEDS: bisacodyL 5 MG TABLET.DR 10 MG PO (21:22)
[2023-10-01] VITALS: BP 113/44; PULSE 72; RESP 20; TEMP 36.1; O2SAT 95
[2023-10-01] MEDS: Levothyroxine Sodium 100 MCG TABLET PO (05:57)
[2023-10-01] MEDS: Ferrous Sulfate 324 MG TABLET.DR PO (08:02)
[2023-10-01] MEDS: Amoxicillin/Potassium Clav 875 MG TABLET PO (08:02)
[2023-10-01] MEDS: Cholecalciferol (Vitamin D3) 25 MCG TABLET PO (08:02)
[2023-10-01] MEDS: 0.9 % Sodium Chloride Flush 3 ML SYRINGE IVFLUSH ×3 (08:03→22:05)
--- NOTE | 2023-10-01 10:29 | MHC.SLORD ---
Addendum entered and electronically signed by Irais Jenkins MA, CCC-JIG GRINDER 10/02/23 09:51: Pt brought to Radiology suite for MBSS yesterday. Pt vehemently refused to participate despite encouragement from medical team and pt's daughter. Unable to complete exam. JIG GRINDER to evaluate with bedside exam in the A.M. Original Note: Addendum entered and electronically signed by WANG Gaspar 10/01/23 13:51: JIG GRINDER stopped by patient's room to answer questions about upcoming MBSS. Patient's daughter expressed interest in going down to x-ray w/ patient. Addendum entered and electronically signed by Irais Jenkins MA, CCC-JIG GRINDER 10/01/23 12:46: MBSS scheduled with Radiology for 2:30pm. Original Note: Speech Language Pathology Order Status: MBSS in process of being scheduled for this afternoon.
--- NOTE | 2023-10-01 10:51 | MHC.CLN ---
F/U PO INTAKE 0-25% NPO/C/L DIET DAY 3 PT WITH INCREASED NUTRITION RISK R/T MALNUTRITION WITH POOR PO RECOMMEND ADDING ENSURE CLEAR NECTAR THICK TID TO PROVIDE 720KCALS, 24G PROTEIN SHIP'S OFFICER FOLLOWING FOR APPROPRIATE DIET CONSISTENCY; NOTED MBS FOR TODAY MONITOR PO INTAKE AND ENCOURAGE SUPPLEMENT
[2023-10-01 11:00] VITALS: BP 133/54; PULSE 76; RESP 22; TEMP 36.2; O2SAT 92
--- NOTE | 2023-10-01 12:46 | HO.POSTANES ---
Post Anesthesia Evaluation Post Anesthesia Evaluation Date of Service: 10/01/23 Vital Signs: Vital Signs Temp Pulse Resp BP Pulse Ox O2 Del Method O2 Flow Rate 10/01/23 11:00 97.2 F 76 22 H 133/54 L 92 Nasal Cannula, Oxymask 2 Anesthesia: Monitored Mental Status: Awake Pain Control: Satisfactory Nausea/Vomiting: None Hydration: Adequate Anesthesia-Related Issues: No Anes. Related Issues
--- NOTE | 2023-10-01 14:00 | MHC.CM.PN ---
Pt spoke to pt.s about care services at home, he wants pt to continue with PT from [facility], and feels she needs to get moving again. I encouraged him to have home care services from [facility], to include [facility] and [facility]. He wants to wait for now, and maybe have these services at a later time. He said that his daughter is looking into services. CM called daughter, and she is encouraging her father to accept care from [facility] now, rather than wait. CM informed daughter that we will check with pt.'s provider to see if they recommend that pt. continue with PT. CM to continue to follow and assist with DC plan.
--- NOTE | 2023-10-01 15:08 | P.PNIM_ITS ---
Subjective Subjective Date of Service: 10/01/23 Interval History: Resting comfortably, wants to go home. scheduled for modified barium swallow Denies abdominal pain, no nausea, no vomiting , no recurrent dark stools. Review of Systems All other system reviewed and negative. Physical Exam 2 Vital Signs: Vital Signs: Last Vital Signs Temp 97.2 F 10/01/23 11:00 Pulse 76 10/01/23 11:00 Resp 22 H 10/01/23 11:00 BP 133/54 L 10/01/23 11:00 Pulse Ox 92 10/01/23 11:00 O2 Del Method Nasal Cannula 10/01/23 13:17 O2 Flow Rate 2 10/01/23 11:00 Oxygen Flow Rate 2 10/01/23 13:17 BMI result Body Mass Index 14.3 Const: Other: General frail, cachectic resting comfortably awake, alert , in no acute distress. Neck no JVD. CVS regular rate rhythm, Respiratory lungs clear to auscultation, no respiratory distress, no wheeze, no rhonchi. Gastrointestinal abdomen soft, non tender, bowel sounds audible, no guarding , no rigidity. Extremities no edema. Neuro moving all 4 extremity, speech clear. Skin no rash Objective Data Active Medications Acetaminophen (Acetaminophen 325 Mg Tablet) 650 mg PO Q6H PRN PRN Reason: Pain, Mild (Pain Scale 1-3) Last Admin: 09/29/23 21:21 Dose: 650 mg Documented By: SANDRA Amoxicillin/Clavulanate Potassium (Amoxicillin/Potassium Clav 875 Mg Tablet) 875 mg PO Q12H [facility] Last Admin: 10/01/23 08:02 Dose: 875 mg Documented By: CHRIS Bisacodyl (Bisacodyl 5 Mg Tablet.) 10 mg PO BEDTIME [facility] Last Admin: 09/30/23 21:22 Dose: 10 mg Documented By: JUAN Docusate Sodium (Docusate Sodium 100 Mg Capsule) 100 mg PO BEDTIME [facility] Last Admin: 09/30/23 21:22 Dose: 100 mg Documented By: JUAN Ferrous Sulfate (Ferrous Sulfate 324 Mg Tablet.) 324 mg PO DAILY [facility] Last Admin: 10/01/23 08:02 Dose: 324 mg Documented By: CHRIS Levothyroxine Sodium (Levothyroxine Sodium 100 Mcg Tablet) 100 mcg PO DAILY@0600 [facility] Last Admin: 10/01/23 05:57 Dose: 100 mcg Documented By: JUAN Lorazepam (Lorazepam 0.5 Mg Tablet) 0.5 mg PO Q4H PRN PRN Reason: Anxiety Last Admin: 09/30/23 21:20 Dose: 0.5 mg Documented By: JUAN Omeprazole (Omeprazole 20 Mg Capsule.Dr) 20 mg PO BID@0630,1630 [facility] Last Admin: 10/01/23 06:01 Dose: Not Given Documented By: JUAN Non-Admin Reason: Patient Refused Ondansetron HCl (Ondansetron Hcl 4 Mg/2 Ml Vial) 4 mg IVPUSH Q8H PRN PRN Reason: Nausea and Vomiting Polyethylene Glycol (Polyethylene Glycol 3350 17 Gm Powd.Pack) 17 gm PO BID [facility] Last Admin: 09/30/23 21:22 Dose: 17 gm Documented By: JUAN Senna (Sennosides 8.6 Mg Tablet) 17.2 mg PO BEDTIME PRN PRN Reason: Constipation Senna (Sennosides 8.6 Mg Tablet) 8.6 mg PO DAILY [facility] Last Admin: 09/30/23 08:13 Dose: 8.6 mg Documented By: CHRIS Sodium Biphosphate/Sodium Phosphate (Sodium Phosphate,[place]-Dibasic 133 Ml Enema) 133 ml DC ONCE PRN PRN Reason: Constipation Last Admin: 09/28/23 18:19 Dose: 133 ml Documented By: CAITLIN Sodium Biphosphate/Sodium Phosphate (Sodium Phosphate,[place]-Dibasic 133 Ml Enema) 133 ml DC ONCE PRN PRN Reason: Constipation Last Admin: 09/29/23 13:41 Dose: 133 ml Documented By: CHRIS Sodium Biphosphate/Sodium Phosphate (Sodium Phosphate,[place]-Dibasic 133 Ml Enema) 133 ml DC ONCE PRN PRN Reason: constipation Sodium Chloride (0.9 % Sodium Chloride Flush 3 Ml Syringe) 3 ml IVFLUSH QSHIFT [facility] Last Admin: 10/01/23 08:03 Dose: 3 ml Documented By: CHRIS Sodium Chloride (Sodium Chloride 0.65 % Nasal 44 Ml Sprbtl) 2 spray NOSTRIL-B QID PRN PRN Reason: dry nasal passages Vitamin D (Cholecalciferol (Vitamin D3) 25 Mcg Tablet) 25 mcg PO DAILY [facility] Last Admin: 10/01/23 08:02 Dose: 25 mcg Documented By: CHRIS Labs 09/30/23 07:48 09/30/23 07:48 Assessment and Plan (1) GI bleed: Status: Acute (2) Loculated pleural effusion: Status: Acute Plan 82 year old female with history of paroxysmal atrial fibrillation anticoagulated with eliquis, asthma, ckd stage 3, HFpEF, history of complete heart block s/p pacemaker, pulmonary htn, htn, hld, and unspecified dementia admitted for melena and loculated pleural effusion with failure to thrive GIB/acute blood loss anemia No further bleeding since admission s/p IV PPI now on oral eliquis on hold seen by GI, s/p EGD 09/24 - gastritis, schatzki ring, possible barretts but no evidence of active bleeding colonoscopy showed moderate diverticulosis sigmoid colon otherwise normal, within limitations of prep no lesions were seen, no etiology for melena and anemia noted Will discuss risk/benefit of going back on anticoagulation Dysphagia Seen by speech, will undergo modified barium swallow today, currently on clear liquid Loculated pleural effusion with acute hypxomeic respiratory failure hx recurrent pleural effusion with h/o pleurix catheter 07/2020 on augmentin to cover for any possible associated pneumonia, will DC today since finish 7 day course attempted to wean oxygen 09/25, o2 sat down to 89%, will continue supplemental oxygen 1L NC, wean as tolerated seen by Pulmonary> no need for thoracentesis at this time Will resume Lasix Constipation large stool burden on imaging, resolved, continue MiraLax, dulcolax,and senna. NICK on CKD3. Resolved Lasix and Aldactone on hold, will resume Lasix encourage incentive spirometry . Acute Hyperkalemia, mild Resolved Paroxysmal atrial fibrillation hold eliquis due to GIB, heart rate stable, metoprolol on hold HFpEF stable and well compensated, mild hypoxia and chest x-ray with pulmonary congestion will resume Lasix hold aldactone Moderate malnutrition. BMI 14.3 Seen by nutrition on ensure supplements SCPs full code Requires ongoing hospitalization for acute blood loss anemia, workup for dysphagia, Will need to discuss end of life issues with family pending results of workup. Quality Stroke Does the patient have a stroke diagnosis?: No VTE Prior VTE?: No VTE Risk Level:: Medical - moderate - high VTE Device Contraindication: Treatment Not Indicated VTE Drug Contraindication: N/A - Med Ordered
[2023-10-01] MEDS: Omeprazole 20 MG CAPSULE.DR PO (18:02)
[2023-10-01] MEDS: LORazepam 0.5 MG TABLET PO (22:01)
[2023-10-01] MEDS: polyethylene glycoL 3350 17 GM POWD.PACK PO (22:01)
[2023-10-01] MEDS: bisacodyL 5 MG TABLET.DR 10 MG PO (22:02)
[2023-10-01] MEDS: Docusate Sodium 100 MG CAPSULE PO (22:05)
[2023-10-02] VITALS (11 sets, daily range): BP systolic 105–123; BP diastolic 48–65; PULSE 73–95; RESP 18–22; TEMP 36.1–36.8; O2SAT 83–100
--- NOTE | 2023-10-02 04:52 | PC.NURSE ---
Addendum entered by Jonh Pemberton RN 10/02/23 06:28: CXR, BNP, repeat labs ordered. 20 Lasix PO administered. Pt desat to 85%, recovered with 8L oxymask. satting 98% on 4L oxymask presently. Original Note: Pt A+Ox2, on 3-4L nasal cannula when awake and oxymask while sleeping d/t mouth breathing. maintains O2 >92%. however, pt repeatedly removes device and desats as low as 79%. pt reports difficulty breathing when her O2 gets that low. not dyspneic or labored on observation. reapply oxymask and she recovers to >92% when cued. MD notified. pt with no complaints or requests at this time. call lutz in reach. son at bedside. care plan ongoing.
[2023-10-02] MEDS: Levothyroxine Sodium 100 MCG TABLET PO (05:32)
[2023-10-02] MEDS: Omeprazole 20 MG CAPSULE.DR PO ×2 (05:32→16:52)
[2023-10-02] MEDS: Furosemide 40 MG TABLET PO (06:04)
[2023-10-02] MEDS: polyethylene glycoL 3350 17 GM POWD.PACK PO ×2 (08:50→21:21)
[2023-10-02] MEDS: Cholecalciferol (Vitamin D3) 25 MCG TABLET PO (08:50)
[2023-10-02] MEDS: Sennosides 8.6 MG TABLET PO (08:50)
[2023-10-02] MEDS: 0.9 % Sodium Chloride Flush 3 ML SYRINGE IVFLUSH ×2 (08:50→16:53)
[2023-10-02] MEDS: Furosemide 20 MG TABLET PO (08:50)
[2023-10-02] MEDS: Furosemide 20 MG/2 ML VIAL IVPUSH (12:12)
--- NOTE | 2023-10-02 14:11 | P.PNIM_ITS ---
Subjective Subjective Date of Service: 10/02/23 Interval History: Patient resting in bed, complaining of mild shortness of breath, denies pain, no fevers, no chills, no other acute complaints and events from last night noted patient was found to be hypoxic 85% therefore was placed on OxyMask 8 L noted to be satting 98% therefore placed on 4 L with stable oxygenation. Review of Systems All other system reviewed and negative. Physical Exam 2 Vital Signs: Vital Signs: Last Vital Signs Temp 98.2 F 10/02/23 11:36 Pulse 74 10/02/23 11:36 Resp 22 H 10/02/23 11:36 BP 123/65 10/02/23 11:36 Pulse Ox 100 10/02/23 12:54 O2 Del Method Oxymask 10/02/23 12:54 O2 Flow Rate 4 10/02/23 11:36 Oxygen Flow Rate 4 10/02/23 12:54 BMI result Body Mass Index 14.3 Const: Other: General frail, cachectic , awake, alert , in no acute distress. Neck no JVD. CVS regular rate rhythm, Respiratory lungs basilar crackles, no respiratory distress Gastrointestinal abdomen soft, non tender, bowel sounds audible, no guarding , no rigidity. Extremities no edema. Neuro moving all 4 extremity, speech clear. Skin no rash Objective Data Active Medications Acetaminophen (Acetaminophen 325 Mg Tablet) 650 mg PO Q6H PRN PRN Reason: Pain, Mild (Pain Scale 1-3) Last Admin: 09/29/23 21:21 Dose: 650 mg Documented By: SANDRA Bisacodyl (Bisacodyl 5 Mg Tablet.) 10 mg PO BEDTIME [facility] Last Admin: 10/01/23 22:02 Dose: 10 mg Documented By: JUAN Docusate Sodium (Docusate Sodium 100 Mg Capsule) 100 mg PO BEDTIME [facility] Last Admin: 10/01/23 22:05 Dose: 100 mg Documented By: JUAN Ferrous Sulfate (Ferrous Sulfate 324 Mg Tablet.) 324 mg PO DAILY [facility] Last Admin: 10/02/23 08:51 Dose: Not Given Documented By: BRIAN Non-Admin Reason: inability to swallow/ E.C. tablet Furosemide (Furosemide 20 Mg Tablet) 20 mg PO DAILY [facility]; Protocol Last Admin: 10/02/23 08:50 Dose: 20 mg Documented By: BRIAN Levothyroxine Sodium (Levothyroxine Sodium 100 Mcg Tablet) 100 mcg PO DAILY@0600 [facility] Last Admin: 10/02/23 05:32 Dose: 100 mcg Documented By: JUAN Omeprazole (Omeprazole 20 Mg Capsule.) 20 mg PO BID@0630,1630 [facility] Last Admin: 10/02/23 05:32 Dose: 20 mg Documented By: JUAN Ondansetron HCl (Ondansetron Hcl 4 Mg/2 Ml Vial) 4 mg IVPUSH Q8H PRN PRN Reason: Nausea and Vomiting Polyethylene Glycol (Polyethylene Glycol 3350 17 Gm Powd.Pack) 17 gm PO BID [facility] Last Admin: 10/02/23 08:50 Dose: 17 gm Documented By: BRIAN Senna (Sennosides 8.6 Mg Tablet) 17.2 mg PO BEDTIME PRN PRN Reason: Constipation Senna (Sennosides 8.6 Mg Tablet) 8.6 mg PO DAILY [facility] Last Admin: 10/02/23 08:50 Dose: 8.6 mg Documented By: BRIAN Sodium Biphosphate/Sodium Phosphate (Sodium Phosphate,[place]-Dibasic 133 Ml Enema) [address] ONCE PRN PRN Reason: Constipation Last Admin: 09/28/23 18:19 Dose: 133 ml Documented By: CAITLIN Sodium Biphosphate/Sodium Phosphate (Sodium Phosphate,[place]-Dibasic 133 Ml Enema) [address] ONCE PRN PRN Reason: Constipation Last Admin: 09/29/23 13:41 Dose: 133 ml Documented By: CHRIS Sodium Biphosphate/Sodium Phosphate (Sodium Phosphate,[place]-Dibasic 133 Ml Enema) [address] ONCE PRN PRN Reason: constipation Sodium Chloride (0.9 % Sodium Chloride Flush 3 Ml Syringe) 3 ml IVFLUSH QSHIFT [facility] Last Admin: 10/02/23 08:50 Dose: 3 ml Documented By: BRIAN Sodium Chloride (Sodium Chloride 0.65 % Nasal 44 Ml Sprbtl) 2 spray NOSTRIL-B QID PRN PRN Reason: dry nasal passages Vitamin D (Cholecalciferol (Vitamin D3) 25 Mcg Tablet) 25 mcg PO DAILY [facility] Last Admin: 10/02/23 08:50 Dose: 25 mcg Documented By: BRIAN Labs 09/30/23 07:48 09/30/23 07:48 Assessment and Plan (1) GI bleed: Status: Acute (2) Loculated pleural effusion: Status: Acute Plan 82 year old female with history of paroxysmal atrial fibrillation anticoagulated with eliquis, asthma, ckd stage 3, HFpEF, history of complete heart block s/p pacemaker, pulmonary htn, htn, hld, and unspecified dementia admitted for melena and loculated pleural effusion with failure to thrive GIB/acute blood loss anemia Cause of bleed not found No further bleeding since admission s/p IV PPI now on oral eliquis on hold seen by GI, s/p EGD 09/24 - gastritis, schatzki ring, possible barretts but no evidence of active bleeding colonoscopy showed moderate diverticulosis sigmoid colon otherwise normal, within limitations of prep no lesions were seen, no etiology for melena and anemia noted Spoke with Dr. Pierre from Cardiology and Dr. Orozco , due to risk of bleeding, with frailty and moderate malnutrition will hold Eliquis for now recommend outpatient follow-up with Cardiology. Dysphagia Seen by speech, patient refused to undergo modified barium swallow seen by speech today placed on thin liquids and ground mechanical diet. Loculated pleural effusion with acute hypxomeic respiratory failure/ Acute HFpEF hx recurrent pleural effusion with h/o pleurix catheter 07/2020 Finish 7 day course of Augmentin Continue supplemental oxygen seen by Pulmonary> no need for thoracentesis at this time Noted to have worsening hypoxia overnight chest x-ray concerning for pulmonary edema versus infectious or inflammatory infiltrates. Will treat with IV Lasix follow I's and O's, follow BMP Constipation large stool burden on imaging, resolved, continue MiraLax, dulcolax,and senna. NICK on CKD3. Resolved Resume Lasix as above/follow BMP Acute Hyperkalemia, mild Resolved/Aldactone on hold Paroxysmal atrial fibrillation hold eliquis due to GIB, heart rate stable, metoprolol on hold Moderate malnutrition. BMI 14.3 Seen by nutrition on ensure supplements SCPs full code :goal of care discussed with patient's and 2 daughters at bedside and recommend DNR DNI, family will discuss among themselves and will inform us about there decision. Requires ongoing hospitalization for acute hypoxic respiratory failure. Quality Stroke Does the patient have a stroke diagnosis?: No VTE Prior VTE?: No VTE Risk Level:: Medical - moderate - high VTE Device Contraindication: Treatment Not Indicated VTE Drug Contraindication: N/A - Med Ordered
--- NOTE | 2023-10-02 14:25 | P.CDIM_ITS ---
PROVIDER RESPONSE TEXT: To clarify, the appropriate diagnosis supported by the clinical indicators: Clinically unable to determine (explain): cause of bleeding not found QUERY TEXT: PHYSICIAN'S DOCUMENTATION REQUEST Date of Query: 10/02/2023 10:36 AM EDT Patient Name: Mey Schmitz Admit Date: 09/23/2023 Dear Avani Lock, A review of the medical record indicates additional documentation may be needed. Please review below and update the documentation accordingly. Clinical Indicators: Per H&P 09/23/23: paroxysmal atrial fibrillation anticoagulated with eliquis H&H on 09/23/23: 11.7/36.5 H&H on 09/25/23: 8.5/27.2 Per Hospitalist Progress Note on 10/01/23: GIB/acute blood loss anemia No further bleeding since admission s/p IV PPI now on oral eliquis on hold seen by GI, s/p EGD 09/24 - gastritis, schatzki ring, possible barretts but no evidence of active blee ding colonoscopy showed moderate diverticulosis sigmoid colon otherwise normal, within limitations of prep no lesions were seen, no etiology for melena and anemia noted Will discuss risk/benefit of going back on anticoagulation Based on the above, could you clarify if the acute blood loss anemia you are evaluating, treating, an d/or monitoring may be related to Adverse effect of anti-coagulant Hemorrhagic disorder due to extrinsic circulating anti-coagulant Other (explain) Clinically unable to determine (explain) Thank you, Laurence Pittman RN Use of terms such as suspected, likely, concern for, or probable (associated with a specific diagnosi s that is being evaluated, monitored, or treated as if it exists) are acceptable and can be coded in the inpatient se tting, when documented at the time of discharge. Please use your independent medical judgment in providing your response. THIS QUERY IS PART OF THE PERMANENT MEDICAL RECORD
--- NOTE | 2023-10-02 14:39 | MHC.CM.PN ---
Addendum entered by Deborah Borja 10/02/23 15:49: Second IMM signed 10/02/23, anticipate DC 10/03/23, late morning. Original Note: CM met with pt and family to discuss DC plan, family would like palliative care for pt., they do not want Hospice because they want to be able to have her go to the hospital if needed. Referrals out for [facility]NA / palliative care, [facility] responded, info to be faxed to them. info given to family on private home care services and [facility] liason contacted to follow up at this time with family for their services. DC plan is home via ambulance on 10/03/23. Family has asked that we not use [facility], they were very unhappy with the care pt received from them on the trip here.
--- NOTE | 2023-10-02 17:18 | PC.NURSE ---
Rosendo Zavala in to speak with pt's at bedside, he notes he will touch base with case management tomorrow.
--- NOTE | 2023-10-02 17:52 | MHC.SL.SWA ---
Speech Pathologist Impression: Risk of Aspiration Due to: Neurological Condition Weak Cough Dysphasia Diet Status: Patient would benefit from multiple small meals throughout the day to encourage PO intake Recommend Patient's diet be advanced to Ground/Mechanical (NDD2) and THIN liquids (NO STRAW), pills crushed in puree. If patient prefers to drink by straw, recommend liquids be thickened to nectar consistency. Liquid Consistency and Strategies for Safe Swallow: Liquid Intake Recommendation: Thin Liquid Intake Strategies: Small Sips No Straws Solid Food Consistency: Dietary Recommendations: Grnd/Mech Altered (NDD2) Additional Modifications to Solid Foods: Oral Medication Intake: Crushed with Puree Please contact the pharmacy regarding appropriate crushable or liquid drug formulations that are available whenever modified delivery is recommended. Compensatory Strategies and Precautions to be Taken for Safe Swallow: Sitting Upright (90 deg) No Straw Alternate Liquids/Solids Rate of Ingestion Change Supervision While Eating and Drinking for Safe Swallow: Total Supervision (1:1) Foods to Avoid: Swallowing Recommended Treatments: Compens. Strategy Educat. Recommendation for Speech: Outpatient Speech Therapy Inpatient Speech Therapy Comment: MBSS evaluation was attempted yesterday (09/30), however patient refused to participate and it was cancelled. Patient was seen this morning for a repeat bedside swallow evaluation to potentially advance diet. Patient was wearing 02 mask this morning, seated comfortably in bed with daughters present in room, who were concerned about her being able to eat. Patient was able to follow all directions for this evaluation, but remained reluctant throughout, and frequently refused, saying enough or I'm full to small amounts of food presented. Patient was given ice chip initially, which she held and dissolved in mouth, which appeared dry. Patient was then given water by tsp. and cup sip with patient producing a mild delay initiating swallow, mildly reduced laryngeal elevation, no clinical signs of aspiration. On straw sip of liquid, patient attempted to take several sips, then produced a wet cough, wet vocal quality. On puree, patient took only small amount from presented tsp, produced a timely oral phase and mild delay of swallow, no clinical signs of aspiration. Patient was given a softened cracker in puree, with patient producing a slow munching pattern, grimacing at times, then mild delay of swallow, with good oral clearance. Patient then refused any further trials of food or liquid. Recommend UPGRADE diet to Ground/Mechanical (NDD2) with THIN liquids by spoon or cup sip only (no straw), pills crushed in puree. If straw is preferred for drinking liquids, recommend NECTAR THICK liquids when drinking with straw. Patient has pattern of preferring to drink liquids v. eating food, and prefers taking liquid by straw, but may gulp creating an aspiration risk if liquid is thin. Recommendations discussed with family, as well as the ongoing recommendation that patient attempt to eat frequent smaller meals throughout day, given adult FTT and patients quick satiation. With patient refusal, giving patient breaks and re-offering food can also be a strategy. MD/RD notified of recommendation by secure text, RN in person. Family in agreement with recommendations. Frequency/Duration: Date Range for Service Req: Timeline to reassess: Court Orderly Clinican/Clinical Fellow: No Supervisory Statement: I have reviewed and agree with the student/clinical fellow's documentation: N/A Speech Language Pathologist: Anjali Giordano M.A., CCC-SURVEY PROJECT MANAGER
[2023-10-02] MEDS: Docusate Sodium 100 MG CAPSULE PO (21:21)
[2023-10-02] MEDS: LORazepam 0.5 MG TABLET PO (21:21)
[2023-10-02] MEDS: bisacodyL 5 MG TABLET.DR 10 MG PO (21:21)
[2023-10-03 04:00] VITALS: BP 115/62; PULSE 96; RESP 18; TEMP 36.6; O2SAT 95
[2023-10-03 07:00] VITALS: O2SAT 100
[2023-10-03 07:42] VITALS: BP 128/59; PULSE 72; RESP 22; TEMP 36.1; O2SAT 97
[2023-10-03] MEDS: polyethylene glycoL 3350 17 GM POWD.PACK PO (08:13)
[2023-10-03] MEDS: 0.9 % Sodium Chloride Flush 3 ML SYRINGE IVFLUSH ×2 (08:13)
[2023-10-03] MEDS: Cholecalciferol (Vitamin D3) 25 MCG TABLET PO (08:13)
[2023-10-03] MEDS: Furosemide 20 MG TABLET PO (08:13)
[2023-10-03] MEDS: Sennosides 8.6 MG TABLET PO (08:13)
[2023-10-03 10:28] VITALS: BMI 14.3
--- NOTE | 2023-10-03 10:32 | MHC.CLN ---
RE: CONSULT PT IS MODERATELY MALNOURISHED PT WITH MILDLY DEPLETED SUBCUTANEOUS FAT AND MUSCLE MASS, BMI 14.3 WITH 8% NONSIGNIFICANT WT LOSS X 1 YEAR AND CHRONIC POOR PO INTAKE >/=3 MONTHS PREVIOUS WT HX REVEALS: 33.3KG (09/23/23) 33.2KG (03/03/23) 36KG (08/29/22) 8% NONSIGNIFICANT LOSS PT REPORTS SHE PREVIOUSLY LOST WT 3 YEARS AGO (UNABLE TO PROVIDE AMOUNT) BUT NEVER RETURNED BACK TO BASELINE AND FAMILY REPORTS CHRONIC POOR PO INTAKE FOR SEVERAL MONTHS DIRECTOR PRINT WITH OVERALL DECLINE PO INTAKE POOR; PT CONSUMING 0-25% DIET ADVANCED TO GRD/MS PER BOTTLING MACHINE OPERATOR RECOMMEND RE-STARTING ENSURE BID TO INCREASE KCALS AND PROMOTE WT GAIN/WOUND HEALING SUPPLEMENT TO PROVIDE 700KCALS, 40G PROTEIN SUPPLEMENT WILL PROMOTE WOUND HEALING-NEW STAGE 2 SACRUM AND UPPER BACK NOTED (ID 10/01) MONITOR PO INTAKE AND ENCOURAGE SUPPLEMENT SEE ALSO FULL CLINICAL NUTRITION ASSESSMENT DATED 10/03/23
[2023-10-03 11:19] VITALS: BP 127/54; PULSE 73; RESP 22; TEMP 36.6; O2SAT 100
--- NOTE | 2023-10-03 12:12 | P.DS_ITS ---
DS: Providers Provider Date of Service: 10/03/23 Date of admission: 09/23/23 18:29 Primary care physician: Rj Mclaughlin MD Consults: 09/23/23 18:28 Consult to Gastroenterology Routine Consulting Provider: Jairo Bird Reason for consultation: ugib Consult to Pulmonology [place]ine [place]ing [place] [facility] [place] [facility] Reason for consultation: loculated pleural effusion 10/02/23 11:28 Consult to Wound Care Routine Reason for consultation: Spine/ sacrum pressure injuries to bony prominences Has provider been notified: Yes DS: Diagnosis Discharge Diagnosis (1) GI bleed: Status: Acute (2) Loculated pleural effusion: Status: Acute DS: Summary Hospital Course Hospital Course: History of presenting illness: Date of Service: 09/23/23 Attending physician on admission: Evens Mcdowell Chief Complaint: hypoxia 82 year old female with history of paroxysmal atrial fibrillation anticoagulated with eliquis, asthma, ckd stage 3, HFpEF, history of complete heart block s/p pacemaker, pulmonary htn, htn, hld, and unspecified dementia presented to the ED for evaluation of hypoxia. Pt reportedly had intake at home with PT and was no suraj to desatuate to 85% on RA. No reported dyspnea, cough, chest pain, lightheadedness, palpitations, fevers, chills. No recent illness. Has history of recurrent pleural effusions requiring pleur-x chest tube in the past, removed in 07/2020. No hypoxia at baseline. The patient's is also reporting dark tarry stools over the last few weeks. Pt reports abd pain when hungry. No nausea or vomiting. Family is reporting decreased appetite ongoing for several months. Currently 29.6 kg, was 36.2kg at last in person evaluation in 04/2023. On arrival, VSS, but hypoxic and placed on 4L supplemental O2 maintaining oximetyr 95-97%. Mild leukocytosis 12.1. H/H 11.7/36.5%, consistent with baseline. Renal function baseline, K 5.2 with slight hemolysis noted. OBS positive. Negative for covid, flu, rsv. CXR shows mild cardiomegaly and pulm htn without edema. There is a small R pleural effusion decreased compared to priors. There is also pleural based abnormality in the L hemithorax likely a loculated pleural effusion. In ed, given 40mg pantoprazole and 0.5mg lorazepam. Reports taking occassional excedrin, but no other nsaids. Hospital course: 82 year old female with history of paroxysmal atrial fibrillation anticoagulated with eliquis, asthma, ckd stage 3, HFpEF, history of complete heart block s/p pacemaker, pulmonary htn, htn, hld, and unspecified dementia admitted for melena and loculated pleural effusion with failure to thrive and noted to have following medical issues. acute blood loss anemia due to GI bleed, patient admitted to medical floor noted to have no further bleeding since admission, stool guaiacs were positive patient was treated with intravenous PPI, Eliquis was held, she was seen by GI, s/p EGD 09/24 - gastritis, schatzki ring, possible barretts but no evidence of active bleeding noted,colonoscopy showed moderate diverticulosis sigmoid colon otherwise normal, within limitations of prep no lesions were seen, no etiology for melena and anemia noted,, hematocrit remained stable did not require blood transfusion, patient Eliquis has been discontinued upon discharge due to risk for bleeding, recommend outpatient follow-up with Cardiology to consider restarting Eliquis if noted to have no recurrent bleed in next 2-4 weeks In regard to Dysphagia she was evaluated by speech therapy, patient refused to undergo modified barium swallow, speech recommended thin liquids and ground mechanical diet patient by mouth intake remains limited but tolerating current diet treat recommendations. Acute hypxomeic respiratory failure/ Acute HFpEF and chronic loculated right pleural effusion, patient status post PleurX catheter placement in July of 2020 due to recurrent pleural effusion, no repeat thoracocentesis was done during this hospitalization as per pulmonology recommendation, in regard to heart failure patient treated with IV Lasix and now discharged home on by mouth Lasix, patient finished 1 week course of Augmentin , due to persistent hypoxia patient evaluated by respiratory therapy and is being discharged home on 4 L of continuous oxygen. Constipation noted to have large stool burden on imaging, constipation resolved, continue MiraLax, dulcolax,and senna. NICK on CKD3. Resolved Mild Acute Hyperkalemia, resolved was likely due to Aldactone. Paroxysmal atrial fibrillation stable heart rate both metoprolol and Eliquis discontinued Moderate malnutrition. BMI 14.3 continue supplements as tolerated. Due to multiple comorbidities as above with failure to thrive case discussed with patient's healthcare proxy and patient is being discharged home with hospice care. Time Attestation Discharge Coordination Time (in mins): 40 Quality: Safe Use of Opioids Does Pt have an Active Cancer Diagnosis on the Problem List?: No Quality: Stroke Does the patient have a stroke diagnosis?: No Physical Exam Vital Signs: Vital Signs: Last Vital Signs Temp 97.9 F 10/03/23 11:19 Pulse 73 10/03/23 11:19 Resp 22 H 10/03/23 11:19 BP 127/54 L 10/03/23 11:19 Pulse Ox 100 10/03/23 11:19 O2 Del Method Oxymask 10/03/23 11:19 O2 Flow Rate 4 10/03/23 11:19 Oxygen Flow Rate 4 10/03/23 07:00 BMI result Body Mass Index 14.3 Const: Other: General very frail, cachectic female, awake, alert , in no acute distress. Neck no JVD. CVS regular rate rhythm, Respiratory lungs coarse, no respiratory distress Gastrointestinal abdomen soft, non tender, bowel sounds audible, no guarding , no rigidity. Extremities no edema. Neuro moving all 4 extremity, speech clear. DS: Data Data Completed and Pending Completed studies during hospitalization [Text1]: Pending at discharge 09/25/23 14:52 Surgical [PTH] Routine Procedures Ultrasonography of Heart with Aorta, Transesophageal (04/29/21) Pending studies at discharge: Pending at discharge 09/23/23 19:24 Cytology [PTH] Routine Discharge Plan Discharge Anticipated Discharge Date/Time: 10/03/23 11:28 Patient Disposition: Hospice - Home Discharge Diagnosis: Acute blood loss anemia due to GI bleed Dysphagia Acute hypoxic respiratory failure Acute heart failure with preserved EF NICK on chronic kidney disease stage 3 Mild hyperkalemia Paroxysmal atrial fibrillation Referrals: [facility] R[facility] [Outside] - 1 Week Rj Mclaughlin MD [Primary Care Provider] - 1 Week Discharge Medications: New docusate sodium 100 mg Capsule 100 mg PO BEDTIME Qty: 30 0RF polyethylene glycol 3350 17 gram Powder In Packet 17 g PO DAILY Qty: 100 0RF sennosides [Senna Lax] 8.6 mg Tablet 8.6 mg PO DAILY Qty: 30 0RF omeprazole 20 mg capsule,delayed release(DR/EC) 20 mg PO DAILY Qty: 30 0RF morphine concentrate 100 mg/5 mL (20 mg/mL) solution 5 mg PO Q3H PRN (Reason: pain/comfort) 15 Days Qty: 30 0RF Rx Instructions: Partial Fill upon patient request. lorazepam 0.5 mg tablet 0.5 mg PO Q6H PRN (Reason: anxiety/restlessness) 4 Days Qty: 16 0RF lorazepam [Lorazepam Intensol] 2 mg/mL concentrate 0.5 mg PO Q4H PRN (Reason: anxiety/restlessness) Qty: 30 0RF Continued sodium chloride [Saline Nasal] 0.65 % aerosol,spray 2 spray intranasal QID PRN (Reason: dry nasal passages) Qty: 60 3RF levothyroxine 100 mcg tablet 100 mcg PO QAM 90 Days Qty: 90 3RF ferrous sulfate 325 mg (65 mg iron) Tablet 325 mg PO DAILY cholecalciferol (vitamin D3) 25 mcg (1,000 unit) Tablet 25 mcg PO DAILY furosemide 40 mg tablet 20 mg PO DAILY lorazepam 1 mg tablet 0.5 mg PO BEDTIME PRN (Reason: RESTLESSNESS) Discontinued Eliquis 2.5 mg tablet 2.5 mg PO BID 90 Days Qty: 180 3RF spironolactone 25 mg tablet 12.5 mg PO DAILY Qty: 90 3RF metoprolol succinate 100 mg tablet extended release 24 hr 100 mg PO BEDTIME Discharge Orders: Discharge Order (Routine); Ordered 10/03/23 Ordered By: Avani Lock Diet: Ground mechanical altered Activity on Discharge: As tolerated Stand Alone Forms: Patient Portal Discharge page Care Plan Goals: Acute hypoxic respiratory failure continue 4 L of oxygen Acute heart failure with preserved EF continue Lasix 20 mg daily, hold Aldactone Loculated right pleural effusion Paroxysmal atrial fibrillation. Eliquis discontinued due to risk of GI bleed and metoprolol discontinued due to soft blood pressures , heart rate remained stable paced rhythm Health Concerns: Moderate protein calorie malnutrition Heart failure with preserved EF Plan of Treatment: Outpatient follow-up with primary care physician call for appointment Assessment: As above
--- NOTE | 2023-10-03 12:21 | MHC.CM.PN ---
Second IMM given 10/02. Pts family wanted pt to go home with palliative care services, this CM unable to obtain these services for pt, [facility] palliative care unable to sign pt on until the week of October. This CM met with pts family to discuss D/C plan. Pt is eligible for hospice care at home and [facility] able to accept pt. This CM met with pts family to discuss what hospice care at the home looks like. Pts family in agreement and willing to have pt go home with [facility]. Home O2 ordered by [facility]. [facility] to admit pt on to their services today. Transport booked via [facility] at 1pm.
--- NOTE | 2023-10-03 12:48 | MHC.SL.SWA ---
Speech Pathologist Impression: Risk of aspiration, oropharyngeal dysphagia Risk of Aspiration Due to: Neurological Condition Weak Cough Dysphasia Diet Status: No changes at this time Liquid Consistency and Strategies for Safe Swallow: Liquid Intake Recommendation: Thin Liquid Intake Strategies: Small Sips Solid Food Consistency: Dietary Recommendations: Grnd/Mech Altered (NDD2) Oral Medication Intake: Crushed with Puree Please contact the pharmacy regarding appropriate crushable or liquid drug formulations that are available whenever modified delivery is recommended. Compensatory Strategies and Precautions to be Taken for Safe Swallow: Sitting Upright (90 deg) Small Bites and Sips Alternate Liquids/Solids Rate of Ingestion Change Supervision While Eating and Drinking for Safe Swallow: Total Supervision (1:1) Swallowing Recommended Treatments: Compens. Strategy Educat. Recommendation for Speech: Inpatient Speech Therapy Comment: Patient would benefit from multiple small meals throughout the day to encourage PO intake Recommend diet of Ground/Mechanical (NDD2) and THIN liquids (if drinking by STRAW, monitor for small individual sips with straw pinch and cues), pills crushed in puree. Frequency/Duration: Date Range for Service Req: Timeline to reassess: Wallpaper Remover Steam Clinican/Clinical Fellow: No Supervisory Statement: I have reviewed and agree with the student/clinical fellow's documentation: N/A Speech Language Pathologist: Irais Jenkins M.A., CCC-SPOKE MAKER
== END 2023-10-03 13:35 | disposition hospice, home (50) | DRG 377 ==
LOC: HO.ED 15:33 → HO.EDOVER 18:44 → HO.IMC 09-24 13:08
PROVIDERS: Hospitalist; Internal Medicine Gastroenterology; Nurse Practitioner Acute Care; Physician Assistant Medical; Admitting Provider Physician Assistant; Emergency Provider Emergency Medicine Emergency Medical Services; PCP Internal Medicine; Visit Provider Hospitalist
PROC: 0DJ08ZZ Inspection of Upper Intestinal Tract, Via Natural or Artificial Opening Endoscopic (ICD-10-PCS; CPT 43235; principal; 2023-09-25 16:20)
PROC: 0DJD8ZZ Inspection of Lower Intestinal Tract, Via Natural or Artificial Opening Endoscopic (ICD-10-PCS; CPT 45378; principal; 2023-09-30 14:10)
DX: K57.31 Diverticulosis of large intestine without perforation or abscess with bleeding (principal); I50.33 Acute on chronic diastolic (congestive) heart failure; J18.9 Pneumonia, unspecified organism; J96.01 Acute respiratory failure with hypoxia; D62 Acute posthemorrhagic anemia; I13.0 Hypertensive heart and chronic kidney disease with heart failure and stage 1 through stage 4 chronic kidney disease, or unspecified chronic kidney disease; I44.2 Atrioventricular block, complete; J98.11 Atelectasis; N17.9 Acute kidney failure, unspecified; J90 Pleural effusion, not elsewhere classified; E44.0 Moderate protein-calorie malnutrition; Z68.1 Body mass index [BMI] 19.9 or less, adult; K29.71 Gastritis, unspecified, with bleeding; E87.5 Hyperkalemia; K22.70 Barrett's esophagus without dysplasia; I48.0 Paroxysmal atrial fibrillation; K80.20 Calculus of gallbladder without cholecystitis without obstruction; R13.10 Dysphagia, unspecified; E86.0 Dehydration; K22.2 Esophageal obstruction; K59.00 Constipation, unspecified; E88.A Wasting disease (syndrome) due to underlying condition; R62.7 Adult failure to thrive; J45.20 Mild intermittent asthma, uncomplicated; N18.30 Chronic kidney disease, stage 3 unspecified; Z95.0 Presence of cardiac pacemaker; F03.90 Unspecified dementia, unspecified severity, without behavioral disturbance, psychotic disturbance, mood disturbance, and anxiety; E03.9 Hypothyroidism, unspecified; Z20.822 Contact with and (suspected) exposure to COVID-19; Z79.01 Long term (current) use of anticoagulants; Z79.890 Hormone replacement therapy; Z79.899 Other long term (current) drug therapy
CPT/HCPCS: 0241U; 36415; 70450; 71045; 71046; 71250; 74018; 74176; 74230; 76705; 80048; 80053; 80076; 82272; 83010; 83605; 83615; 85025; 85027; 85045; 85610; 85730; 87040; 88305; 88313; 88342; 92526; 92610; 93005; 99285; C9113; J1940; J2060; J2371; J2704; J7120; P9047

== ENCOUNTER → 2023-09-23 14:02 | Outpatient (BNV) | payer MEDICARE, SELFPAY | PROVIDERS: Emergency Provider Emergency Medicine Emergency Medical Services; PCP Internal Medicine; Visit Provider Internal Medicine Cardiovascular Disease | DX: R94.31 Abnormal electrocardiogram [ECG] [EKG] (principal) | CPT/HCPCS: 93010 ==

== ENCOUNTER 2023-09-23 18:29 | Outpatient (BNV) | payer MEDICARE, SELFPAY | END 2023-10-01 08:00 | PROVIDERS: Admitting Provider Physician Assistant; Emergency Provider Emergency Medicine Emergency Medical Services; PCP Internal Medicine; Visit Provider Physician Assistant Surgical | DX: R13.10 Dysphagia, unspecified (principal) | CPT/HCPCS: 74230 ==

== ENCOUNTER → 2023-09-23 18:29 | Outpatient (BNV) | payer MEDICARE, SELFPAY | PROVIDERS: Admitting Provider Physician Assistant; Emergency Provider Emergency Medicine Emergency Medical Services; PCP Internal Medicine; Visit Provider Internal Medicine Gastroenterology | DX: K92.1 Melena (principal); D64.9 Anemia, unspecified; K57.90 Diverticulosis of intestine, part unspecified, without perforation or abscess without bleeding | CPT/HCPCS: 43239; 45378; 99223; 99232 ==

== ENCOUNTER → 2023-09-23 18:29 | Outpatient (BNV) | payer MEDICARE, SELFPAY | PROVIDERS: Admitting Provider Physician Assistant; Emergency Provider Emergency Medicine Emergency Medical Services; PCP Internal Medicine; Visit Provider Physician Assistant | DX: K92.1 Melena (principal); J90 Pleural effusion, not elsewhere classified | CPT/HCPCS: 99223; 99232; 99233; 99239 ==

== ENCOUNTER → 2023-09-23 18:29 | Outpatient (BNV) | payer MEDICARE, SELFPAY | PROVIDERS: Admitting Provider Physician Assistant; Emergency Provider Emergency Medicine Emergency Medical Services; PCP Internal Medicine; Visit Provider Hospitalist | DX: J96.01 Acute respiratory failure with hypoxia (principal); J90 Pleural effusion, not elsewhere classified | CPT/HCPCS: 99223; 99233 ==